=== PATIENT | female | born 1980 | race Caucasian/White ===

== ENCOUNTER → 2017-08-03 | Outpatient (CLI) | payer MEDICARE, OTHER ==
[~2017-08-03] MED LIST: ALBU8I INH; ALPR0.5T3 PO; CLOZ100T3 PO; PENI250T59 PO; RANI150T PO
== END ==
LOC: CDED 10:09
PROVIDERS: ATTEND Family Medicine
DX: O24.111 Pre-existing type 2 diabetes mellitus, in pregnancy, first trimester (principal)
CPT/HCPCS: 97802

== ENCOUNTER → 2017-10-17 | Outpatient (CLI) | payer MEDICARE, OTHER | LOC: HPND 09:45 | PROVIDERS: ATTEND Obstetrics & Gynecology | DX: O24.112 Pre-existing type 2 diabetes mellitus, in pregnancy, second trimester (principal); O99.342 Other mental disorders complicating pregnancy, second trimester; O09.512 Supervision of elderly primigravida, second trimester; O99.212 Obesity complicating pregnancy, second trimester; O44.42 Low lying placenta NOS or without hemorrhage, second trimester; E66.09 Other obesity due to excess calories; Z68.34 Body mass index [BMI] 34.0-34.9, adult; Z36.3 Encounter for antenatal screening for malformations | CPT/HCPCS: 76811 ==

== ENCOUNTER → 2017-11-14 | Outpatient (CLI) | payer MEDICARE, OTHER | LOC: HPND 10:13 | PROVIDERS: ATTEND Obstetrics & Gynecology | DX: O09.522 Supervision of elderly multigravida, second trimester (principal); O24.112 Pre-existing type 2 diabetes mellitus, in pregnancy, second trimester; O99.342 Other mental disorders complicating pregnancy, second trimester; O99.332 Smoking (tobacco) complicating pregnancy, second trimester | CPT/HCPCS: 76816; 76825; 76827; 93325 ==

== ENCOUNTER → 2017-12-18 | Outpatient (CLI) | payer MEDICARE, OTHER | LOC: HPND 10:03 | PROVIDERS: ATTEND Obstetrics & Gynecology | DX: O09.522 Supervision of elderly multigravida, second trimester (principal); O24.112 Pre-existing type 2 diabetes mellitus, in pregnancy, second trimester; O99.342 Other mental disorders complicating pregnancy, second trimester; O99.332 Smoking (tobacco) complicating pregnancy, second trimester | CPT/HCPCS: 76816 ==

== ENCOUNTER 2018-03-22 16:29 | Inpatient (IN) | payer MEDICARE, OTHER ==
[~2018-03-22] VITALS: Ht 154.9 cm; Wt 82.5 kg
[2018-03-22] MEDS ORDERED: CLOZ100T PO (16:39)
[2018-03-22] MEDS ORDERED: CEPHALEXIN MONOHYDRATE 500 MG CAP PO SCH (16:45)
--- NOTE | 2018-03-22 16:49 | PD ---
HPI Chief Complaint: Psychiatric Symptoms Time Seen by Provider: 16:33 Travel History International Travel<30 days: No Contact w/Intl Traveler<30days: No History of Present Illness HPI 37-year-old female with history of schizophrenia, is brought in under the [place] act after recent 10 days ago, and patient's unwillingness to shower or take care of herself, as well as her unwillingness to let anyone else take care of her baby. Patient states she is hearing voices. She denies suicidal or homicidal ideation. She denies any significant pain. Patient was on antibiotics for her incision. She cannot remember the name of them. She is allergic to haloperidol, and risperidone. PFSH Past Medical History Arthritis: Yes (spine) Asthma: Yes (per pt) Bipolar Disorder: Yes Anxiety: Yes Depression: Yes Cancer: No Cardiovascular Problems: Yes High Cholesterol: Yes Chest Pain: Yes Diabetes: Yes Diminished Hearing: No Endocrine: Yes Fibromyalgia: Yes Gastrointestinal Disorders: Yes (prone to constipation) GERD: Yes Headaches: No Hypertension: Yes (per pt) Immune Disorder: No Implanted Vascular Access Dvce: No Psychiatric: Yes (Prior hospitalization at [facility]) Respiratory: No Integumentary: Yes (HIDRADENITIS SUPPERATIVA SKIN DISEASE DIAGNOSED DRJESSIE) Immunizations Current: No Schizophrenia: Yes Seizures: No PNEUMOCCOCAL Vaccine (Year): 2 : 0 Past Surgical History Other Surgery: No Social History Alcohol Use: Yes (SOCIAL) Tobacco Use: Yes (2 PPD) Substance Use: No Allergies-Medications (Allergen,Severity, Reaction): Coded Allergies: haloperidol (Unverified Allergy, Severe, Itching, 03/22/18) PT STATES SHE IS NOT ALLERGIC risperidone (Unverified Allergy, Severe, Itching, 03/22/18) PT STATES SHE IS NOT ALLERGIC Reported Meds & Prescriptions Reported Meds & Active Scripts Active Reported Clozaril (Clozapine) 100 Mg Tab 100 Mg PO DAILY Physical Exam Narrative GENERAL: Patient appears unkempt and malodorous. SKIN: Warm and dry. Normal color. Normal turgor. No rash. Patient has a well -healing incision site without signs of dehiscence or cellulitis. HEAD: Atraumatic. Normocephalic. EYES: Pupils equal and round. No scleral icterus. No injection or drainage. ENT: No nasal bleeding or discharge. Mucous membranes pink and moist. Pharynx is clear. Airways patent NECK: Trachea midline. Supple and nontender per CARDIOVASCULAR: Regular rate and rhythm. RESPIRATORY: No accessory muscle use. Clear to auscultation. Breath sounds equal bilaterally. GASTROINTESTINAL: Abdomen soft, mild suprapubic tenderness., nondistended. Hepatic and splenic margins not palpable. MUSCULOSKELETAL: Extremities without clubbing, cyanosis, or edema. No obvious deformities. NEUROLOGICAL: Awake and alert. No obvious cranial nerve deficits. Motor grossly within normal limits. Five out of 5 muscle strength in the arms and legs. Normal speech. Data Data Last Documented VS Vital Signs Date Time Temp Pulse Resp B/P (MAP) Pulse Ox O2 Delivery O2 Flow Rate FiO2 03/22/18 19:13 98.8 105 20 150/89 (109) 98 Room Air Orders Orders Complete Blood Count With Diff (03/22/18 16:44) Comprehensive Metabolic Panel (03/22/18 16:44) Thyroid Stimulating Hormone (03/22/18 16:44) Urinalysis - C+S If Indicated (03/22/18 16:44) Psych Screen (03/22/18 16:44) Drug Screen, Random Urine (03/22/18 16:44) Alcohol (Ethanol) (03/22/18 16:44) Cephalexin (Keflex) (03/22/18 16:45) Urine Culture (03/22/18 19:20) Labs Laboratory Tests Test 03/22/18 16:49 03/22/18 19:20 White Blood Count 13.0 TH/MM3 Red Blood Count 4.40 MIL/MM3 Hemoglobin 14.2 GM/DL Hematocrit 41.0 % Mean Corpuscular Volume 93.2 FL Mean Corpuscular Hemoglobin 32.2 PG Mean Corpuscular Hemoglobin Concent 34.5 % Red Cell Distribution Width 13.7 % Platelet Count 459 TH/MM3 Mean Platelet Volume 6.7 FL Neutrophils (%) (Auto) 77.6 % Lymphocytes (%) (Auto) 15.8 % Monocytes (%) (Auto) 4.0 % Eosinophils (%) (Auto) 1.7 % Basophils (%) (Auto) 0.9 % Neutrophils # (Auto) 10.1 TH/MM3 Lymphocytes # (Auto) 2.1 TH/MM3 Monocytes # (Auto) 0.5 TH/MM3 Eosinophils # (Auto) 0.2 TH/MM3 Basophils # (Auto) 0.1 TH/MM3 CBC Comment DIFF FINAL Differential Comment Blood Urea Nitrogen 5 MG/DL Creatinine 0.71 MG/DL Random Glucose 162 MG/DL Total Protein 8.0 GM/DL Albumin 3.2 GM/DL Calcium Level 8.8 MG/DL Alkaline Phosphatase 128 U/L Aspartate Amino Transf (AST/SGOT) 27 U/L Alanine Aminotransferase (ALT/SGPT) 43 U/L Total Bilirubin 0.4 MG/DL Sodium Level 139 MEQ/L Potassium Level 3.8 MEQ/L Chloride Level 106 MEQ/L Carbon Dioxide Level 22.1 MEQ/L Anion Gap 11 MEQ/L Estimat Glomerular Filtration Rate 94 ML/MIN Thyroid Stimulating Hormone 3rd Gen 0.536 uIU/ML Ethyl Alcohol Level LESS THAN 3 MG/DL Urine Color LIGHT-RED Urine Turbidity CLEAR Urine pH 6.0 Urine Specific [place] 1.019 Urine Protein 100 mg/dL Urine Glucose (UA) NEG mg/dL Urine Ketones 150 mg/dL Urine Occult Blood LARGE Urine Nitrite NEG Urine Bilirubin NEG Urine Urobilinogen 2.0 MG/DL Urine Leukocyte Esterase SMALL Urine RBC /hpf Urine WBC 107 /hpf Urine Squamous Epithelial Cells 2 /hpf Microscopic Urinalysis Comment CULTURE INDICATED Urine Opiates Screen NEG Urine Barbiturates Screen NEG Urine Amphetamines Screen NEG Urine Benzodiazepines Screen NEG Urine Cocaine Screen NEG Urine Cannabinoids Screen NEG MDM Medical Decision Making Medical Screen Exam Complete: Yes Emergency Medical Condition: Yes Differential Diagnosis Bipolar disorder. Schizophrenia. . UTI. incision cellulitis. Narrative Course The patient appears medically stable at time of exam. Patient is showered and cleansed. Labs ordered including CBC, CMP, urinalysis as well as psychiatric labs. CBC is unremarkable. CMP is normal. Urinalysis is obvious for urinary tract infection. Patient started on Keflex 500 mg 3 times daily for 7 days. Patient is medically cleared for psychiatric evaluation. Diagnosis Primary Impression: Urinary tract infection Qualified Codes: N30.01 - Acute cystitis with hematuria Condition: Stable Wiliam Fairbanks March 22, 2018 16:49
[2018-03-22 16:58] LABS: AUTOMATED NEUTROPHIL # 10.1 TH/MM3 (1.8-7.7); BASOPHIL # 0.1 TH/MM3 (0-0.2); BASOPHIL % 0.9 % (0.0-2.0); EOSINOPHIL # 0.2 TH/MM3 (0-0.4); EOSINOPHIL % 1.7 % (0.0-4.0); HEMOGLOBIN 14.2 GM/DL (11.6-15.3); LYMPH % 15.8 % (9.0-44.0); LYMPHOCYTE # 2.1 TH/MM3 (1.0-4.8); MEAN CELL VOLUME 93.2 FL (80.0-100.0); MEAN CORPUSCULAR HEMOGLOBIN 32.2 PG (27.0-34.0); MEAN CORPUSCULAR HGB CONC 34.5 % (32.0-36.0); MEAN PLATELET VOLUME 6.7 FL (7.0-11.0); MONOCYTE # 0.5 TH/MM3 (0-0.9); NEUT % 77.6 % (16.0-70.0); PLATELET COUNT 459 TH/MM3 (150-450); RED CELL DISTRIBUTION WIDTH 13.7 % (11.6-17.2)
[2018-03-22 17:26] LABS: ALBUMIN 3.2 GM/DL (3.4-5.0); ALT (GPT) 43 U/L (10-53); AST (GOT) 27 U/L (15-37); BICARBONATE 22.1 MEQ/L (21.0-32.0); BLOOD UREA NITROGEN 5 MG/DL (7-18); CALCIUM 8.8 MG/DL (8.5-10.1); CHLORIDE 106 MEQ/L (98-107); CREATININE 0.71 MG/DL (0.50-1.00); GLOMERULAR FILTRATION RATE 94 ML/MIN (>89); GLUCOSE,RANDOM 162 MG/DL (74-106); SODIUM (NA) 139 MEQ/L (136-145)
[2018-03-22 17:36] LABS: ALKALINE PHOSPHATASE 128 U/L (45-117); TOTAL BILIRUBIN ADULT 0.4 MG/DL (0.2-1.0)
[2018-03-22 19:13] VITALS: BP 150/89; PULSE 105; RESP 20; TEMP 98.8; O2SAT 98
[2018-03-22 19:52] LABS: BILIRUBIN, URINE NEG (NEG); BLOOD, URINE LARGE (NEG); GLUCOSE,URINE NEG (NEG); KETONE, URINE 150 mg/dL (NEG); NITRITE,URINE NEG (NEG); SQUAMOUS EPITHELIAL CELL URINE 2 /hpf (0-5); URINE LEUKOCYTE ESTERASE SMALL (NEG)
[2018-03-22 20:02] LABS: URINE COLOR LIGHT-RED (YELLW/STRAW)
[2018-03-22] MEDS ORDERED: CEPH-460 PO (20:36)
[2018-03-22 21:50] VITALS: BP 124/69; PULSE 83; RESP 18; TEMP 98.7; O2SAT 96
[2018-03-22 22:00] VITALS: BP 120/76; PULSE 89; RESP 20; TEMP 98.4; O2SAT 98
[2018-03-22] MEDS ORDERED: MAGNESIUM HYDROXIDE SUSP 30 ML CUP PO PRN (22:00)
[2018-03-22] MEDS ORDERED: LORazepam 2 MG/ML VIAL IM PRN (22:00)
[2018-03-22] MEDS ORDERED: ALUMINUM/MAGNESIUM/SIMETH 30 ML CUP PO PRN (22:00)
[2018-03-22] MEDS ORDERED: diphenhydrAMINE HCL 50 MG/ML VIAL - HS PRN IM (22:00)
[2018-03-23] MEDS: LORazepam 1 MG TAB PO PRN (00:28)
[2018-03-23] MEDS: diphenhydrAMINE HCL 50 MG CAP - HS PRN PO ×2 (01:54→21:25)
[2018-03-23] MEDS ORDERED: CEPHALEXIN MONOHYDRATE 500 MG CAP PO SCH (06:00)
[2018-03-23] MEDS: CEPHALEXIN MONOHYDRATE 500 MG CAP PO SCH ×3 (06:16→21:26)
[2018-03-23 06:39] VITALS: BP 102/66; PULSE 80; RESP 16; TEMP 98.3; O2SAT 99
[2018-03-23] MEDS ORDERED: cloZAPine 100 MG TAB PO SCH ×2 (09:00→21:00)
[2018-03-23] MEDS: NICOTINE 21 MG/24 HR PATCH T-DERMAL SCH (09:00)
--- NOTE | 2018-03-23 15:20 | HHI.HP ---
Provisional Diagnosis Admission Date March 22, 2018 at 21:44 [place] I. Schizophrenia, PTSD [place] II. deferred [place] III. DM, post [place] IV. Patient developed psychosis [place] V. 37 Certification of Person's Competence To Provide Express and Informed Consent I have personally examined Jada Rae , a person being served at [facility] on, March 23, 2018 14:58. Express and informed consent means consent voluntarily given in writing, by a competent person, after sufficient explanation and disclosure of the subject matter involved to enable the person to make a knowing and willful decision without any element of force, fraud, deceit, duress, or other form of constraint or coercion. This person is 18 years of age or older, is not now known to be incompetent to consent to treatment with a guardian advocate, and does not have a health care surrogate or proxy currently making medical treatment decisions. I have found this person to be one of the following: [] Competent to provide express and informed consent, as defined above, for voluntary admission to this facility and is competent to provide express and informed consent for treatment. He/she has the consistent capacity to make well reasoned, willful, and knowing decisions concerning his or her medical or mental health treatment. The person fully and consistently understands the purpose of the admission for examination/placement and is fully capable of personally exercising all rights assured under [place] Incompetent to provide express and informed consent to voluntary admission, and this is incompetent to provide express and informed consent to treatment. The person must be transferred to involuntary status and a petition for a guardian advocate filed with the Circuit Court. [x] Refusing to provide express and informed consent to voluntary admission but is competent to provide express and informed consent for treatment. The person must be discharged or transferred to involuntary status. Form shall be completed within 24 hours of a person's arrival at the receiving facility and filed in the clinical record of each person: 1. Admitted on a voluntary basis 2. Permitted to provide express and informed consent to his/her own treatment 3. Allowed to transfer from involuntary to voluntary status 4. Prior to permitting a person to consent to his or her own treatment after having been previously found incompetent to consent to treatment. History of Present Illness Capacity: Has Capacity HPI The patient is a 37-year-old woman, domiciled with her parents in [place], single, unemployed, supported by [facility], with an extensive psychiatric history of schizophrenia, PTSD, about 7 psychiatric hospitalizations , last hospitalization was here in [place] in 2014, about 3 previous suicide attempts by overdosing, outpatient psychiatric care in [facility] [facility] [place], she is not clozapine 100 mg daily, she has medical history of diabetes, who was brought in under the [place] act after recent 12 days ago, and patient's unwillingness to shower or take care of herself, as well as her unwillingness to let anyone else take care of her baby. Patient states she is hearing voices. She denies suicidal or homicidal ideation. She denies any significant pain. Patient was on antibiotics for her incision. She cannot remember the name of them. She is allergic to haloperidol, and risperidone. The patient was found with a moderate UTI in the ER and was a started in Keflex 500 mg every 8 hours. EMR was reviewed. Collateral information from her mother Yolanda Rae, , was obtained. On psychiatric evaluation the patient is found in her bed, she is poorly cooperative, answer questions with redirection. Patient initially states that she does not remember the reason she is hospitalized. Patient reports feeling very tired and depressed. She says that she feels that she is . "I have been dying over and over". The patient has a very flat affect, blocking thought , respiratory speech. When I asked her directly about her baby, she says that her mother sent her here "because I was trying to defend my baby from Demons and evil spinitis". She states that she lost her bed "I was looking for the baby, but I could not find it, I know that the demons took him with them". At this moment the patient denies suicidal and homicidal ideation, she denies visual and auditory hallucinations. Which it seems to be internally preoccupied , suspicious, talking to herself. Mother contacted by phone, explains that the patient was at baseline during the whole , taking her medications, stable, but 2 or 3 days after delivery the patient started to become more seclusive, paranoid and talk nonsense. Her mother became very scared when the patient started to say that she could not see the baby and what she was seeing was a yusra with a plastic neck. He states that the patient has been compliant with her medication all the time, she denies that the patient could be using any drugs or alcohol. Review of Systems Constitutional: DENIES: Diaphoretic episodes, Fatigue, Fever, Weight gain, Weight loss, Chills, Dizziness, Change in appetite, Night Sweats Endocrine: DENIES: Abnorml menstrual pattern, Heat/cold intolerance, Polydipsia , Polyuria, Polyphagia Eyes: DENIES: Blurred vision, Diplopia, Eye inflammation, Eye pain, Vision loss , Photosensitivity, Double Vision Ears, nose, mouth, throat: DENIES: Tinnitus, Hearing loss, Vertigo, Nasal discharge, Oral lesions, Throat pain, Hoarseness, Ear Pain, Running Nose, Epistaxis, Sinus Pain, Toothache, Odynophagia Respiratory: DENIES: Apneas, Cough, Snoring, Wheezing, Hemoptysis, Sputum production, Shortness of breath Cardiovascular: DENIES: Chest pain, Palpitations, Syncope, Dyspnea on Exertion , PND, Lower Extremity Edema, Orthopnea, Claudication Gastrointestinal: DENIES: Abdominal pain, Black stools, Bloody stools, Constipation, Diarrhea, Nausea, Vomiting, Difficulty Swallowing, Anorexia Genitourinary: DENIES: Abnormal vaginal bleeding, Dysmenorrhea, Dyspareunia, Sexual dysfunction, Urinary frequency, Urinary incontinence, Urgency, Hematuria , Dysuria, Nocturia, Vaginal discharge Musculoskeletal: DENIES: Joint pain, Muscle aches, Stiffness, Joint Swelling, Back pain, Neck pain Integumentary: DENIES: Abnormal pigmentation, Pruritus, Rash, Nail changes, Breast masses, Breast skin changes, Nipple discharge Hematologic/lymphatic: DENIES: Bruising, Lymphadenopathy Immunologic/allergic: DENIES: Eczema, Urticaria Neurologic: DENIES: Abnormal gait, Headache, Localized weakness, Paresthesias, Seizures, Speech Problems, Tremor, Poor Balance Psychiatric: COMPLAINS OF: Hallucinations, Agitation, Delusions, DENIES: Anxiety, Confusion, Mood changes, Depression, Suicidal Ideation, Homicidal Ideation Substance Abuse History Drugs/Alcohol past 12 months Patient denies the use of illegal drugs and alcohol Past Family Social History Coded Allergies: haloperidol (Unverified Allergy, Severe, Itching, 03/22/18) PT STATES SHE IS NOT ALLERGIC risperidone (Unverified Allergy, Severe, Itching, 03/22/18) PT STATES SHE IS NOT ALLERGIC Active Scripts Cephalexin (Keflex) 500 Mg Cap, 500 MG PO Q8H for Infection, #21 CAP 0 Refills Prov:Gus Lawson MD 03/22/18 Reported Medications Clozapine (Clozaril) 100 Mg Tab, 100 MG PO DAILY for Schizophrenia, TAB 0 Refills 03/22/18 Current Medications Medications (Trade) Dose Ordered Sig/Myriam Route Start Time Stop Time Status Last Admin (Ativan) 1 mg Q6H PRN PO 03/22/18 22:00 03/23/18 00:28 (Ativan Inj) 1 mg Q6H PRN IM 03/22/18 22:00 (Benadryl) 50 mg HS PRN PO 03/22/18 22:00 03/23/18 01:54 (Benadryl Inj) 50 mg HS PRN IM 03/22/18 22:00 (Tylenol) 650 mg Q4H PRN PO 03/22/18 22:00 (Milk Of Magnesia Liq) 30 ml DAILY PRN PO 03/22/18 22:00 (Mag-Al Plus Susp Liq) 30 ml Q6H PRN PO 03/22/18 22:00 (Habitrol 21 Mg Patch.24 Hr) 1 patch DAILY T-DERMAL 03/23/18 09:00 Miscellaneous Information 1 HS T-DERMAL 03/23/18 21:00 (Clozaril) 100 mg DAILY PO 03/23/18 09:00 03/23/18 10:33 (Keflex) 500 mg Q8H PO 03/23/18 06:00 03/23/18 14:25 Family Psych History No family psychiatric history Social History Patient was born and raised in [place], she lives in [place] with her parents, she is single, unemployed, supported by [employer], her highest level of education is 11th grade Patient's Strengths (min. 2) Family support, outpatient psychiatric Physical Exam Psychomotor retardation noted, no EPS, no stiffness, no catatonic symptoms Vital Signs Vital Signs Date Time Temp Pulse Resp B/P (MAP) Pulse Ox O2 Delivery O2 Flow Rate FiO2 03/23/18 06:39 98.3 80 16 102/66 (78) 99 03/22/18 21:50 Room Air Lab Results Test 03/22/18 16:49 03/22/18 19:20 White Blood Count 13.0 TH/MM3 Red Blood Count 4.40 MIL/MM3 Hemoglobin 14.2 GM/DL Hematocrit 41.0 % Mean Corpuscular Volume 93.2 FL Mean Corpuscular Hemoglobin 32.2 PG Mean Corpuscular Hemoglobin Concent 34.5 % Red Cell Distribution Width 13.7 % Platelet Count 459 TH/MM3 Mean Platelet Volume 6.7 FL Neutrophils (%) (Auto) 77.6 % Lymphocytes (%) (Auto) 15.8 % Monocytes (%) (Auto) 4.0 % Eosinophils (%) (Auto) 1.7 % Basophils (%) (Auto) 0.9 % Neutrophils # (Auto) 10.1 TH/MM3 Lymphocytes # (Auto) 2.1 TH/MM3 Monocytes # (Auto) 0.5 TH/MM3 Eosinophils # (Auto) 0.2 TH/MM3 Basophils # (Auto) 0.1 TH/MM3 CBC Comment DIFF FINAL Differential Comment Blood Urea Nitrogen 5 MG/DL Creatinine 0.71 MG/DL Random Glucose 162 MG/DL Total Protein 8.0 GM/DL Albumin 3.2 GM/DL Calcium Level 8.8 MG/DL Alkaline Phosphatase 128 U/L Aspartate Amino Transf (AST/SGOT) 27 U/L Alanine Aminotransferase (ALT/SGPT) 43 U/L Total Bilirubin 0.4 MG/DL Sodium Level 139 MEQ/L Potassium Level 3.8 MEQ/L Chloride Level 106 MEQ/L Carbon Dioxide Level 22.1 MEQ/L Anion Gap 11 MEQ/L Estimat Glomerular Filtration Rate 94 ML/MIN Thyroid Stimulating Hormone 3rd Gen 0.536 uIU/ML Ethyl Alcohol Level LESS THAN 3 MG/DL Urine Color LIGHT-RED Urine Turbidity CLEAR Urine pH 6.0 Urine Specific [place] 1.019 Urine Protein 100 mg/dL Urine Glucose (UA) NEG mg/dL Urine Ketones 150 mg/dL Urine Occult Blood LARGE Urine Nitrite NEG Urine Bilirubin NEG Urine Urobilinogen 2.0 MG/DL Urine Leukocyte Esterase SMALL Urine RBC /hpf Urine WBC 107 /hpf Urine Squamous Epithelial Cells 2 /hpf Microscopic Urinalysis Comment CULTURE INDICATED Urine Opiates Screen NEG Urine Barbiturates Screen NEG Urine Amphetamines Screen NEG Urine Benzodiazepines Screen NEG Urine Cocaine Screen NEG Urine Cannabinoids Screen NEG Date/Time Source Procedure Growth Status 03/22/18 19:20 Urine Clean Catch Urine Culture - Preliminary NO GROWTH IN 24 HOURS. Resulted Mental Status Examination Appearance: Appropriate Consciousness: Alert Orientation: x4 Motor Activity: Normal gait Speech: Unremarkable Language: Adequate Fund of Knowledge: Adequate Attention and Concentration: Adequate Memory: Unremarkable Mood: Irritable Affect: Flat Thought Process & Associations: Loose associations, Disorganized Thought Content: Bizarre thinking, Thought blocking, Delusional Hallucination Type: Auditory Delusion Type: Bizarre, Paranoid Suicidal Ideation: No Suicidal Plan: No Suicidal Intention: No Homicidal Ideation: No Homicidal Plan: No Homicidal Intention: No Insight: Poor Judgment: Poor Assessment & Plan Problem List: (1) Schizophrenia ICD Codes: F20.9 - Schizophrenia, unspecified Assessment & Plan: On psychiatric evaluation the patient presents disorganized , internally stimulated, suspicious, reports hearing voices, seeing Demons around her baby. As per mother, the psychotic decompensation started around day 2 . This is a patient with an extensive psychiatric history of schizophrenia, multiple psychiatric hospitalizations, suicide attempts, she has been into clozapine 100 mg daily. Given the level of psychosis presented to my evaluation the patient meets criteria for involuntary psychiatric admission. I will increase Clozapine to 50 mg in the morning and 100 mg at bedtime. Will consult psychiatry for second opinion. Will consult medicine to give recommendation regarding untreated diabetes. general warehouse worker intervention for psychosocial assessment, individual and group therapies, to coordinate safe discharge. Brief supportive psychotherapy and psychoeducation provided to patient. Assessment & Plan Estimated LOS: Mat Ziegler MD March 23, 2018 15:20
[2018-03-23] MEDS: REMOVE OLD NICOTINE PATCH T-DERMAL SCH (21:00)
[2018-03-24 05:23] VITALS: BP 125/75; PULSE 92; RESP 16; TEMP 98.1; O2SAT 98
[2018-03-24] MEDS: CEPHALEXIN MONOHYDRATE 500 MG CAP PO SCH ×3 (05:31→21:21)
[2018-03-24] MEDS: NICOTINE 21 MG/24 HR PATCH T-DERMAL SCH (09:00)
[2018-03-24] MEDS: cloZAPine 25 MG TAB PO SCH (09:43)
[2018-03-24] MEDS ORDERED: GLUCAGON 1 MG/ML VIAL OTHER PRN (10:30)
[2018-03-24] MEDS ORDERED: DEXTROSE 50% IN WATER 50 ML VIAL(D50) IV PUSH PRN (10:30)
--- NOTE | 2018-03-24 10:34 | PD.CONS ---
HPI Service [facility] Hospitalists Consult Requested By Dr. Franco Reason for Consult Diabetes without treatment Primary Care Physician Terrell Black MD Diagnoses: History of Present Illness Patient is a 37-year-old female with past medical history of asthma, schizophrenia, PTSD is admitted under the [facility] psychiatric service. Apparently she was putting under [place] act after a about 11 days ago. It appears that patient was not taking care of herself and she would not let anyone take care of her baby. Apparently she was also hearing voices. Well brought to the emergency room she was found to have a urinary tract infection was started on Keflex 500 mg every 8 hours. Patient does look a little bit paranoid when I speak with her. She gets frustrated if I turned to the nurse in a ch[facility] question. She also stated that she does not like people standing over her and asking questions. She denies any pain, nausea or vomiting, she is okay with me examining her. The hospitalist team was consulted for "diabetes without treatment " When I asked if I could examine her incision, she asked me "did have a baby? ". Then she asked for a mirror so she could see her incision Review of Systems Except as stated in HPI: all other systems reviewed are Neg Past Family Social History Allergies: Coded Allergies: haloperidol (Unverified Allergy, Severe, Itching, 03/22/18) PT STATES SHE IS NOT ALLERGIC risperidone (Unverified Allergy, Severe, Itching, 03/22/18) PT STATES SHE IS NOT ALLERGIC Past Medical History Asthma, schizophrenia, PTSD, ? Diabetes although patient does not report this. Past Surgical History Reported Medications Reported Meds & Active Scripts Active Keflex (Cephalexin) 500 Mg Cap 500 Mg PO Q8H Reported Clozaril (Clozapine) 100 Mg Tab 100 Mg PO DAILY Family History When asked about her family history she says she does not know her mom and dad and that they "suck" Social History She admits to smoking 3 packs a day for a febrile illness. Denies any alcohol use or illegal drug use Physical Exam Vital Signs Vital Signs Date Time Temp Pulse Resp B/P (MAP) Pulse Ox O2 Delivery O2 Flow Rate FiO2 03/24/18 05:23 98.1 92 16 125/75 (92) 98 Physical Exam GENERAL: Laying in bed, appears somewhat paranoid however does answer questions. SKIN: incision healing well. There is a small area of dehiscence on the left however it is not deep. There is no drainage or any signs of infection HEAD: Atraumatic. Normocephalic. No temporal or scalp tenderness. EYES: Extraocular motions intact. No scleral icterus. No injection or drainage. ENT: Nose without drainage. Airway patent. NECK: Trachea midline. CARDIOVASCULAR: Regular rate and rhythm without murmurs. RESPIRATORY: Clear to auscultation. Breath sounds equal bilaterally. No wheezes GASTROINTESTINAL: Abdomen soft, non-tender, nondistended. No guarding. MUSCULOSKELETAL: Extremities without edema. NEUROLOGICAL/psych: Awake and alert. Normal speech. Moves all 4 extremities and able to sit up on her bed when asked. She does appear somewhat paranoid Laboratory Date/Time Source Procedure Growth Status 03/22/18 19:20 Urine Clean Catch Urine Culture - Preliminary NO GROWTH IN 24 HOURS. Resulted Result Diagram: 03/22/18 1649 03/22/18 1649 Imaging Assessment and Plan Assessment and Plan Schizophrenia: Management per psychiatry UTI: Currently being treated with keflex, thus far urine culture negative 24 hours. Follow-up cultures until final Questionable diabetes: Patient did not report a history of diabetes to me however she is not the best historian. Monitor blood sugars for now. Check a hemoglobin A1c. start a low-dose insulin sliding scale. on a diabetic diet. If HbA1C wnl, will d/c Low dose ISS. Asthma: stable. Incision healing well. very small area of dehiscence but appears to be healing and not infected. monitor. Antonina Boo MD March 24, 2018 10:34
[2018-03-24] MEDS: INSULIN ASPART SUPPLEMENTAL SCALE SQ SCH ×3 (12:00→21:00)
--- NOTE | 2018-03-24 14:54 | PD.PSY.CON ---
Provisional Diagnosis Admission Date March 22, 2018 at 21:[address] [place] [address] I. 1. Schizophrenia, undifferentiated type, acute exacerbation in state [place] II. Deferred History of Present Illness Service Psychiatry Consult Requested By Dr. Donahue Reason for Consult Second opinion for involuntary psychiatric hospitalization Primary Care Physician Terrell Black MD HPI From Dr. Donahue's H&P: The patient is a 37-year-old woman, domiciled with her parents in [place], single, unemployed, supported by [facility], with an extensive psychiatric history of schizophrenia, PTSD, about 7 psychiatric hospitalizations , last hospitalization was here in [place] in 2014, about 3 previous suicide attempts by overdosing, outpatient psychiatric care in [facility], she is not clozapine 100 mg daily, she has medical history of diabetes, who was brought in under the Russell act after recent 12 days ago, and patient's unwillingness to shower or take care of herself, as well as her unwillingness to let anyone else take care of her baby. Patient states she is hearing voices. She denies suicidal or homicidal ideation. She denies any significant pain. Patient was on antibiotics for her incision. She cannot remember the name of them. She is allergic to haloperidol, and risperidone. The patient was found with a moderate UTI in the ER and was a started in Keflex 500 mg every 8 hours. EMR was reviewed. Collateral information from her mother Yolanda Rae, , was obtained. On psychiatric evaluation the patient is found in her bed, she is poorly cooperative, answer questions with redirection. Patient initially states that she does not remember the reason she is hospitalized. Patient reports feeling very tired and depressed. She says that she feels that she is . "I have been dying over and over". The patient has a very flat affect, blocking thought , respiratory speech. When I asked her directly about her baby, she says that her mother sent her here "because I was trying to defend my baby from Demons and evil spinitis". She states that she lost her bed "I was looking for the baby, but I could not find it, I know that the demons took him with them". At this moment the patient denies suicidal and homicidal ideation, she denies visual and auditory hallucinations. Which it seems to be internally preoccupied , suspicious, talking to herself. Mother contacted by phone, explains that the patient was at baseline during the whole , taking her medications, stable, but 2 or 3 days after delivery the patient started to become more seclusive, paranoid and talk nonsense. Her mother became very scared when the patient started to say that she could not see the baby and what she was seeing was a yusra with a plastic neck. He states that the patient has been compliant with her medication all the time, she denies that the patient could be using any drugs or alcohol. On my examination today, 03/24: Patient seen and examined with nurse. Chart reviewed. Case discussed with nursing staff. On my examination today, the patient presents as irritable. She is responding to internal stimuli. She remains paranoid. She makes mention of the Devil and says that she is "hoping he would comer here; I've been waiting for him." Mood is "fine." She denies any suicidal ideation. Denies any homicidal ideation. Denies any urge to injure or kill . Patient seems decidedly unreliable to contract for safety in her present state however. Remainder of the psychiatric ROS is negative. No acute physical complaints. Past psychiatric history: Patient has a history of schizophrenia and PTSD. She follows at [facility] with Jacob Castañeda. She endorses previous suicide attempt by overdose and makes allusion to some sort of violent history. Family history: Significant for schizophrenia per patient. Chemical dependency history: Patient denies any abuse of drugs or alcohol. Social history: Patient is disabled. She has 11 grade education. She is single and has recently given to a son. Review of Systems ROS Limitations: Psychotic, Poor Historian Except as stated in HPI: all other systems reviewed are Neg Past Family Social History Coded Allergies: haloperidol (Unverified Allergy, Severe, Itching, 03/22/18) PT STATES SHE IS NOT ALLERGIC risperidone (Unverified Allergy, Severe, Itching, 03/22/18) PT STATES SHE IS NOT ALLERGIC Past Medical History See electronic medical record Active Scripts Cephalexin (Keflex) 500 Mg Cap, 500 MG PO Q8H for Infection, #21 CAP 0 Refills Prov:Gus Lawson MD 03/22/18 Reported Medications Clozapine (Clozaril) 100 Mg Tab, 100 MG PO DAILY for Schizophrenia, TAB 0 Refills 03/22/18 Current Medications Medications (Trade) Dose Ordered Sig/Myriam Route Start Time Stop Time Status Last Admin (Ativan) 1 mg Q6H PRN PO 03/22/18 22:00 03/23/18 00:28 (Ativan Inj) 1 mg Q6H PRN IM 03/22/18 22:00 (Benadryl) 50 mg HS PRN PO 03/22/18 22:00 03/23/18 21:25 (Benadryl Inj) 50 mg HS PRN IM 03/22/18 22:00 (Tylenol) 650 mg Q4H PRN PO 03/22/18 22:00 (Milk Of Magnesia Liq) 30 ml DAILY PRN PO 03/22/18 22:00 (Mag-Al Plus Susp Liq) 30 ml Q6H PRN PO 03/22/18 22:00 (Habitrol 21 Mg Patch.24 Hr) 1 patch DAILY T-DERMAL 03/23/18 09:00 Miscellaneous Information 1 HS T-DERMAL 03/23/18 21:00 (Keflex) 500 mg Q8H PO 03/23/18 06:00 03/24/18 05:31 (Clozaril) 100 mg HS PO 03/23/18 21:00 03/23/18 21:00 (Clozaril) 50 mg DAILY PO 03/24/18 09:00 03/24/18 09:43 (D50w (Vial) Inj) 50 ml UNSCH PRN IV PUSH 03/24/18 10:30 (Glucagon Inj) 1 mg UNSCH PRN OTHER 03/24/18 10:30 (NovoLOG SUPPLEMENTAL SCALE) 1 ACHS SLIDING SCALE SQ 03/24/18 12:00 Patient's Strengths (min. 2) In a monitored setting. Verbally fluent. Physical Exam Physical exam completed by ED provider. On my examination today, patient appears to be in no acute physical distress. No motor abnormalities noted. Labs and vitals reviewed: Vital Signs Vital Signs Date Time Temp Pulse Resp B/P (MAP) Pulse Ox O2 Delivery O2 Flow Rate FiO2 03/24/18 05:23 98.1 92 16 125/75 (92) 98 03/22/18 21:50 Room Air Lab Results Date/Time Source Procedure Growth Status 03/22/18 19:20 Urine Clean Catch Urine Culture - Final NO GROWTH IN 48 HOURS. Complete Laboratory Tests Test 03/22/18 16:49 03/22/18 19:20 White Blood Count 13.0 TH/MM3 Red Blood Count 4.40 MIL/MM3 Hemoglobin 14.2 GM/DL Hematocrit 41.0 % Mean Corpuscular Volume 93.2 FL Mean Corpuscular Hemoglobin 32.2 PG Mean Corpuscular Hemoglobin Concent 34.5 % Red Cell Distribution Width 13.7 % Platelet Count 459 TH/MM3 Mean Platelet Volume 6.7 FL Neutrophils (%) (Auto) 77.6 % Lymphocytes (%) (Auto) 15.8 % Monocytes (%) (Auto) 4.0 % Eosinophils (%) (Auto) 1.7 % Basophils (%) (Auto) 0.9 % Neutrophils # (Auto) 10.1 TH/MM3 Lymphocytes # (Auto) 2.1 TH/MM3 Monocytes # (Auto) 0.5 TH/MM3 Eosinophils # (Auto) 0.2 TH/MM3 Basophils # (Auto) 0.1 TH/MM3 CBC Comment DIFF FINAL Differential Comment Blood Urea Nitrogen 5 MG/DL Creatinine 0.71 MG/DL Random Glucose 162 MG/DL Total Protein 8.0 GM/DL Albumin 3.2 GM/DL Calcium Level 8.8 MG/DL Alkaline Phosphatase 128 U/L Aspartate Amino Transf (AST/SGOT) 27 U/L Alanine Aminotransferase (ALT/SGPT) 43 U/L Total Bilirubin 0.4 MG/DL Sodium Level 139 MEQ/L Potassium Level 3.8 MEQ/L Chloride Level 106 MEQ/L Carbon Dioxide Level 22.1 MEQ/L Anion Gap 11 MEQ/L Estimat Glomerular Filtration Rate 94 ML/MIN Thyroid Stimulating Hormone 3rd Gen 0.536 uIU/ML Ethyl Alcohol Level LESS THAN 3 MG/DL Urine Color LIGHT-RED Urine Turbidity CLEAR Urine pH 6.0 Urine Specific [place] 1.019 Urine Protein 100 mg/dL Urine Glucose (UA) NEG mg/dL Urine Ketones 150 mg/dL Urine Occult Blood LARGE Urine Nitrite NEG Urine Bilirubin NEG Urine Urobilinogen 2.0 MG/DL Urine Leukocyte Esterase SMALL Urine RBC /hpf Urine WBC 107 /hpf Urine Squamous Epithelial Cells 2 /hpf Microscopic Urinalysis Comment CULTURE INDICATED Urine Opiates Screen NEG Urine Barbiturates Screen NEG Urine Amphetamines Screen NEG Urine Benzodiazepines Screen NEG Urine Cocaine Screen NEG Urine Cannabinoids Screen NEG ANC adequate for clozapine therapy. Mental Status Examination Appearance: Appropriate Consciousness: Alert Orientation: x4 Motor Activity: Normal gait, Other (No motor abnormalities noted) Speech: Unremarkable Language: Adequate Fund of Knowledge: Adequate Attention and Concentration: Adequate Memory: Unremarkable Mood: Irritable Affect: Irritable Thought Process & Associations: Loose associations, Disorganized Thought Content: Bizarre thinking, Thought blocking, Delusional Hallucination Type: Other (Internally stimulated) Delusion Type: Bizarre, Paranoid Suicidal Ideation: No (Unreliable to contract for safety) Suicidal Plan: No Suicidal Intention: No Homicidal Ideation: No Homicidal Plan: No Homicidal Intention: No Insight: Poor Judgment: Poor Assessment & Plan Problem List: (1) Schizophrenia ICD Codes: F20.9 - Schizophrenia, unspecified Assessment & Plan Given the circumstances of the patient's presentation here and her presentation on my examination today, I concur that the patient meets criteria for involuntary psychiatric hospitalization under the Russell act. I have completed the second opinion paperwork. Main concern here is self-care deficit as well as concern for psychosis with possible attendant risks to her . Titrate nighttime dose of clozapine to target psychosis: 125 mg at bedtime. Continue to monitor on the inpatient unit. Continue other medications and care as ordered. Discharge Planning As ordered by primary psychiatrist. Patient requires ongoing psychiatric hospitalization for medication change, impairment in reality construction, risk for decompensation in less restrictive setting. Problem Qualifiers (1) Schizophrenia: Qualified Codes: F20.3 - Undifferentiated schizophrenia Bart Cardozo MD March 24, 2018 14:54
[2018-03-24] MEDS: REMOVE OLD NICOTINE PATCH T-DERMAL SCH (21:00)
[2018-03-24] MEDS ORDERED: cloZAPine 100 MG TAB PO SCH (21:00)
[2018-03-24] MEDS ORDERED: cloZAPine 25 MG TAB PO SCH (21:00)
[2018-03-25] MEDS: CEPHALEXIN MONOHYDRATE 500 MG CAP PO SCH ×2 (06:13→15:19)
[2018-03-25 07:10] VITALS: BP 123/70; PULSE 90; RESP 16; TEMP 98; O2SAT 98
[2018-03-25] MEDS: INSULIN ASPART SUPPLEMENTAL SCALE SQ SCH ×4 (08:00→20:22)
[2018-03-25] MEDS: cloZAPine 25 MG TAB PO SCH ×2 (09:00→09:08)
[2018-03-25] MEDS: NICOTINE 21 MG/24 HR PATCH T-DERMAL SCH (09:00)
--- NOTE | 2018-03-25 14:37 | HHI.PR ---
Subjective Remarks Follow-up visit for schizophrenia, UTI and questionable diabetes. Spoke with nurse reports patient continues to refuse psych. medications. Patient is seen and examined in her room with nurse at bedside, she denies any fevers, chills, vomiting, diarrhea, SOB, or cough. She does report nauseas but states this is because her diet is not correct. She is very chatty with scattered thought process. Is asking if she will still have a period after she has had a baby. She denies any abdominal pain or discomfort. States she will not take psych medications in the morning because these are tranquilizers. She voices no other acute concerns. States "are you done now, why are you still looking at me". Objective Vitals Vital Signs Date Time Temp Pulse Resp B/P (MAP) Pulse Ox O2 Delivery O2 Flow Rate FiO2 03/25/18 07:10 98.0 90 16 123/70 (87 98 Result Diagram: 03/22/18 1649 03/22/18 1649 Objective Remarks GENERAL: Well developed female in NAD, appears paranoid. SKIN: incision healing well. There is a small area of dehiscence on the left side however it is not deep, no visible drainage, erythema, or warmth noted. HEAD: Atraumatic. Normocephalic. EYES: Extraocular motions intact. No scleral icterus. No injection or drainage. ENT: Airway patent. NECK: Trachea midline. CARDIOVASCULAR: Regular rate and rhythm without murmurs. RESPIRATORY: Clear to auscultation. Breath sounds equal bilaterally. No wheezes GASTROINTESTINAL: Abdomen soft, non-tender, nondistended. No guarding. MUSCULOSKELETAL: Extremities without edema. NEUROLOGICAL/psych: Awake and alert. Normal speech. Moves all 4 extremities. She does appear somewhat paranoid and irritable. A/P Assessment and Plan Schizophrenia: Management per psychiatry UTI -UA was grossly positive on p.o. Keflex, urine culture negative after 48 hours. Patient has been asymptomatic with no fevers. -Discontinue p.o. Keflex, discussed with patient, continue monitoring for symptoms. Questionable diabetes: -Poor historian, hemoglobin A1c pending. If HbA1C wnl, will d/c Low dose ISS. Asthma: stable. Incision healing well. very small area of dehiscence but appears to be healing and not infected. monitor. DVT prophylaxis-ambulation Discussed with , patient and nurse Debbie Stephens March 25, 2018 14:37
--- NOTE | 2018-03-25 17:45 | HHI.PYPN ---
Subjective Remarks Patient seen for follow, chart reviewed. Discussion nursing staff reported the patient refused medications this morning. Patient was found sitting in hospital bed noted to be talking to herself prior to entering the room. Patient to be very disorganized, responding to internal stimuli. Patient states that she feels that she has been living here in the hospital reports having auditory hallucinations but was unable to elaborate what hallucinations content. Patient states that she follows up with Dwight Elderaleena but noted to be jumping from topic to topic. Patient reports that having been eating recently but agrees to eat fish veggies and fruits. Patient states that she her sleep has been disturbed and has been "half and half". Patient was encouraged to comply with treatment which she agreed. Patient noted to be grossly disorganized at this time. Review of Systems Except as stated in HPI: all other systems reviewed are Neg Mental Status Examination Appearance: Appropriate Consciousness: Alert Orientation: x4 Motor Activity: Normal gait, Other (No motor abnormalities noted) Speech: Unremarkable Language: Adequate Fund of Knowledge: Adequate Attention and Concentration: Adequate Memory: Unremarkable Mood: Irritable Affect: Irritable Thought Process & Associations: Loose associations, Disorganized Thought Content: Bizarre thinking, Thought blocking, Delusional Hallucination Type: Auditory, Other (Internally stimulated) Delusion Type: Bizarre, Paranoid Suicidal Ideation: No (Unreliable to contract for safety) Suicidal Plan: No Suicidal Intention: No Homicidal Ideation: No Homicidal Plan: No Homicidal Intention: No Insight: Poor Judgment: Poor Results Labs Labs reviewed Date/Time Source Procedure Growth Status 03/22/18 19:20 Urine Clean Catch Urine Culture - Final NO GROWTH IN 48 HOURS. Complete Vitals/IOs Vital Signs Date Time Temp Pulse Resp B/P (MAP) Pulse Ox O2 Delivery O2 Flow Rate FiO2 03/25/18 07:10 98.0 90 16 123/70 (87) 98 03/22/18 21:50 Room Air Assessment & Plan Problem List: (1) Schizophrenia ICD Codes: F20.9 - Schizophrenia, unspecified Assessment & Plan Patient at this time continues to be grossly disorganized, grossly psychotic, responding to stimuli and having conversation was self. Patient refused medications this morning but did take medications in the evening. We will continue patient on 50 mg a.m. and increase to 150 mg at bedtime. The patient continues to refuse morning meds will move medication dose to the evening. Continue to encourage patient to maintain adequate nutritional fluid intake. Continue monitor mood and behavior. Discharge planning in progress. Justification for Cont. Inpt. At risk of further decompensation a lower level care. Discharge Planning Patient return back to her residence was psychiatrically stable. Problem Qualifiers (1) Schizophrenia: Qualified Codes: F20.3 - Undifferentiated schizophrenia Clay Pelletier MD March 25, 2018 17:45
[2018-03-25] MEDS: cloZAPine 100 MG TAB PO SCH (20:25)
[2018-03-25] MEDS: REMOVE OLD NICOTINE PATCH T-DERMAL SCH (21:00)
[2018-03-26 06:47] VITALS: BP 130/83; PULSE 119; RESP 18; TEMP 98.2; O2SAT 97
[2018-03-26] MEDS: INSULIN ASPART SUPPLEMENTAL SCALE SQ SCH ×4 (07:46→21:00)
[2018-03-26] MEDS: cloZAPine 25 MG TAB PO SCH ×2 (08:39→11:05)
[2018-03-26] MEDS: NICOTINE 21 MG/24 HR PATCH T-DERMAL SCH ×2 (08:40→09:00)
--- NOTE | 2018-03-26 11:38 | HHI.PYPN ---
Subjective Remarks Patient seen for follow, chart reviewed. Discussion nursing staff reported the patient less evening I became agitated which was spitting and kicking at staff continue to talk to self and refused medications in the morning. Patient was found participating groups today noted B, cooperative. Patient was able to recall events less evening which he stated that God was telling her that it was good be the end of the world and she was making preparations in the dayroom for the same and recalled having fight with someone and transferred to a higher acuity unit. Patient states that her mood has been "happy but sorrowful and she states she is sad about her life that questions whether her mother had adopted her or whether she was a biological child of her mother She continues to endorse auditory hallucinations of voices talking to each other. Patient was encouraged to adhere to treatment and agreed to take morning dose. Review of Systems Except as stated in HPI: all other systems reviewed are Neg Mental Status Examination Appearance: Appropriate Consciousness: Alert Orientation: x4 Motor Activity: Normal gait, Other (No motor abnormalities noted) Speech: Unremarkable Language: Adequate Fund of Knowledge: Adequate Attention and Concentration: Adequate Memory: Unremarkable Mood: Appropriate Affect: Irritable Thought Process & Associations: Loose associations, Disorganized (Less so today ) Thought Content: Bizarre thinking, Hallucinations, Thought blocking (Less so today), Delusional Hallucination Type: Auditory, Other (Internally stimulated) Delusion Type: Bizarre, Paranoid Suicidal Ideation: No (Unreliable to contract for safety) Suicidal Plan: No Suicidal Intention: No Homicidal Ideation: No Homicidal Plan: No Homicidal Intention: No Insight: Poor Judgment: Poor Results Labs Labs reviewed Test 03/26/18 06:28 Date/Time Source Procedure Growth Status 03/22/18 19:20 Urine Clean Catch Urine Culture - Final NO GROWTH IN 48 HOURS. Complete Vitals/IOs Vital Signs Date Time Temp Pulse Resp B/P (MAP) Pulse Ox O2 Delivery O2 Flow Rate FiO2 03/26/18 06:47 98.2 119 18 130/83 (99) 97 03/22/18 21:50 Room Air Assessment & Plan Problem List: (1) Schizophrenia ICD Codes: F20.9 - Schizophrenia, unspecified Assessment & Plan Patient at this time continues to have disorganization, perceptional services of auditory hallucinations but noted to be less disorganized today, continues to make loosening associations during interview. Patient agreed to take morning dose of clozapine therefore we will continue current treatment dose with possible titration for psychosis as needed. We will request wound care nurse consult for recent section incision. Continue monitor mood and behavior. Discharge planning in progress. Justification for Cont. Inpt. At risk for decompensation at lower level care. Discharge Planning Return back to residence when psychiatrically stable. Problem Qualifiers (1) Schizophrenia: Qualified Codes: F20.3 - Undifferentiated schizophrenia Clay Pelletier MD March 26, 2018 11:38
--- NOTE | 2018-03-26 13:07 | HHI.PR ---
Subjective Remarks Follow up for schizophrenia, questionable diabetes. The patient is seen with VALET RUNNER in room. The patient reports pain at site with mild clear drainage at lateral aspects of surgical site. She denies fevers/chills. Discussed with RN, reports minimal clear serous drainage from surgical site with minimal surrounding erythema due to irritation. The patient reports the surgical site rubs on her pants causing pain. She otherwise denies any other medical complaints including no chest pain, shortness of breath, polyuria, polydipsia, abdominal pain, nausea/vomiting, diarrhea, or urinary complaints. Objective Vitals Vital Signs Date Time Temp Pulse Resp B/P (MAP) Pulse Ox O2 Delivery O2 Flow Rate FiO2 03/26/18 06:47 98.2 119 18 130/83 (99) 97 Result Diagram: 03/22/18 1649 03/22/18 164 Objective Remarks GENERAL: Well-nourished, well-developed middle aged female patient in [facility]. SKIN: Warm and dry. surgical site under abdominal fold, healing well, does have 2 small areas of superficial dehiscence at lateral aspects of incision with minimal clear serous fluid drainage noted. HEENT: Normocephalic. Atraumatic. Pupils equal and round. Mucous membranes pink and moist. CARDIOVASCULAR: Regular rate and rhythm. No murmur appreciated. RESPIRATORY: No accessory muscle use. Clear to auscultation. Breath sounds equal bilaterally. GASTROINTESTINAL: Abdomen soft, non-tender, nondistended. Normoactive bowel sounds x4. MUSCULOSKELETAL: No obvious deformities. Extremities without clubbing, cyanosis , or edema. NEUROLOGICAL: Awake and alert. No obvious cranial nerve deficits. Motor grossly within normal limits. Moving all extremities spontaneously. Normal speech. PSYCHIATRIC: Odd mood and affect. Medications and IVs Current Medications Medications (Trade) Dose Ordered Sig/Myriam Route Start Time Stop Time Status Last Admin (Ativan) 1 mg Q6H PRN PO 03/22/18 22:00 03/23/18 00:28 (Ativan Inj) 1 mg Q6H PRN IM 03/22/18 22:00 03/25/18 17:03 (Benadryl) 50 mg HS PRN PO 03/22/18 22:00 03/23/18 21:25 (Benadryl Inj) 50 mg HS PRN IM 03/22/18 22:00 (Tylenol) 650 mg Q4H PRN PO 03/22/18 22:00 (Milk Of Magnesia Liq) 30 ml DAILY PRN PO 03/22/18 22:00 (Mag-Al Plus Susp Liq) 30 ml Q6H PRN PO 03/22/18 22:00 (Habitrol 21 Mg Patch.24 Hr) 1 patch DAILY T-DERMAL 03/23/18 09:00 03/26/18 09:00 Miscellaneous Information 1 HS T-DERMAL 03/23/18 21:00 (Clozaril) 50 mg DAILY PO 03/24/18 09:00 03/26/18 11:05 (D50w (Vial) Inj) 50 ml UNSCH PRN IV PUSH 03/24/18 10:30 (Glucagon Inj) 1 mg UNSCH PRN OTHER 03/24/18 10:30 (NovoLOG SUPPLEMENTAL SCALE) 1 ACHS SLIDING SCALE SQ 03/24/18 12:00 03/26/18 11:54 (Clozaril) 150 mg HS PO 03/25/18 21:00 03/25/18 20:25 A/P Assessment and Plan 37-year-old female with PMH of asthma, schizophrenia, PTSD,admitted to inpatient psychiatry under Russell Act, s/p 11days ago, reportedly patient was not taking care of herself, auditory hallucinations, and she would not let anyone take care of her baby. Schizophrenia: acute on chronic -Continue management per psychiatry UTI -UA was grossly positive on p.o. Keflex, urine culture negative after 48 hours. -Patient has been asymptomatic with no fevers. -Discontinued p.o. Keflex -Symptoms currently resolved Questionable diabetes: extremely poor historian, EMR reviewed, has hx of HgbA1c 9.5 in 2010, however repeat HgbA1c 5.7 in 2015 -hemoglobin A1c pending. -If HbA1C wnl, will d/c Low dose ISS. Asthma: chronic, stable. -albuterol inhaler prn , S/p : 2 weeks ago -Incision healing well. very small area of dehiscence but appears to be healing and not infected -Consult wound care -Discussed with RN, can apply ABD pad for now to protect incision from pant line, until wound care recommendations given DVT prophylaxis-ambulation Discharge Planning Awaiting HgbA1c results and wound care evaluation. Jolynn Pal PA-C March 26, 2018 1:07 pm
[2018-03-26] MEDS ORDERED: ALBUTEROL SULFATE 90 MCG/ACT HFA 8 GM INHALER INH PRN (14:45)
[2018-03-26 16:30] LABS: HEMOGLOBIN A1C 5.9 % (4.3-6.0)
[2018-03-26] MEDS: REMOVE OLD NICOTINE PATCH T-DERMAL SCH (21:00)
[2018-03-26] MEDS: cloZAPine 100 MG TAB PO SCH (21:03)
[2018-03-27 05:53] VITALS: BP 119/74; PULSE 103; RESP 16; TEMP 97.9; O2SAT 97
[2018-03-27] MEDS: INSULIN ASPART SUPPLEMENTAL SCALE SQ SCH ×3 (07:26→16:26)
[2018-03-27] MEDS: NICOTINE 21 MG/24 HR PATCH T-DERMAL SCH (08:31)
[2018-03-27] MEDS: cloZAPine 25 MG TAB PO SCH (08:31)
--- NOTE | 2018-03-27 12:56 | HHI.PYPN ---
Subjective Remarks Patient seen for follow, chart reviewed. Discussion nursing staff reported patient compliant with medications, wound care nurse evaluation pending, noted to be disheveled, continues to be noted to be talking to self. Patient was found sitting hospital bed noted B, cooperative. Patient reports sleeping well , her mood has been "terrible" she referring to feeling that she does not know how to take care of her baby as well as "my whole life". Patient continues report having auditory hallucinations telling her "God will help and protect me ". Patient noted to be disheveled was encouraged to maintain personal hygiene where she agreed to. Patient states she has not reached out or contacted her mother to inquire how her baby is doing and states that she does not want to speak to her at this time. Review of Systems Except as stated in HPI: all other systems reviewed are Neg Mental Status Examination Appearance: Appropriate Consciousness: Alert Orientation: x4 Motor Activity: Normal gait, Other (No motor abnormalities noted) Speech: Unremarkable Language: Adequate Fund of Knowledge: Adequate Attention and Concentration: Adequate Memory: Unremarkable Mood: Appropriate Affect: Irritable Thought Process & Associations: Loose associations (Lessening), Disorganized ( Less so today) Thought Content: Bizarre thinking, Hallucinations, Thought blocking (Less so today), Delusional (Lessening) Hallucination Type: Auditory, Other (Internally stimulated) Delusion Type: Bizarre, Paranoid Suicidal Ideation: No (Unreliable to contract for safety) Suicidal Plan: No Suicidal Intention: No Homicidal Ideation: No Homicidal Plan: No Homicidal Intention: No Insight: Poor Judgment: Poor Results Labs Date/Time Source Procedure Growth Status 03/22/18 19:20 Urine Clean Catch Urine Culture - Final NO GROWTH IN 48 HOURS. Complete Vitals/IOs Vital Signs Date Time Temp Pulse Resp B/P (MAP) Pulse Ox O2 Delivery O2 Flow Rate FiO2 03/27/18 05:53 97.9 103 16 119/74 (71) 97 Assessment & Plan Problem List: (1) Schizophrenia ICD Codes: F20.9 - Schizophrenia, unspecified Assessment & Plan Patient this time continues with acute psychosis endorsing auditory hallucinations and disorganized but appears to be lessening with patient having more appropriate responses to questions. Patient continues to have poor self hygiene was encouraged to shower today. Patient noncompliant with morning dose of clozapine but we will continue to increase to 50 mg a.m./200 mg at bedtime for psychosis. Continue rest of medications. Continue monitor mood and behavior. Discharge planning in progress. Justification for Cont. Inpt. At risk of further composition at lower level of care. Discharge Planning To be determined. Problem Qualifiers (1) Schizophrenia: Qualified Codes: F20.3 - Undifferentiated schizophrenia Clay Pelletier MD March 27, 2018 12:56
[2018-03-27 15:37] VITALS: BP 134/83; PULSE 126; RESP 18; TEMP 97.5; O2SAT 97
[2018-03-27] MEDS: REMOVE OLD NICOTINE PATCH T-DERMAL SCH (20:22)
[2018-03-27] MEDS ORDERED: cloZAPine 100 MG TAB PO SCH (21:00)
[2018-03-28 06:13] VITALS: BP 118/72; PULSE 101; RESP 16; TEMP 97.6; O2SAT 98
[2018-03-28] MEDS: cloZAPine 25 MG TAB PO SCH (08:33)
[2018-03-28] MEDS: NICOTINE 21 MG/24 HR PATCH T-DERMAL SCH (08:35)
--- NOTE | 2018-03-28 10:19 | PD.WCN.NOT ---
Wound Consult Additional Information: Late entry from 03/27/2018 :Patient not seent, spoke with RN Kathrine Dixon 2700 unit regarding C section surgical incision. Per RN patient incision is well approximated with surgical glue.Scant sanguinous drainage without odor is noted on dry dressing.RN will continue to apply dry dressings daily or as needed if saturated or dislodged. Marley Talbot [facility] March 28, 2018 10:19
[2018-03-28] MEDS ORDERED: PILL SPLITTER OTHER PRN (14:30)
[2018-03-28 17:59] VITALS: BP 118/79; PULSE 99; RESP 18; TEMP 97.7; O2SAT 98
[2018-03-28] MEDS: REMOVE OLD NICOTINE PATCH T-DERMAL SCH (20:42)
[2018-03-28] MEDS ORDERED: cloZAPine 100 MG TAB PO SCH (21:00)
--- NOTE | 2018-03-28 22:02 | HHI.PYPN ---
Subjective Remarks Patient seen for follow up; chart reviewed. Discussion with nursing staff reported that patient compliant with treatment, has not showered today. Patient was found sitting in hospital bed noted B, cooperative. Patient states that she still feels confused about reality but states that she is feeling that she is clearing up. Patient states that she is "scared of reality" and states that today was the first day she felt "okay". Patient continues to endorse auditory hallucinations which did not elaborate on, as well as paranoid ideations. Patient denies any SI or HI at this time. Patient reports that she had increasing hospital in the past except at 600 mg in the past. Review of Systems Except as stated in HPI: all other systems reviewed are Neg Mental Status Examination Appearance: Appropriate Consciousness: Alert Orientation: x4 Motor Activity: Normal gait, Other (No motor abnormalities noted) Speech: Unremarkable Language: Adequate Fund of Knowledge: Adequate Attention and Concentration: Adequate Memory: Unremarkable Mood: Appropriate Affect: Blunt Thought Process & Associations: Loose associations (Lessening), Disorganized ( Lessening) Thought Content: Bizarre thinking, Hallucinations, Thought blocking (Less so today), Delusional (Lessening) Hallucination Type: Auditory, Other (Internally stimulated) Delusion Type: Bizarre, Paranoid Suicidal Ideation: No (Unreliable to contract for safety) Suicidal Plan: No Suicidal Intention: No Homicidal Ideation: No Homicidal Plan: No Homicidal Intention: No Insight: Poor Judgment: Poor Results Labs Date/Time Source Procedure Growth Status 03/22/18 19:20 Urine Clean Catch Urine Culture - Final NO GROWTH IN 48 HOURS. Complete Vitals/IOs Vital Signs Date Time Temp Pulse Resp B/P (MAP) Pulse Ox O2 Delivery O2 Flow Rate FiO2 03/28/18 17:59 97.7 99 18 118/79 (92) 98 Assessment & Plan Problem List: (1) Schizophrenia ICD Codes: F20.9 - Schizophrenia, unspecified Assessment & Plan Patient this time continues to have disorganization along auditory hallucinations or paranoid ideations but lessening now. Patient appears slightly more clear during interview today and noted to be responding to internal stimuli as much. We will continue to titrate clozapine to 50 mg a.m./ 250 mg at bedtime with upper titration as needed for psychosis. Continue monitor mood and behavior. Discharge planning in progress. Justification for Cont. Inpt. At risk for further decompensation if at lower level of care Discharge Planning To be determined. Problem Qualifiers (1) Schizophrenia: Qualified Codes: F20.3 - Undifferentiated schizophrenia Clay Pelletier MD March 28, 2018 22:02
[2018-03-29 06:13] VITALS: BP 125/57; PULSE 88; RESP 16; TEMP 97.5; O2SAT 99
[2018-03-29] MEDS: NICOTINE 21 MG/24 HR PATCH T-DERMAL SCH (09:00)
[2018-03-29] MEDS: cloZAPine 25 MG TAB PO SCH (09:34)
--- NOTE | 2018-03-29 18:23 | HHI.PYPN ---
Subjective Remarks Patient seen for follow-up, chart reviewed. Discussion with nursing staff reported the patient's shower today, noted to be talking to self less today, agreed to lab draw this morning. Patient was found sitting in hospital bed noted B, cooperative. Patient states that she has been feeling confused about the spiritual versus reality. She states that she believe it is the end of the world, "voices are too fast" but they are decreasing in intensity. She continues to endorse auditory hallucinations at this time is been feeling embarrassed about her past. Review of Systems Except as stated in HPI: all other systems reviewed are Neg Mental Status Examination Appearance: Appropriate Consciousness: Alert Orientation: x4 Motor Activity: Normal gait, Other (No motor abnormalities noted) Speech: Unremarkable Language: Adequate Fund of Knowledge: Adequate Attention and Concentration: Adequate Memory: Unremarkable Mood: Appropriate Affect: Blunt Thought Process & Associations: Loose associations (Lessening), Disorganized ( Lessening) Thought Content: Bizarre thinking, Hallucinations, Thought blocking (Less so today), Delusional (Lessening) Hallucination Type: Auditory, Other (Internally stimulated) Delusion Type: Bizarre, Paranoid Suicidal Ideation: No (Unreliable to contract for safety) Suicidal Plan: No Suicidal Intention: No Homicidal Ideation: No Homicidal Plan: No Homicidal Intention: No Insight: Poor Judgment: Poor Results Labs Date/Time Source Procedure Growth Status 03/22/18 19:20 Urine Clean Catch Urine Culture - Final NO GROWTH IN 48 HOURS. Complete Vitals/IOs Vital Signs Date Time Temp Pulse Resp B/P (MAP) Pulse Ox O2 Delivery O2 Flow Rate FiO2 03/29/18 06:13 97.5 88 16 125/57 (79) 99 Assessment & Plan Problem List: (1) Schizophrenia ICD Codes: F20.9 - Schizophrenia, unspecified Assessment & Plan Patient this time continues with active auditory hallucinations, disorganization and delusional. We will continue to titrate clozapine to 50 mg a.m./300 mg at bedtime for psychosis. Continue rest of medications. We will order EKG to monitor QTc interval. CBC showed neutrophil absolute count at 4.2. Continue to monitor mood and behavior. Discharge planning in progress. Justification for Cont. Inpt. At risk of further decompensation at lower level of care Discharge Planning To be determined. Problem Qualifiers (1) Schizophrenia: Qualified Codes: F20.3 - Undifferentiated schizophrenia Clay Pelletier MD Mar 29, 2018 18:23
[2018-03-29 18:58] VITALS: BP 127/82; PULSE 100; RESP 17; TEMP 98.4; O2SAT 98
[2018-03-29] MEDS: cloZAPine 100 MG TAB PO SCH (20:47)
[2018-03-29] MEDS: REMOVE OLD NICOTINE PATCH T-DERMAL SCH (20:57)
[2018-03-30 06:19] VITALS: BP 121/70; PULSE 87; RESP 16; TEMP 98; O2SAT 99
[2018-03-30] MEDS: NICOTINE 21 MG/24 HR PATCH T-DERMAL SCH (08:15)
[2018-03-30] MEDS: cloZAPine 25 MG TAB PO SCH (08:17)
[2018-03-30 08:19] LABS: AUTOMATED NEUTROPHIL # 4.2 TH/MM3 (1.8-7.7); BASOPHIL % 0.7 % (0.0-2.0); EOSINOPHIL # 0.3 TH/MM3 (0-0.4); HEMATOCRIT 40.2 % (35.0-46.0); HEMOGLOBIN 13.5 GM/DL (11.6-15.3); LYMPH % 30.7 % (9.0-44.0); LYMPHOCYTE # 2.2 TH/MM3 (1.0-4.8); MEAN CELL VOLUME 92.1 FL (80.0-100.0); MEAN CORPUSCULAR HGB CONC 33.6 % (32.0-36.0); MEAN PLATELET VOLUME 6.9 FL (7.0-11.0); MONO % 6.7 % (0.0-8.0); MONOCYTE # 0.5 TH/MM3 (0-0.9); NEUT % 57.9 % (16.0-70.0); PLATELET COUNT 396 TH/MM3 (150-450); RED BLOOD COUNT 4.36 MIL/MM3 (4.00-5.30); RED CELL DISTRIBUTION WIDTH 13.6 % (11.6-17.2); WHITE BLOOD COUNT 7.2 TH/MM3 (4.0-11.0)
[2018-03-30 08:41] LABS: ALBUMIN 3.1 GM/DL (3.4-5.0); ALT (GPT) 47 U/L (10-53); AST (GOT) 32 U/L (15-37); BLOOD UREA NITROGEN 9 MG/DL (7-18); CALCIUM 8.8 MG/DL (8.5-10.1); CHLORIDE 107 MEQ/L (98-107); CREATININE 0.71 MG/DL (0.50-1.00); GLOMERULAR FILTRATION RATE 94 ML/MIN (>89); GLUCOSE,RANDOM 150 MG/DL (74-106); SODIUM (NA) 143 MEQ/L (136-145)
[2018-03-30 08:43] LABS: ALKALINE PHOSPHATASE 97 U/L (45-117); TOTAL BILIRUBIN ADULT 0.3 MG/DL (0.2-1.0); TOTAL PROTEIN 6.9 GM/DL (6.4-8.2)
--- NOTE | 2018-03-30 15:11 | HHI.PYPN ---
Subjective Remarks She was seen and case discussed with nursing. Patient remains quite psychotic. She describes her mood today is "anxious, fearful." She talks about a delusion thinking that it is the end of the world. She is very religiously preoccupied and is concerned with Ignacio and the demons and God. She says she has had long-term auditory hallucinations that are of a positive nature. Compliant with medications and behaving well on the unit Mental Status Examination Appearance: Appropriate Consciousness: Alert Orientation: x4 Motor Activity: Normal gait, Other (No motor abnormalities noted) Speech: Unremarkable Language: Adequate Fund of Knowledge: Adequate Attention and Concentration: Adequate Memory: Unremarkable Mood: Appropriate Affect: Blunt Thought Process & Associations: Loose associations (Lessening), Disorganized ( Lessening) Thought Content: Bizarre thinking, Hallucinations, Thought blocking (Less so today), Delusional (Lessening) Hallucination Type: Auditory, Other (Internally stimulated) Delusion Type: Bizarre, Paranoid Suicidal Ideation: No (Unreliable to contract for safety) Suicidal Plan: No Suicidal Intention: No Homicidal Ideation: No Homicidal Plan: No Homicidal Intention: No Insight: Poor Judgment: Poor Results Labs Test 03/30/18 07:27 White Blood Count 7.2 TH/MM3 Red Blood Count 4.36 MIL/MM3 Hemoglobin 13.5 GM/DL Hematocrit 40.2 % Mean Corpuscular Volume 92.1 FL Mean Corpuscular Hemoglobin 31.0 PG Mean Corpuscular Hemoglobin Concent 33.6 % Red Cell Distribution Width 13.6 % Platelet Count 396 TH/MM3 Mean Platelet Volume 6.9 FL Neutrophils (%) (Auto) 57.9 % Lymphocytes (%) (Auto) 30.7 % Monocytes (%) (Auto) 6.7 % Eosinophils (%) (Auto) 4.0 % Basophils (%) (Auto) 0.7 % Neutrophils # (Auto) 4.2 TH/MM3 Lymphocytes # (Auto) 2.2 TH/MM3 Monocytes # (Auto) 0.5 TH/MM3 Eosinophils # (Auto) 0.3 TH/MM3 Basophils # (Auto) 0.0 TH/MM3 CBC Comment DIFF FINAL Differential Comment Blood Urea Nitrogen 9 MG/DL Creatinine 0.71 MG/DL Random Glucose 150 MG/DL Total Protein 6.9 GM/DL Albumin 3.1 GM/DL Calcium Level 8.8 MG/DL Alkaline Phosphatase 97 U/L Aspartate Amino Transf (AST/SGOT) 32 U/L Alanine Aminotransferase (ALT/SGPT) 47 U/L Total Bilirubin 0.3 MG/DL Sodium Level 143 MEQ/L Potassium Level 4.2 MEQ/L Chloride Level 107 MEQ/L Carbon Dioxide Level 26.0 MEQ/L Anion Gap 10 MEQ/L Estimat Glomerular Filtration Rate 94 ML/MIN Date/Time Source Procedure Growth Status 03/22/18 19:20 Urine Clean Catch Urine Culture - Final NO GROWTH IN 48 HOURS. Complete Vitals/IOs Vital Signs Date Time Temp Pulse Resp B/P (MAP) Pulse Ox O2 Delivery O2 Flow Rate FiO2 03/30/18 06:19 98.0 87 16 121/70 (87) 99 Assessment & Plan Problem List: (1) Schizophrenia ICD Codes: F20.9 - Schizophrenia, unspecified Assessment & Plan Continue current treatment plan Justification for Cont. Inpt. Patient would decompensate in a less restrictive setting Problem Qualifiers (1) Schizophrenia: Qualified Codes: F20.3 - Undifferentiated schizophrenia Jamie Polanco DO Mar 30, 2018 15:11
[2018-03-30 15:30] VITALS: BP 117/81; PULSE 104; RESP 17; TEMP 98.2; O2SAT 98
[2018-03-30] MEDS: LORazepam 1 MG TAB PO PRN (18:00)
[2018-03-30] MEDS: cloZAPine 100 MG TAB PO SCH (20:22)
[2018-03-30] MEDS: REMOVE OLD NICOTINE PATCH T-DERMAL SCH (21:00)
[2018-03-31 06:15] VITALS: BP 112/73; PULSE 100; RESP 18; TEMP 98.3; O2SAT 98
[2018-03-31] MEDS: NICOTINE 21 MG/24 HR PATCH T-DERMAL SCH (08:15)
[2018-03-31] MEDS: cloZAPine 25 MG TAB PO SCH (08:15)
--- NOTE | 2018-03-31 08:43 | EKG ---
Date Performed: 03/29/2018 Time Performed: 14:15:39 PTAGE: 37 years EKG: Sinus rhythm NORMAL ECG PREVIOUS TRACING : 08/31/2015 15.18 Since the previous tracing, no significant change noted DOCTOR: Dylan Hodge Interpretating Date/Time 03/31/2018 08:41:45
--- NOTE | 2018-03-31 10:18 | HHI.PYPN ---
Subjective Remarks Patient was seen and case discussed with nursing. Patient is markedly less psychotic today. He is no longer fixated on various presybeterian delusions. No longer thinks the world is going to end. However, she believes that she hears people speaking to her that are not there. Eating and sleeping well. Compliant with medications Mental Status Examination Appearance: Appropriate Consciousness: Alert Orientation: x4 Motor Activity: Normal gait, Other (No motor abnormalities noted) Speech: Unremarkable Language: Adequate Fund of Knowledge: Adequate Attention and Concentration: Adequate Memory: Unremarkable Mood: Appropriate Affect: Blunt Thought Process & Associations: Disorganized (Lessening) Thought Content: Bizarre thinking, Hallucinations, Delusional (Lessening) Hallucination Type: Auditory (Nonspecific), Other (Internally stimulated) Delusion Type: Bizarre, Paranoid Suicidal Ideation: No (Unreliable to contract for safety) Suicidal Plan: No Suicidal Intention: No Homicidal Ideation: No Homicidal Plan: No Homicidal Intention: No Insight: Poor Judgment: Poor Results Labs Date/Time Source Procedure Growth Status 03/22/18 19:20 Urine Clean Catch Urine Culture - Final NO GROWTH IN 48 HOURS. Complete Vitals/IOs Vital Signs Date Time Temp Pulse Resp B/P (MAP) Pulse Ox O2 Delivery O2 Flow Rate FiO2 03/31/18 06:15 98.3 100 18 112/73 (86) 98 Assessment & Plan Problem List: (1) Schizophrenia ICD Codes: F20.9 - Schizophrenia, unspecified Assessment & Plan Continue current treatment plan Justification for Cont. Inpt. Patient would decompensate in a less restrictive setting Problem Qualifiers (1) Schizophrenia: Qualified Codes: F20.3 - Undifferentiated schizophrenia Jamie Polanco DO Mar 31, 2018 10:18
[2018-03-31 16:00] VITALS: TEMP 98.3
[2018-03-31] MEDS: cloZAPine 100 MG TAB PO SCH (20:14)
[2018-03-31] MEDS: REMOVE OLD NICOTINE PATCH T-DERMAL SCH (20:14)
[2018-04-01 06:31] VITALS: BP 136/86; PULSE 100; RESP 17; TEMP 97.8
[2018-04-01] MEDS: NICOTINE 21 MG/24 HR PATCH T-DERMAL SCH (08:44)
[2018-04-01] MEDS: cloZAPine 25 MG TAB PO SCH (08:45)
--- NOTE | 2018-04-01 09:47 | PD.TTN ---
Patient Problems 1. Discharge planning 2. Medication compliance 3. Knowledge deficit 4. Lack of coping skills Progress Toward Goals Provider Present: Dr. Radha Pelletier Provider Input: Titrating meds, pt meets criteria and needs further stabilzation Psychiatric Counselors Present: Jn Barrera Jr., [facility] Psych Therapist Input: Pt still delusional, refusing [facility] placement due to "not wanting to be seperated" from her baby. Group Spec/RT/OT/STERN Present: VANESA Tiwari Group Spec/RT/OT/STERN Input: Attending some groups Documentation Teaching Recipient: Patient Jn Barrera Jr, [employer] Apr 01, 2018 09:47
[2018-04-01 16:55] VITALS: BP 140/76; PULSE 88; RESP 18; TEMP 98.7; O2SAT 100
[2018-04-01] MEDS: LORazepam 1 MG TAB PO PRN (17:48)
--- NOTE | 2018-04-01 18:39 | HHI.PYPN ---
Subjective Remarks Patient seen for follow, chart reviewed. Discussion nursing staff reported the patient compliant with medications no behavioral disturbances continues to have some internal preoccupation. Patient was found heavily on the unit noted B, cooperative. Patient continues with some disorganization, continues with some distortion of reality stating "I am wondering if I have twins and a from still and they had left the baby after my inside". Patient reports feeling "foggy, dark" but states that she is feeling that she is starting to clear up a bit. Patient reports having slept well, having visited by her father which went well but continues to not speak to her mother at this time stating that she does not feel ready to speak to her. Patient continues report of hallucinations which she had last night of "bad things" but states that now she has "breaks in between" of episodes about hallucinations. She continues to report that she feels is going to be the end of the world that she believes that she is still going to dilate Ignacio Rai. He denies any suicidal ideation nor any thoughts of harming her baby. Review of Systems Except as stated in HPI: all other systems reviewed are Neg Mental Status Examination Appearance: Appropriate Consciousness: Alert Orientation: x4 Motor Activity: Normal gait, Other (No motor abnormalities noted) Speech: Unremarkable Language: Adequate Fund of Knowledge: Adequate Attention and Concentration: Adequate Memory: Unremarkable Mood: Other (Okay) Affect: Blunt (More reactive now) Thought Process & Associations: Disorganized (Lessening) Thought Content: Bizarre thinking, Hallucinations, Delusional (Lessening) Hallucination Type: Auditory (Nonspecific), Other (Internally stimulated) Delusion Type: Bizarre, Paranoid Suicidal Ideation: No (Unreliable to contract for safety) Suicidal Plan: No Suicidal Intention: No Homicidal Ideation: No Homicidal Plan: No Homicidal Intention: No Insight: Poor Judgment: Poor Results Labs Date/Time Source Procedure Growth Status 03/22/18 19:20 Urine Clean Catch Urine Culture - Final NO GROWTH IN 48 HOURS. Complete Vitals/IOs Vital Signs Date Time Temp Pulse Resp B/P (MAP) Pulse Ox O2 Delivery O2 Flow Rate FiO2 04/01/18 16:55 98.7 88 18 140/76 (97) 100 Assessment & Plan Problem List: (1) Schizophrenia ICD Codes: F20.9 - Schizophrenia, unspecified Assessment & Plan Patient this time continues with bizarre delusions, continues with distortion of reality as well as auditory hallucinations. We will continue to titrate clozapine to 100 mg a.m./300 mg at bedtime with upper titration for psychosis. We will continue to monitor mood and behavior. Discharge planning in progress. Justification for Cont. Inpt. At risk for further decompensation if at lower level of care Discharge Planning Patient return back to her residence when psychiatrically stable. Problem Qualifiers (1) Schizophrenia: Qualified Codes: F20.3 - Undifferentiated schizophrenia Clay Pelletier MD Apr 01, 2018 18:39
[2018-04-01] MEDS: REMOVE OLD NICOTINE PATCH T-DERMAL SCH (21:00)
[2018-04-01] MEDS: cloZAPine 100 MG TAB PO SCH (21:08)
[2018-04-02 06:04] VITALS: BP 102/62; PULSE 102; RESP 17; TEMP 97.5; O2SAT 98
[2018-04-02] MEDS: NICOTINE 21 MG/24 HR PATCH T-DERMAL SCH (09:00)
[2018-04-02] MEDS: cloZAPine 25 MG TAB PO SCH (09:28)
--- NOTE | 2018-04-02 17:36 | HHI.PYPN ---
Subjective Remarks Patient seen for follow, chart reviewed. Discussion nursing staff reported the patient was noted to be somewhat anxious in the evening but continues to have Ativan as a as needed, no longer endorsing delusion of having had a second baby in her uterus, has been having improve hygiene and noted be more organized. Patient was found lying hospital bed noted B, cooperative. Patient states that she is feeling less confused, she is alert and oriented 3 today. Patient reports having slept well but continues to feel foggy and cloudy and states that her mood is "more positive". Patient states she has any speaking with her father who has been very supportive and had asked her father about how her baby is doing which she is happy about. Patient states that she is not rated speak to her mother yet due to some discord between them. Patient continues report auditory hallucinations stating that they are still there but they are less and that she sees clear now. Patient states that she is 50% better but does not feel she is 100% yet. Review of Systems Except as stated in HPI: all other systems reviewed are Neg Mental Status Examination Appearance: Appropriate Consciousness: Alert Orientation: x4 Motor Activity: Normal gait, Other (No motor abnormalities noted) Speech: Unremarkable Language: Adequate Fund of Knowledge: Adequate Attention and Concentration: Adequate Memory: Unremarkable Mood: Other (Okay) Affect: Blunt (More reactive now) Thought Process & Associations: Disorganized (Lessening and appears to be improving) Thought Content: Bizarre thinking, Hallucinations, Delusional (Lessening) Hallucination Type: Auditory (Nonspecific but lessening), Other (Internally stimulated) Delusion Type: Bizarre, Paranoid Suicidal Ideation: No (Unreliable to contract for safety) Suicidal Plan: No Suicidal Intention: No Homicidal Ideation: No Homicidal Plan: No Homicidal Intention: No Insight: Poor Judgment: Poor Results Labs Date/Time Source Procedure Growth Status 03/22/18 19:20 Urine Clean Catch Urine Culture - Final NO GROWTH IN 48 HOURS. Complete Vitals/IOs Vital Signs Date Time Temp Pulse Resp B/P (MAP) Pulse Ox O2 Delivery O2 Flow Rate FiO2 04/02/18 06:04 97.5 102 17 102/62 (75) 98 Assessment & Plan Problem List: (1) Schizophrenia ICD Codes: F20.9 - Schizophrenia, unspecified Assessment & Plan Patient this time continues to endorse auditory hallucinations, but noted to have decrease in internal preoccupation, delusions are lessening and patient appears more organized now. Patient now would be better behavioral control we will attempt to move patient to a lesser acute unit as she appears to be able to tolerate this environment now. We will continue to increase clozapine to 100 mg a.m./350 mg at bedtime with upper titration for psychosis. We will continue to monitor mood and behavior. Patient will continue to have weekly CBC lab draws to monitor for neutropenia. Patient denies any physical symptoms at this time. Discharge planning in progress. Justification for Cont. Inpt. At risk of further decompensation a lower level care. Discharge Planning To be determined. Problem Qualifiers (1) Schizophrenia: Qualified Codes: F20.3 - Undifferentiated schizophrenia Clay Pelletier MD Apr 02, 2018 17:36
[2018-04-02 17:54] VITALS: BP 112/71; PULSE 66; RESP 18; TEMP 98.5; O2SAT 99
[2018-04-02] MEDS: REMOVE OLD NICOTINE PATCH T-DERMAL SCH (21:00)
[2018-04-02] MEDS: cloZAPine 100 MG TAB PO SCH (21:07)
[2018-04-03 05:53] VITALS: BP 110/70; PULSE 93; RESP 18; TEMP 97.2; O2SAT 96
[2018-04-03] MEDS: NICOTINE 21 MG/24 HR PATCH T-DERMAL SCH (08:42)
[2018-04-03] MEDS: cloZAPine 25 MG TAB PO SCH (08:42)
[2018-04-03 12:56] VITALS: BP 124/79; PULSE 127; RESP 18
[2018-04-03 12:57] VITALS: BP 112/67; PULSE 130; RESP 18
[2018-04-03 12:59] VITALS: BP 106/66; RESP 18
--- NOTE | 2018-04-03 14:24 | RADRPT ---
EXAM DATE: 04/03/2018 1:46 PM EDT AGE/SEX: 37 years / Female INDICATIONS: Left side rib pain, short of breath. CLINICAL DATA: This is the patient's initial encounter. Patient reports that signs and symptoms have been present for 1 week and indicates a pain score of 4/10. MEDICAL/SURGICAL HISTORY: . smoker section. COMPARISON: [facility], CHEST PA & LAT, 08/31/2015. . FINDINGS: PA and lateral views of the chest demonstrate the lungs to be symmetrically aerated without evidence of mass, infiltrate or effusion. The cardiomediastinal contours are unremarkable. Osseous structures are intact. CONCLUSION: Negative examination. Electronically signed by: J Carlos Uribe MD 04/03/2018 2:22 PM EDT
[2018-04-03 14:39] LABS: AUTOMATED NEUTROPHIL # 6.6 TH/MM3 (1.8-7.7); BASOPHIL # 0.1 TH/MM3 (0-0.2); BASOPHIL % 0.6 % (0.0-2.0); EOSINOPHIL # 0.1 TH/MM3 (0-0.4); EOSINOPHIL % 1.6 % (0.0-4.0); HEMATOCRIT 42.9 % (35.0-46.0); HEMOGLOBIN 14.5 GM/DL (11.6-15.3); LYMPH % 22.1 % (9.0-44.0); LYMPHOCYTE # 2.1 TH/MM3 (1.0-4.8); MEAN CORPUSCULAR HEMOGLOBIN 31.1 PG (27.0-34.0); MEAN CORPUSCULAR HGB CONC 33.9 % (32.0-36.0); MEAN PLATELET VOLUME 7.3 FL (7.0-11.0); MONO % 4.9 % (0.0-8.0); MONOCYTE # 0.5 TH/MM3 (0-0.9); NEUT % 70.8 % (16.0-70.0); PLATELET COUNT 364 TH/MM3 (150-450); RED BLOOD COUNT 4.66 MIL/MM3 (4.00-5.30); RED CELL DISTRIBUTION WIDTH 13.7 % (11.6-17.2); WHITE BLOOD COUNT 9.3 TH/MM3 (4.0-11.0)
[2018-04-03 14:57] LABS: BICARBONATE 24.9 MEQ/L (21.0-32.0); CALCIUM 8.9 MG/DL (8.5-10.1); CREATININE 0.87 MG/DL (0.50-1.00)
--- NOTE | 2018-04-03 15:15 | HHI.PR ---
Subjective Remarks Reconsulted for generalized malaise, tachycardia, suspicion for clozapine- induced myocarditis Patient seen and examined today. Reports she has been feeling tired and weak, started when she got especially on the last trimester of . States that she has hip pain back pain that it continued today. Reports urinary burning sensation. States she has been feeling hot and cold but not really specific about it she also states that she is "fasting." She only drinks water and will be done today and that she is doing it for scientologist purposes so that God can protect all of her loved ones. States she stopped lactating, she has minimal vaginal discharge, uses only 2 pads per day. Reports chest pain on and off but not very specific and descriptive about it states she has had since she got and came on and off. She denies any palpitations or feeling of rapid heart rate. Denies SOB/ dyspnea. Reports occasional dizziness, associated with weakness when ambulating. Stating she has no energy. Denies n/v/d. Objective Vitals Vital Signs Date Time Temp Pulse Resp B/P (MAP) Pulse Ox O2 Delivery O2 Flow Rate FiO2 04/03/18 12:59 18 106/66 (79) 04/03/18 12:57 130 18 112/67 (82) 04/03/18 12:56 127 18 124/79 (94) 04/03/18 05:53 97.2 93 18 110/70 (83) 96 04/02/18 17:54 98.5 66 18 112/71 (85) 99 Result Diagram: 04/03/18 1417 04/03/18 1417 Imaging Last Impressions Chest X-Ray 04/03/18 0000 Signed Impressions: CONCLUSION: Negative examination. Objective Remarks GENERAL: This is a well-nourished, well-developed patient, in no apparent distress. SKIN: Warm and dry. HEENT: Normocephalic. Pupils equal round and reactive. Nose without bleeding. Airway patent. NECK: Trachea midline. No JVD. Supple. CARDIOVASCULAR: Tachycardic without murmurs, gallops, or rubs. RESPIRATORY: Clear to auscultation. Breath sounds equal bilaterally. No wheezes , rales, or rhonchi. GASTROINTESTINAL: Abdomen soft, non-tender, nondistended. Bowel Sounds normoactive x4. MUSCULOSKELETAL: Extremities without clubbing, cyanosis, or edema. NEUROLOGICAL: Awake and alert. Oriented to place, person. No focal neuro deficit. Moves all extremities. Normal speech. A/P Assessment and Plan 37-year-old female with PMH of asthma, schizophrenia, PTSD,admitted to inpatient psychiatry under [facility], s/p 11days ago, reportedly patient was not taking care of herself, auditory hallucinations, and she would not let anyone take care of her baby. Schizophrenia: acute on chronic -Continue management per psychiatry Malaise, gen fatigue ? Clozapine induced myocarditis -Chest x-ray negative -CBC with no eosinophil increase, check CRP, CK, BNP -EKG reviewed sinus tachycardia with no ST segment changes -Troponin negative -Patient reports that generalized muscle fatigue and malaise has been since and after giving . Patient is approximately 2-3 weeks. and may have contributed to increasing muscle weakness and fatigue. Patient is also fasting. Poor nutritional intake recently. Patient reports she is on clozapine during . -Echo ordered by primary team, will follow-up results Dysuria -Recheck UA -Previously with UTI treated with Keflex, cultures did not grow anything, ABX dcd Asthma, chronic, stable. -albuterol inhaler prn , S/p : 2 weeks ago -Incision healing well. -Continue wound care DVT prophylaxis-ambulation Cuauhtemoc Cook Apr 03, 2018 15:15
--- NOTE | 2018-04-03 15:17 | PD.TTN ---
Patient Problems 1. Discharge planning 2. Medication compliance 3. Knowledge deficit 4. Lack of coping skills Progress Toward Goals Provider Present: Dr. Radha Pelletier Provider Input: Titrating meds, pt meets criteria and needs further stabilzation 04/03/18 Patient is getting better, will continue with treatment. Nurse(s) Input: Patient's nurse's reports medication compliant, guarded, Psychiatric Counselors Present: Jn Barrera Jr., [facility] Psych Therapist Input: Pt still delusional, refusing DETENTION placement due to "not wanting to be seperated" from her baby. 04/03/18 Patient presented affect flat, withdrawn, depressed, tired, poor insight, speech halted, guarded, Group Spec/RT/OT/STERN Present: VANESA Tiwari, JARRED Santos Group Spec/RT/OT/STERN Input: Attending some groups Attends selective groups. Documentation Teaching Recipient: Patient Bridgett Bañuelos [facility] Apr 03, 2018 15:17
--- NOTE | 2018-04-03 15:55 | HHI.PYPN ---
Subjective Remarks Patient seen for follow, chart reviewed. Discussion nursing staff reported the patient has to transfer to a lower acuity unit has been mostly isolative in her room not eating did not eat breakfast or lunch today. Patient was found lying hospital bed noted to be, cooperative. Patient states that she is not feeling well stating that she is feeling "sad" and she is worried about her baby and her other kids referring to her niece and nephew. Patient states that she is feeling 65% better but continues to be worried about having a "table games manager on reality" . Patient reporting sialorrhea from clozapine which she states have experienced before when she was on higher doses. Patient continues report having a lot of hallucinations but they are decreasing stating now they are " not bad" and that now the talk to each other as opposed to voices being overwhelming talking to her. Patient states she is feeling somewhat tired and her bones are achy as well as having reported some left-sided chest discomfort and some shortness of breath. Patient also reports having some dizziness upon standing. Review of Systems Except as stated in HPI: all other systems reviewed are Neg Mental Status Examination Appearance: Appropriate Consciousness: Alert Orientation: x4 Motor Activity: Normal gait Speech: Unremarkable Language: Adequate Fund of Knowledge: Adequate Attention and Concentration: Adequate Memory: Unremarkable Mood: Other (Okay) Affect: Blunt (More reactive now) Thought Process & Associations: Disorganized (Lessening and appears to be improving) Thought Content: Bizarre thinking, Hallucinations, Delusional (Lessening) Hallucination Type: Auditory (lessening, no longer derogatory), Other ( Internally stimulated) Delusion Type: Bizarre, Paranoid Suicidal Ideation: No (Unreliable to contract for safety) Suicidal Plan: No Suicidal Intention: No Homicidal Ideation: No Homicidal Plan: No Homicidal Intention: No Insight: Fair Judgment: Impulsive Results Labs labs reviewed Test 04/03/18 14:17 White Blood Count 9.3 TH/MM3 Red Blood Count 4.66 MIL/MM3 Hemoglobin 14.5 GM/DL Hematocrit 42.9 % Mean Corpuscular Volume 92.0 FL Mean Corpuscular Hemoglobin 31.1 PG Mean Corpuscular Hemoglobin Concent 33.9 % Red Cell Distribution Width 13.7 % Platelet Count 364 TH/MM3 Mean Platelet Volume 7.3 FL Neutrophils (%) (Auto) 70.8 % Lymphocytes (%) (Auto) 22.1 % Monocytes (%) (Auto) 4.9 % Eosinophils (%) (Auto) 1.6 % Basophils (%) (Auto) 0.6 % Neutrophils # (Auto) 6.6 TH/MM3 Lymphocytes # (Auto) 2.1 TH/MM3 Monocytes # (Auto) 0.5 TH/MM3 Eosinophils # (Auto) 0.1 TH/MM3 Basophils # (Auto) 0.1 TH/MM3 CBC Comment DIFF FINAL Differential Comment Blood Urea Nitrogen 8 MG/DL Creatinine 0.87 MG/DL Random Glucose 256 MG/DL Calcium Level 8.9 MG/DL Sodium Level 138 MEQ/L Potassium Level 3.8 MEQ/L Chloride Level 101 MEQ/L Carbon Dioxide Level 24.9 MEQ/L Anion Gap 12 MEQ/L Estimat Glomerular Filtration Rate 74 ML/MIN Troponin I LESS THAN 0.02 NG/ML Date/Time Source Procedure Growth Status 03/22/18 19:20 Urine Clean Catch Urine Culture - Final NO GROWTH IN 48 HOURS. Complete Vitals/IOs Vital Signs Date Time Temp Pulse Resp B/P (MAP) Pulse Ox O2 Delivery O2 Flow Rate FiO2 04/03/18 12:59 18 106/66 (79) 04/03/18 12:57 130 04/03/18 05:53 97.2 96 Assessment & Plan Problem List: (1) Schizophrenia ICD Codes: F20.9 - Schizophrenia, unspecified Assessment & Plan Patient continues with bizarre delusions and AH but appears to be lessening. Patient noted to be more reactive, more organized but continues to believe that she is and that a second baby was left in her. To the current physical complaints and concern for possible complications from clozapine such as pulmonary embolism in the setting of as well as risk for myocarditis we will order chest x-ray, troponins, EKG, CBC, BMP, echocardiogram , we will order a hospitalist consult for evaluation. We will continue to monitor mood and behavior. Monitor for orthostatic hypotension, encourage patient maintain adequate p.o. fluid and nutritional intake. Continue to monitor mood and behavior. We will continue current treatment regimen. Discharge planning in progress. Justification for Cont. Inpt. At risk of further decompensation a lower level of care. Discharge Planning To be determined. Problem Qualifiers (1) Schizophrenia: Qualified Codes: F20.3 - Undifferentiated schizophrenia Clay Pelletier MD Apr 03, 2018 15:55
[2018-04-03] MEDS: LORazepam 1 MG TAB PO PRN (18:06)
[2018-04-03] MEDS: cloZAPine 100 MG TAB PO SCH (20:48)
[2018-04-03] MEDS: REMOVE OLD NICOTINE PATCH T-DERMAL SCH (20:48)
[2018-04-04 06:00] VITALS: BP 127/84; PULSE 88; RESP 16; TEMP 97.9; O2SAT 99
[2018-04-04 08:10] LABS: BACTERIA, URINE FEW /hpf; BILIRUBIN, URINE NEG (NEG); BLOOD, URINE LARGE (NEG); GLUCOSE,URINE NEG (NEG); KETONE, URINE NEG (NEG); MUCUS URINE FEW /lpf (OCC); NITRITE,URINE NEG (NEG); PH, URINE 5.5 (5.0-8.5); SQUAMOUS EPITHELIAL CELL URINE 5 /hpf (0-5); URINE COLOR YELLOW (YELLW/STRAW); URINE LEUKOCYTE ESTERASE LARGE (NEG)
[2018-04-04] MEDS: cloZAPine 25 MG TAB PO SCH (08:31)
[2018-04-04] MEDS: NICOTINE 21 MG/24 HR PATCH T-DERMAL SCH (08:31)
[2018-04-04] MEDS: LORazepam 1 MG TAB PO PRN (11:59)
--- NOTE | 2018-04-04 14:31 | HHI.PYPN ---
Subjective Remarks Patient seen for follow up; chart reviewed. Discussion with nursing staff reported that the patient reported some nausea, skipped lunch, slept well, currently with UTI. Patient was found sitting on chair, calm and cooperative. She states that she feels better than yesterday physically but continues to have occasional shortness of breath, slept well, continues with some sialorrhea. She states that her mood has been "my bipolar and depression is coming together" attempting to relate that she is getting better. She continues with AH be states that it is decreasing. she feels that she is 50% better today. Patient was updated on work up and reassured that she does not have another baby in her womb as she was asking if she was still . Review of Systems Except as stated in HPI: all other systems reviewed are Neg Mental Status Examination Appearance: Appropriate Consciousness: Alert Orientation: x4 Motor Activity: Normal gait Speech: Unremarkable Language: Adequate Fund of Knowledge: Adequate Attention and Concentration: Adequate Memory: Unremarkable Mood: Other (Okay) Affect: Blunt (More reactive now) Thought Process & Associations: Disorganized (Lessening and appears to be improving) Thought Content: Bizarre thinking, Hallucinations, Delusional (Lessening) Hallucination Type: Auditory (lessening, no longer derogatory), Other ( Internally stimulated) Delusion Type: Bizarre, Paranoid Suicidal Ideation: No Suicidal Plan: No Suicidal Intention: No Homicidal Ideation: No Homicidal Plan: No Homicidal Intention: No Insight: Fair Judgment: Impulsive Results Labs labs reviewed Test 04/04/18 06:46 04/04/18 07:30 D-Dimer Quantitative (PE/DVT) 0.81 MG/L FEU Urine Color YELLOW Urine Turbidity HAZY Urine pH 5.5 Urine Specific [place] 1.019 Urine Protein 30 mg/dL Urine Glucose (UA) NEG mg/dL Urine Ketones NEG mg/dL Urine Occult Blood LARGE Urine Nitrite NEG Urine Bilirubin NEG Urine Urobilinogen LESS THAN 2.0 MG/DL Urine Leukocyte Esterase LARGE Urine RBC 45 /hpf Urine WBC 171 /hpf Urine Squamous Epithelial Cells 5 /hpf Urine Bacteria FEW /hpf Urine Mucus FEW /lpf Microscopic Urinalysis Comment CULTURE INDICATED Date/Time Source Procedure Growth Status 04/04/18 07:30 Urine Clean Catch Urine Culture Pending Received Vitals/IOs Vital Signs Date Time Temp Pulse Resp B/P (MAP) Pulse Ox O2 Delivery O2 Flow Rate FiO2 04/04/18 06:00 97.9 88 16 127/84 (98) 99 Assessment & Plan Problem List: (1) Schizophrenia ICD Codes: F20.9 - Schizophrenia, unspecified Assessment & Plan Patient continues to have AH and disorganization with confusion but appears to be improving. Will defer increasing Clozapine for now until patient is improving physically and PE/myocarditis is ruled out. Hospitalist input appreciated. Continue current treatment, will continue to monitor mood and behavior. Discharge planning in progress. Justification for Cont. Inpt. At risk for further decompensation if at lower level of care. Discharge Planning To be determined Problem Qualifiers (1) Schizophrenia: Qualified Codes: F20.3 - Undifferentiated schizophrenia Clay Pelletier MD Apr 04, 2018 14:31
--- NOTE | 2018-04-04 16:31 | HHI.PR ---
Subjective Remarks Follow up visit generalized malaise, tachycardia, suspicion for clozapine- induced myocarditis, UTI. Patient seen and examined today. Reports continues to have burning sensation when she urinates. Otherwise continues to have generalized malaise, no appetite to eat. Denies pain and discomfort. Denies SOB/ dyspnea. Denies chest pain, palpitations, headaches, dizziness. Denies fevers, chills, n/v/d. Objective Vitals Vital Signs Date Time Temp Pulse Resp B/P (MAP) Pulse Ox O2 Delivery O2 Flow Rate FiO2 04/04/18 06:00 97.9 88 16 127/84 (98) 99 Result Diagram: 04/03/18 1417 04/03/18 1417 Imaging Last Impressions Chest X-Ray 04/03/18 0000 Signed Impressions: CONCLUSION: Negative examination. Objective Remarks GENERAL: This is a well-nourished, well-developed patient, in no apparent distress. SKIN: Warm and dry. HEENT: Normocephalic. Pupils equal round and reactive. Nose without bleeding. Airway patent. NECK: Trachea midline. No JVD. Supple. CARDIOVASCULAR: Tachycardic without murmurs, gallops, or rubs. RESPIRATORY: Clear to auscultation. Breath sounds equal bilaterally. No wheezes , rales, or rhonchi. GASTROINTESTINAL: Abdomen soft, non-tender, nondistended. Bowel Sounds normoactive x4. MUSCULOSKELETAL: Extremities without clubbing, cyanosis, or edema. NEUROLOGICAL: Awake and alert. Oriented to place, person. No focal neuro deficit. Moves all extremities. Normal speech. A/P Assessment and Plan 37-year-old female with PMH of asthma, schizophrenia, PTSD,admitted to inpatient psychiatry under [facility], s/p 11days ago, reportedly patient was not taking care of herself, auditory hallucinations, and she would not let anyone take care of her baby. Schizophrenia: acute on chronic -Continue management per psychiatry Malaise, gen fatigue ? Clozapine induced myocarditis -Chest x-ray negative -CBC with no eosinophil increase, CRP mildly elevated 0.70, CK within normal , BNP within normal -EKG reviewed sinus tachycardia with no ST segment changes -Troponin negative -Patient reports that generalized muscle fatigue and malaise has been since and after giving . Patient is approximately 2-3 weeks. and may have contributed to increasing muscle weakness and fatigue. Patient is also fasting. Poor nutritional intake recently. Patient reports she is on clozapine during . -Echo ordered by primary team, will follow-up results -Highly unlikely that patient's generalized malaise is from clozapine induced myocarditis but we will follow the echo. Patient continues to be anxious and depressed. Patient continues to be psychotic. UTI -UA positive -Follow up cultures. Start Augmentin BID. Adjust antibiotic as needed Asthma, chronic, stable. -albuterol inhaler prn , S/p : 2 weeks ago -Incision healing well. -Continue wound care DVT prophylaxis-ambulation Cuauhtemoc Cook Apr 04, 2018 16:31
--- NOTE | 2018-04-04 20:12 | EKG ---
Date Performed: 04/03/2018 Time Performed: 14:27:40 PTAGE: 37 years EKG: SINUS TACHYCARDIA NONSPECIFIC T-WAVE ABNORMALITY ABNORMAL ECG Possible left ventricular Hyp ertrophy Since PREVIOUS TRACING , the non-specific ST-T wave are new. Clinical correlation is recommende d PREVIOUS TRACIN03/29/2018 14.15 DOCTOR: Shelli Fontanez Interpretating Date/Time 04/04/2018 20:11:32
[2018-04-04] MEDS: REMOVE OLD NICOTINE PATCH T-DERMAL SCH (21:00)
[2018-04-04] MEDS: AMOXICILLIN/CLAVULANATE K 500 MG TAB PO SCH (21:10)
[2018-04-04] MEDS: cloZAPine 100 MG TAB PO SCH (21:12)
[2018-04-05 06:08] VITALS: BP 105/62; PULSE 96; RESP 16; TEMP 97.2; O2SAT 99
[2018-04-05] MEDS: cloZAPine 25 MG TAB PO SCH (08:33)
[2018-04-05] MEDS: NICOTINE 21 MG/24 HR PATCH T-DERMAL SCH (08:33)
[2018-04-05] MEDS: AMOXICILLIN/CLAVULANATE K 500 MG TAB PO SCH (08:33)
[2018-04-05] MEDS: LORazepam 1 MG TAB PO PRN (13:25)
--- NOTE | 2018-04-05 17:11 | HHI.PYPN ---
Subjective Remarks Patient seen for follow, chart reviewed. Discussion nursing staff reported the patient refusing echocardiogram today, continues to be somewhat disorganized and anxious. Patient was found sitting in hospital bed noted B, cooperative. Patient states that she did be feeling somewhat anxious in the morning and was concerned that she would be visiting visitation when getting the echocardiogram was assured the patient will have this done prior to visitation hours which she then agreed. Patient reports sleeping well, eating and drinking well, continues report auditory hallucinations "once in a while" continues to have some internal preoccupation. Patient states that she will be visiting with her parents today and feels that she will start getting along with her mother better. She agrees to return back to her parents now when psychiatrically stable on discharge. Review of Systems Except as stated in HPI: all other systems reviewed are Neg Mental Status Examination Appearance: Appropriate Consciousness: Alert Orientation: x4 Motor Activity: Normal gait Speech: Unremarkable Language: Adequate Fund of Knowledge: Adequate Attention and Concentration: Adequate Memory: Unremarkable Mood: Other (Okay) Affect: Blunt (More reactive now) Thought Process & Associations: Disorganized (Lessening and appears to be improving) Thought Content: Bizarre thinking, Hallucinations, Delusional (Lessening) Hallucination Type: Auditory (lessening, no longer derogatory), Other ( Internally stimulated) Delusion Type: Bizarre, Paranoid Suicidal Ideation: No Suicidal Plan: No Suicidal Intention: No Homicidal Ideation: No Homicidal Plan: No Homicidal Intention: No Insight: Fair Judgment: Impulsive Results Labs Date/Time Source Procedure Growth Status 04/04/18 07:30 Urine Clean Catch Urine Culture - Final 50-100,000 CFU/ML MIXED GRAM POSITIVE... Complete Vitals/IOs Vital Signs Date Time Temp Pulse Resp B/P (MAP) Pulse Ox O2 Delivery O2 Flow Rate FiO2 04/05/18 06:08 97.2 96 16 105/62 (38) 99 Assessment & Plan Problem List: (1) Schizophrenia ICD Codes: F20.9 - Schizophrenia, unspecified Assessment & Plan Patient continues to have auditory hallucinations, and internal preoccupation. Patient continues to be somewhat disorganized, but more reactive and with improved insight. We will continue to titrate clozapine to 100 mg a.m./400 mg at bedtime for psychosis. Patient to complete echocardiogram. Hospitalist input appreciated. Continue to monitor mood and behavior. Discharge planning in progress. Justification for Cont. Inpt. At risk for further decompensation if at lower level of care Problem Qualifiers (1) Schizophrenia: Qualified Codes: F20.3 - Undifferentiated schizophrenia Clay Pelletier MD Apr 05, 2018 17:11
--- NOTE | 2018-04-05 17:39 | ECHRPT ---
Indication: CHEST PAIN CONCLUSIONS Technically difficult study. In limited views, the left ventricular systolic function is low normal with an estimated ejection fr action in the range of 50-55%. There was limited left ventricular wall motion assessment due to poor endocardial visualization. Trace aortic valve regurgitation. There is trace tricuspid valve regurgitation. BP: / HR: Rhythm: Technical Quality:Technically difficult study FINDINGS LEFT VENTRICLE Normal left ventricular size. Wall thickness is normal. In limited views, the left ventricular systolic function is low normal with an estimated ejection fr action in the range of 50-55%. There was limited left ventricular wall motion assessment due to poor endocardial visualization. RIGHT VENTRICLE Grossly normal LEFT ATRIUM The left atrial size is normal. RIGHT ATRIUM The right atrium is not well visualized. ATRIAL SEPTUM The interatrial septum not well visualized. AORTA The aortic root and proximal ascending aorta are normal in size on limited imaging. MITRAL VALVE Grossly normal No mitral valve regurgitation. No mitral valve stenosis. AORTIC VALVE Grossly normal No aortic valve stenosis. Trace aortic valve regurgitation. TRICUSPID VALVE Grossly normal There is trace tricuspid valve regurgitation. No tricuspid valve stenosis. PULMONARY VALVE The pulmonary valve is not well visualized. VESSELS The inferior vena cava was not well visualized. Eric Zelaya DO (Electronically Signed) Final Date:05 April 2018 17:38
--- NOTE | 2018-04-05 17:45 | HHI.PR ---
Subjective Remarks Follow up visit generalized malaise, tachycardia, suspicion for clozapine- induced myocarditis. Patient seen and examined today. Reports she continues to have generalized weakness, tiredness. Discussed with patient results of microbiology. Stopping antibiotics. Patient states that all of this generalized weakness is because of her taking because of her taking clozapine. Discussed with her results of labs that we took regarding clozapine use which did not show any elevations on the labs for suspicion of clozapine induced myocarditis. States she went for echocardiogram. Patient states she has not been sleeping. Denies pain and discomfort. Denies SOB/ dyspnea. Denies chest pain, palpitations. Denies fevers, chills, n/v/d. Objective Vitals Vital Signs Date Time Temp Pulse Resp B/P (MAP) Pulse Ox O2 Delivery O2 Flow Rate FiO2 04/05/18 06:08 97.2 96 16 105/62 (76) 99 Result Diagram: 04/03/18 1417 04/03/18 1417 Imaging Last Impressions Chest X-Ray 04/03/18 0000 Signed Impressions: CONCLUSION: Negative examination. Objective Remarks GENERAL: This is a well-nourished, well-developed patient, in no apparent distress. SKIN: Warm and dry. HEENT: Normocephalic. Pupils equal round and reactive. Nose without bleeding. Airway patent. NECK: Trachea midline. No JVD. Supple. CARDIOVASCULAR: Tachycardic without murmurs, gallops, or rubs. RESPIRATORY: Clear to auscultation. Breath sounds equal bilaterally. No wheezes , rales, or rhonchi. GASTROINTESTINAL: Abdomen soft, non-tender, nondistended. Bowel Sounds normoactive x4. MUSCULOSKELETAL: Extremities without clubbing, cyanosis, or edema. NEUROLOGICAL: Awake and alert. Oriented to place, person. No focal neuro deficit. Moves all extremities. Normal speech. A/P Assessment and Plan 37-year-old female with PMH of asthma, schizophrenia, PTSD,admitted to inpatient psychiatry under [facility] Act, s/p 11days ago, reportedly patient was not taking care of herself, auditory hallucinations, and she would not let anyone take care of her baby. Schizophrenia: acute on chronic -Continue management per psychiatry Malaise, gen fatigue ? Clozapine induced myocarditis -Chest x-ray negative -CBC with no eosinophil increase, CRP mildly elevated 0.70, CK within normal , BNP within normal -EKG reviewed sinus tachycardia with no ST segment changes -Troponin negative -Patient reports that generalized muscle fatigue and malaise has been since and after giving . Patient is approximately 2-3 weeks. and may have contributed to increasing muscle weakness and fatigue. Patient is also fasting. Poor nutritional intake recently. Patient reports she is on clozapine during . -Echo ordered by primary team, will follow-up results -Highly unlikely that patient's generalized malaise is from clozapine induced myocarditis but we will follow the echo. Patient continues to be anxious and depressed. Patient continues to be psychotic. UTI -UA positive -Cultures showing 50,000-100,000 mixed gonzalez, probable contaminant -DC Augmentin for now. Encourage p.o. fluid intake Asthma, chronic, stable. -albuterol inhaler prn , S/p : 2 weeks ago -Incision healing well. -Continue wound care DVT prophylaxis-ambulation Cuauhtemoc Cook Apr 05, 2018 17:45
[2018-04-05 18:05] VITALS: BP 123/86; PULSE 120; RESP 16; TEMP 98.2; O2SAT 98
[2018-04-05] MEDS: cloZAPine 100 MG TAB PO SCH (20:57)
[2018-04-05] MEDS: DOCUSATE SODIUM 100 MG CAP PO SCH (21:00)
[2018-04-05] MEDS: REMOVE OLD NICOTINE PATCH T-DERMAL SCH (21:00)
[2018-04-06 07:14] VITALS: BP 113/62; PULSE 74; RESP 16; TEMP 97.8; O2SAT 96
[2018-04-06] MEDS: cloZAPine 25 MG TAB PO SCH (08:39)
[2018-04-06] MEDS: DOCUSATE SODIUM 100 MG CAP PO SCH ×2 (08:39→21:00)
[2018-04-06] MEDS: NICOTINE 21 MG/24 HR PATCH T-DERMAL SCH (08:39)
[2018-04-06] MEDS: LORazepam 1 MG TAB PO PRN ×2 (09:13→15:41)
[2018-04-06] MEDS: ACETAMINOPHEN 325 MG TAB PO PRN (11:54)
--- NOTE | 2018-04-06 15:49 | HHI.PR ---
Subjective Remarks Follow up visit generalized malaise, tachycardia, suspicion for clozapine- induced myocarditis. She was seen and examined today. Walking around in her room. Brisk movement noted, not without energy. States she doing okay, just had visitation. Discussed results of echocardiogram. Denies pain and discomfort. Denies SOB/ dyspnea. Denies chest pain, palpitations, headaches, dizziness. Denies fevers, chills, n/v/d. Denies dysuria. Objective Vitals Vital Signs Date Time Temp Pulse Resp B/P (MAP) Pulse Ox O2 Delivery O2 Flow Rate FiO2 04/06/18 07:14 97.8 74 16 113/62 (79) 96 04/05/18 18:05 98.2 120 16 123/86 (98) 98 I/O 04/05/18 04/05/18 04/05/18 04/06/18 04/06/18 04/06/18 06:59 14:59 22:59 06:59 14:59 22:59 Intake Total 240 ml Balance 240 ml Intake Oral 240 ml Result Diagram: 04/03/18 1417 04/03/18 1417 Imaging Last Impressions Chest X-Ray 04/03/18 0000 Signed Impressions: CONCLUSION: Negative examination. Objective Remarks GENERAL: This is a well-nourished, well-developed patient, in no apparent distress. SKIN: Warm and dry. HEENT: Normocephalic. Pupils equal round and reactive. Nose without bleeding. Airway patent. NECK: Trachea midline. No JVD. Supple. CARDIOVASCULAR: Tachycardic without murmurs, gallops, or rubs. RESPIRATORY: Clear to auscultation. Breath sounds equal bilaterally. No wheezes , rales, or rhonchi. GASTROINTESTINAL: Abdomen soft, non-tender, nondistended. Bowel Sounds normoactive x4. MUSCULOSKELETAL: Extremities without clubbing, cyanosis, or edema. NEUROLOGICAL: Awake and alert. Oriented to place, person. No focal neuro deficit. Moves all extremities. Normal speech. A/P Assessment and Plan 37-year-old female with PMH of asthma, schizophrenia, PTSD,admitted to inpatient psychiatry under [facility], s/p , reportedly patient was not taking care of herself, auditory hallucinations, and she would not let anyone take care of her baby. Schizophrenia: acute on chronic -Continue management per psychiatry Malaise, gen fatigue ? Clozapine induced myocarditis -Chest x-ray negative -CBC with no eosinophil increase, CRP mildly elevated 0.70, CK within normal , BNP within normal -EKG reviewed sinus tachycardia with no ST segment changes -Troponin negative -Patient reports that generalized muscle fatigue and malaise has been since and after giving . Patient is approximately 2-3 weeks. and may have contributed to increasing muscle weakness and fatigue. Patient is also fasting. Poor nutritional intake recently. Patient reports she is on clozapine during . -Echo showed limited views left ventricular systolic function is low normal estimated EF 50-55% -Highly unlikely that patient's generalized malaise is from clozapine induced myocarditis. Patient continues to be somatic. -Encouraged daily activities including exercises UTI -UA positive -Cultures showing 50,000-100,000 mixed gonzalez, probable contaminant -DC Augmentin for now. Encourage p.o. fluid intake Asthma, chronic, stable. -albuterol inhaler prn , S/p : 2 weeks ago -Incision healing well. DVT prophylaxis-ambulation Stable from Hospitalist standpoint. We will sign off. Reconsult as needed. Cuauhtemoc Cook Apr 06, 2018 15:49
[2018-04-06] MEDS ORDERED: BISACODYL EC 5 MG TABEC PO ONE (16:00)
[2018-04-06] MEDS: ONDANSETRON ODT 4 MG TAB PO PRN (16:06)
--- NOTE | 2018-04-06 16:25 | HHI.PYPN ---
Subjective Remarks Pt seen and discussed with staff. She refused clozaril morning dose today stating that it is causing her to have sexual feelings. She reports decreasing "messages" and AH. She visited with her children's father today without incident. No disruptive behaviors on unit. She denies SI/HI. Mental Status Examination Appearance: Appropriate Consciousness: Alert Orientation: x4 Motor Activity: Normal gait Speech: Unremarkable Language: Adequate Fund of Knowledge: Adequate Attention and Concentration: Adequate Memory: Unremarkable Mood: Other (Okay) Affect: Blunt (More reactive now) Thought Process & Associations: Tangential Thought Content: Bizarre thinking, Hallucinations, Delusional Hallucination Type: Auditory (intermittent), Other (Internally stimulated) Delusion Type: Bizarre, Paranoid Suicidal Ideation: No Suicidal Plan: No Suicidal Intention: No Homicidal Ideation: No Homicidal Plan: No Homicidal Intention: No Insight: Fair Judgment: Impulsive Results Labs Date/Time Source Procedure Growth Status 04/04/18 07:30 Urine Clean Catch Urine Culture - Final 50-100,000 CFU/ML MIXED GRAM POSITIVE... Complete Vitals/IOs Vital Signs Date Time Temp Pulse Resp B/P (MAP) Pulse Ox O2 Delivery O2 Flow Rate FiO2 04/06/18 07:14 97.8 74 16 113/62 (79 96 Assessment & Plan Problem List: (1) Schizophrenia ICD Codes: F20.9 - Schizophrenia, unspecified Assessment & Plan Continue current tx plan. Estimated LOS: days Justification for Cont. Inpt. impairments in reality testing Problem Qualifiers (1) Schizophrenia: Qualified Codes: F20.3 - Undifferentiated schizophrenia Jaye Loyola MD Apr 06, 2018 16:25
[2018-04-06 18:10] VITALS: BP 117/80; PULSE 125; RESP 18; TEMP 98.8; O2SAT 99
[2018-04-06] MEDS: REMOVE OLD NICOTINE PATCH T-DERMAL SCH (21:00)
[2018-04-06] MEDS: cloZAPine 100 MG TAB PO SCH (21:40)
[2018-04-07 06:00] VITALS: BP 129/90; PULSE 90; RESP 16; TEMP 98.3; O2SAT 99
[2018-04-07] MEDS: NICOTINE 21 MG/24 HR PATCH T-DERMAL SCH (08:45)
[2018-04-07] MEDS: DOCUSATE SODIUM 100 MG CAP PO SCH ×2 (08:45→21:00)
[2018-04-07] MEDS: cloZAPine 25 MG TAB PO SCH (08:47)
[2018-04-07] MEDS: LORazepam 1 MG TAB PO PRN ×2 (08:59→15:55)
[2018-04-07] MEDS: ACETAMINOPHEN 325 MG TAB PO PRN (09:00)
--- NOTE | 2018-04-07 13:44 | HHI.PYPN ---
Subjective Remarks Pt seen and discussed with staff. She refused morning clozaril again today but has been compliant with nighttime dose. She remains delusional and somewhat disorganized. She reports increased hallucinations today. She is adamant that she will not take clozaril in the morning because "its supposed to be at night". Mental Status Examination Appearance: Appropriate Consciousness: Alert Orientation: x4 Motor Activity: Normal gait Speech: Unremarkable Language: Adequate Fund of Knowledge: Adequate Attention and Concentration: Adequate Memory: Unremarkable Mood: Other (Okay) Affect: Blunt (More reactive now) Thought Process & Associations: Tangential Thought Content: Bizarre thinking, Hallucinations, Delusional Hallucination Type: Auditory (intermittent), Other (Internally stimulated) Delusion Type: Bizarre, Paranoid Suicidal Ideation: No Suicidal Plan: No Suicidal Intention: No Homicidal Ideation: No Homicidal Plan: No Homicidal Intention: No Insight: Fair Judgment: Impulsive Results Labs Date/Time Source Procedure Growth Status 04/04/18 07:30 Urine Clean Catch Urine Culture - Final 50-100,000 CFU/ML MIXED GRAM POSITIVE... Complete Vitals/IOs Vital Signs Date Time Temp Pulse Resp B/P (MAP) Pulse Ox O2 Delivery O2 Flow Rate FiO2 04/07/18 06:00 98.3 90 16 129/90 (103) 99 Assessment & Plan Problem List: (1) Schizophrenia ICD Codes: F20.9 - Schizophrenia, unspecified Assessment & Plan Continue current tx plan. Encourage complianceEstimated LOS: days Justification for Cont. Inpt. impairments in reality testing Problem Qualifiers (1) Schizophrenia: Qualified Codes: F20.3 - Undifferentiated schizophrenia Jaye Loyola MD Apr 07, 2018 13:44
[2018-04-07 19:41] VITALS: BP 111/80; PULSE 117; RESP 18; TEMP 98.2; O2SAT 98
[2018-04-07] MEDS: REMOVE OLD NICOTINE PATCH T-DERMAL SCH (21:00)
[2018-04-07] MEDS: cloZAPine 100 MG TAB PO SCH (21:07)
[2018-04-08 06:00] VITALS: BP 106/72; PULSE 104; RESP 16; TEMP 97.9; O2SAT 98
[2018-04-08] MEDS: DOCUSATE SODIUM 100 MG CAP PO SCH ×2 (08:48→21:15)
[2018-04-08] MEDS: NICOTINE 21 MG/24 HR PATCH T-DERMAL SCH (08:48)
[2018-04-08] MEDS: cloZAPine 25 MG TAB PO SCH (08:49)
--- NOTE | 2018-04-08 10:48 | PD.TTN ---
Patient Problems 1. Discharge planning 2. Medication compliance 3. Knowledge deficit 4. Lack of coping skills Progress Toward Goals Provider Present: Dr. Radha Pelletier Provider Input: Titrating meds, pt meets criteria and needs further stabilzation 04/03/18 Patient is getting better, will continue with treatment. 04/08/18 Patient is doing well. Patient is being discharged today Nurse(s) Input: Patient's nurse's reports medication compliant, guarded, 04/08/18 Patient's nurse reports doing well, cooperative, pleasant, medication compliant Psychiatric Counselors Present: Jn Barrera Jr., [facility] Psych Therapist Input: Pt still delusional, refusing [facility] placement due to "not wanting to be seperated" from her baby. 04/03/18 Patient presented affect flat, withdrawn, depressed, tired, poor insight, speech halted, guarded, 04/08/18 Patient is doing well. Patient denies suicidal and homicidal ideation. Patient presents cooperative, pleasant. Patient is being discharged home. Patient will follow up with [facility] Group Spec/RT/OT/STERN Present: Kathi Contreras, GPS, JARRED Santos, Kushal Pineda, JARRED Group Spec/RT/OT/STERN Input: Attending some groups Attends selective groups. 04/08/18 Attends selective groups Documentation Teaching Recipient: Cameron Lolis Bañuelosth [facility] [place] Apr 08, 2018 10:48
[2018-04-08] MEDS: LORazepam 1 MG TAB PO PRN ×2 (12:36→18:16)
--- NOTE | 2018-04-08 17:21 | HHI.PYPN ---
Subjective Remarks Patient seen for follow-up, chart reviewed. Discussion nursing staff reported the patient refusing clozapine in the morning continues to be isolative. Patient was found sitting in hospital bed noted become cooperative. Patient states that she would like to take most of her medications at night that she feels some nausea during the morning feeling "foggy/confused". Patient states that she is feeling 75% better as her auditory hallucinations have been decreasing that she had spoken to her parents and the plan is for her to live with her sister upon discharge. Patient continues to be perseverative on the delusion that she may have continued at this time and requesting test. Review of Systems Except as stated in HPI: all other systems reviewed are Neg Mental Status Examination Appearance: Appropriate Consciousness: Alert Orientation: x4 Motor Activity: Normal gait Speech: Unremarkable Language: Adequate Fund of Knowledge: Adequate Attention and Concentration: Adequate Memory: Unremarkable Mood: Other (Okay) Affect: Blunt (More reactive now) Thought Process & Associations: Intact, Logical, Tangential Thought Content: Bizarre thinking, Hallucinations (Decreasing), Delusional Hallucination Type: Auditory (intermittent), Other (Internally stimulated) Delusion Type: Bizarre, Paranoid Suicidal Ideation: No Suicidal Plan: No Suicidal Intention: No Homicidal Ideation: No Homicidal Plan: No Homicidal Intention: No Insight: Fair Judgment: Impulsive Results Labs Date/Time Source Procedure Growth Status 04/04/18 07:30 Urine Clean Catch Urine Culture - Final 50-100,000 CFU/ML MIXED GRAM POSITIVE... Complete Vitals/IOs Vital Signs Date Time Temp Pulse Resp B/P (MAP) Pulse Ox O2 Delivery O2 Flow Rate FiO2 04/08/18 06:00 97.9 104 16 106/72 (83) 98 Assessment & Plan Problem List: (1) Schizophrenia ICD Codes: F20.9 - Schizophrenia, unspecified Assessment & Plan Patient to continue current treatment regimen but will adjust medications to 50 mg a.m./450 mg at bedtime of clozapine to decrease sedation during the day. Patient to continue participation in groups and activities continue to encourage patient to participate in personal hygiene. Continue to monitor with behavior. Discharge planning in progress. Justification for Cont. Inpt. At risk of further decompensation a lower level of care. Discharge Planning Patient return to his sister's home when psychiatrically stable Problem Qualifiers (1) Schizophrenia: Qualified Codes: F20.3 - Undifferentiated schizophrenia Clay Pelletier MD Apr 08, 2018 17:21
[2018-04-08 18:22] VITALS: BP 117/72; PULSE 120; RESP 16; TEMP 98; O2SAT 99
[2018-04-08] MEDS ORDERED: cloZAPine 100 MG TAB PO SCH (21:00)
[2018-04-08] MEDS: REMOVE OLD NICOTINE PATCH T-DERMAL SCH (21:00)
[2018-04-09 06:23] VITALS: BP 124/81; PULSE 102; RESP 18; TEMP 97.6; O2SAT 99
[2018-04-09] MEDS: NICOTINE 21 MG/24 HR PATCH T-DERMAL SCH (09:00)
[2018-04-09] MEDS: REMOVE OLD NICODERM (NICOTINE) PATCH T-DERMAL SCH (09:00)
[2018-04-09] MEDS: DOCUSATE SODIUM 100 MG CAP PO SCH ×2 (09:21→21:02)
[2018-04-09] MEDS: cloZAPine 25 MG TAB PO SCH (09:21)
[2018-04-09] MEDS: LORazepam 1 MG TAB PO PRN (12:31)
--- NOTE | 2018-04-09 16:41 | HHI.PYPN ---
Subjective Remarks Patient seen for follow, chart reviewed. Discussion nursing staff reported the patient took medications this morning, continues to be isolative a compliant with medication. Patient was found sitting in hospital bed noted, cooperative. Patient states that she is feeling sad and depressed that she does not know what is going to happen after discharge or whether she will be able to care for her child. Patient states that her last visit with her parents went well and that she is having that her baby is doing well as well. She reports feeling better, more hopeful and plans to be discharged to her sister's home once she is more stable. Patient states that she is having minimal auditory hallucinations now and that she feels that she is improving about 85% better. Patient continues to not feel comfortable participating groups was encouraged for her to be less isolative. Review of Systems Except as stated in HPI: all other systems reviewed are Neg Mental Status Examination Appearance: Appropriate Consciousness: Alert Orientation: x4 Motor Activity: Normal gait Speech: Unremarkable Language: Adequate Fund of Knowledge: Adequate Attention and Concentration: Adequate Memory: Unremarkable Mood: Other (Okay) Affect: Blunt (More reactive now) Thought Process & Associations: Intact, Logical, Tangential Thought Content: Bizarre thinking, Hallucinations (Decreasing), Delusional Hallucination Type: Auditory, Other (Internally stimulated) Delusion Type: Bizarre, Paranoid Suicidal Ideation: No Suicidal Plan: No Suicidal Intention: No Homicidal Ideation: No Homicidal Plan: No Homicidal Intention: No Insight: Fair Judgment: Impulsive Results Labs Date/Time Source Procedure Growth Status 04/04/18 07:30 Urine Clean Catch Urine Culture - Final 50-100,000 CFU/ML MIXED GRAM POSITIVE... Complete Vitals/IOs Vital Signs Date Time Temp Pulse Resp B/P (MAP) Pulse Ox O2 Delivery O2 Flow Rate FiO2 04/09/18 06:23 97.6 102 18 124/81 (95) 99 Assessment & Plan Problem List: (1) Schizophrenia ICD Codes: F20.9 - Schizophrenia, unspecified Assessment & Plan Patient will continue improvement of psychotic symptoms, continues to have continued delusion that she is asking for test. Patient will appears to have more insight now and reports decrease in auditory hallucinations. We will continue to titrate clozapine to 50 mg a.m./500 mg at bedtime. We will continue monitor mood and behavior. Discharge planning in progress. Justification for Cont. Inpt. At risk of further decompensation a lower level of care. Discharge Planning Patient return to her sister's residence was psychiatrically stable. Problem Qualifiers (1) Schizophrenia: Qualified Codes: F20.3 - Undifferentiated schizophrenia Clay Pelletier MD Apr 09, 2018 16:41
[2018-04-09] MEDS: REMOVE OLD NICOTINE PATCH T-DERMAL SCH (21:00)
[2018-04-09] MEDS: cloZAPine 100 MG TAB PO SCH (21:02)
[2018-04-10 06:22] VITALS: BP 134/79; PULSE 123; RESP 20; TEMP 97.5; O2SAT 100
[2018-04-10 08:17] LABS: AUTOMATED NEUTROPHIL # 4.5 TH/MM3 (1.8-7.7); BASOPHIL % 0.7 % (0.0-2.0); EOSINOPHIL # 0.2 TH/MM3 (0-0.4); EOSINOPHIL % 3.4 % (0.0-4.0); HEMATOCRIT 43.4 % (35.0-46.0); HEMOGLOBIN 14.6 GM/DL (11.6-15.3); LYMPH % 25.1 % (9.0-44.0); LYMPHOCYTE # 1.7 TH/MM3 (1.0-4.8); MEAN CELL VOLUME 91.5 FL (80.0-100.0); MEAN CORPUSCULAR HEMOGLOBIN 30.8 PG (27.0-34.0); MEAN CORPUSCULAR HGB CONC 33.7 % (32.0-36.0); MEAN PLATELET VOLUME 7.5 FL (7.0-11.0); MONO % 5.3 % (0.0-8.0); MONOCYTE # 0.4 TH/MM3 (0-0.9); NEUT % 65.5 % (16.0-70.0); PLATELET COUNT 259 TH/MM3 (150-450); RED BLOOD COUNT 4.74 MIL/MM3 (4.00-5.30); RED CELL DISTRIBUTION WIDTH 14.4 % (11.6-17.2); WHITE BLOOD COUNT 6.9 TH/MM3 (4.0-11.0)
[2018-04-10] MEDS: REMOVE OLD NICODERM (NICOTINE) PATCH T-DERMAL SCH (08:27)
[2018-04-10] MEDS: cloZAPine 25 MG TAB PO SCH (08:27)
[2018-04-10] MEDS: DOCUSATE SODIUM 100 MG CAP PO SCH ×2 (08:27→21:00)
[2018-04-10] MEDS: LORazepam 1 MG TAB PO PRN ×2 (08:28→15:43)
[2018-04-10] MEDS: NICOTINE 21 MG/24 HR PATCH T-DERMAL SCH (08:28)
[2018-04-10 11:38] LABS: BILIRUBIN, URINE NEG (NEG); BLOOD, URINE MOD (NEG); GLUCOSE,URINE 150 mg/dL (NEG); KETONE, URINE NEG (NEG); MUCUS URINE FEW /lpf (OCC); NITRITE,URINE NEG (NEG); PH, URINE 5.5 (5.0-8.5); SQUAMOUS EPITHELIAL CELL URINE 6 /hpf (0-5); URINE COLOR LIGHT-YELLOW (YELLW/STRAW); URINE LEUKOCYTE ESTERASE MOD (NEG)
[2018-04-10 18:37] VITALS: BP 120/82; PULSE 125; RESP 20; TEMP 98.8; O2SAT 100
--- NOTE | 2018-04-10 20:29 | HHI.PYPN ---
Subjective Remarks Reviewed electronic medical record and discussed case with staff. Staff reports that patient was complaining about UTI symptoms, again. I ordered a urinalysis which came back with no culture indicated. Her nurse also reports that she continues to be delusional about being and reports that the "Zofran makes her nausea worse" although, she has been observed eating her dinner without difficulty. Follow-up was conducted in patient's room with her sitting in a chair. She is awake and alert. She reports that she "feels a little anxious but also victorious over my schizophrenia". She reports that she is sleeping well and states that she has a good appetite at the end of the day. She reports that she does feel tired and concedes this may be a result of the increase of her medications. She denies any side effects from the medications. Mental Status Examination Appearance: Appropriate Consciousness: Alert Orientation: x4 Motor Activity: Normal gait Speech: Unremarkable Language: Adequate Fund of Knowledge: Adequate Attention and Concentration: Adequate Memory: Unremarkable Mood: Other (Okay) Affect: Blunt (More reactive now) Thought Process & Associations: Intact, Logical, Tangential Thought Content: Bizarre thinking, Hallucinations (Decreasing), Delusional Hallucination Type: Auditory, Other (Internally stimulated) Delusion Type: Bizarre, Paranoid Suicidal Ideation: No Suicidal Plan: No Suicidal Intention: No Homicidal Ideation: No Homicidal Plan: No Homicidal Intention: No Insight: Fair Judgment: Impulsive Results Labs Test 04/10/18 07:37 04/10/18 11:10 White Blood Count 6.9 TH/MM3 Red Blood Count 4.74 MIL/MM3 Hemoglobin 14.6 GM/DL Hematocrit 43.4 % Mean Corpuscular Volume 91.5 FL Mean Corpuscular Hemoglobin 30.8 PG Mean Corpuscular Hemoglobin Concent 33.7 % Red Cell Distribution Width 14.4 % Platelet Count 259 TH/MM3 Mean Platelet Volume 7.5 FL Neutrophils (%) (Auto) 65.5 % Lymphocytes (%) (Auto) 25.1 % Monocytes (%) (Auto) 5.3 % Eosinophils (%) (Auto) 3.4 % Basophils (%) (Auto) 0.7 % Neutrophils # (Auto) 4.5 TH/MM3 Lymphocytes # (Auto) 1.7 TH/MM3 Monocytes # (Auto) 0.4 TH/MM3 Eosinophils # (Auto) 0.2 TH/MM3 Basophils # (Auto) 0.0 TH/MM3 CBC Comment DIFF FINAL Differential Comment Human Chorionic Gonadotropin, Quant LESS THAN 1 MIU/ML Urine Color LIGHT-YELLOW Urine Turbidity CLEAR Urine pH 5.5 Urine Specific [place] 1.009 Urine Protein NEG mg/dL Urine Glucose (UA) 150 mg/dL Urine Ketones NEG mg/dL Urine Occult Blood MOD Urine Nitrite NEG Urine Bilirubin NEG Urine Urobilinogen LESS THAN 2.0 MG/DL Urine Leukocyte Esterase MOD Urine RBC LESS THAN 1 /hpf Urine WBC 2 /hpf Urine Squamous Epithelial Cells 6 /hpf Urine Mucus FEW /lpf Microscopic Urinalysis Comment CULT NOT INDICATED Date/Time Source Procedure Growth Status 04/04/18 07:30 Urine Clean Catch Urine Culture - Final 50-100,000 CFU/ML MIXED GRAM POSITIVE... Complete Vitals/IOs Vital Signs Date Time Temp Pulse Resp B/P (MAP) Pulse Ox O2 Delivery O2 Flow Rate FiO2 04/10/18 18:37 98.8 125 20 120/82 (95) 100 Assessment & Plan Problem List: (1) Schizophrenia ICD Codes: F20.9 - Schizophrenia, unspecified Assessment & Plan Estimated LOS: Patient continues to have delusions that she is . She reports somatic symptoms of nausea. Continue with current treatment plan until psychiatrically stabilized. Days Justification for Cont. Inpt. Moving this patient to a lower level of care would result in decompensation. Problem Qualifiers (1) Schizophrenia: Qualified Codes: F20.3 - Undifferentiated schizophrenia Jayashree Barnett Apr 10, 2018 20:29
[2018-04-10] MEDS: REMOVE OLD NICOTINE PATCH T-DERMAL SCH (21:00)
[2018-04-10] MEDS: cloZAPine 100 MG TAB PO SCH (21:00)
[2018-04-11 06:23] VITALS: BP 114/72; PULSE 102; RESP 24; TEMP 97.5; O2SAT 99
[2018-04-11] MEDS: REMOVE OLD NICODERM (NICOTINE) PATCH T-DERMAL SCH (08:24)
[2018-04-11] MEDS: cloZAPine 25 MG TAB PO SCH (08:24)
[2018-04-11] MEDS: DOCUSATE SODIUM 100 MG CAP PO SCH ×2 (08:24→20:47)
[2018-04-11] MEDS: LORazepam 1 MG TAB PO PRN ×2 (08:24→14:31)
[2018-04-11] MEDS: NICOTINE 21 MG/24 HR PATCH T-DERMAL SCH (08:24)
[2018-04-11] MEDS: ACETAMINOPHEN 325 MG TAB PO PRN (08:32)
--- NOTE | 2018-04-11 12:13 | HHI.PYPN ---
Subjective Remarks Patient seen and examined with nurse in coverage for Dr. Pelletier. Chart reviewed. Case discussed with nursing staff. Per nursing, patient is quite somatic. On my examination today, the patient complains of constipation. She is having bowel movements but these are inadequate in her estimation. She is requesting Dulcolax 15 mg every 4 days. She denies any history of eating disorder or laxative abuse. She does not describe any delusions of today. She denies any suicidal or homicidal ideation. She does note that she fears for her son's safety and thinks that her baby is not being properly cared for. She also says at one point "I get so angry I could kill her" referring to her mother, but she quickly backtracks and says that this was only a metaphor. No side effects from medications. No other physical complaints. Review of Systems ROS Limitations: Psychotic, Poor Historian Except as stated in HPI: all other systems reviewed are Neg Mental Status Examination Appearance: Appropriate Consciousness: Alert Orientation: x4 Motor Activity: Normal gait, Other (No motor abnormalities noted) Speech: Unremarkable Language: Adequate Fund of Knowledge: Adequate Attention and Concentration: Adequate Memory: Unremarkable (Grossly intact on clinical exam) Mood: Other (Calm) Affect: Blunt Thought Process & Associations: Circumstantial Thought Content: Bizarre thinking Hallucination Type: None Delusion Type: None Suicidal Ideation: No Suicidal Plan: No Suicidal Intention: No Homicidal Ideation: No (Denies HI but see above) Homicidal Plan: No Homicidal Intention: No Insight: Fair Judgment: Impulsive Results Labs Date/Time Source Procedure Growth Status 04/04/18 07:30 Urine Clean Catch Urine Culture - Final 50-100,000 CFU/ML MIXED GRAM POSITIVE... Complete Labs reviewed. Most recent ANC adequate for clozapine therapy. Beta hCG from yesterday negative. Vitals/IOs Vital Signs Date Time Temp Pulse Resp B/P (MAP) Pulse Ox O2 Delivery O2 Flow Rate FiO2 04/11/18 06:23 97.5 102 24 114/72 (86) 99 Assessment & Plan Problem List: (1) Schizophrenia ICD Codes: F20.9 - Schizophrenia, unspecified Assessment & Plan Continue current psychotropics as ordered. I will add Dulcolax as needed per patient request. Continue to monitor on the inpatient unit. Continue other medications and care as ordered. Justification for Cont. Inpt. Risk for decompensation in less restrictive environment. Discharge Planning As per Dr. Pelletier Problem Qualifiers (1) Schizophrenia: Qualified Codes: F20.3 - Undifferentiated schizophrenia Bart Cardozo MD Apr 11, 2018 12:13
[2018-04-11] MEDS ORDERED: BISACODYL EC 5 MG TABEC PO PRN (13:30)
[2018-04-11 17:46] VITALS: BP 120/83; PULSE 102; RESP 16; TEMP 97.5; O2SAT 98
[2018-04-11] MEDS: REMOVE OLD NICOTINE PATCH T-DERMAL SCH (20:48)
[2018-04-11] MEDS: cloZAPine 100 MG TAB PO SCH (21:00)
[2018-04-12 05:50] VITALS: BP 122/64; PULSE 120; RESP 18; TEMP 97.5; O2SAT 100
[2018-04-12] MEDS: REMOVE OLD NICODERM (NICOTINE) PATCH T-DERMAL SCH (09:00)
[2018-04-12] MEDS: NICOTINE 21 MG/24 HR PATCH T-DERMAL SCH (09:00)
[2018-04-12] MEDS: cloZAPine 25 MG TAB PO SCH (09:40)
[2018-04-12] MEDS: DOCUSATE SODIUM 100 MG CAP PO SCH ×2 (09:40→20:20)
[2018-04-12] MEDS: ACETAMINOPHEN 325 MG TAB PO PRN (12:17)
[2018-04-12] MEDS: LORazepam 1 MG TAB PO PRN (12:17)
--- NOTE | 2018-04-12 16:37 | HHI.PYPN ---
Subjective Remarks Reviewed electronic medical record discuss case with staff. Patient was examined in the day room. She is found sitting in a chair tearful. She states that she is "sad but I have a baby on not with it". When asked if she was still experiencing thoughts of hurting her so she states "I just do not want to be alive". She denies visual or auditory hallucinations. She states that she has been sleeping okay however she is "a little scared when the lights go off". She reports that her appetite has been better but states that she feels tired and weak and has not been able to walk around much recently as a result of that. Mental Status Examination Appearance: Appropriate Consciousness: Alert Orientation: x4 Motor Activity: Normal gait, Other (No motor abnormalities noted) Speech: Unremarkable Language: Adequate Fund of Knowledge: Adequate Attention and Concentration: Adequate Memory: Unremarkable (Grossly intact on clinical exam) Mood: Other (Calm) Affect: Blunt Thought Process & Associations: Circumstantial Thought Content: Bizarre thinking Hallucination Type: None Delusion Type: None Suicidal Ideation: No Suicidal Plan: No Suicidal Intention: No Homicidal Ideation: No (Denies HI but see above) Homicidal Plan: No Homicidal Intention: No Insight: Fair Judgment: Impulsive Results Labs Date/Time Source Procedure Growth Status 04/04/18 07:30 Urine Clean Catch Urine Culture - Final 50-100,000 CFU/ML MIXED GRAM POSITIVE... Complete Vitals/IOs Vital Signs Date Time Temp Pulse Resp B/P (MAP) Pulse Ox O2 Delivery O2 Flow Rate FiO2 04/12/18 13:20 16 04/12/18 05:50 97.5 120 122/64 (83) 100 Assessment & Plan Problem List: (1) Schizophrenia ICD Codes: F20.9 - Schizophrenia, unspecified Assessment & Plan Estimated LOS: Patient's mood still unstable. Continue with current treatment plan. Days Justification for Cont. Inpt. Moving this patient to a lower level of care would likely result in decompensation. Problem Qualifiers (1) Schizophrenia: Qualified Codes: F20.3 - Undifferentiated schizophrenia AnibalCristihari GUILLEN Apr 12, 2018 16:37
[2018-04-12 17:25] VITALS: BP 134/91; PULSE 112; RESP 19; TEMP 98.6; O2SAT 100
[2018-04-12] MEDS: REMOVE OLD NICOTINE PATCH T-DERMAL SCH (20:21)
[2018-04-12] MEDS: cloZAPine 100 MG TAB PO SCH (20:21)
[2018-04-13 05:14] VITALS: BP 127/78; PULSE 110; RESP 18; TEMP 97.9; O2SAT 100
[2018-04-13] MEDS: cloZAPine 25 MG TAB PO SCH (08:23)
[2018-04-13] MEDS: DOCUSATE SODIUM 100 MG CAP PO SCH ×2 (08:23→20:19)
[2018-04-13] MEDS: NICOTINE 21 MG/24 HR PATCH T-DERMAL SCH (08:24)
[2018-04-13] MEDS: REMOVE OLD NICODERM (NICOTINE) PATCH T-DERMAL SCH (08:25)
--- NOTE | 2018-04-13 11:57 | HHI.PYPN ---
Subjective Remarks Patient was seen and case discussed with nursing. Patient denies any auditory or visual hallucinations. No delusions were elicited. Compliant with medications and behaving well on the unit. Insight is slowly improving Mental Status Examination Appearance: Appropriate Consciousness: Alert Orientation: x4 Motor Activity: Normal gait, Other (No motor abnormalities noted) Speech: Unremarkable Language: Adequate Fund of Knowledge: Adequate Attention and Concentration: Adequate Memory: Unremarkable (Grossly intact on clinical exam) Mood: Other (Calm) Affect: Blunt Thought Process & Associations: Circumstantial Thought Content: Bizarre thinking Hallucination Type: None Delusion Type: None Suicidal Ideation: No Suicidal Plan: No Suicidal Intention: No Homicidal Ideation: No (Denies HI but see above) Homicidal Plan: No Homicidal Intention: No Insight: Fair Judgment: Impulsive Results Labs Date/Time Source Procedure Growth Status 04/04/18 07:30 Urine Clean Catch Urine Culture - Final 50-100,000 CFU/ML MIXED GRAM POSITIVE... Complete Vitals/IOs Vital Signs Date Time Temp Pulse Resp B/P (MAP) Pulse Ox O2 Delivery O2 Flow Rate FiO2 04/13/18 05:14 97.9 110 18 127/78 (94) 100 Assessment & Plan Problem List: (1) Schizophrenia ICD Codes: F20.9 - Schizophrenia, unspecified Assessment & Plan Continue current treatment plan Justification for Cont. Inpt. Patient would decompensate in a less restrictive setting Problem Qualifiers (1) Schizophrenia: Qualified Codes: F20.3 - Undifferentiated schizophrenia Jamie Polanco DO Apr 13, 2018 11:57
[2018-04-13] MEDS: LORazepam 1 MG TAB PO PRN (15:33)
[2018-04-13] MEDS: ACETAMINOPHEN 325 MG TAB PO PRN (15:34)
[2018-04-13 17:11] VITALS: BP 130/67; PULSE 129; RESP 18; TEMP 97.9; O2SAT 99
[2018-04-13] MEDS: diphenhydrAMINE HCL 50 MG CAP - HS PRN PO (20:20)
[2018-04-13] MEDS: cloZAPine 100 MG TAB PO SCH (20:20)
[2018-04-13] MEDS: REMOVE OLD NICOTINE PATCH T-DERMAL SCH (21:00)
[2018-04-14 05:37] VITALS: BP 126/79; PULSE 122; RESP 17; TEMP 97.6; O2SAT 99
[2018-04-14 06:21] VITALS: BP 126/79; PULSE 122; RESP 17; TEMP 97.6; O2SAT 99
[2018-04-14] MEDS: DOCUSATE SODIUM 100 MG CAP PO SCH ×2 (08:45→21:15)
[2018-04-14] MEDS: cloZAPine 25 MG TAB PO SCH (08:46)
[2018-04-14] MEDS: NICOTINE 21 MG/24 HR PATCH T-DERMAL SCH (08:47)
[2018-04-14] MEDS: REMOVE OLD NICODERM (NICOTINE) PATCH T-DERMAL SCH (08:48)
[2018-04-14] MEDS: ONDANSETRON ODT 4 MG TAB PO PRN (08:56)
--- NOTE | 2018-04-14 10:18 | HHI.PYPN ---
Subjective Remarks Patient was seen and case discussed with nursing. Patient describes nausea that is not better with Zofran. Mild abdominal pain. She says she is concerned about her baby today given her baby has some kind of obstruction. His behaving well on the unit. Denies any auditory or visual hallucinations. Mental Status Examination Appearance: Appropriate Consciousness: Alert Orientation: x4 Motor Activity: Normal gait, Other (No motor abnormalities noted) Speech: Unremarkable Language: Adequate Fund of Knowledge: Adequate Attention and Concentration: Adequate Memory: Unremarkable (Grossly intact on clinical exam) Mood: Other (Calm) Affect: Blunt Thought Process & Associations: Circumstantial Thought Content: Bizarre thinking Hallucination Type: None Delusion Type: None Suicidal Ideation: No Suicidal Plan: No Suicidal Intention: No Homicidal Ideation: No (Denies HI but see above) Homicidal Plan: No Homicidal Intention: No Insight: Fair Judgment: Impulsive Results Labs Date/Time Source Procedure Growth Status 04/04/18 07:30 Urine Clean Catch Urine Culture - Final 50-100,000 CFU/ML MIXED GRAM POSITIVE... Complete Vitals/IOs Vital Signs Date Time Temp Pulse Resp B/P (MAP) Pulse Ox O2 Delivery O2 Flow Rate FiO2 04/14/18 06:21 97.6 122 17 126/79 (95) 99 Assessment & Plan Problem List: (1) Schizophrenia ICD Codes: F20.9 - Schizophrenia, unspecified Assessment & Plan Consult medicine Justification for Cont. Inpt. Patient would decompensate in a less restrictive setting Problem Qualifiers (1) Schizophrenia: Qualified Codes: F20.3 - Undifferentiated schizophrenia Jamie Polanco DO Apr 14, 2018 10:18
--- NOTE | 2018-04-14 12:52 | HHI.PR ---
Subjective Remarks Reconsult for nausea. Patient seen and examined. She is concerned that she still has a twin baby in her abdomen. She wants to make sure wound is healing. Patient is seen eating lunch without any problems. She states she had 4 episodes of nausea since admitted to the hospital. Objective Vitals Vital Signs Date Time Temp Pulse Resp B/P (MAP) Pulse Ox O2 Delivery O2 Flow Rate FiO2 04/14/18 06:21 97.6 122 17 126/79 (95) 99 04/14/18 05:37 97.6 122 17 126/79 (95) 99 04/13/18 17:11 97.9 129 18 130/67 (88) 99 Result Diagram: 04/10/18 0737 Objective Remarks GENERAL: Pressured speech, disorganized. CARDIOVASCULAR: Normal rate and regular rhythm without murmurs, gallops, or rubs. RESPIRATORY: Good respiratory efforts. Breath sounds equal and clear to auscultation bilaterally. GASTROINTESTINAL: Abdomen soft, non-tender, non-distended. wound looks clean and healing properly. MUSCULOSKELETAL: Extremities without cyanosis, or edema. PSYCH: Psychotic. A/P Assessment and Plan 37-year-old female with PMH of asthma, schizophrenia, PTSD,admitted to inpatient psychiatry under [facility], s/p , reportedly patient was not taking care of herself, auditory hallucinations, and she would not let anyone take care of her baby. Schizophrenia: acute on chronic -Continue management per psychiatry Reported nausea: Somatic complaints. - Patient is eating at the time of my visit. No documented vomiting. -Zofran as needed. Asthma, chronic, stable. -albuterol inhaler prn , S/p : 2 weeks ago -Incision healing well. DVT prophylaxis-ambulation Stable from Hospitalist standpoint. We will sign off. Reconsult as needed. Gill Cavanaugh MD Apr 14, 2018 12:52
[2018-04-14] MEDS: LORazepam 1 MG TAB PO PRN (16:11)
[2018-04-14 16:53] VITALS: BP 123/76; PULSE 132; RESP 18; TEMP 98.3; O2SAT 99
[2018-04-14] MEDS: REMOVE OLD NICOTINE PATCH T-DERMAL SCH (21:00)
[2018-04-14] MEDS: cloZAPine 100 MG TAB PO SCH (21:15)
[2018-04-14] MEDS: diphenhydrAMINE HCL 50 MG CAP - HS PRN PO (21:15)
[2018-04-15 05:54] VITALS: BP 102/64; PULSE 78; RESP 18; TEMP 97.3; O2SAT 97
[2018-04-15] MEDS: NICOTINE 21 MG/24 HR PATCH T-DERMAL SCH (07:58)
[2018-04-15] MEDS: REMOVE OLD NICODERM (NICOTINE) PATCH T-DERMAL SCH (07:58)
[2018-04-15] MEDS: cloZAPine 25 MG TAB PO SCH (09:00)
[2018-04-15] MEDS: DOCUSATE SODIUM 100 MG CAP PO SCH ×2 (09:26→20:31)
[2018-04-15] MEDS: ONDANSETRON ODT 4 MG TAB PO PRN (13:49)
[2018-04-15 18:21] VITALS: BP 122/79; PULSE 110; RESP 18; TEMP 98.6; O2SAT 99
--- NOTE | 2018-04-15 19:00 | HHI.PYPN ---
Subjective Remarks Reviewed electronic medical record, labs, discuss case with staff. Follow-up was conducted in patient's room with nurse present. Nurse reports patient has been noncompliant with her Clozaril. She states that it makes her sleepy and nauseous. When patient was asked she states that it makes her feel like a "zombie". Reports that she has previously done well with Paxil. She states that she has had a good appetite and has recently been sleeping well. Compromised I will decrease her Clazuril from 500 mg to 250 mg tonight she states she will take it. And I will just review and see about starting her on a new medication tomorrow. Mental Status Examination Appearance: Appropriate Consciousness: Alert Orientation: x4 Motor Activity: Normal gait, Other (No motor abnormalities noted) Speech: Unremarkable Language: Adequate Fund of Knowledge: Adequate Attention and Concentration: Adequate Memory: Unremarkable (Grossly intact on clinical exam) Mood: Other (Calm) Affect: Blunt Thought Process & Associations: Circumstantial Thought Content: Bizarre thinking Hallucination Type: None Delusion Type: None Suicidal Ideation: No Suicidal Plan: No Suicidal Intention: No Homicidal Ideation: No (Denies HI but see above) Homicidal Plan: No Homicidal Intention: No Insight: Fair Judgment: Impulsive Results Labs Date/Time Source Procedure Growth Status 04/04/18 07:30 Urine Clean Catch Urine Culture - Final 50-100,000 CFU/ML MIXED GRAM POSITIVE... Complete Vitals/IOs Vital Signs Date Time Temp Pulse Resp B/P (MAP) Pulse Ox O2 Delivery O2 Flow Rate FiO2 04/15/18 18:21 98.6 110 18 122/79 (93) 99 Assessment & Plan Problem List: (1) Schizophrenia ICD Codes: F20.9 - Schizophrenia, unspecified Assessment & Plan Estimated LOS: Patient still reports some undesirable side effects from her medication which may require a change in therapy. Days Justification for Cont. Inpt. This patient to a lower level of care would likely result in a decompensation. She is refusing to take the medication due to side effects which would then cause decompensation, tomorrow we will likely start her on a new therapy. Problem Qualifiers (1) Schizophrenia: Qualified Codes: F20.3 - Undifferentiated schizophrenia Jayashree Barnett Apr 15, 2018 19:00
[2018-04-15] MEDS: cloZAPine 100 MG TAB PO SCH (20:31)
[2018-04-15] MEDS: REMOVE OLD NICOTINE PATCH T-DERMAL SCH (20:32)
[2018-04-16 05:53] VITALS: BP 122/80; PULSE 106; RESP 16; TEMP 97.9; O2SAT 99
[2018-04-16] MEDS: LORazepam 1 MG TAB PO PRN ×2 (08:06→17:17)
[2018-04-16] MEDS: cloZAPine 25 MG TAB PO SCH (08:06)
[2018-04-16] MEDS: DOCUSATE SODIUM 100 MG CAP PO SCH ×2 (08:06→20:21)
[2018-04-16] MEDS: NICOTINE 21 MG/24 HR PATCH T-DERMAL SCH (08:06)
[2018-04-16] MEDS: REMOVE OLD NICODERM (NICOTINE) PATCH T-DERMAL SCH (08:07)
--- NOTE | 2018-04-16 10:13 | PD.TTN ---
Patient Problems 1. Discharge planning 2. Medication compliance 3. Knowledge deficit 4. Lack of coping skills Progress Toward Goals Provider Present: Dr. Radha Pelletier, Other Provider Input: Titrating meds, pt meets criteria and needs further stabilzation 04/03/18 Patient is getting better, will continue with treatment. 04/08/18 Patient is doing well. Patient is being discharged today 04/15/18 Patient medication is being changed. Continue with treatment Nurse(s) Input: Patient's nurse's reports medication compliant, guarded, 04/08/18 Patient's nurse reports doing well, cooperative, pleasant, medication compliant 04/15/18 Patient's nurse reorts patient denies suicidal and homicidal ideation. Patient continues to present preoccupied at times. Patient is select in taking her medication Psychiatric Counselors Present: Jn Barrera Jr., [facility] Psych Therapist Input: Pt still delusional, refusing INTERMEDIATE placement due to "not wanting to be seperated" from her baby. 04/03/18 Patient presented affect flat, withdrawn, depressed, tired, poor insight, speech halted, guarded, 04/08/18 Patient is doing well. Patient denies suicidal and homicidal ideation. Patient presents cooperative, pleasant. Patient is being discharged home. Patient will follow up with [facility] 04/15/18 Patient presents pleasant cooperative but constricted affect blunted. Patient is being selective on medication. Patient continues to present with delusional content of being . Patient reports eating and sleeping well. Group Spec/RT/OT/STERN Present: Kathi Contreras, VANESA, JARRED Santos, JARRED Green Group Spec/RT/OT/STERN Input: Attending some groups Attends selective groups. 04/08/18 Attends selective groups 04/15/18 Patient attends selective groups Documentation Teaching Recipient: Patient Bridgett Bañuelos [facility] Apr 16, 2018 10:13
[2018-04-16] MEDS: ONDANSETRON ODT 4 MG TAB PO PRN (11:08)
[2018-04-16 18:24] VITALS: BP 138/84; PULSE 118; RESP 17; TEMP 97.3; O2SAT 60
[2018-04-16] MEDS: PANTOPRAZOLE SOD 20 MG DELAYED RELEASE TAB PO SCH (19:07)
--- NOTE | 2018-04-16 19:37 | HHI.PYPN ---
Subjective Remarks Reviewed electronic medical record discussed case with staff. Follow-up was conducted in patient's room. She advises that she no longer believes herself to be . However she still does report some magical thinking stating that when she sits in the day room she believes that "other people can hear my thoughts and I can hear there is". She states that she slept okay and that she has had a good appetite. However she still endorses that she has been suffering from nausea and heartburn on and off throughout the day. We discussed in depth the importance of her remaining on the Clazuril. She has agreed to comply with the medication regimen. I returned her nighttime dose to her normal dose. Also have included a once daily dose of Protonix 20 mg for her GI discomfort. Mental Status Examination Appearance: Appropriate Consciousness: Alert Orientation: x4 Motor Activity: Normal gait, Other (No motor abnormalities noted) Speech: Unremarkable Language: Adequate Fund of Knowledge: Adequate Attention and Concentration: Adequate Memory: Unremarkable (Grossly intact on clinical exam) Mood: Other (Calm) Affect: Blunt Thought Process & Associations: Circumstantial Thought Content: Bizarre thinking Hallucination Type: None Delusion Type: None Suicidal Ideation: No Suicidal Plan: No Suicidal Intention: No Homicidal Ideation: No (Denies HI but see above) Homicidal Plan: No Homicidal Intention: No Insight: Fair Judgment: Impulsive Results Labs Date/Time Source Procedure Growth Status 04/04/18 07:30 Urine Clean Catch Urine Culture - Final 50-100,000 CFU/ML MIXED GRAM POSITIVE... Complete Vitals/IOs Vital Signs Date Time Temp Pulse Resp B/P (MAP) Pulse Ox O2 Delivery O2 Flow Rate FiO2 04/16/18 18:24 97.3 118 17 138/84 (102) 60 Intake and Output 04/16/18 04/16/18 04/17/18 08:00 16:00 00:00 Intake Total 360 ml 420 ml Balance 360 ml 420 ml Assessment & Plan Problem List: (1) Schizophrenia ICD Codes: F20.9 - Schizophrenia, unspecified Assessment & Plan Estimated LOS: Patient seems to be showing some signs of improvement with her symptoms. She is once again agreeing to comply with her medications after 2 days of missing her morning dose and one night of a half dose of Clozaril. We will continue with this current treatment plan and monitor for improvement in her symptoms days Justification for Cont. Inpt. Moving this patient to a lower level of care may result in a decompensation. Problem Qualifiers (1) Schizophrenia: Qualified Codes: F20.3 - Undifferentiated schizophrenia Jayashree Barnett Apr 16, 2018 19:37
[2018-04-16] MEDS: cloZAPine 100 MG TAB PO SCH (20:20)
[2018-04-16] MEDS: REMOVE OLD NICOTINE PATCH T-DERMAL SCH (20:24)
[2018-04-17 05:41] VITALS: BP 118/73; PULSE 114; RESP 16; TEMP 97.7; O2SAT 96
[2018-04-17] MEDS: DOCUSATE SODIUM 100 MG CAP PO SCH ×2 (08:13→21:10)
[2018-04-17] MEDS: PANTOPRAZOLE SOD 20 MG DELAYED RELEASE TAB PO SCH (08:13)
[2018-04-17] MEDS: cloZAPine 25 MG TAB PO SCH (08:13)
[2018-04-17] MEDS: REMOVE OLD NICODERM (NICOTINE) PATCH T-DERMAL SCH (08:14)
[2018-04-17] MEDS: NICOTINE 21 MG/24 HR PATCH T-DERMAL SCH (08:14)
[2018-04-17 15:28] VITALS: BP 133/85; PULSE 113; RESP 18; TEMP 97.9; O2SAT 98
[2018-04-17] MEDS: REMOVE OLD NICOTINE PATCH T-DERMAL SCH (21:00)
[2018-04-17] MEDS: cloZAPine 100 MG TAB PO SCH (21:10)
[2018-04-17] MEDS: FAMOTIDINE 20 MG TAB PO SCH (21:10)
[2018-04-18] MEDS: REMOVE OLD NICODERM (NICOTINE) PATCH T-DERMAL SCH (09:00)
[2018-04-18] MEDS: cloZAPine 25 MG TAB PO SCH (09:37)
[2018-04-18] MEDS: FAMOTIDINE 20 MG TAB PO SCH ×2 (09:37→21:18)
[2018-04-18] MEDS: DOCUSATE SODIUM 100 MG CAP PO SCH ×2 (09:38→21:18)
[2018-04-18] MEDS: NICOTINE 21 MG/24 HR PATCH T-DERMAL SCH (09:41)
--- NOTE | 2018-04-18 09:48 | HHI.PYPN ---
Subjective Remarks This note is for April 17, 2018. Reviewed electronic medical records and discuss case with staff. Patient was found in the day room and ambulated without effort to her room where follow-up was conducted. Patient reports that she has been compliant with her medications. She still endorses some magical thinking. She states that it bothers her that people can read her thoughts makes her feel like she is being "mind raped". She reports that she is slept better and her appetite has been fairly good. She stated that the Protonix caused her some dyspepsia and related that Zantac had previously worked well for her. I have counseled the Protonix and ordered ranitidine. Mental Status Examination Appearance: Appropriate Consciousness: Alert Orientation: x4 Motor Activity: Normal gait, Other (No motor abnormalities noted) Speech: Unremarkable Language: Adequate Fund of Knowledge: Adequate Attention and Concentration: Adequate Memory: Unremarkable (Grossly intact on clinical exam) Mood: Other (Calm) Affect: Blunt Thought Process & Associations: Circumstantial Thought Content: Bizarre thinking Hallucination Type: None Delusion Type: None Suicidal Ideation: No Suicidal Plan: No Suicidal Intention: No Homicidal Ideation: No (Denies HI but see above) Homicidal Plan: No Homicidal Intention: No Insight: Fair Judgment: Impulsive Results Labs Date/Time Source Procedure Growth Status 04/04/18 07:30 Urine Clean Catch Urine Culture - Final 50-100,000 CFU/ML MIXED GRAM POSITIVE... Complete Vitals/IOs Vital Signs Date Time Temp Pulse Resp B/P (MAP) Pulse Ox O2 Delivery O2 Flow Rate FiO2 04/17/18 15:28 97.9 113 18 133/85 (101) 98 Assessment & Plan Problem List: (1) Schizophrenia ICD Codes: F20.9 - Schizophrenia, unspecified Assessment & Plan Estimated LOS: Patient is showing some improvement. She still complains of magical thinking. Will continue with current treatment plan to allow her time to stabilize on the Clozaril. Days Justification for Cont. Inpt. Moving this patient to a less restrictive environment would likely result in decompensation at this time. She is just beginning to show improvement in her symptoms. Problem Qualifiers (1) Schizophrenia: Qualified Codes: F20.3 - Undifferentiated schizophrenia Jayashree Barnett Apr 18, 2018 09:48
[2018-04-18] MEDS: LORazepam 1 MG TAB PO PRN ×2 (10:16→19:13)
[2018-04-18] MEDS: ACETAMINOPHEN 325 MG TAB PO PRN (11:05)
[2018-04-18] MEDS: ONDANSETRON ODT 4 MG TAB PO PRN (11:06)
--- NOTE | 2018-04-18 17:03 | HHI.PYPN ---
Subjective Remarks Patient seen for follow, chart reviewed. Discussion nursing staff reported the patient denying any suicide ideations today, has been pleasant and cooperative with staff, reported feeling blessed about her son. Patient had been noted to be talking to self at times as well as had refused medications several days ago but has been compliant recently. Patient was found sitting in hospital bed noted B, cooperative. Patient states that she is feeling more calm, eating better, getting along with her family now and reports having been more active on the unit recently attending groups. Patient denies any auditory hallucinations stating last time was 1 week ago. Patient feels that she is 85% ready to get home, denies believing that she is and denies believing that the world was coming to an end. Review of Systems Except as stated in HPI: all other systems reviewed are Neg Mental Status Examination Appearance: Appropriate Consciousness: Alert Orientation: x4 Motor Activity: Normal gait, Other (No motor abnormalities noted) Speech: Unremarkable Language: Adequate Fund of Knowledge: Adequate Attention and Concentration: Adequate Memory: Unremarkable (Grossly intact on clinical exam) Mood: Other (Calm) Affect: Blunt (But more reactive) Thought Process & Associations: Circumstantial Thought Content: Bizarre thinking Hallucination Type: None Delusion Type: None Suicidal Ideation: No Suicidal Plan: No Suicidal Intention: No Homicidal Ideation: No Homicidal Plan: No Homicidal Intention: No Insight: Fair Judgment: Impulsive Results Labs Date/Time Source Procedure Growth Status 04/04/18 07:30 Urine Clean Catch Urine Culture - Final 50-100,000 CFU/ML MIXED GRAM POSITIVE... Complete Vitals/IOs Vital Signs Date Time Temp Pulse Resp B/P (MAP) Pulse Ox O2 Delivery O2 Flow Rate FiO2 04/17/18 15:28 97.9 113 18 133/85 (101) 98 Assessment & Plan Problem List: (1) Schizophrenia ICD Codes: F20.9 - Schizophrenia, unspecified Assessment & Plan Patient this time noted to have improvement, noted to be more organized, denying any perceptional services recently, reports having had good rapport with family. We will ask family to come visit patient to determine how close patient is to baseline. Patient's plan is to live with sister while parents to care and supervise well-being of her baby. We will continue current treatment. We will continue to monitor mood and behavior. Patient 2 days ago started refusing medications but has been resuming consistency. We will continue to monitor adherence to treatment. Discharge planning in progress. Justification for Cont. Inpt. At risk for further decompensation if at lower level of care Discharge Planning Patient to live with his sister when psychiatrically stable Problem Qualifiers (1) Schizophrenia: Qualified Codes: F20.3 - Undifferentiated schizophrenia Clay Pelletier MD Apr 18, 2018 17:03
[2018-04-18 17:51] VITALS: BP 118/84; PULSE 117; RESP 19; TEMP 98.4; O2SAT 100
[2018-04-18] MEDS: REMOVE OLD NICOTINE PATCH T-DERMAL SCH (21:00)
[2018-04-18] MEDS: cloZAPine 100 MG TAB PO SCH (21:18)
[2018-04-19 06:05] VITALS: BP 109/81; PULSE 89; RESP 16; TEMP 97.7; O2SAT 95
[2018-04-19] MEDS: FAMOTIDINE 20 MG TAB PO SCH ×2 (08:45→21:14)
[2018-04-19] MEDS: DOCUSATE SODIUM 100 MG CAP PO SCH ×2 (08:45→21:00)
[2018-04-19] MEDS: cloZAPine 25 MG TAB PO SCH (08:46)
[2018-04-19] MEDS: REMOVE OLD NICODERM (NICOTINE) PATCH T-DERMAL SCH (09:00)
[2018-04-19] MEDS: NICOTINE 21 MG/24 HR PATCH T-DERMAL SCH (09:00)
[2018-04-19] MEDS: ONDANSETRON ODT 4 MG TAB PO PRN (09:18)
[2018-04-19] MEDS: LORazepam 1 MG TAB PO PRN (12:28)
[2018-04-19 18:18] VITALS: BP 120/75; PULSE 119; RESP 16; TEMP 97.3; O2SAT 98
--- NOTE | 2018-04-19 18:46 | HHI.PYPN ---
Subjective Remarks Patient seen for follow-up, chart reviewed. Discussion nursing staff reported the patient doing better, polite less intrusive but was noted to be talking to self less evening. Patient was found heavily on unit noted B, cooperative. Patient noted be more reactive during interview with appropriate responses. Patient states that she looks forward to the going home on Sunday and she spoke with her family and they are currently arranging for patient to live with her sister. Patient reports having slept well, reports her mood as being "a little anxious" wanted to go home soon. Patient denies any auditory hallucinations at this time, denies any thoughts of was going to end up being . Patient denies any SI or HI. Review of Systems Except as stated in HPI: all other systems reviewed are Neg Mental Status Examination Appearance: Appropriate Consciousness: Alert Orientation: x4 Motor Activity: Normal gait, Other (No motor abnormalities noted) Speech: Unremarkable Language: Adequate Fund of Knowledge: Adequate Attention and Concentration: Adequate Memory: Unremarkable (Grossly intact on clinical exam) Mood: Anxious Affect: Appropriate Thought Process & Associations: Linear Thought Content: Appropriate Hallucination Type: None Delusion Type: None Suicidal Ideation: No Suicidal Plan: No Suicidal Intention: No Homicidal Ideation: No Homicidal Plan: No Homicidal Intention: No Insight: Fair Judgment: Impulsive Results Labs Date/Time Source Procedure Growth Status 04/04/18 07:30 Urine Clean Catch Urine Culture - Final 50-100,000 CFU/ML MIXED GRAM POSITIVE... Complete Vitals/IOs Vital Signs Date Time Temp Pulse Resp B/P (MAP) Pulse Ox O2 Delivery O2 Flow Rate FiO2 04/19/18 18:18 97.3 119 16 120/75 (90) 98 Intake and Output 04/19/18 04/19/18 04/20/18 08:00 16:00 00:00 Intake Total 360 ml 360 ml Balance 360 ml 360 ml Assessment & Plan Problem List: (1) Schizophrenia ICD Codes: F20.9 - Schizophrenia, unspecified Assessment & Plan Patient this time continues to improve, less psychotic behavior although nursing staff reported patient talking to self less evening but was not noted during interview today. Patient continues to deny any auditory hallucinations or delusions at this time. We will continue current treatment. We will continue to monitor mood and behavior. Patient like for discharge on Sunday back to family. Justification for Cont. Inpt. At risk of further decompensation a lower level of care. Discharge Planning Discharge to sisters residence when psychiatrically stable. Problem Qualifiers (1) Schizophrenia: Qualified Codes: F20.3 - Undifferentiated schizophrenia Clay Pelletier MD Apr 19, 2018 18:46
[2018-04-19] MEDS: REMOVE OLD NICOTINE PATCH T-DERMAL SCH (21:00)
[2018-04-19] MEDS: cloZAPine 100 MG TAB PO SCH (21:14)
[2018-04-20 06:20] VITALS: BP 121/75; PULSE 97; RESP 18; TEMP 97.6; O2SAT 98
[2018-04-20] MEDS: NICOTINE 21 MG/24 HR PATCH T-DERMAL SCH (08:29)
[2018-04-20] MEDS: cloZAPine 25 MG TAB PO SCH (08:29)
[2018-04-20] MEDS: FAMOTIDINE 20 MG TAB PO SCH ×2 (08:29→20:46)
[2018-04-20] MEDS: DOCUSATE SODIUM 100 MG CAP PO SCH ×2 (08:29→20:46)
[2018-04-20] MEDS: REMOVE OLD NICODERM (NICOTINE) PATCH T-DERMAL SCH (08:30)
[2018-04-20] MEDS: ONDANSETRON ODT 4 MG TAB PO PRN (09:37)
[2018-04-20] MEDS: LORazepam 1 MG TAB PO PRN (11:54)
--- NOTE | 2018-04-20 12:17 | HHI.PYPN ---
Subjective Remarks Reviewed electronic medical record discussed case with staff. Follow-up was conducted in patient's room with THEA Salinas present. Her nurse reports that she has been compliant with her medications. Patient's mood is good her affect is euthymic. She states that she has been sleeping and eating well. She denies any other side effects than drowsiness from the medications. She relates that a plan is in place for her to be discharged on Sunday and she is excited about this. Denies any other complaints at this time. Mental Status Examination Appearance: Appropriate Consciousness: Alert Orientation: x4 Motor Activity: Normal gait, Other (No motor abnormalities noted) Speech: Unremarkable Language: Adequate Fund of Knowledge: Adequate Attention and Concentration: Adequate Memory: Unremarkable (Grossly intact on clinical exam) Mood: Anxious Affect: Appropriate Thought Process & Associations: Linear Thought Content: Appropriate Hallucination Type: None Delusion Type: None Suicidal Ideation: No Suicidal Plan: No Suicidal Intention: No Homicidal Ideation: No Homicidal Plan: No Homicidal Intention: No Insight: Fair Judgment: Impulsive Results Labs Date/Time Source Procedure Growth Status 04/04/18 07:30 Urine Clean Catch Urine Culture - Final 50-100,000 CFU/ML MIXED GRAM POSITIVE... Complete Vitals/IOs Vital Signs Date Time Temp Pulse Resp B/P (MAP) Pulse Ox O2 Delivery O2 Flow Rate FiO2 04/20/18 06:20 97.6 97 18 121/75 (90) 98 Assessment & Plan Problem List: (1) Schizophrenia ICD Codes: F20.9 - Schizophrenia, unspecified Assessment & Plan Estimated LOS: Patient's condition seems much improved. She reports a plan is in the making for discharge on Sunday. days Justification for Cont. Inpt. Admitting this patient to a less restrictive environment could result in decompensation. Discharge planning set in motion for Sunday. Problem Qualifiers (1) Schizophrenia: Qualified Codes: F20.3 - Undifferentiated schizophrenia Jayashree Barnett Apr 20, 2018 12:17
[2018-04-20 18:28] VITALS: BP 115/74; PULSE 121; RESP 17; TEMP 97.8; O2SAT 99
[2018-04-20] MEDS: cloZAPine 100 MG TAB PO SCH (20:46)
[2018-04-20] MEDS: REMOVE OLD NICOTINE PATCH T-DERMAL SCH (20:48)
[2018-04-21 05:37] VITALS: BP 94/54; PULSE 95; RESP 16; TEMP 98; O2SAT 100
[2018-04-21] MEDS: NICOTINE 21 MG/24 HR PATCH T-DERMAL SCH (08:20)
[2018-04-21] MEDS: FAMOTIDINE 20 MG TAB PO SCH ×2 (08:20→20:18)
[2018-04-21] MEDS: REMOVE OLD NICODERM (NICOTINE) PATCH T-DERMAL SCH (08:20)
[2018-04-21] MEDS: DOCUSATE SODIUM 100 MG CAP PO SCH ×2 (08:20→20:18)
[2018-04-21] MEDS: cloZAPine 25 MG TAB PO SCH (08:20)
[2018-04-21] MEDS: LORazepam 1 MG TAB PO PRN ×2 (08:20→14:40)
--- NOTE | 2018-04-21 11:46 | HHI.PYPN ---
Subjective Remarks Reviewed electronic medical record and discussed case with staff. Follow-up was conducted in patient's room. Patient reports that she is "feeling calmer". She states she slept well and her appetite was good. She does relate having some tiredness and dizziness which she feels is a side effect from the medication but advises that she was made aware of this. When asked if she had any visitors she reported her mother had come yesterday. She began talking about the relationship she became a little more anxious throughout the conversation. She does exhibit some anxiety in the context of returning to her daily life and interacting with her family. Mental Status Examination Appearance: Appropriate Consciousness: Alert Orientation: x4 Motor Activity: Normal gait, Other (No motor abnormalities noted) Speech: Unremarkable Language: Adequate Fund of Knowledge: Adequate Attention and Concentration: Adequate Memory: Unremarkable (Grossly intact on clinical exam) Mood: Anxious Affect: Appropriate Thought Process & Associations: Linear Thought Content: Appropriate Hallucination Type: None Delusion Type: None Suicidal Ideation: No Suicidal Plan: No Suicidal Intention: No Homicidal Ideation: No Homicidal Plan: No Homicidal Intention: No Insight: Fair Judgment: Impulsive Results Labs Date/Time Source Procedure Growth Status 04/04/18 07:30 Urine Clean Catch Urine Culture - Final 50-100,000 CFU/ML MIXED GRAM POSITIVE... Complete Vitals/IOs Vital Signs Date Time Temp Pulse Resp B/P (MAP) Pulse Ox O2 Delivery O2 Flow Rate FiO2 04/21/18 05:37 98.0 95 16 94/54 (67) 100 Intake and Output 04/21/18 04/21/18 04/22/18 08:00 16:00 00:00 Intake Total 240 ml Balance 240 ml Assessment & Plan Problem List: (1) Schizophrenia ICD Codes: F20.9 - Schizophrenia, unspecified Assessment & Plan Estimated LOS: Patient is hopeful for discharge tomorrow. Overall she seems to be doing much better although she does exhibit some anxiety when discussing her discharge plan. Days Justification for Cont. Inpt. Moving this patient to a less restrictive environment could result in a decompensation. Problem Qualifiers (1) Schizophrenia: Qualified Codes: F20.3 - Undifferentiated schizophrenia AnibalCristi barahonahari GUILLEN Apr 21, 2018 11:46
[2018-04-21] MEDS: ONDANSETRON ODT 4 MG TAB PO PRN (14:40)
[2018-04-21 18:20] VITALS: BP 103/65; PULSE 108; RESP 16; TEMP 98.1; O2SAT 97
[2018-04-21] MEDS: cloZAPine 100 MG TAB PO SCH (20:18)
[2018-04-21] MEDS: REMOVE OLD NICOTINE PATCH T-DERMAL SCH (20:18)
[2018-04-22 05:13] VITALS: BP 124/88; PULSE 99; RESP 16; TEMP 98; O2SAT 98
[2018-04-22] MEDS ORDERED: CLOZ25TA PO (07:50)
[2018-04-22] MEDS ORDERED: DOCU1CAP39 PO (07:50)
[2018-04-22] MEDS ORDERED: CLOZ100T PO (07:50)
[2018-04-22] MEDS ORDERED: FAMO20TA2 PO (07:50)
[2018-04-22] MEDS: REMOVE OLD NICODERM (NICOTINE) PATCH T-DERMAL SCH (09:00)
[2018-04-22] MEDS: DOCUSATE SODIUM 100 MG CAP PO SCH (09:05)
[2018-04-22] MEDS: cloZAPine 25 MG TAB PO SCH (09:06)
[2018-04-22] MEDS: FAMOTIDINE 20 MG TAB PO SCH (09:06)
[2018-04-22] MEDS: NICOTINE 21 MG/24 HR PATCH T-DERMAL SCH (09:07)
[2018-04-22] MEDS: LORazepam 1 MG TAB PO PRN (09:52)
[2018-04-22] MEDS: ONDANSETRON ODT 4 MG TAB PO PRN (09:52)
[2018-04-22 12:08] LABS: AUTOMATED NEUTROPHIL # 8.1 TH/MM3 (1.8-7.7); BASOPHIL % 0.4 % (0.0-2.0); EOSINOPHIL # 0.1 TH/MM3 (0-0.4); EOSINOPHIL % 1.4 % (0.0-4.0); HEMOGLOBIN 14.4 GM/DL (11.6-15.3); LYMPH % 17.3 % (9.0-44.0); LYMPHOCYTE # 1.8 TH/MM3 (1.0-4.8); MEAN CELL VOLUME 90.9 FL (80.0-100.0); MEAN CORPUSCULAR HGB CONC 35.2 % (32.0-36.0); MEAN PLATELET VOLUME 7.2 FL (7.0-11.0); MONO % 3.4 % (0.0-8.0); MONOCYTE # 0.4 TH/MM3 (0-0.9); NEUT % 77.5 % (16.0-70.0); PLATELET COUNT 262 TH/MM3 (150-450); RED BLOOD COUNT 4.51 MIL/MM3 (4.00-5.30); RED CELL DISTRIBUTION WIDTH 14.1 % (11.6-17.2); WHITE BLOOD COUNT 10.5 TH/MM3 (4.0-11.0)
--- NOTE | 2018-04-22 17:44 | HHI.DS ---
Psychiatry Discharge Summary Inpatient Psychiatric care?: Yes Advance Directive: No Reason Not Provided: refused Mental Health AdvanceDirective: No Health Care Proxy: No Admission Admission Date March 22, 2018 at 21:44 Admission Diagnosis: (1) Schizophrenia ICD Code: F20.9 - Schizophrenia, unspecified Brief History From Dr. Donahue's H&P: The patient is a 37-year-old woman, domiciled with her parents in [place], single, unemployed, supported by [facility], with an extensive psychiatric history of schizophrenia, PTSD, about 7 psychiatric hospitalizations , last hospitalization was here in [place] in 2014, about 3 previous suicide attempts by overdosing, outpatient psychiatric care in [facility], she is not clozapine 100 mg daily, she has medical history of diabetes, who was brought in under the [place] act after recent 12 days ago, and patient's unwillingness to shower or take care of herself, as well as her unwillingness to let anyone else take care of her baby. Patient states she is hearing voices. She denies suicidal or homicidal ideation. She denies any significant pain. Patient was on antibiotics for her incision. She cannot remember the name of them. She is allergic to haloperidol, and risperidone. The patient was found with a moderate UTI in the ER and was a started in Keflex 500 mg every 8 hours. EMR was reviewed. Collateral information from her mother Yolanda Rae, , was obtained. On psychiatric evaluation the patient is found in her bed, she is poorly cooperative, answer questions with redirection. Patient initially states that she does not remember the reason she is hospitalized. Patient reports feeling very tired and depressed. She says that she feels that she is . "I have been dying over and over". The patient has a very flat affect, blocking thought , respiratory speech. When I asked her directly about her baby, she says that her mother sent her here "because I was trying to defend my baby from Demons and evil spinitis". She states that she lost her bed "I was looking for the baby, but I could not find it, I know that the demons took him with them". At this moment the patient denies suicidal and homicidal ideation, she denies visual and auditory hallucinations. Which it seems to be internally preoccupied , suspicious, talking to herself. Mother contacted by phone, explains that the patient was at baseline during the whole , taking her medications, stable, but 2 or 3 days after delivery the patient started to become more seclusive, paranoid and talk nonsense. Her mother became very scared when the patient started to say that she could not see the baby and what she was seeing was a yusra with a plastic neck. He states that the patient has been compliant with her medication all the time, she denies that the patient could be using any drugs or alcohol. On my examination today, 03/24: Patient seen and examined with nurse. Chart reviewed. Case discussed with nursing staff. On my examination today, the patient presents as irritable. She is responding to internal stimuli. She remains paranoid. She makes mention of the Devil and says that she is "hoping he would comer here; I've been waiting for him." Mood is "fine." She denies any suicidal ideation. Denies any homicidal ideation. Denies any urge to injure or kill infant. Patient seems decidedly unreliable to contract for safety in her present state however. Remainder of the psychiatric ROS is negative. No acute physical complaints. Past psychiatric history: Patient has a history of schizophrenia and PTSD. She follows at [facility] with Jacob Castañeda. She endorses previous suicide attempt by overdose and makes allusion to some sort of violent history. Family history: Significant for schizophrenia per patient. Chemical dependency history: Patient denies any abuse of drugs or alcohol. Social history: Patient is disabled. She has 11 grade education. She is single and has recently given to a son. Tobacco Use In Past 30 Days: 5 or More Cigarettes/Day Alcohol Use: Never Hospital Course The patient is a 37-year-old woman, domiciled with her parents in [place], single, unemployed, supported by [facility], with an extensive psychiatric history of schizophrenia, PTSD, about 7 psychiatric hospitalizations , last hospitalization was here in [place] in 2014, about 3 previous suicide attempts by overdosing, outpatient psychiatric care in [facility], she is not clozapine 100 mg daily, she has medical history of diabetes, who was brought in under the [place] act after recent 12 days ago, and patient's unwillingness to shower or take care of herself, as well as her unwillingness to let anyone else take care of her baby which patient was admitted for further psychiatric stabilization. Patient was continued on clozapine and titrated to 50mg PO a.m./550mg HS which patient was adherent to medication regimen and noted with improved mood, cessation of perceptual disturbances and denying any further auditory hallucinations and significant improvement in organized thought process. Patient was noted to care for self with adequate self hygiene and noted to have appropriate interactions and responses with staff and was future oriented to remain stable to participate in care of her baby with the supervision of her parents. Upon discharge patient stated feeling good, noted to be calm and cooperative with staff, denied any perceptual disturbances, denied any delusions; SI or HI. Patient was counseled importance of engaging in continued adherence with treatment which patient would benefit from and agreed to be connected to through outpatient clinic. She agreed to continuing medical recommendations, treatment and cooperate for continuity of care. Patient; denies SI, HI, AVH or delusions. Supportive psychotherapy provided. Suicide and violence risk assessment on day of discharge both suggest lower imminent risk, and the patient's level of function is adequate for planned level of outpatient care. Patient has maximized benefit from this inpatient psychiatric hospital stay and to return to psychiatric emergency room for any concerning psychiatric symptoms. Patient agrees with plan. Results Blood Pressure 124 / 88 Vital Signs Date Time Temp Pulse Resp B/P (MAP) Pulse Ox O2 Delivery O2 Flow Rate FiO2 04/22/18 05:13 98.0 99 16 124/88 (100) 98 Laboratory Tests Test 04/22/18 10:19 Neutrophils (%) (Auto) 77.5 % (16.0-70.0) Neutrophils # (Auto) 8.1 TH/MM3 (1.8-7.7) Laboratory Results Test 03/26/18 06:28 Hemoglobin A1c 5.9 % (4.3-6.0) Summary of Procedures none Imaging Last Impressions Chest X-Ray 04/03/18 0000 Signed Impressions: CONCLUSION: Negative examination. Pending results at discharge: No Medications # of Antipsychotic meds at D/C: 1 Approp Antipsych med options 1 - Minimum of three failed multiple trials of monotherapy. 2 - Documented plan to taper to monotherapy due to previous use of multiple meds OR cross-taper in progress at D/C. 3 - Documentation of augmentation of Clozapine. 4 - Justification other than those listed in allowable values 1-3, document here : Discharge Discharge Date: Apr 22, 2018 Discharge Diagnosis: (1) Schizophrenia ICD Code: F20.9 - Schizophrenia, unspecified Pt Condition on Discharge: Stable Discharge Disposition: Discharge Home Discharge Instructions Diet Instructions: As Tolerated, No Restrictions Activities you can perform: Regular-No Restrictions Scheduled Appointment: Dwight Cabrera Discharge Time > 30 minutes Mental Status Examination Appearance: Appropriate Consciousness: Alert Orientation: x4 Motor Activity: Normal gait, Other (No motor abnormalities noted) Speech: Unremarkable Language: Adequate Fund of Knowledge: Adequate Attention and Concentration: Adequate Memory: Unremarkable (Grossly intact on clinical exam) Mood: Appropriate Affect: Appropriate Thought Process & Associations: Intact, Goal directed, Linear Thought Content: Appropriate Hallucination Type: None Delusion Type: None Suicidal Ideation: No Suicidal Plan: No Suicidal Intention: No Homicidal Ideation: No Homicidal Plan: No Homicidal Intention: No Insight: Fair Judgment: Impulsive Discharge/Advance Care Plan Health Problems: (1) Schizophrenia Goals to promote your health * To prevent worsening of your condition and complications * To maintain your health at the optimal level Directions to meet your goals Take your medications as prescribed Follow your dietary instruction Follow activity as directed Keep your appointments as scheduled Take your immunizations and boosters as scheduled If your symptoms worsen call your PCP, if no PCP go to Urgent Care Center or Emergency Room For 21/05 questions related to your inpatient stay or results of tests pending at discharge, please contact Dr. Clay Pelletier at Smoking is Dangerous to Your Health. Avoid second hand smoking Problem Qualifiers (1) Schizophrenia: Qualified Codes: F20.3 - Undifferentiated schizophrenia Clay Pelletier MD Apr 22, 2018 17:44
== END 2018-04-22 14:20 | disposition home or self-care (01) | DRG 776 ==
LOC: NEDAMB 16:29 → NEDA 21:44 → H260 22:42 → H270 03-25 17:22 → H260 04-02 14:48
PROVIDERS: ADMIT Student in an Organized Health Care Education/Training Program; ATTEND Student in an Organized Health Care Education/Training Program
DX: O99.345 Other mental disorders complicating the puerperium (principal); O86.20 Urinary tract infection following delivery, unspecified; F20.9 Schizophrenia, unspecified; O90.89 Other complications of the puerperium, not elsewhere classified; F43.10 Post-traumatic stress disorder, unspecified; F17.200 Nicotine dependence, unspecified, uncomplicated; J45.909 Unspecified asthma, uncomplicated
CPT/HCPCS: 71046; 80048; 80053; 80307; 81001; 82550; 82948; 83036; 83880; 84443; 84484; 84702; 85025; 85379; 86140; 87086; 93005; 93306; 99285; J1815; J2060; Q0163

== ENCOUNTER 2018-06-23 15:33 | Observation (INO) ==
--- NOTE | 2018-06-23 17:17 | ED ---
HPI General Chief Complaint: Abdominal Pain Stated Complaint: abd cramping /since lastnight Time Seen by Provider: 06/23/18 19:02 History of Present Illness HPI narrative: The patient was seen and examined in the presence of the nurse. This patient complains of abdominal pain. She has constipation issues chronically. She was nauseous but no vomiting. Denies fever. She had a C- section 3 months ago. She does not think she is but is not sure. No vaginal discharge or bleeding. No alleviating factors. No exacerbating factors. The abdominal pain is diffuse in all 4 quadrants Related Data Home Medications Medication Instructions Recorded Confirmed alprazolam [Xanax] 0.25 mg PO DAILY 06/23/18 06/23/18 clozapine [Clozaril] 100 mg PO HS 06/23/18 06/23/18 ranitidine HCl 75 mg PO BID 06/23/18 06/23/18 Allergies Allergy/AdvReac Type Severity Reaction Status Date / Time haloperidol Allergy Severe Itching Verified 06/23/18 17:03 risperidone Allergy Severe Itching Verified 06/23/18 17:03 Review of Systems ROS: all other systems reviewed are negative PMFSH Medical History Medical History Acid reflux (Acute) Constipation (Acute) Schizophrenia (Acute) Surgical History Surgical History Previous section (Acute) Social History Social History Substance History: No History of Abuse Smoking Status: Heavy tobacco smoker Tobacco Type: Cigarettes How Often Do You Have a Drink Containing Alcohol: Never Recent Travel in [facility] within the Last 8 Weeks: No Recent Out of Country Travel within the Last 8 Weeks: No Immunization History Tetanus Immunization: Unsure Hx Influenza Vaccine This Season: No Exam Narrative Exam Narrative: GENERAL: Well-nourished, well-developed patient in no apparent distress. SKIN: Focused skin assessment reveals no rash and nodules. Skin is Warm and dry. HEAD: Atraumatic. Normocephalic. EYES: Pupils equal and round. No scleral icterus. No injection or drainage. ENT: No nasal bleeding or discharge. Mucous membranes pink and moist. NECK: Trachea midline. No JVD. CARDIOVASCULAR: Regular rate and rhythm. No murmur appreciated. RESPIRATORY: No accessory muscle use. Clear to auscultation. Breath sounds equal bilaterally. GASTROINTESTINAL: Abdomen soft, mild diffuse tenderness without rebound or guarding , nondistended. Hepatic and splenic margins not palpable. MUSCULOSKELETAL: No obvious deformities. No clubbing. No cyanosis. No edema. NEUROLOGICAL: Awake and alert. No obvious cranial nerve deficits. Motor grossly within normal limits. Normal speech. PSYCHIATRIC: Appropriate mood and affect; insight and judgment normal. Course Reevaluation(s) Reevaluation #1: Called patient's bedside because she is complaining of continued pain. She indicates to me that her pain is present throughout her entire abdomen. She is well-appearing and does not appear to be in much distress. Will order Bentyl IM and Toradol IV at this time. She states that her nausea is under control. Time: 19:47 Reevaluation #2: I discussed the patient's case with Dr Duke who agrees to admit the patient for treatment of acute appendicitis. Time: 20:57 Consultations Consultation #1: Spoke with Dr Gomez regarding the patient's diagnosis of acute appendicitis. He will call the OR in order to schedule a room. He requests that I call the hospitalist for admission. Time: 20:38 Initial Documented Vital Signs Temperature 98.7 F 06/23/18 15:47 Pulse Rate 96 H 06/23/18 15:47 Respiratory Rate 18 06/23/18 15:47 Blood Pressure 124/82 06/23/18 15:47 Pulse Oximetry 99 06/23/18 15:47 Last Documented Vital Signs Temperature 98.3 F 06/23/18 20:01 Pulse Rate 78 06/23/18 20:01 Respiratory Rate 20 06/23/18 20:01 Blood Pressure 109/83 06/23/18 20:01 Pulse Oximetry 100 06/23/18 20:01 Sign Out Sign Out Data: Patient Sign Out occurred on 06/23/18 at 19:02. Patient's care was discussed, and care was transferred from Yosvany Champagne MD to Butch Vincent MD. Sign Out Comment: Labs are pretty normal. Patient had a CT but I am waiting on results. I called radiology but they said there is a back log and they are working through that. shift foreman physician will check the results and assist with disposition. Last updated by Yosvany Champagne MD at 06/23/18 18:58 Medical Decision Making MDM Narrative Medical decision making narrative: IV placed and labs sent. I have ordered CT imaging. Addendum by Butch Vincent MD: CT diagnosis of acute appendicitis with appendicolith. Case was discussed with general surgery and hospital medicine. She was admitted for surgical management. I administered Zosyn 4.5 g. Patient' s pain is well controlled and she is hemodynamically stable. Medical Screen Exam Complete: Yes Emergency Medical Condition: Yes Medical Records Medical records reviewed: Yes I reviewed the patient's medical records. Lab Data Lab results reviewed: Yes I reviewed the patient's lab results. Result diagrams: 06/23/18 17:40 06/23/18 17:40 POC Results POC Urine Results Negative Lab Results 06/23/18 06/23/18 06/23/18 Range/Units 17:39 17:40 17:40 CBC w Diff Auto diff final WBC 14.9 H (4.0-11.0) th/mm3 RBC 4.94 (4.00-5.30) mil/mm3 Hgb 14.8 (11.6-15.3) gm/dL Hct 44.2 (35.0-46.0) % MCV 89.5 (80.0-100.0) fL MCH 30.0 (27.0-34.0) pg MCHC 33.5 (32.0-36.0) % RDW 14.7 (11.6-17.2) % Plt Count 245 (150-450) th/mm3 MPV 8.1 (7.0-11.0) fL Neut % (Auto) 84.9 H (16.0-70.0) % Lymph % (Auto) 11.2 (9.0-44.0) % [place] % (Auto) 3.6 (0.0-8.0) % Eos % (Auto) 0.1 (0.0-4.0) % Baso % (Auto) 0.2 (0.0-2.0) % Neut # (Auto) 12.7 H (1.8-7.7) th/mm3 Lymph # (Auto) 1.7 (1.0-4.8) th/mm3 [place] # (Auto) 0.5 (0.0-0.9) th/mm3 Eos # (Auto) 0.0 (0.0-0.4) th/mm3 Baso # (Auto) 0.0 (0.0-0.2) th/mm3 WBC Differential . Differential Comment . Sodium 138 (136-145) meq/L Potassium 3.4 L (3.5-5.1) meq/L Chloride 104 (98-107) meq/L Carbon Dioxide 27.1 (21.0-32.0) meq/L Anion Gap 7 (5-15) meq/L BUN 7 (7-18) mg/dL Creatinine 0.66 (0.50-1.00) mg/dL Estimated GFR Greater than 89 (>89) mL/min Random Glucose 188 H (74-106) mg/dL Calcium 9.0 (8.5-10.1) mg/dL Total Bilirubin 0.5 (0.2-1.0) mg/dL AST 18 (15-37) U/L ALT 40 (10-53) U/L Alkaline Phosphatase 112 (45-117) U/L Total Protein 8.1 (6.4-8.2) g/dL Albumin 4.0 (3.4-5.0) g/dL Lipase 96 (73-393) U/L Urine Color Yellow (Yellw/Straw) Urine Clarity Clear (Clear) Urine pH 6.0 (5.0-8.5) Ur Specific [place] 1.010 (1.002-1.035) Urine Protein Negative (Neg-Trace) mg/dL Urine Glucose (UA) 1000 or greater H (Negative) mg/dL Urine Ketones Negative (Negative) mg/dL Urine Occult Blood Negative (Negative) Urine Nitrate Negative (Negative) Urine Bilirubin Negative (Negative) Urine Urobilinogen 0.2 (Less than 2) mg/dL Ur Leukocyte Esterase Negative (Negative) Urine RBC 0-3 (0-3) /hpf Urine WBC 0-5 (0-5) /hpf Ur Squamous Epith Cells Greater than 10 H (0-5) /hpf Urine Bacteria Occasional H (None) /hpf Micro UA Comment Culture not ind Ur Microscopic Review Microscopic reviewed Urine Culture Comments Culture not ind Imaging Data Radiologist's impression: Abdomen/Pelvis CT 06/23/18 17:11 CONCLUSION: 1. Dilated inflamed appendix with large appendicolith characteristic of acute appendicitis. 2. No evidence of free air or abscess. 3. Otherwise unremarkable exam. Discharge Plan Discharge Disposition Patient Disposition: 30 Still Patient Discharge Condition Condition: Fair Discharge Details Diagnosis: Acute appendicitis Physicians Team ED Provider: Butch Vincent Primary Care Provider: Terrell Black Rxs /Orders / Referrals /Forms Prescriptions: No Action clozapine [Clozaril] 100 mg Tablet 100 mg PO HS RF: 0 alprazolam [Xanax] 0.25 mg Tablet 0.25 mg PO DAILY RF: 0 ranitidine HCl 75 mg Tablet 75 mg PO BID RF: 0 Discharge Instructions Patient Printed Instructions: Laparoscopic Appendectomy (DC) Status ED Status: With Doctor
[2018-06-23 18:02] LABS: Bilirubin,Urine Negative (Negative); Clarity,Urine Clear (Clear); Color,Urine Yellow (Yellw/Straw); Leukocyte Esterase,Urine Negative (Negative); Nitrite,Urine Negative (Negative); Urobilinogen,Urine 0.2 mg/dL (Less than 2)
[2018-06-23 18:11] LABS: Baso % (Auto) 0.2 % (0.0-2.0); Chloride 104 meq/L (98-107); Eos % (Auto) 0.1 % (0.0-4.0); Hematocrit 44.2 % (35.0-46.0); Hemoglobin 14.8 gm/dL (11.6-15.3); Lymph # (Auto) 1.7 th/mm3 (1.0-4.8); Lymph % (Auto) 11.2 % (9.0-44.0); Mean Corpuscular HGB Conc 33.5 % (32.0-36.0); Mean Corpuscular Volume 89.5 fL (80.0-100.0); Mean Platelet Volume 8.1 fL (7.0-11.0); Mono # (Auto) 0.5 th/mm3 (0.0-0.9); Mono % (Auto) 3.6 % (0.0-8.0); Neut # (Auto) 12.7 th/mm3 (1.8-7.7); Neut % (Auto) 84.9 % (16.0-70.0); Platelet Count 245 th/mm3 (150-450); Potassium 3.4 meq/L (3.5-5.1); Red Blood Count 4.94 mil/mm3 (4.00-5.30); Red Cell Distribution Width 14.7 % (11.6-17.2); Sodium 138 meq/L (136-145); White Blood Count 14.9 th/mm3 (4.0-11.0)
[2018-06-23 18:15] LABS: Anion Gap 7 meq/L (5-15); Blood Urea Nitrogen 7 mg/dL (7-18); Carbon Dioxide 27.1 meq/L (21.0-32.0); Glucose,Random 188 mg/dL (74-106); Lipase 96 U/L (73-393)
[2018-06-23 18:17] LABS: Bacteria,Urine Occasional /hpf; RBC,Urine 0-3 /hpf (0-3); Squamous Epithelial Cell,Urine Greater than 10 /hpf (0-5); WBC,Urine 0-5 /hpf (0-5)
[2018-06-23 18:18] LABS: Alanine Aminotransferase 40 U/L (10-53); Aspartate Aminotransferase 18 U/L (15-37); Glomerular Filtration Rate Greater Than 89 mL/min (>89)
[2018-06-23 18:19] LABS: Total Protein 8.1 g/dL (6.4-8.2)
[2018-06-23 18:20] LABS: Alkaline Phosphatase 112 U/L (45-117)
[2018-06-23] MEDS ORDERED: Dicyclomine Inj 20 MG/2 ML Ampul IM ONE (19:45)
[2018-06-23] MEDS ORDERED: Ketorolac Inj 30 MG/ML (IVP) Vial IV.PUSH ONE (19:46)
--- NOTE | 2018-06-23 20:04 | CT ---
EXAM DATE: 06/23/2018 6:05 PM EDT AGE/SEX: 37 years / Female INDICATIONS: Abdominal pain and bloating since last night. CLINICAL DATA: This is the patient's initial encounter. Patient reports that signs and symptoms have been present for 2 days and indicates a pain score of 5/10. MEDICAL/SURGICAL HISTORY: None. section. ORAL CONTRAST: No oral contrast ingested. RADIATION DOSE: 16.77 CTDI (mGy) COMPARISON: No prior exams available for comparison. TECHNIQUE: Multiple contiguous axial images were obtained through the abdomen and pelvis following b olus infusion of 90 ml Omnipaque 350 (iohexol) nonionic water-soluble contrast as a single exam dos e. No oral contrast ingested. Using automated exposure control and adjustment of the mA and/or kV ac cording to patient size, radiation dose was kept as low as reasonably achievable to obtain optimal di agnostic quality images. DICOM format image data is available electronically for review and comparis on. FINDINGS: Lower Lungs: The visualized lower lungs are clear. Liver: The liver has a homogeneous density without space-occupying lesion. There is no dilation of th e biliary tree. Spleen: Homogeneous density without enlargement. Pancreas: Unremarkable without mass or calcification. Kidneys: Normal in size and shape. No evidence of mass or hydronephrosis. Adrenal Glands: Unremarkable. Aorta: The aorta and proximal iliac vessels are grossly unremarkable without aneurysmal dilation. Bowel/Mesentery: There is marked dilatation of the appendix measuring 1.9 cm in diameter. Large appe ndicolith is identified. Periappendiceal stranding and inflammation are noted. There is no evidence o f free air or adjacent abscess. Intestinal tract is otherwise unremarkable. Abdominal Wall: Intact. Retroperitoneum: No evidence of adenopathy in the retrocrural, para-aortic, or deep pelvic regions. Bladder: Contours are smooth. Reproductive Organs: No abnormal masses or calcifications seen. Inguinal: The inguinal region is unremarkable without evidence of adenopathy. Bony Structures: Unremarkable. CONCLUSION: 1. Dilated inflamed appendix with large appendicolith characteristic of acute appendicitis. 2. No evidence of free air or abscess. 3. Otherwise unremarkable exam. Electronically signed by: Javier Shields MD 06/23/2018 8:03 PM EDT
[2018-06-23] MEDS ORDERED: Piperacil/Tazo 4.5 GM Premix 4.5 GM/100 ML BAG IV.SIG ONE (20:23)
[2018-06-23] MEDS ORDERED: Bisacodyl 10 MG Supp RECTAL PRN (20:58)
[2018-06-23] MEDS ORDERED: Acetaminophen 325 MG Tablet PO PRN (20:58)
[2018-06-23] MEDS ORDERED: Morphine Inj 4 MG/ML Vial IV.PUSH PRN (20:59)
[2018-06-23] MEDS: Senna/Docusate Sodium 8.6/50 MG Tablet PO SCH (21:56)
[2018-06-23] MEDS: Famotidine 20 MG Tablet PO SCH (21:56)
[2018-06-23] MEDS: Sod Chloride 0.9% Inj 1,000 ML IV.CONT SCH (21:57)
[2018-06-24 06:25] LABS: Baso % (Auto) 0.4 % (0.0-2.0); Hematocrit 39.3 % (35.0-46.0); Hemoglobin 13.5 gm/dL (11.6-15.3); Lymph # (Auto) 1.2 th/mm3 (1.0-4.8); Lymph % (Auto) 10.5 % (9.0-44.0); Mean Corpuscular HGB Conc 34.3 % (32.0-36.0); Mean Corpuscular Hemoglobin 31.1 pg (27.0-34.0); Mean Corpuscular Volume 90.6 fL (80.0-100.0); Mean Platelet Volume 7.7 fL (7.0-11.0); Mono # (Auto) 0.4 th/mm3 (0.0-0.9); Mono % (Auto) 3.5 % (0.0-8.0); Neut # (Auto) 9.5 th/mm3 (1.8-7.7); Neut % (Auto) 85.6 % (16.0-70.0); Platelet Count 193 th/mm3 (150-450); Red Blood Count 4.34 mil/mm3 (4.00-5.30); Red Cell Distribution Width 14.3 % (11.6-17.2); White Blood Count 11.1 th/mm3 (4.0-11.0)
[2018-06-24 06:34] LABS: Chloride 108 meq/L (98-107); Potassium 3.8 meq/L (3.5-5.1); Sodium 140 meq/L (136-145)
[2018-06-24 07:07] LABS: Alanine Aminotransferase 29 U/L (10-53); Albumin 3.2 g/dL (3.4-5.0); Alkaline Phosphatase 93 U/L (45-117); Anion Gap 7 meq/L (5-15); Aspartate Aminotransferase 17 U/L (15-37); Blood Urea Nitrogen 6 mg/dL (7-18); Calcium 8.2 mg/dL (8.5-10.1); Carbon Dioxide 24.7 meq/L (21.0-32.0); Glomerular Filtration Rate Greater Than 89 mL/min (>89); Glucose,Random 194 mg/dL (74-106); Total Protein 6.8 g/dL (6.4-8.2)
[2018-06-24] MEDS: Sod Chloride 0.9% Inj 1,000 ML IV.CONT SCH ×2 (08:10→18:51)
[2018-06-24] MEDS: Famotidine 20 MG Tablet PO SCH ×2 (08:11→20:24)
[2018-06-24] MEDS: ALPRAZolam 0.25 MG Tablet PO SCH (08:11)
[2018-06-24] MEDS: Senna/Docusate Sodium 8.6/50 MG Tablet PO SCH ×2 (08:11→20:23)
--- NOTE | 2018-06-24 08:51 | P.HP ---
History of Present Illness Service: Hospitalist Primary Care Physician: Terrell Black MD Chief Complaint: Abdominal pain, N/V History of Present Illness: Ms. Rae 37-year-old female with a history of diabetes mellitus type 2 who presents to the emergency department on 06/23/2018 due to abdominal pain. On 06/22/2019 she started having diffuse abdominal pain which got progressively worse through Sunday. She also had nausea and vomiting. No fever or chills. She denies any chest pain, cough, shortness of breath. She denies any changes in bowel or bladder habits. CT abdomen pelvis indicated acute appendicitis. General surgery was consulted. Past medical history: Diabetes mellitus Surgical history: Social history: Patient smokes about 1.5 packs of cigarettes a day. She only drinks. Denies using any illicit drugs. Family history: Father has hypertension. - Diagnosis (1) Acute appendicitis (2) Diabetes mellitus [facility] - History History Provided By: Patient - Medical History Medical History: Medical History (Last Updated 06/24/18 @ 10:00 by MINDY June) Acid reflux Constipation Diabetes type 2, controlled Schizophrenia - Surgical History Surgical History: Surgical History (Last Reviewed 06/24/18 @ 10:00 by MINDY June) Previous section - Tobacco History Second Hand Smoke Exposure: Yes Tobacco Use In Past 30 Days: Yes Smoking Status: Heavy tobacco smoker Tobacco Type: Cigarettes - Alcohol History How Often Do You Have a Drink Containing Alcohol: Never - Substance Use History Substance History: No History of Abuse - Travel History Recent Travel in the [place] Within the Last 8 Weeks: No Recent Travel Out of the Country Within the Last 8 Weeks: No - Immunization History Tetanus Immunization: Unsure Hx Influenza Vaccine This Season: No Medications and Allergies Active Medications: Active Medications Acetaminophen (Tylenol) 650 mg PO Q4H PRN PRN Reason: Temp > 100.4 Al Hydroxide/Mg Hydroxide (Milk Of Magnesia Liq) 30 ml PO Q12H PRN PRN Reason: Mild Constipation Alprazolam (Xanax) 0.25 mg PO DAILY [facility] Last Admin: 06/24/18 08:11 Dose: 0.25 mg Bisacodyl (Dulcolax Supp) 10 mg RECTAL DAILY PRN PRN Reason: SEVERE CONSITIPATION Clozapine (Clozaril) 100 mg PO HS [facility] Last Admin: 06/23/18 22:02 Dose: Not Given Famotidine (Pepcid) 10 mg PO BID [facility] Last Admin: 06/24/18 08:11 Dose: 10 mg Sodium Chloride (Ns Inj) 1,000 mls @ 100 mls/hr IV.CONT .Q10H [facility] Last Admin: 06/24/18 08:10 Dose: 100 mls/hr Lactulose (Lactulose Liq) 30 ml PO DAILY PRN PRN Reason: SEVERE CONSITIPATION Morphine Sulfate (Morphine Inj) 2 mg IV.PUSH Q4H PRN PRN Reason: PAIN 6-10 Ondansetron HCl (Zofran Inj) 4 mg IV.PUSH Q6H PRN PRN Reason: NAUSEA OR VOMITING Senna/Docusate Sodium (Geraldine-Colace) 1 tab PO BID [facility] Last Admin: 06/24/18 08:11 Dose: Not Given Sennosides (Senokot) 17.2 mg PO Q12H PRN PRN Reason: Moderate Constipation Sodium Chloride (Ns Flush) 2 ml IV.FLUSH PRN PRN PRN Reason: FLUSH AFTER USING IV ACCESS Last Admin: 06/23/18 19:57 Dose: 2 ml Allergies Allergy/AdvReac Type Severity Reaction Status Date / Time haloperidol Allergy Severe Itching Verified 06/23/18 17:03 risperidone Allergy Severe Itching Verified 06/23/18 17:03 Home Medications Medication Instructions Recorded Confirmed Type alprazolam [Xanax] 0.25 mg PO DAILY 06/23/18 06/23/18 History clozapine [Clozaril] 100 mg PO 06/23/18 06/23/18 History ranitidine HCl 75 mg PO BID 06/23/18 06/23/18 History Exam Vital signs: Vital Signs 06/23/18 15:47 06/23/18 17:52 06/23/18 19:06 Temperature 98.7 F Pulse Rate 96 H 80 74 Respiratory Rate 18 18 20 Blood Pressure 124/82 121/79 113/86 Pulse Oximetry 99 99 98 06/23/18 20:01 06/23/18 21:55 06/24/18 00:00 Temperature 98.3 F 98.7 F Pulse Rate 78 75 Respiratory Rate 20 5 L 20 Blood Pressure 109/83 107/78 Pulse Oximetry 100 99 06/24/18 03:48 06/24/18 04:00 Temperature 98.8 F Pulse Rate 79 82 Respiratory Rate 20 20 Blood Pressure 118/74 119/89 Pulse Oximetry 97 Intake & Output 06/23/18 06/24/18 06/24/18 18:59 06:59 18:59 Intake Total 100 / 100 1010 / 1010 Balance 100 / 100 1010 / 1010 Weight 80 kg 79.5 kg Intake: IV 100 / 100 1000 / 1000 NS Inj 1,000 ML @ 100 mls/hr IV 1000 / 1000 .CONT .Q10H [facility] Rx#:[id number] Zosyn 4.5 GM Premix 4.5 gm In 100 / 100 100 ml @ 200 mls/hr IV.SIG ONCE ONE Rx#:[id number] Oral 0 / 0 Other: # Voids 3 2 # Bowel Movements 0 Weight On Admission 79.1 kg Narrative: GENERAL: This is a well-nourished, well-developed patient, in no apparent distress. SKIN: No rashes, ecchymoses or lesions. Warm and dry. HEAD: Atraumatic. Normocephalic. No temporal or scalp tenderness. EYES: Pupils equal round and reactive. No injection or drainage. ENT: Nose without bleeding, purulent drainage or septal hematoma. Airway patent. NECK: Trachea midline. No lymphadenopathy. Supple, nontender, no meningeal signs. CARDIOVASCULAR: Regular rate and rhythm without murmurs, gallops, or rubs. No JVD. RESPIRATORY: Clear to auscultation. Breath sounds equal bilaterally. No wheezes , rales, or rhonchi. GASTROINTESTINAL: Abdomen soft, diffusely mild tenderness on palpation especially lower abdomen, nondistended. No guarding. MUSCULOSKELETAL: Extremities without clubbing, cyanosis, or edema. NEUROLOGICAL: Awake and alert. Cranial nerves II through XII intact. No focal neurological deficits. Normal speech. Results - Labs CBC & Chem 7: 06/24/18 06:05 06/24/18 06:05 Labs: Laboratory Results - last 24 hr 06/23/18 06/23/18 06/23/18 17:39 17:40 17:40 CBC w Diff Auto diff final WBC 14.9 H RBC 4.94 Hgb 14.8 Hct 44.2 MCV 89.5 MCH 30.0 MCHC 33.5 RDW 14.7 Plt Count 245 MPV 8.1 Neut % (Auto) 84.9 H Lymph % (Auto) 11.2 [place] % (Auto) 3.6 Eos % (Auto) 0.1 Baso % (Auto) 0.2 Neut # (Auto) 12.7 H Lymph # (Auto) 1.7 [place] # (Auto) 0.5 Eos # (Auto) 0.0 Baso # (Auto) 0.0 WBC Differential . Differential Comment . Sodium 138 Potassium 3.4 L Chloride 104 Carbon Dioxide 27.1 Anion Gap 7 BUN 7 Creatinine 0.66 Estimated GFR Greater than 89 Random Glucose 188 H Calcium 9.0 Total Bilirubin 0.5 AST 18 ALT 40 Alkaline Phosphatase 112 Total Protein 8.1 Albumin 4.0 Lipase 96 Urine Color Yellow Urine Clarity Clear Urine pH 6.0 Ur Specific [place] 1.010 Urine Protein Negative Urine Glucose (UA) 1000 or greater H Urine Ketones Negative Urine Occult Blood Negative Urine Nitrate Negative Urine Bilirubin Negative Urine Urobilinogen 0.2 Ur Leukocyte Esterase Negative Urine RBC 0-3 Urine WBC 0-5 Ur Squamous Epith Cells Greater than 10 H Urine Bacteria Occasional H Micro UA Comment Culture not ind Ur Microscopic Review Microscopic reviewed Urine Culture Comments Culture not ind 06/24/18 06/24/18 06:05 06:05 CBC w Diff Auto diff final WBC 11.1 H RBC 4.34 Hgb 13.5 Hct 39.3 MCV 90.6 MCH 31.1 MCHC 34.3 RDW 14.3 Plt Count 193 MPV 7.7 Neut % (Auto) 85.6 H Lymph % (Auto) 10.5 [place] % (Auto) 3.5 Eos % (Auto) 0.0 Baso % (Auto) 0.4 Neut # (Auto) 9.5 H Lymph # (Auto) 1.2 [place] # (Auto) 0.4 Eos # (Auto) 0.0 Baso # (Auto) 0.0 WBC Differential . Differential Comment . Sodium 140 Potassium 3.8 Chloride 108 H Carbon Dioxide 24.7 Anion Gap 7 BUN 6 L Creatinine 0.55 Estimated GFR Greater than 89 Random Glucose 194 H Calcium 8.2 L D Total Bilirubin 0.6 AST 17 ALT 29 Alkaline Phosphatase 93 Total Protein 6.8 D Albumin 3.2 L D Lipase Urine Color Urine Clarity Urine pH Ur Specific [place] Urine Protein Urine Glucose (UA) Urine Ketones Urine Occult Blood Urine Nitrate Urine Bilirubin Urine Urobilinogen Ur Leukocyte Esterase Urine RBC Urine WBC Ur Squamous Epith Cells Urine Bacteria Micro UA Comment Ur Microscopic Review Urine Culture Comments - Imaging Impressions Abdomen/Pelvis CT 06/23/18 17:11 CONCLUSION: 1. Dilated inflamed appendix with large appendicolith characteristic of acute appendicitis. 2. No evidence of free air or abscess. 3. Otherwise unremarkable exam. Caprini VTE Risk Assessment Caprini VTE Risk Assessment: No/Low Risk (score <= 1) Caprini Risk Assessment Model: Point Value = 1 Point Value = 2 Point Value = 3 Point Value = 5 Age 41-60 Minor surgery BMI > 25 kg/m2 Swollen legs Varicose veins or History of unexplained or recurrent spontaneous Oral contraceptives or hormone replacement Sepsis (< 1 month) Serious lung disease, including pneumonia (< 1 month) Abnormal pulmonary function Acute myocardial infarction Congestive heart failure (< 1 month) History of inflammatory bowel disease Medical patient at bed rest Age 61-74 Arthroscopic surgery Major open surgery (> 45 min) Laparoscopic surgery (> 45 min) Malignancy Confined to bed (> 72 hours) Immobilizing plaster cast Central venous access Age >= 75 History of VTE Family history of VTE Factor V Leiden Prothrombin [id number] Lupus anticoagulant Anticardiolipin antibodies Elevated serum homocysteine Heparin-induced thrombocytopenia Other congenital or acquired thrombophilia Stroke (< 1 month) Elective arthroplasty Hip, pelvis, or leg fracture Acute spinal cord injury (< 1 month) Prophylaxis Regimen: Total Risk Factor Score Risk Level Prophylaxis Regimen 0-1 Low Early ambulation 2 Moderate Order ONE of the following: *Sequential Compression Device (SCD) *Heparin 5000 units SQ BID 3-4 Higher Order ONE of the following medications: *Heparin 5000 units SQ TID *Enoxaparin/Lovenox 40 mg SQ daily (WT < 150 kg, CrCl > 30 mL/min) *Enoxaparin/Lovenox 30 mg SQ daily (WT < 150 kg, CrCl > 10-29 mL/min) *Enoxaparin/Lovenox 30 mg SQ BID (WT < 150 kg, CrCl > 30 mL/min) AND/OR *Sequential Compression Device (SCD) 5 or more Highest Order ONE of the following medications: *Heparin 5000 units SQ TID (Preferred with Epidurals) *Enoxaparin/Lovenox 40 mg SQ daily (WT < 150 kg, CrCl > 30 mL/min) *Enoxaparin/Lovenox 30 mg SQ daily (WT < 150 kg, CrCl > 10-29 mL/min) *Enoxaparin/Lovenox 30 mg SQ BID (WT < 150 kg, CrCl > 30 mL/min) AND *Sequential Compression Device (SCD) Assessment and Plan - Assessment (1) Acute appendicitis Code(s): K35.80 - Unspecified acute appendicitis Status: Acute (2) Diabetes mellitus Code(s): E11.9 - Type 2 diabetes mellitus without complications Status: Acute - Plan Ms. Rae is a pleasant 37-year-old female with a history of diabetes mellitus who presented to the emergency department on 06/23/2018 due to diffuse abdominal pain, nausea and vomiting. CT abdomen pelvis indicated acute appendicitis. General surgery was consulted. Acute appendicitis -Appreciate general surgery input. Patient is scheduled for appendectomy this afternoon. -Continue morphine for pain management. Diabetes mellitus type 2 -Patient's blood glucose has been around 180-190. Patient wants to do hemoglobin A1c lab in the outpatient setting. -Discussed about metformin or sulfonylureas for type 2 diabetes. -Patient wants to discuss with her primary care physician regarding diabetic medications. Tobacco abuse -patient counseled regarding her tobacco abuse. Full code. Ambulation. (1) Acute appendicitis Qualifiers: Acute appendicitis type: unspecified acute appendicitis type Qualified Code(s ): K35.80 - Unspecified acute appendicitis
--- NOTE | 2018-06-24 09:16 | P.CONGS ---
HPI Gen Surgery Consult Note Consult date: 06/24/18 Reason for consult: other (acute appendicitis) Requesting physician: Butch Vincent Narrative: This is a 37 year old female with a past medical history of schizophrenia and type 2 diabetes mellitus who presented to the ED with complaints of abdominal pain with associated nausea without vomiting. She reports that the pain began Sunday night at 2100. It is aggravated by movement. A CT abdomen/pelvis was obtained which shows a dilated, inflamed appendix with a large appendicolith. She does have a mildly elevated WBC. A General Surgery consultation has been requested. Review of Systems Constitutional: Denies chills, Denies fever(s) Eyes: Denies blurry vision Ears, Nose, Mouth, and Throat: Denies headache(s) Cardiovascular: Denies chest pain, Denies chest pain at rest, Denies chest pain with activity Respiratory: Denies chest congestion, Denies cough Gastrointestinal: Reports abdominal pain, Reports nausea, Denies bloating, Denies vomiting Genitourinary: Denies pelvic pain Musculoskeletal: Denies back pain, Denies body aches Skin/Breast: Denies lesions, Denies rash Neurologic: Denies headache(s), Denies localized weakness Psychiatric: Denies anxiety, Denies depression Endocrine: Denies cold intolerance, Denies heat intolerance Hematologic/Lymphatic: Denies easy bleeding Allergic/Immunologic: Denies GI upset with certain foods PMFSH - History History Provided By: Patient - Medical History Medical History: Medical History (Last Updated 06/24/18 @ 10:00 by MINDY June) Acid reflux Constipation Diabetes type 2, controlled Schizophrenia - Surgical History Surgical History: Surgical History (Last Reviewed 06/24/18 @ 10:00 by MINDY June) Previous section - Tobacco History Second Hand Smoke Exposure: Yes Tobacco Use In Past 30 Days: Yes Smoking Status: Heavy tobacco smoker Tobacco Type: Cigarettes - Alcohol History How Often Do You Have a Drink Containing Alcohol: Never - Substance Use History Substance History: No History of Abuse - Travel History Recent Travel in the [place] Within the Last 8 Weeks: No Recent Travel Out of the Country Within the Last 8 Weeks: No - Immunization History Tetanus Immunization: Unsure Hx Influenza Vaccine This Season: No Medications and Allergies Allergies Allergy/AdvReac Type Severity Reaction Status Date / Time haloperidol Allergy Severe Itching Verified 06/23/18 17:03 risperidone Allergy Severe Itching Verified 06/23/18 17:03 Home Medications Medication Instructions Recorded Confirmed Type alprazolam [Xanax] 0.25 mg PO DAILY 06/23/18 06/23/18 History clozapine [Clozaril] 100 mg PO HS 06/23/18 06/23/18 History ranitidine HCl 75 mg PO BID 06/23/18 06/23/18 History Active Medications: Active Medications Acetaminophen (Tylenol) 650 mg PO Q4H PRN PRN Reason: Temp > 100.4 Al Hydroxide/Mg Hydroxide (Milk Of Magnesia Liq) 30 ml PO Q12H PRN PRN Reason: Mild Constipation Alprazolam (Xanax) 0.25 mg PO DAILY [facility] Last Admin: 06/24/18 08:11 Dose: 0.25 mg Bisacodyl (Dulcolax Supp) 10 mg RECTAL DAILY PRN PRN Reason: SEVERE CONSITIPATION Clozapine (Clozaril) 100 mg PO [facility] Last Admin: 06/23/18 22:02 Dose: Not Given Famotidine (Pepcid) 10 mg PO BID [facility] Last Admin: 06/24/18 08:11 Dose: 10 mg Sodium Chloride (Ns Inj) 1,000 mls @ 100 mls/hr IV.CONT .Q10H [facility] Last Admin: 06/24/18 08:10 Dose: 100 mls/hr Lactulose (Lactulose Liq) 30 ml PO DAILY PRN PRN Reason: SEVERE CONSITIPATION Morphine Sulfate (Morphine Inj) 2 mg IV.PUSH Q4H PRN PRN Reason: PAIN 6-10 Ondansetron HCl (Zofran Inj) 4 mg IV.PUSH Q6H PRN PRN Reason: NAUSEA OR VOMITING Senna/Docusate Sodium (Geraldine-Colace) 1 tab PO BID [facility] Last Admin: 06/24/18 08:11 Dose: Not Given Sennosides (Senokot) 17.2 mg PO Q12H PRN PRN Reason: Moderate Constipation Sodium Chloride (Ns Flush) 2 ml IV.FLUSH PRN PRN PRN Reason: FLUSH AFTER USING IV ACCESS Last Admin: 06/23/18 19:57 Dose: 2 ml Exam Vital signs: Vital Signs 06/23/18 15:47 06/23/18 17:52 06/23/18 19:06 Temperature 98.7 F Pulse Rate 96 H 80 74 Respiratory Rate 18 18 20 Blood Pressure 124/82 121/79 113/86 Pulse Oximetry 99 99 98 06/23/18 20:01 06/23/18 21:55 06/24/18 00:00 Temperature 98.3 F 98.7 F Pulse Rate 78 75 Respiratory Rate 20 5 L 20 Blood Pressure 109/83 107/78 Pulse Oximetry 100 99 06/24/18 03:48 06/24/18 04:00 Temperature 98.8 F Pulse Rate 79 82 Respiratory Rate 20 20 Blood Pressure 118/74 119/89 Pulse Oximetry 97 Intake & Output 06/23/18 06/24/18 06/24/18 18:59 06:59 18:59 Intake Total 100 / 100 1010 / 1010 Balance 100 / 100 1010 / 1010 Weight 80 kg 79.5 kg Intake: IV 100 / 100 1000 / 1000 NS Inj 1,000 ML @ 100 mls/hr IV 1000 / 1000 .CONT .Q10H [facility] Rx#:[id number] Zosyn 4.5 GM Premix 4.5 gm In 100 / 100 100 ml @ 200 mls/hr IV.SIG ONCE ONE Rx#:[id number] Oral 0 / 0 10 / 10 Other: # Voids 3 2 # Bowel Movements 0 Weight On Admission 79.1 kg Narrative: GENERAL: Very pleasant 37 year old female resting in bed in mild acute distress when moving. SKIN: Warm and dry. HEAD: Atraumatic. Normocephalic. EYES: Pupils equal and round. No scleral icterus. No injection or drainage. ENT: No nasal bleeding or discharge. Mucous membranes pink and moist. NECK: Trachea midline. CARDIOVASCULAR: Regular rate and rhythm. RESPIRATORY: No accessory muscle use. Clear to auscultation. Breath sounds equal bilaterally. GASTROINTESTINAL: Abdomen soft, nondistended. Obese abdomen. Geraldine-umbilical tenderness and RLQ tenderness with palpation. Well healed low transverse scar. No visible hernias. MUSCULOSKELETAL: Extremities without clubbing, cyanosis, or edema. No obvious deformities. NEUROLOGICAL: Awake and alert. No obvious cranial nerve deficits. Motor grossly within normal limits. Five out of 5 muscle strength in the arms and legs. Normal speech. PSYCHIATRIC: Appropriate mood and affect; insight and judgment normal. Results - Labs 06/24/18 06:05 06/24/18 06:05 Laboratory Results CBC w Diff Auto diff final 06/24/18 06:05 WBC 11.1 th/mm3 (4.0-11.0) H 06/24/18 06:05 RBC 4.34 mil/mm3 (4.00-5.30) 06/24/18 06:05 Hgb 13.5 gm/dL (11.6-15.3) 06/24/18 06:05 Hct 39.3 % (35.0-46.0) 06/24/18 06:05 MCV 90.6 fL (80.0-100.0) 06/24/18 06:05 MCH 31.1 pg (27.0-34.0) 06/24/18 06:05 MCHC 34.3 % (32.0-36.0) 06/24/18 06:05 RDW 14.3 % (11.6-17.2) 06/24/18 06:05 Plt Count 193 th/mm3 (150-450) 06/24/18 06:05 MPV 7.7 fL (7.0-11.0) 06/24/18 06:05 Neut % (Auto) 85.6 % (16.0-70.0) H 06/24/18 06:05 Lymph % (Auto) 10.5 % (9.0-44.0) 06/24/18 06:05 [place] % (Auto) 3.5 % (0.0-8.0) 06/24/18 06:05 Eos % (Auto) 0.0 % (0.0-4.0) 06/24/18 06:05 Baso % (Auto) 0.4 % (0.0-2.0) 06/24/18 06:05 Neut # (Auto) 9.5 th/mm3 (1.8-7.7) H 06/24/18 06:05 Lymph # (Auto) 1.2 th/mm3 (1.0-4.8) 06/24/18 06:05 Bent # (Auto) 0.4 th/mm3 (0.0-0.9) 06/24/18 06:05 Eos # (Auto) 0.0 th/mm3 (0.0-0.4) 06/24/18 06:05 Baso # (Auto) 0.0 th/mm3 (0.0-0.2) 06/24/18 06:05 WBC Differential . 06/24/18 06:05 Differential Comment . 06/24/18 06:05 Sodium 140 meq/L (136-145) 06/24/18 06:05 Potassium 3.8 meq/L (3.5-5.1) 06/24/18 06:05 Chloride 108 meq/L (98-107) H 06/24/18 06:05 Carbon Dioxide 24.7 meq/L (21.0-32.0) 06/24/18 06:05 Anion Gap 7 meq/L (5-15) 06/24/18 06:05 BUN 6 mg/dL (7-18) L 06/24/18 06:05 Creatinine 0.55 mg/dL (0.50-1.00) 06/24/18 06:05 Estimated GFR Greater than 89 mL/min (>89) 06/24/18 06:05 Random Glucose 194 mg/dL (74-106) H 06/24/18 06:05 Calcium 8.2 mg/dL (8.5-10.1) L D 06/24/18 06:05 Total Bilirubin 0.6 mg/dL (0.2-1.0) 06/24/18 06:05 AST 17 U/L (15-37) 06/24/18 06:05 ALT 29 U/L (10-53) 06/24/18 06:05 Alkaline Phosphatase 93 U/L (45-117) 06/24/18 06:05 Total Protein 6.8 g/dL (6.4-8.2) D 06/24/18 06:05 Albumin 3.2 g/dL (3.4-5.0) L D 06/24/18 06:05 Lipase 96 U/L (73-393) 06/23/18 17:40 Urine Color Yellow (Yellw/Straw) 06/23/18 17:39 Urine Clarity Clear (Clear) 06/23/18 17:39 Urine pH 6.0 (5.0-8.5) 06/23/18 17:39 Ur Specific [place] 1.010 (1.002-1.035) 06/23/18 17:39 Urine Protein Negative mg/dL (Neg-Trace) 06/23/18 17:39 Urine Glucose (UA) 1000 or greater mg/dL (Negative) H 06/23/18 17:39 Urine Ketones Negative mg/dL (Negative) 06/23/18 17:39 Urine Occult Blood Negative (Negative) 06/23/18 17:39 Urine Nitrate Negative (Negative) 06/23/18 17:39 Urine Bilirubin Negative (Negative) 06/23/18 17:39 Urine Urobilinogen 0.2 mg/dL (Less than 2) 06/23/18 17:39 Ur Leukocyte Esterase Negative (Negative) 06/23/18 17:39 Urine RBC 0-3 /hpf (0-3) 06/23/18 17:39 Urine WBC 0-5 /hpf (0-5) 06/23/18 17:39 Ur Squamous Epith Cells Greater than 10 /hpf (0-5) H 06/23/18 17:39 Urine Bacteria Occasional /hpf (None) H 06/23/18 17:39 Micro UA Comment Culture not ind 06/23/18 17:39 Ur Microscopic Review Microscopic reviewed 06/23/18 17:39 Urine Culture Comments Culture not ind 06/23/18 17:39 Impressions Abdomen/Pelvis CT 06/23/18 17:11 CONCLUSION: 1. Dilated inflamed appendix with large appendicolith characteristic of acute appendicitis. 2. No evidence of free air or abscess. 3. Otherwise unremarkable exam. - Imaging CT scan - abdomen: image reviewed Assessment and Plan - Assessment (1) Acute appendicitis Code(s): K35.80 - Unspecified acute appendicitis Status: Acute Qualifiers: Acute appendicitis type: unspecified acute appendicitis type Qualified Code (s): K35.80 - Unspecified acute appendicitis Plan: 37 year old female with abdominal pain; exam and imaging c/w acute appendicitis -Plan for OR intervention this afternoon -Explained procedure including risks and benefits -Obtain consents for laparoscopic appendectomy possible open procedure with Dr. Gomez -NPO -Continue Zosyn -All questions answered -Thank you for this consult; We will continue to follow - Plan Discussed Condition With: Dr. Jason Rae - Attending Attestation The exam, history, and the medical decision-making described in the above note were completed with the assistance of the mid-level provider. I reviewed and agree with the findings presented. I attest that I had a [id number] encounter with the patient on the same day, and personally performed and documented my assessment and findings in the medical record. 37yo female with early acute appendicitis, stable admit, IV ABX, NPO, plan for Lap Appy next available OR time d/w patient, r/b/a, pt wants to proceed with surgery
[2018-06-24] MEDS ORDERED: Famotidine PF Inj 20 MG/2 ML Vial ONE (13:00)
[2018-06-24] MEDS ORDERED: Metoprolol Tartrate 25 MG Tablet PO SCH (13:30)
[2018-06-24] MEDS ORDERED: Chlorhexidine Gluconate 2% 1 Pack (2 Cloths) TOPICAL SCH (13:30)
[2018-06-24] MEDS ORDERED: Sodium Chlor 0.9% Inj 500 ML IV.SIG SCH (14:00)
[2018-06-24] MEDS ORDERED: Bupivacaine/Epinephrine Inj 0.25% 50 ML Vial ONE (16:10)
[2018-06-24] MEDS ORDERED: fentaNYL Citrate Inj 100 MCG/2 ML Ampul ONE (16:16)
[2018-06-24] MEDS ORDERED: Ketorolac Inj 30 MG/ML (IVP) Vial IV.PUSH ONE (16:41)
[2018-06-24] MEDS ORDERED: Succinylcholine Inj 100 MG/5 ML Syringe IV.PUSH ONE (16:41)
[2018-06-24] MEDS ORDERED: Neostigmine Inj 5 MG/5 ML Syringe IV.PUSH ONE (16:41)
[2018-06-24] MEDS ORDERED: Lidocaine PF 1% Inj 5 ML Syringe INFILTRATN ONE (16:41)
[2018-06-24] MEDS: Piperacil/Tazo 3.375 GM Premix 50 ML IV.SIG SCH (20:23)
--- NOTE | 2018-06-24 21:03 | MP ---
cc: Wiliam Gomez MD DATE OF OPERATION: 06/24/2018 PREOPERATIVE DIAGNOSIS: Acute appendicitis. POSTOPERATIVE DIAGNOSIS: Acute suppurative uncomplicated appendicitis. ATTENDING SURGEON: Maico Gomez MD HEAD OF SCIENCE: Becka Duron, medical student. ANESTHESIA: General and local anesthetic. COMPLICATIONS: None. ESTIMATED BLOOD LOSS: 10 mL FINDINGS: Acute minimally suppurative appendix is retrocecal. No other intraabdominal pathology on diagnostic laparoscopy. INDICATIONS: The patient is a 37-year-old female who was diagnosed with acute appendicitis at [facility] after presenting with a new onset right lower quadrant pain. The patient was found to be stable with normal white blood cell count, but not concerning for appendicitis based on imaging and clinical exam. I have discussed with the patient about the risks, benefits and alternatives to surgery, she agreed to undergo the procedure for appendectomy for treatment of her acute appendicitis. PROCEDURE: The patient was taken to the operating room and placed in the supine position and placed under general endotracheal anesthesia. The patient's abdomen was prepped and draped in sterile fashion. Timeout was performed. The abdomen was entered through the Mary technique with a curvilinear incision below the umbilicus. A 10 mm balloon trocar was placed into the abdomen under direct visualization. We were then able to insufflate the abdomen. We placed the patient in Trendelenburg and place two 5 mm ports in the left lower quadrant and the visualization of the laparoscope. Local anesthetic was used at all port sites. The colon was followed until the tinea where this entered a rather wide appendix that was mildly suppurative and injected, but really with no signs of gangrene and certainly no perforation. We were able to take down some basically white line of Toldt were a few centimeters around the cecum and rolled the cecal medially and exposed the appendix were grasped with a [place] retractor and retracted upward. We then placed an [place] [facility] vascular white load across the base of the appendix and appendiceal mesentery as it splayed into the cecum. We fired the stapler without difficulty and a second load was also used to continue the staple line at the antimesenteric portion of the appendix. We then removed the appendix with the abdomen with EndoCatch bag. We did suction out a small amount of blood clots from right lower quadrant. There is no evidence of staple line leak or bleeding or complication. We placed omentum back in the right lower quadrant in normal anatomic position and took the patient out of Trendelenburg position. We removed the ports under visualization of the laparoscope and expressed pneumoperitoneum. We closed the 10 mm Mary site with a [id number] 0 Vicryl suture. Closed the skin with 4-0 Monocryl and Dermabond. The patient was discontinued from anesthesia and taken to the PACU in stable condition. The patient tolerated the procedure well. No apparent complications. All counts were correct and I was present and scrubbed for the entire procedure. MD JOY Fajardo/nitish , 06:01 PM , 06:09 PM
[2018-06-24 22:01] VITALS: RESP 16
[2018-06-25] MEDS: Piperacil/Tazo 3.375 GM Premix 50 ML IV.SIG SCH (02:09)
[2018-06-25 04:10] VITALS: BP 116/81; PULSE 79; TEMP 98.4; O2SAT 97
[2018-06-25] MEDS: Sod Chloride 0.9% Inj 1,000 ML IV.CONT SCH (06:55)
--- NOTE | 2018-06-25 08:03 | P.PNGS ---
Subjective Interval history: Ambulating in the bed No issues Physical Exam Vital signs: Vital Signs 06/24/18 12:00 06/24/18 12:50 06/24/18 17:47 Temperature 98.8 F 98.3 F 99.4 F Pulse Rate 78 72 78 Respiratory Rate 18 20 16 Blood Pressure 123/75 134/87 95/58 L Pulse Oximetry 98 99 96 06/24/18 18:05 06/24/18 18:20 06/24/18 20:00 Temperature 99.2 F 98.8 F Pulse Rate 78 76 71 Respiratory Rate 20 20 16 Blood Pressure 92/60 L 96/58 L 103/64 Pulse Oximetry 97 96 95 06/25/18 00:00 Temperature 98.4 F Pulse Rate 79 Respiratory Rate 16 Blood Pressure 116/81 Pulse Oximetry 97 Intake & Output 06/24/18 06/25/18 06/25/18 18:59 06:59 18:59 Intake Total 2009 Balance 2009 Weight 79.5 kg Intake: IV 1999 1100 / 1100 NS Inj 1,000 ML @ 100 mls/hr IV 1999 1000 / 1000 .CONT .Q10H JETT Rx#:[id number] Zosyn 3.375 GM Premix 50 ML @ 100 / 100 100 mls/hr IV.SIG Q6H JETT Rx#: [id number] Oral 1000 / 1000 Other: # Voids 3 3 # Bowel Movements 0 Narrative: Alert and awake Cardio: RRR Resp: CTAB Abd: soft minimally tender; incision c/d/i with skin glue in place Assessment and Plan - Assessment (1) Acute appendicitis Code(s): K35.80 - Unspecified acute appendicitis Status: Acute Plan: 37 year old female with abdominal pain; exam and imaging c/w acute appendicitis -POD1 lap appy -Regular diet -Pain controlled -DC IVF -GS clear for DC -Follow up Jul 08 at 11:10AM (1) Acute appendicitis Qualifiers: Acute appendicitis type: unspecified acute appendicitis type Qualified Code(s ): K35.80 - Unspecified acute appendicitis
--- NOTE | 2018-06-25 08:45 | P.PN ---
Subjective Interval history: Follow-up for acute appendicitis. Patient is currently doing well post surgery. She underwent appendectomy surgery yesterday 06/24/2018. Currently no acute concerns. No fever or chills. General surgery cleared for discharge. Physical Exam Vital signs: Vital Signs 06/24/18 12:00 06/24/18 12:50 06/24/18 17:47 Temperature 98.8 F 98.3 F 99.4 F Pulse Rate 78 72 78 Respiratory Rate 18 20 16 Blood Pressure 123/75 134/87 95/58 L Pulse Oximetry 98 99 96 06/24/18 18:05 06/24/18 18:20 06/24/18 20:00 Temperature 99.2 F 98.8 F Pulse Rate 78 76 71 Respiratory Rate 20 20 16 Blood Pressure 92/60 L 96/58 L 103/64 Pulse Oximetry 97 96 95 06/25/18 00:00 Temperature 98.4 F Pulse Rate 79 Respiratory Rate 16 Blood Pressure 116/81 Pulse Oximetry 97 Intake & Output 06/24/18 06/25/18 06/25/18 18:59 06:59 18:59 Intake Total 2009 Balance 2009 Weight 79.5 kg Intake: IV 1999 / 1999 1100 / 1100 NS Inj 1,000 ML @ 100 mls/hr IV 2000 / 2000 1000 / 1000 .CONT .Q10H JETT Rx#:[id number] Zosyn 3.375 GM Premix 50 ML @ 100 / 100 100 mls/hr IV.SIG Q6H JETT Rx#: [id number] Oral 10 / 10 1000 / 1000 Other: # Voids 3 3 # Bowel Movements 0 Narrative: GENERAL: Alert, oriented 3, NAD. SKIN: Warm and dry. HEAD: Normocephalic. EYES: No scleral icterus. No injection or drainage. NECK: Supple, trachea midline. No JVD or lymphadenopathy. CARDIOVASCULAR: Regular rate and rhythm without murmurs, gallops, or rubs. RESPIRATORY: Breath sounds equal bilaterally. No accessory muscle use. GASTROINTESTINAL: Abdomen soft, mild tenderness to palpation, nondistended. MUSCULOSKELETAL: No cyanosis, or edema. BACK: Nontender without obvious deformity. No CVA tenderness. Results - Labs CBC & Chem 7: 06/24/18 06:05 06/24/18 06:05 Laboratory Results - last 24 hr 06/24/18 06/24/18 06:05 10:56 POC Glucose 157 H Beta HCG, Quant Less than 1 - Imaging Abdomen/Pelvis CT 06/23/18 17:11 CONCLUSION: 1. Dilated inflamed appendix with large appendicolith characteristic of acute appendicitis. 2. No evidence of free air or abscess. 3. Otherwise unremarkable exam. Assessment and Plan - Assessment (1) Acute appendicitis Code(s): K35.80 - Unspecified acute appendicitis Status: Acute (2) Diabetes mellitus Code(s): E11.9 - Type 2 diabetes mellitus without complications Status: Acute - Plan Ms. Rae is a pleasant 37-year-old female with a history of diabetes mellitus who presented to the emergency department on 06/23/2018 due to diffuse abdominal pain, nausea and vomiting. CT abdomen pelvis indicated acute appendicitis. General surgery was consulted. Acute appendicitis -Status post appendectomy. General surgery cleared for discharge. Diabetes mellitus type 2 -Patient's blood glucose has been around 180-190. Patient wants to do hemoglobin A1c lab in the outpatient setting. -Discussed about metformin or sulfonylureas for type 2 diabetes. -Patient wants to discuss with her primary care physician regarding diabetic medications. Tobacco abuse -patient counseled regarding her tobacco abuse. Full code. Ambulation. Discharge patient to home Condition on discharge: Improved Diabetic diet as tolerated Ad Zina activity Rx written: [place] prescription given by general surgery. Follow-up with primary care physician within 1-2 weeks as needed, general surgery as scheduled. (1) Acute appendicitis Qualifiers: Acute appendicitis type: unspecified acute appendicitis type Qualified Code(s ): K35.80 - Unspecified acute appendicitis
[2018-06-25] MEDS: ALPRAZolam 0.25 MG Tablet PO SCH (09:15)
[2018-06-25] MEDS: Famotidine 20 MG Tablet PO SCH (09:15)
[2018-06-25] MEDS: Senna/Docusate Sodium 8.6/50 MG Tablet PO SCH (09:15)
== END 2018-06-25 09:28 | disposition home or self-care (01) ==
LOC: PHEDA 15:33 → PHED 15:33 → PH3 23:00
PROVIDERS: ADMIT Hospitalist; ATTEND Hospitalist
PROC: LAPAPPY (ICD-10-PCS; 2018-06-24 16:13)

== ENCOUNTER 2018-09-11 16:28 | Inpatient (IN) ==
--- NOTE | 2018-09-11 22:59 | ED ---
HPI General Chief Complaint: Psychiatric Symptoms Stated Complaint: psych eval/voluntary Time Seen by Provider: 09/11/18 22:43 Source: patient Mode of arrival: ambulatory Limitations: other (Acute psychosis) History of Present Illness MD complaint: Reports other (Hearing voices) Onset (ago): unknown Duration: constant History of same: Yes Relieving factors: none Exacerbating factors: none Context: Denies not taking psychiatric medications Associated psychiatric symptoms: Reports auditory hallucinations Associated symptoms: Reports denies other symptoms Treatments prior to arrival: Reports other (She reports that she is compliant with her psychiatric medication) Related Data Home Medications Medication Instructions Recorded Confirmed clozapine [Clozaril] 100 mg PO HS 06/23/18 09/11/18 alprazolam 0.5 mg PO DAILY PRN 07/27/18 09/11/18 ranitidine HCl 150 mg PO BID PRN 07/27/18 09/11/18 Previous Rx's Medication Instructions Recorded ondansetron [Zofran ODT] 4 mg PO Q6H PRN #10 tab 07/27/18 Allergies Allergy/AdvReac Type Severity Reaction Status Date / Time haloperidol Allergy Severe Itching Verified 07/27/18 13:57 risperidone Allergy Severe Itching Verified 07/27/18 13:57 Review of Systems ROS Unobtainable ROS Unobtainable: unobtainable due to mental condition PMFSH Medical History Medical History Acid reflux (Acute) Anxiety (Acute) Constipation (Acute) Diabetes type 2, controlled (Acute) Schizophrenia (Acute) Social History Social History Substance History: No History of Abuse Second Hand Smoke Exposure: Yes Smoking Status: Current every day smoker Tobacco Type: Cigarettes How Often Do You Have a Drink Containing Alcohol: Never Recent Travel in [place] within the Last 8 Weeks: No Recent Out of Country Travel within the Last 8 Weeks: No Immunization History Tetanus Immunization: Unsure Tetanus Immunization Year if Known: 2018 Exam Const General: healthy appearing, comfortable, no acute distress and well developed Orientation: alert, awake and oriented x3 HENMT Head: normal to inspection, normocephalic and atraumatic Eyes Alignment and Position: alignment normal and position abnormal Conjunctivae: conjunctivae normal Sclera: sclerae normal EOM: EOM intact bilaterally Neck Neck: normal visual inspection and full ROM Chest Chest: normal inspection of the chest Resp Effort & Inspection: normal respiratory effort and able to speak in complete sentences Auscultation: clear to auscultation bilaterally Cardio Rate: regular rate Rhythm: regular rhythm GI Inspection: normal to inspection Palpation: soft Back/Spine/Pelvis Cervical Spine: cervical ROM normal Thoracic/Lumbar Spine: thoraco-lumbar ROM normal Skin General: no rashes or lesions noted, turgor normal and dry skin Neuro General: alert, awake, oriented x3, moves all extremities and CN's II-XI intact bilaterally Extrem General: normal to inspection and full ROM Psych Appearance: grossly normal Mental Status: mental status grossly normal Speech and Movement: agitated Mood: irritable mood Affect: animated and irritable affect Attitude: refuses to answer Thought Content: hallucinations Judgment: limited Course Initial Documented Vital Signs Temperature 99.3 F 09/11/18 16:34 Pulse Rate 115 H 09/11/18 16:34 Respiratory Rate 17 09/11/18 16:34 Blood Pressure 148/85 H 09/11/18 16:34 Pulse Oximetry 97 09/11/18 16:34 Last Documented Vital Signs Temperature 98 F 09/14/18 05:53 Pulse Rate 100 H 09/14/18 05:53 Respiratory Rate 18 09/14/18 05:53 Blood Pressure 131/90 09/14/18 05:53 Pulse Oximetry 98 09/14/18 05:53 Medical Decision Making MDM Narrative Medical decision making narrative: This patient presents voluntarily for evaluation and treatment of schizophrenia. She declines to answer further questions. Her triage states that she is having hallucinations and is not caring for her young child. A medical screening exam has been ordered. This will be followed by a psychiatric screening exam. She is medically clear for psychiatric evaluation Medical Screen Exam Complete: Yes Emergency Medical Condition: Yes Differential Diagnosis Differential Diagnosis: Differential diagnosis of psychosis includes but is not limited to schizophrenia, schizoaffective disorder, bipolar disorder, intoxication, substance abuse, dementia Lab Data Lab results reviewed: Yes I reviewed the patient's lab results. Result diagrams: 09/11/18 23:06 09/11/18 23:06 POC Results POC Urine Results Negative Lab Results 09/11/18 09/11/18 09/11/18 Range/Units 23:06 23:06 23:21 WBC 9.8 (4.0-11.0) th/mm3 RBC 4.75 (4.00-5.30) mil/mm3 Hgb 15.0 (11.6-15.3) gm/dL Hct 42.7 (35.0-46.0) % MCV 89.9 (80.0-100.0) fL MCH 31.5 (27.0-34.0) pg MCHC 35.1 (32.0-36.0) % RDW 13.2 (11.6-17.2) % Plt Count 268 (150-450) th/mm3 MPV 7.2 (7.0-11.0) fL Neut % (Auto) 65.2 (16.0-70.0) % Lymph % (Auto) 29.3 (9.0-44.0) % [place] % (Auto) 4.6 (0.0-8.0) % Eos % (Auto) 0.2 (0.0-4.0) % Baso % (Auto) 0.7 (0.0-2.0) % Neut # (Auto) 6.4 (1.8-7.7) th/mm3 Lymph # (Auto) 2.9 (1.0-4.8) th/mm3 [place] # (Auto) 0.4 (0.0-0.9) th/mm3 Eos # (Auto) 0.0 (0.0-0.4) th/mm3 Baso # (Auto) 0.1 (0.0-0.2) th/mm3 WBC Differential . Differential Comment Auto diff final Sodium 137 (136-145) meq/L Potassium 3.9 (3.5-5.1) meq/L Chloride 104 (98-107) meq/L Carbon Dioxide 24.6 (21.0-32.0) meq/L Anion Gap 8 (5-15) meq/L BUN 8 (7-18) mg/dL Creatinine 0.64 (0.50-1.00) mg/dL Estimated GFR Greater than 89 (>89) mL/min Random Glucose 174 H (74-106) mg/dL Calcium 9.0 (8.5-10.1) mg/dL Magnesium 2.2 (1.5-2.5) mg/dL Total Bilirubin 0.3 (0.2-1.0) mg/dL AST 15 (15-37) U/L ALT 23 (10-53) U/L Alkaline Phosphatase 110 (45-117) U/L Total Protein 7.5 (6.4-8.2) g/dL Albumin 3.7 (3.4-5.0) g/dL TSH 2.310 (0.358-3.740) uIU/mL Urine Opiates Screen Neg (Neg) Ur Barbiturates Screen Neg (Neg) Ur Amphetamines Screen Neg (Neg) U Benzodiazepines Scrn Pos H (Neg) Urine Cocaine Screen Neg (Neg) U Cannabinoids Screen Neg (Neg) Serum Alcohol Less than 3 (0-5) mg/dL Discharge Plan Discharge Disposition Patient Disposition: 30 Still Patient Discharge Details Diagnosis: Psychosis Physicians Team ED Provider: Lnaa Stapleton Primary Care Provider: Terrell Black Attending Provider: Bart Cardozo Other Providers: Mat Donahue Status ED Status: Left Department Discharge Information Discharge Date/Time: 09/12/18 18:39
[2018-09-11 23:24] LABS: Baso # (Auto) 0.1 th/mm3 (0.0-0.2); Baso % (Auto) 0.7 % (0.0-2.0); Eos % (Auto) 0.2 % (0.0-4.0); Hematocrit 42.7 % (35.0-46.0); Lymph # (Auto) 2.9 th/mm3 (1.0-4.8); Lymph % (Auto) 29.3 % (9.0-44.0); Mean Corpuscular HGB Conc 35.1 % (32.0-36.0); Mean Corpuscular Hemoglobin 31.5 pg (27.0-34.0); Mean Corpuscular Volume 89.9 fL (80.0-100.0); Mean Platelet Volume 7.2 fL (7.0-11.0); Mono # (Auto) 0.4 th/mm3 (0.0-0.9); Mono % (Auto) 4.6 % (0.0-8.0); Neut # (Auto) 6.4 th/mm3 (1.8-7.7); Neut % (Auto) 65.2 % (16.0-70.0); Platelet Count 268 th/mm3 (150-450); Red Blood Count 4.75 mil/mm3 (4.00-5.30); Red Cell Distribution Width 13.2 % (11.6-17.2); White Blood Count 9.8 th/mm3 (4.0-11.0)
[2018-09-11 23:36] LABS: Amphetamine Screen,Urine Neg (Neg); Barbiturate Screen,Urine Neg (Neg); Cannabinoid Screen,Urine Neg (Neg); Cocaine Screen,Urine Neg (Neg)
[2018-09-11 23:51] LABS: Alanine Aminotransferase 23 U/L (10-53); Albumin 3.7 g/dL (3.4-5.0); Anion Gap 8 meq/L (5-15); Aspartate Aminotransferase 15 U/L (15-37); Blood Urea Nitrogen 8 mg/dL (7-18); Carbon Dioxide 24.6 meq/L (21.0-32.0); Chloride 104 meq/L (98-107); Glomerular Filtration Rate Greater Than 89 mL/min (>89); Glucose,Random 174 mg/dL (74-106); Magnesium 2.2 mg/dL (1.5-2.5); Potassium 3.9 meq/L (3.5-5.1); Sodium 137 meq/L (136-145)
[2018-09-12 00:01] LABS: Alkaline Phosphatase 110 U/L (45-117); Total Protein 7.5 g/dL (6.4-8.2)
[2018-09-12 00:16] LABS: Opiate Screen,Urine Neg (Neg)
[2018-09-12] MEDS ORDERED: Aluminum/Magnesium/Simethacone Susp 30 ML UDC PO PRN (16:29)
--- NOTE | 2018-09-12 19:03 | P.CONPSY ---
Provisional Diagnosis Admission Date: September 12, 2018 16:28 Driscoll I.: Schizophrenia History of Present Illness Primary Care Provider: Terrell Black MD History of Present Illness: This is a 37-year old single, female who presents to this facility voluntarily for erratic behavior. She is well-known to this facility and the psychiatric department. She was placed under [place] act by the ED provider due to her labile and aggressive behavior and her refusal for admission. Reviewed electronic medical record, labs, and discussed case with staff. Patient was evaluated in D 40. She is awake, alert and oriented to place and self at least. Her mood is very irritable as is her affect. She becomes extremely agitated with this provider stating that she has not slept in 3 days and has not eaten in 3 days. She reports that she drinks coffee and smokes cigarettes. She is upset with her mother who has "not need to come to the hospital". Patient does have a 6-month-old baby at home and mother reported that she is unable to care for the baby due to her rapidly destabilizing condition. The mother fears for the child safety as well as the patient's. Her speech is rapid and pressured. The interview was brief due to to her irritable state. I did speak with her mother over the phone who corroborates patient statement that she has remained on her Clozaril and been compliant with it. The patient advised that she has missed last night's dose but as she still in the 2-day window I have continued her medication. She has a capacity and has signed a consent to continue her medication. After he left the room, patient was heard talking loudly to herself and at times screaming and yelling. Later, there was a bit of a standoff with the staff when she refused to remove her clothing. However, a compromise was reached and she removed the laces from her shoes and the strings from her pants. Review of Systems All other systems reviewed negative except as stated in HPI PMFSH - History History Provided By: Patient - Medical History Medical History: Medical History (Last Reviewed 09/12/18 @ 18:59 by MINDY Cortes) Acid reflux Anxiety Constipation Diabetes type 2, controlled Schizophrenia - Surgical History Surgical History: Surgical History (Last Reviewed 09/12/18 @ 18:59 by MINDY Cortes) Previous section - Tobacco History Second Hand Smoke Exposure: Yes Tobacco Use In Past 30 Days: Yes Smoking Status: Current every day smoker Tobacco Type: Cigarettes - Alcohol History How Often Do You Have a Drink Containing Alcohol: Never - Substance Use History Substance History: No History of Abuse - Travel History Recent Travel in the [place] Within the Last 8 Weeks: No Recent Travel Out of the Country Within the Last 8 Weeks: No - Immunization History Tetanus Immunization: Unsure Tetanus Immunization Year if Known: 2017 Medications and Allergies Active Medications: Active Medications Al Hydrox/Mg Hydrox/Simethicone (Mag-Al Plus Susp Liq) 30 ml PO Q6H PRN PRN Reason: DYSPEPSIA Al Hydroxide/Mg Hydroxide (Milk Of Magnesia Liq) 30 ml PO Q12H PRN PRN Reason: Mild Constipation Clozapine (Clozaril) 100 mg PO HS JETT Diphenhydramine HCl (Benadryl) 50 mg PO HS PRN PRN Reason: INSOMNIA Hydroxyzine HCl (Atarax) 50 mg PO Q6H PRN PRN Reason: ANXIETY Nicotine (Habitrol 21 Mg Patch.24 Hr) 1 patch T-DERMAL DAILY [facility] Patch Removal (Remove Old Patch) 1 each T-DERMAL HS [facility] Allergies Allergy/AdvReac Type Severity Reaction Status Date / Time haloperidol Allergy Severe Itching Verified 07/27/18 13:57 risperidone Allergy Severe Itching Verified 07/27/18 13:57 Home Medications Medication Instructions Recorded Confirmed Type clozapine [Clozaril] 100 mg PO HS 06/23/18 09/11/18 History alprazolam 0.5 mg PO DAILY PRN 07/27/18 09/11/18 History ranitidine HCl 150 mg PO BID PRN 07/27/18 09/11/18 History Exam Vital signs: Vital Signs 09/11/18 22:46 09/12/18 04:18 09/12/18 08:00 Temperature 98.0 F Pulse Rate 80 89 74 Respiratory Rate 18 18 16 Blood Pressure 115/73 123/80 124/78 Pulse Oximetry 98 99 99 09/12/18 18:02 Temperature Pulse Rate 78 Respiratory Rate 16 Blood Pressure 128/74 Pulse Oximetry Intake & Output 09/11/18 09/12/18 09/12/18 18:59 06:59 18:59 Weight 157 lb - Constitutional moderate distress, average body habitus, disheveled, agitated - Routine HEENT Exam Head: Present: normocephalic, atraumatic - Routine Neurological Exam Present: alert - Routine Psychiatric Exam Present: agitated, paranoid - Detailed Psychiatric Exam Mood and affect: Present: labile Thought process: Present: tangential Speech and movement: Present: pressured speech Mental Status Examination Appearance: Disheveled Consciousness: Alert Orientation: Person, Place Motor Activity: Normal gait Speech: Pressured, Rapid Language: Adequate Fund of Knowledge: Poor Attention and Concentration: Easily distracted Memory: Unremarkable Mood: Angry, Irritable Affect: Irritable Thought Process & Associations: Tangential (In relation to her mother asking her to come in and be evaluated) Thought Content: Preoccupations (With her mother) Hallucination Type: Other (Unable to assess) Delusion Type: None Suicidal Ideation: No Suicidal Plan: No Suicidal Intention: No Homicidal Ideation: No Homicidal Plan: No Homicidal Intention: No Insight: Poor Judgment: Impulsive Assessment and Plan - Assessment (1) Schizophrenia Code(s): F20.9 - Schizophrenia, unspecified Status: Acute - Plan Plan: Estimated LOS: [7] days patient was admitted to a locked psychiatric unit for further evaluation and treatment as deemed necessary. Justification for Continued Inpatient Stay: Moving this patient to a less restrictive environment would likely result in decompensation.
--- NOTE | 2018-09-13 10:43 | P.HPPSY ---
Provisional Diagnosis Admission Date: September 12, 2018 16:28 [place] I.: 1. Schizophrenia, undifferentiated type, acute exacerbation [place] II.: Deferred Competence Certification of Person's Competence To Provide Express and Informed Consent I have personally examined Jada Rae, a person being served at [facility] on, September 13, 2018 1043. Express and informed consent means consent voluntarily given in writing, by a competent person, after sufficient explanation and disclosure of the subject matter involved to enable the person to make a knowing and willful decision without any element of force, fraud, deceit, duress, or other form of constraint or coercion. This person is 18 years of age or older, is not now known to be incompetent to consent to treatment with a guardian advocate, and does not have a health care surrogate or proxy currently making medical treatment decisions. I have found this person to be one of the following: [] Competent to provide express and informed consent, as defined above, for voluntary admission to this facility and is competent to provide express and informed consent for treatment. He/she has the consistent capacity to make well reasoned, willful, and knowing decisions concerning his or her medical or mental health treatment. The person fully and consistently understands the purpose of the admission for examination/placement and is fully capable of personally exercising all rights assured under [place] Incompetent to provide express and informed consent to voluntary admission, and this is incompetent to provide express and informed consent to treatment. The person must be transferred to involuntary status and a petition for a guardian advocate filed with the Circuit Court. [X] Refusing to provide express and informed consent to voluntary admission but is competent to provide express and informed consent for treatment. The person must be discharged or transferred to involuntary status. Form shall be completed within 24 hours of a person's arrival at the receiving facility and filed in the clinical record of each person: 1. Admitted on a voluntary basis 2. Permitted to provide express and informed consent to his/her own treatment 3. Allowed to transfer from involuntary to voluntary status 4. Prior to permitting a person to consent to his or her own treatment after having been previously found incompetent to consent to treatment. History of Present Illness Capacity: Has capacity (to consent for meds) Chief Complaint: Psychosis History of Present Illness: Ms. Rae is a 37-year-old female with a history of schizophrenia who presented voluntarily for psychiatric evaluation. She was placed under the Russell act by the ED provider and seen in consultation by the psychiatric nurse practitioner in the ED. According to the psychiatric screener note "Patient reports decreased sleep. She reports, "My mom told me to come in. I am stressed at home. All I do is sit on the porch and drink coffee or milk. I have a 6 month old son. I don't want to touch him. I think that I'm evil. I love him, but I can 't take care of him anymore. I don't want my mother to take care of him either. She took care of him the first 2 months. We both have been taking care of him now. I like being around him, but Satan is always all over me." Reviewing the electronic medical record, I note that the patient was psychiatrically admitted here under Dr. Pelletier in February/March of this year. Patient seen and examined with counselor and nurse. Chart reviewed. Case discussed with nursing staff. On my examination today, patient presents as irritable and somewhat oppositional. She tells us that she is tired and does not want an extended interview. She endorses AH of "everything I want" but denies any CAH to hurt self/others. No other hallucinatory material reported. She is paranoid. Affect is restricted and dysphoric. No hypomanic or manic symptoms. Psychiatric interview is limited because of patient's current psychiatric symptomatology. No acute physical complaints. Past psychiatric history: The patient reports a history of schizophrenia. She follows with Jacob Castañeda at [facility]. Patient has reportedly been adherent with her prescribed clozapine. Most recent psychiatric admission was here at [facility]. She reports 1 previous suicide attempt by overdose on clozapine 6 years ago. Family history: The patient denies any family history of mental illness or suicide. Chemical dependency history: The patient denies any abuse of drugs or alcohol. No explanation provided for benzodiazepines found on urine toxicology. Social history: Patient apparently lives with her mother. She has a son. Social history is limited as the patient is somewhat uncooperative. I called over to [facility] to get patient's med list. She takes clozapine 100mg BID, last filled on 09/11. - Inpatient Certification I certify that the inpatient services were ordered in accordance with Medicare regulations governing the order. This includes certification that hospital inpatient services are reasonable and necessary and in the case of services not specified as inpatient-only under 42 CFR 419.22(n), that they are appropriately provided as inpatient services in accordance to with the 2-midnight benchmark under 43 CFR 412.3(e) I certify that inpatient psychiatric hospital services are medically necessary. Evaluation and treatment and/or diagnostic testing are expected to improve the patient's condition. The patient needs on a daily basis, active treatment furnished directly by or requiring the supervision of inpatient psychiatric facility personnel. Estimated Total Length of Stay (Days): 9 (7-9) Plans for Post Hospital Care: Not yet determined Review of Systems All other systems reviewed negative except as stated in HPI (Limitation: Psychosis) PMFSH - History History Provided By: Patient - Medical History Medical History: Medical History (Last Reviewed 09/12/18 @ 18:59 by MINDY Cortes) Acid reflux Anxiety Constipation Diabetes type 2, controlled Schizophrenia - Surgical History Surgical History: Surgical History (Last Reviewed 09/12/18 @ 18:59 by MINDY Cortes) Previous section - Tobacco History Second Hand Smoke Exposure: Yes Tobacco Use In Past 30 Days: Yes Smoking Status: Current every day smoker Tobacco Type: Cigarettes - Alcohol History How Often Do You Have a Drink Containing Alcohol: Never - Substance Use History Substance History: No History of Abuse - Travel History Recent Travel in the [place] Within the Last 8 Weeks: No Recent Travel Out of the Country Within the Last 8 Weeks: No - Immunization History Tetanus Immunization: Unsure Tetanus Immunization Year if Known: 2018 Quality Measures - Psychiatric History Psychological trauma history: No reported trauma history to me - Patient Strengths Patient's strengths (minimum of 2): In a monitored setting. Verbally fluent. Medications and Allergies Active Medications: Active Medications Al Hydrox/Mg Hydrox/Simethicone (Mag-Al Plus Susp Liq) 30 ml PO Q6H PRN PRN Reason: DYSPEPSIA Al Hydroxide/Mg Hydroxide (Milk Of Magnesia Liq) 30 ml PO Q12H PRN PRN Reason: Mild Constipation Clozapine (Clozaril) 100 mg PO HS [facility] Last Admin: 09/12/18 21:05 Dose: 100 mg Diphenhydramine HCl (Benadryl) 50 mg PO HS PRN PRN Reason: INSOMNIA Hydroxyzine HCl (Atarax) 50 mg PO Q6H PRN PRN Reason: ANXIETY Nicotine (Habitrol 21 Mg Patch.24 Hr) 1 patch T-DERMAL DAILY [facility] Last Admin: 09/13/18 08:12 Dose: 1 patch Patch Removal (Remove Old Patch) 1 each T-DERMAL HS [facility] Last Admin: 09/12/18 21:08 Dose: Not Given Allergies Allergy/AdvReac Type Severity Reaction Status Date / Time haloperidol Allergy Severe Itching Verified 07/27/18 13:57 risperidone Allergy Severe Itching Verified 07/27/18 13:57 Home Medications Medication Instructions Recorded Confirmed Type clozapine [Clozaril] 100 mg PO HS 06/23/18 09/11/18 History alprazolam 0.5 mg PO DAILY PRN 07/27/18 09/11/18 History ranitidine HCl 150 mg PO BID PRN 07/27/18 09/11/18 History Results - Labs CBC & Chem 7: 09/11/18 23:06 09/11/18 23:06 Labs: Laboratory Tests 09/11/18 09/11/18 09/11/18 23:06 23:06 23:21 WBC 9.8 Hgb 15.0 Plt Count 268 Neut # (Auto) 6.4 Sodium 137 Potassium 3.9 Chloride 104 Carbon Dioxide 24.6 Anion Gap 8 BUN 8 Creatinine 0.64 Estimated GFR Greater than 89 Random Glucose 174 H AST 15 ALT 23 Alkaline Phosphatase 110 TSH 2.310 U Benzodiazepines Scrn Pos H Serum Alcohol Less than 3 Labs reviewed. ANC adequate for clozapine therapy. ED POC test negative. Exam Vital signs: Vital Signs 09/12/18 18:02 Pulse Rate 78 Respiratory Rate 16 Blood Pressure 128/74 Narrative: Physical examination was completed by ED provider. On my examination today, the patient appears to be in no acute physical distress. No motor abnormalities noted. No signs of intoxication or withdrawal noted. Labs and vital signs reviewed. Mental Status Examination Appearance: Disheveled Consciousness: Alert Orientation: Person, Place (at least) Motor Activity: Normal gait Speech: Hesitant Language: Adequate Fund of Knowledge: Poor Attention and Concentration: Inadequate Memory: Unremarkable Mood: Oppositional, Irritable Affect: Irritable Thought Process & Associations: Intact Thought Content: Hallucinations, Delusional Hallucination Type: Auditory Delusion Type: Paranoid Suicidal Ideation: No Suicidal Plan: No Suicidal Intention: No Homicidal Ideation: No Homicidal Plan: No Homicidal Intention: No Insight: Poor Judgment: Poor Assessment and Plan - Assessment (1) Schizophrenia Code(s): F20.9 - Schizophrenia, unspecified Status: Acute - Plan Plan: 37-year-old female with psychiatric history as detailed above who is presently admitted to the inpatient psychiatric unit under a Russell act. Patient presents as paranoid and irritable and decompensated psychotic illness is suspected. Patient requires psychiatric hospitalization for safety, observation and stabilization. Admit inpatient. Patient is declining to consent for voluntary admission. Involuntary status. I have completed first opinion. Consult for second opinion. Patient retains capacity to consent for medications. Patient has reportedly been adherent with her prescribed clozapine 100 mg twice a day. Therefore, given her psychotic symptomatology, I will titrate her clozapine to 100 mg in the morning and 150 mg at bedtime with plans for further titration to effect and as tolerated. Weekly CBCs for clozapine therapy. Follow-up EKG ordered by the nurse practitioner. Monitor for any signs or symptoms of benzodiazepine withdrawal. Patient does have hyperglycemia, and I do note a previous diagnosis of DM on her problem list, although it does not appear that she is on antihyperglycemic. I will initiate diabetic diet along with Accu- Cheks and sliding scale insulin. Patient's son would be restricted from visiting on account of unit protocol given his young age, and I feel patient's unpredictability in her current psychotic state makes making an exception to this rule imprudent for the time being. Vitals every shift. Counselor to see and obtain collateral information. Disposition planning. Estimated length of stay: 7-9 days. Justification for Continued Inpatient Stay: See above Discharge Planning: Pending psychiatric stabilization Request Healthcare Surrogate/Guardian Advocate?: No (1) Schizophrenia Qualifiers: Schizophrenia type: undifferentiated schizophrenia Qualified Code(s): F20.3 - Undifferentiated schizophrenia
[2018-09-13] MEDS ORDERED: Dextrose 50% in Water 50 ML Vial IV.PUSH PRN (12:12)
[2018-09-13] MEDS: Insulin NovoLOG Aspart Correctional Sugar Inj SQ SCH ×2 (16:46→20:53)
[2018-09-14] MEDS: Insulin NovoLOG Aspart Correctional Sugar Inj SQ SCH ×3 (09:40→20:01)
--- NOTE | 2018-09-14 13:14 | P.CONPSY ---
Provisional Diagnosis Admission Date: September 12, 2018 16:28 [place] I.: 1. Schizophrenia, undifferentiated type, acute exacerbation [place] II.: Deferred History of Present Illness Service: Psychiatry Consult date: 09/14/18 Reason for Consult: 2nd opinion Primary Care Provider: Terrell Black MD Chief Complaint: psychosis History of Present Illness: Pt is a 37YOWF with a hx of schizophrenia who was admitted to [facility] under a BA alleging psychosis. Upon arrival to unit to evaluate pt, pt was receiving ETO due to extreme aggression towards staff and psychosis. staffing rn report that pt initially consented for clozapine but refused to take it or any other psychiatric medications today. Staff report that pt became increasingly agitated and threatening over the course of the morning and then became aggressive towards staff. Pt is agitated but in room and in no acute distress. Review of Systems unobtainable due to mental status PMFSH - History History Provided By: Patient - Medical History Medical History: Medical History (Last Reviewed 09/14/18 @ 13:12 by Jaye Loyola MD) Acid reflux Anxiety Constipation Diabetes type 2, controlled Schizophrenia - Surgical History Surgical History: Surgical History (Last Reviewed 09/14/18 @ 13:12 by Jaye Loyola MD) Previous section - Social History I have reviewed the patient's Social History: Yes - Tobacco History Second Hand Smoke Exposure: Yes Tobacco Use In Past 30 Days: Yes Smoking Status: Current every day smoker Tobacco Type: Cigarettes - Alcohol History How Often Do You Have a Drink Containing Alcohol: Never - Substance Use History Substance History: No History of Abuse - Travel History Recent Travel in the [place] Within the Last 8 Weeks: No Recent Travel Out of the Country Within the Last 8 Weeks: No - Immunization History Tetanus Immunization: Unsure Tetanus Immunization Year if Known: 2017 Hx Influenza Vaccine This Season: No Medications and Allergies Active Medications: Active Medications Al Hydrox/Mg Hydrox/Simethicone (Mag-Al Plus Susp Liq) 30 ml PO Q6H PRN PRN Reason: DYSPEPSIA Al Hydroxide/Mg Hydroxide (Milk Of Magnesia Liq) 30 ml PO Q12H PRN PRN Reason: Mild Constipation Clozapine (Clozaril) 100 mg PO DAILY [facility] Last Admin: 09/14/18 09:35 Dose: Not Given Clozapine (Clozaril) 150 mg PO HS [facility] Last Admin: 09/13/18 20:58 Dose: Not Given Dextrose (D50w Vial) 50 ml IV.PUSH UNSCH PRN PRN Reason: PER HYPOGLYCEMIA PROTOCOL Famotidine (Pepcid) 20 mg PO BID PRN PRN Reason: Gastric Reflux Glucagon (Glucagon Inj) 1 mg OTHER PRN PRN PRN Reason: for Hypoglycemia Protocol Insulin Aspart (Novolog Insulin Correctional Sugar Inj) 0 unit SQ ACHS [facility]; Protocol Last Admin: 09/14/18 12:10 Dose: Not Given Nicotine (Habitrol 21 Mg Patch.24 Hr) 1 patch T-DERMAL DAILY [facility] Last Admin: 09/14/18 09:40 Dose: Not Given Patch Removal (Remove Old Patch) 1 each T-DERMAL HS [facility] Last Admin: 09/13/18 20:54 Dose: Not Given Allergies Allergy/AdvReac Type Severity Reaction Status Date / Time haloperidol Allergy Severe Itching Verified 07/27/18 13:57 risperidone Allergy Severe Itching Verified 07/27/18 13:57 Home Medications Medication Instructions Recorded Confirmed Type clozapine [Clozaril] 100 mg PO HS 06/23/18 09/11/18 History alprazolam 0.5 mg PO DAILY PRN 07/27/18 09/11/18 History ranitidine HCl 150 mg PO BID PRN 07/27/18 09/11/18 History Exam Vital signs: Vital Signs 09/14/18 05:53 Temperature 98 F Pulse Rate 100 H Respiratory Rate 18 Blood Pressure 131/90 Pulse Oximetry 98 - Constitutional no acute distress, disheveled, agitated Mental Status Examination Appearance: Disheveled Consciousness: Alert Orientation: Person, Place (at least) Motor Activity: Normal gait Speech: Hesitant Language: Adequate Fund of Knowledge: Poor Attention and Concentration: Inadequate Memory: Unremarkable Mood: Oppositional, Irritable Affect: Irritable Thought Process & Associations: Intact Thought Content: Hallucinations, Delusional Hallucination Type: Auditory Delusion Type: Paranoid Suicidal Ideation: No Suicidal Plan: No Suicidal Intention: No Homicidal Ideation: No Homicidal Plan: No Homicidal Intention: No Insight: Poor Judgment: Poor Assessment and Plan - Assessment (1) Schizophrenia Code(s): F20.9 - Schizophrenia, unspecified Status: Acute - Plan Plan: I agree that pt meets criteria for involuntary hospitalization due to psychosis , aggression and non compliance with treatment. 2nd opinion paperwork completed. Justification for Continued Inpatient Stay: impairments in safety Request Healthcare Surrogate/Guardian Advocate?: No (1) Schizophrenia Qualifiers: Schizophrenia type: undifferentiated schizophrenia Qualified Code(s): F20.3 - Undifferentiated schizophrenia
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
[2018-09-15] MEDS: Insulin NovoLOG Aspart Correctional Sugar Inj SQ SCH ×4 (08:10→20:48)
--- NOTE | 2018-09-15 13:39 | P.PNPSY ---
Subjective Chief Complaint: Psychosis Remarks: Reviewed electronic record and discussed with nursing staff. Rounded with THEA Kenyon. Nursing staff reports that patient has been cooperative today with no behavioral concerns. She endorses " some voices" but they are not bothering her. Denies any visual hallucinations. Medication compliant. Denies SI/HI. Review of Systems All other systems reviewed negative except as stated in HPI Mental Status Examination Appearance: Disheveled Consciousness: Alert Orientation: Person, Place (at least) Motor Activity: Normal gait Speech: Hesitant Language: Adequate Fund of Knowledge: Poor Attention and Concentration: Inadequate Memory: Unremarkable Mood: Oppositional, Irritable Affect: Irritable Thought Process & Associations: Intact Thought Content: Hallucinations, Delusional Hallucination Type: Auditory Delusion Type: Paranoid Suicidal Ideation: No Suicidal Plan: No Suicidal Intention: No Homicidal Ideation: No Homicidal Plan: No Homicidal Intention: No Insight: Poor Judgment: Poor Assessment and Plan - Assessment (1) Schizophrenia Code(s): F20.9 - Schizophrenia, unspecified Status: Acute - Plan Plan: Patient will be reevaluated by the attending psychiatrist. Continue with current treatment plan. Justification for Continued Inpatient Stay: Moving patient to a less restrictive environment may result in her decompensation. 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
[2018-09-16] MEDS: Insulin NovoLOG Aspart Correctional Sugar Inj SQ SCH ×4 (07:48→20:24)
--- NOTE | 2018-09-16 09:54 | P.PNPSY ---
Subjective Chief Complaint: Psychosis Remarks: Patient seen and examined with nurse. Chart reviewed. Case discussed with nursing staff reports patient refused her lab work this morning. On my examination today, the patient complains that the morning dose of clozapine is too sedating. She would like to take this medication exclusively at night. We have discussed that this may lead to some wearing off effect prior to dose administration. She complains of feeling somewhat anxious and requests to be placed back on her Xanax, which she would like to take twice a day. Controlled substances database report reviewed. She endorses "dreamy thoughts" when asked about audiovisual hallucinations. She denies SI or HI. Besides the complaints of sedation, no medication side effects. No physical complaints. Vital Signs Pulse Resp BP Pulse Ox 09/15/18 18:05 125 H 18 114/74 98 Intake and Output 09/16/18 09/16/18 09/16/18 06:59 14:59 22:59 Other: Weight 68.3 kg Labs reviewed. Refusing laboratories per nursing. Review of Systems All other systems reviewed negative except as stated in HPI Mental Status Examination Appearance: Appropriate Consciousness: Alert Orientation: Person, Place (at least) Motor Activity: Other (No motor abnormalities noted) Speech: Unremarkable Language: Adequate Fund of Knowledge: Adequate Attention and Concentration: Adequate (Fair) Memory: Unremarkable Mood: Other (Calm) Affect: Irritable, Blunt Thought Process & Associations: Intact Thought Content: Hallucinations, Delusional Hallucination Type: Other ("Dreamy thoughts") Delusion Type: Paranoid (Decreasing) Suicidal Ideation: No Suicidal Plan: No Suicidal Intention: No Homicidal Ideation: No Homicidal Plan: No Homicidal Intention: No Insight: Poor Judgment: Poor Assessment and Plan - Assessment (1) Schizophrenia Code(s): F20.9 - Schizophrenia, unspecified Status: Acute - Plan Plan: Consolidate clozapine dosing to HS. Since patient has already received morning dose of clozapine, will order 250mg dose to start Sunday evening. Weekly CBCs for clozapine therapy, with which we will encourage patient to comply. E- FORCSE report supports Xanax 0.5mg #30 for 30-day supply. Since patient wishes to use this BID, will order Xanax 0.25mg BID p.r.n. anxiety. Continue to monitor on the inpatient unit. Continue other medications and care as ordered. Justification for Continued Inpatient Stay: Medication changes. Risk for decompensation and less restrictive environment. Impairment in reality construction. Discharge Planning: Pending psychiatric stabilization. 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
[2018-09-16] MEDS: ALPRAZolam 0.25 MG Tablet PO PRN (15:35)
[2018-09-17] MEDS: Insulin NovoLOG Aspart Correctional Sugar Inj SQ SCH ×4 (08:38→21:29)
[2018-09-17] MEDS: ALPRAZolam 0.25 MG Tablet PO PRN ×2 (09:44→21:00)
--- NOTE | 2018-09-17 11:38 | P.PNPSY ---
Subjective Chief Complaint: Psychosis Remarks: Patient seen and examined with nurse. Chart reviewed. Case discussed with nursing staff who reports patient remains somewhat guarded at times. Case discussed in treatment team. Counselor will obtain collateral information from patient's mother. On my examination today, patient is calm and cooperative. She reports that the Xanax has helped quite a bit with her anxiety. She denies SI or HI. She endorses some visual hallucinations of spiders end of her pet dog. She also endorses auditory hallucinations of "silent thoughts" namely "that people need help." Denies side effects from medications. No physical complaints. Patient is agreeable to remaining voluntarily on the inpatient psychiatric unit for further treatment. Refused vital signs today. Refused laboratories. I have encouraged patient to comply with laboratories and stressed the importance of CBC monitoring for clozapine therapy. Review of Systems All other systems reviewed negative except as stated in HPI Mental Status Examination Appearance: Appropriate Consciousness: Alert Orientation: Person, Place (at least) Motor Activity: Other (No abnormal motor movements noted) Speech: Unremarkable Language: Adequate Fund of Knowledge: Adequate Attention and Concentration: Adequate (Fair) Memory: Unremarkable Mood: Appropriate Affect: Blunt Thought Process & Associations: Intact Thought Content: Hallucinations Hallucination Type: Auditory, Visual Delusion Type: None Suicidal Ideation: No Suicidal Plan: No Suicidal Intention: No Homicidal Ideation: No Homicidal Plan: No Homicidal Intention: No Insight: Poor (Perhaps improving somewhat) Judgment: Poor (Perhaps improving somewhat) Assessment and Plan - Assessment (1) Schizophrenia Code(s): F20.9 - Schizophrenia, unspecified Status: Acute - Plan Plan: Patient received first consolidated dose of clozapine this evening. To consider further adjustment of this medication, but it is important for us to first assess tolerability of the consolidated dose. Continue Xanax as ordered. Continue to monitor on the inpatient unit. Continue other medications and care as ordered. Patient is now capacitated to consent for voluntary admission. Voluntary status. Justification for Continued Inpatient Stay: Impairment in reality construction. Risk for decompensation and less restrictive environment. Discharge Planning: Pending psychiatric stabilization. 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
--- NOTE | 2018-09-17 12:47 | P.TTN ---
- Patient Problems Problems: 1. Discharge planning 2. Medication compliance 3. Knowledge deficit 4. Lack of coping skills - Progress Toward Goals Provider Present: Dr. Kayli Cardozo (Patient needs to remain for further stabilization. Dr. Cardozo will asked the patient if she wants to sign involuntarily.) Psychiatric Counselors Present: Jn Barrera Jr., [facility] (Patient reports she would like to return home upon discharge. Counselor spoke with the patient's mother. Discharge plan is for have the patient discharged to her sister's home to ensure the safety of the patient's child.) - Documentation Teaching Recipient: Patient
--- NOTE | 2018-09-18 09:12 | P.PNPSY ---
Subjective Chief Complaint: Psychosis Remarks: Patient seen and examined with nurse. Chart reviewed. Case discussed with nursing staff. Patient reportedly somewhat irritable today. She refused Accu- Cheks as she has been doing. Case discussed with counselor. On my examination today, the patient complains of some mild sedation from consolidated dose of clozapine. She complains of feeling somewhat depressed. No SI or HI. No side effects from medications. Complains of constipation, cannot recall last bowel movement. She is passing flatus. Complains of some mild R foot pain; no reported history of trauma. No other physical complaints. Vital Signs Temp Resp Pulse Ox 09/17/18 18:21 98.3 F 18 99 09/17/18 17:51 98.3 F 18 98 Labs reviewed. I have encouraged adherence with Accu-Cheks and insulin coverage and have discussed with patient the potential complications of untreated hyperglycemia. I have once again encouraged the patient to comply with CBC for clozapine therapy presently ordered for tomorrow morning. Review of Systems All other systems reviewed negative except as stated in HPI Mental Status Examination Appearance: Appropriate Consciousness: Alert Orientation: Person, Place (at least) Motor Activity: Other (No motoric abnormalities noted) Speech: Unremarkable Language: Adequate Fund of Knowledge: Adequate Attention and Concentration: Adequate (Fair) Memory: Unremarkable Mood: Other (Somewhat dysphoric) Affect: Irritable, Other (Dysphoric) Thought Process & Associations: Intact Thought Content: Appropriate Hallucination Type: None Delusion Type: None Suicidal Ideation: No Homicidal Ideation: No Insight: Poor (Perhaps improving somewhat) Judgment: Poor (Perhaps improving somewhat) Assessment and Plan - Assessment (1) Schizophrenia Code(s): F20.9 - Schizophrenia, unspecified Status: Acute - Plan Plan: Continue clozapine at bedtime. To consider further titration of this agent. Bowel regimen. Transfer to lower acuity unit as patient's behavior is presently more appropriate for that unit. I have encouraged participation in groups and unit activities on that unit as patient complains of feeling somewhat bored today. Check right foot x-ray. Continue to monitor on the inpatient unit. Continue other care as ordered. Justification for Continued Inpatient Stay: Risk for decompensation and less restrictive environment. Discharge Planning: Pending psychiatric stabilization Request Healthcare Surrogate/Guardian Advocate?: No (1) Schizophrenia Qualifiers: Schizophrenia type: undifferentiated schizophrenia Qualified Code(s): F20.3 - Undifferentiated schizophrenia
[2018-09-18] MEDS: Insulin NovoLOG Aspart Correctional Sugar Inj SQ SCH ×4 (09:15→21:13)
[2018-09-18] MEDS: ALPRAZolam 0.25 MG Tablet PO PRN ×2 (09:15→13:23)
--- NOTE | 2018-09-18 16:24 | XR ---
EXAM DATE: 09/18/2018 4:17 PM EST AGE/SEX: 37 years / Female INDICATIONS: Right great toe pain for 2 days CLINICAL DATA: This is the patient's initial encounter. Patient reports that signs and symptoms have been present for 2 days and indicates a pain score of 5/10. MEDICAL/SURGICAL HISTORY: None. None. COMPARISON: No prior exams available for comparison. FINDINGS: Bony structures are intact and in normal alignment. Osseous density is normal. Soft tissues are unre markable. No radiopaque foreign bodies seen. CONCLUSION: Negative examination No evidence of acute bony abnormality or significant soft tissue swelling. Electronically signed by: Javier Shields MD 09/18/2018 4:23 PM EST
[2018-09-19 08:23] LABS: Baso % (Auto) 0.4 % (0.0-2.0); Eos % (Auto) 0.1 % (0.0-4.0); Hemoglobin 16.2 gm/dL (11.6-15.3); Lymph # (Auto) 1.9 th/mm3 (1.0-4.8); Lymph % (Auto) 26.5 % (9.0-44.0); Mean Corpuscular HGB Conc 34.5 % (32.0-36.0); Mean Corpuscular Volume 92.5 fL (80.0-100.0); Mean Platelet Volume 7.1 fL (7.0-11.0); Mono # (Auto) 0.4 th/mm3 (0.0-0.9); Mono % (Auto) 5.1 % (0.0-8.0); Neut # (Auto) 4.9 th/mm3 (1.8-7.7); Neut % (Auto) 67.9 % (16.0-70.0); Platelet Count 259 th/mm3 (150-450); Red Blood Count 5.08 mil/mm3 (4.00-5.30); Red Cell Distribution Width 13.2 % (11.6-17.2); White Blood Count 7.2 th/mm3 (4.0-11.0)
--- NOTE | 2018-09-19 10:25 | P.PNPSY ---
Subjective Chief Complaint: Psychosis Remarks: Patient seen and examined. Chart reviewed. Case discussed with staff. On my examination today, the patient continues to complain of excessive sedation from consolidated nighttime dose of clozapine. She reports deprecatory auditory hallucinations but denies any command auditory hallucinations to hurt self/ others. She denies any suicidal or homicidal ideation. Besides sedation, denies any side effects from medications. No physical complaints today, and patient reports that foot pain is improved. We discussed strategies to ameliorate complaints of excessive sedation and agree on the strategy detailed below. Vital Signs Temp Pulse Resp BP Pulse Ox 09/19/18 06:36 97.5 F L 120 H 19 115/84 98 09/18/18 15:38 98.3 F 104 H 18 133/88 98 Intake and Output 09/18/18 09/19/18 09/19/18 22:59 06:59 14:59 Intake Total 240 / 240 360 / 360 Balance 240 / 240 360 / 360 Intake: Oral 240 / 240 360 / 360 Laboratory Results - last 24 hr 09/19/18 07:55 WBC 7.2 RBC 5.08 Hgb 16.2 H Hct 47.0 H MCV 92.5 MCH 32.0 MCHC 34.5 RDW 13.2 Plt Count 259 MPV 7.1 Neut % (Auto) 67.9 Lymph % (Auto) 26.5 Owen % (Auto) 5.1 Eos % (Auto) 0.1 Baso % (Auto) 0.4 Neut # (Auto) 4.9 Lymph # (Auto) 1.9 Owen # (Auto) 0.4 Eos # (Auto) 0.0 Baso # (Auto) 0.0 WBC Differential . Differential Comment Auto diff final Labs reviewed. ANC remains adequate for clozapine therapy. Impressions Foot X-Ray 09/18/18 00:00 CONCLUSION: Negative examination No evidence of acute bony abnormality or significant soft tissue swelling. Review of Systems All other systems reviewed negative except as stated in HPI Mental Status Examination Appearance: Appropriate Consciousness: Alert Orientation: Person, Place (at least) Motor Activity: Other (No abnormal motor movements noted) Speech: Unremarkable Language: Adequate Fund of Knowledge: Adequate Attention and Concentration: Adequate (Fair) Memory: Unremarkable Mood: Appropriate Affect: Appropriate Thought Process & Associations: Intact Thought Content: Appropriate Hallucination Type: Auditory (Deprecatory, noncommand) Delusion Type: None Suicidal Ideation: No Suicidal Plan: No Suicidal Intention: No Homicidal Ideation: No Homicidal Plan: No Homicidal Intention: No Insight: Poor (Perhaps improving somewhat) Judgment: Poor (Perhaps improving somewhat) Assessment and Plan - Assessment (1) Schizophrenia Code(s): F20.9 - Schizophrenia, unspecified Status: Acute - Plan Plan: Divide clozapine dose 50 mg in the morning and 200 mg at bedtime. Continue weekly CBCs. It is hoped that dividing the dose and giving patient more time to acclimate to current dose will eventually allow for dose titration to target residual psychotic symptoms. If not, we may need to consider alternative antipsychotic therapy or augmentation with a less sedating antipsychotic agent. Continue to monitor on the inpatient unit. Continue other medications and care as ordered. Justification for Continued Inpatient Stay: Medication changes. Impairment in reality construction. Risk for decompensation and less restrictive environment. Discharge Planning: Pending psychiatric stabilization. 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
[2018-09-19] MEDS: ALPRAZolam 0.25 MG Tablet PO PRN ×2 (10:27→17:52)
[2018-09-19] MEDS: Insulin NovoLOG Aspart Correctional Sugar Inj SQ SCH ×4 (11:19→21:02)
[2018-09-19 12:26] LABS: Hemoglobin A1c 7.9 % (4.3-6.0)
[2018-09-19] MEDS: Famotidine 20 MG Tablet PO PRN (12:26)
--- NOTE | 2018-09-20 10:14 | P.TTN ---
- Patient Problems Problems: 1. Discharge planning 2. Medication compliance 3. Knowledge deficit 4. Lack of coping skills - Progress Toward Goals Provider Present: Dr. Kayli Cardozo (Patient needs to remain for further stabilization. Dr. Cardozo will asked the patient if she wants to sign involuntarily.) Provider Input: 09/20/2018 Psychiatrist has not seen the patient this morning. Previously feeling over sedated on her medications. Nurse Input: 09/20/2018 Nurse unavailable to give information. Psychiatric Counselors Present: Jn Barrera Jr., [facility] (Patient reports she would like to return home upon discharge. Counselor spoke with the patient's mother. Discharge plan is for have the patient discharged to her sister's home to ensure the safety of the patient's child.) Psychiatric Therapist Input: 09/20/2018 Patient laying in her bed. When approached she stated to talk quietly. Patient lives at home with mother and her 6 month old baby. Group Spec/RT/OT/STERN Present: VANESA Tiwari (Patient has not participated in any activities) - Documentation Teaching Recipient: Patient
--- NOTE | 2018-09-20 11:41 | P.PNPSY ---
Subjective Chief Complaint: Psychosis Remarks: Patient seen and examined with nurse. Chart reviewed. Case discussed with nursing staff who reports patient continues to refuse Accu-Cheks for the most part and insulin coverage. She also refused lactulose. Case discussed in treatment team. Counselor working with mother on discharge planning. On my examination today, the patient remains somewhat paranoid. For example, she brings her lunch tray with her to the interview because she is worried someone is going to spit in her food. No hallucinations. Denies SI or HI. She denies side effects from medications and says that current dosing regimen of the Clozaril is resulting in less sedation. She is resistant to increasing the dose of this medication however. Continues to complain of some constipation but is still passing flatus. Says that the lactulose makes her sick to her stomach. She says that Dulcolax works better and is better tolerated. Vital Signs Temp Pulse Resp BP Pulse Ox 09/20/18 06:28 97.6 F 100 H 16 117/80 98 09/19/18 17:50 98.4 F 110 H 18 132/80 99 Intake and Output 09/19/18 09/20/18 09/20/18 22:59 06:59 14:59 Intake Total 360 / 360 720 / 720 Balance 360 / 360 720 / 720 Intake: Oral 360 / 360 720 / 720 Laboratory Results - last 24 hr 09/19/18 20:12 POC Glucose 170 H Labs reviewed. Review of Systems All other systems reviewed negative except as stated in HPI Mental Status Examination Appearance: Appropriate Consciousness: Alert Orientation: Person, Place (at least) Motor Activity: Other (No motoric abnormalities noted) Speech: Unremarkable Language: Adequate Fund of Knowledge: Adequate Attention and Concentration: Adequate (Fair) Memory: Unremarkable Mood: Appropriate Affect: Appropriate Thought Process & Associations: Intact Thought Content: Delusional Hallucination Type: None Delusion Type: Paranoid Suicidal Ideation: No Suicidal Plan: No Suicidal Intention: No Homicidal Ideation: No Homicidal Plan: No Homicidal Intention: No Insight: Poor (Perhaps improving somewhat) Judgment: Poor (Perhaps improving somewhat) Assessment and Plan - Assessment (1) Schizophrenia Code(s): F20.9 - Schizophrenia, unspecified Status: Acute - Plan Plan: Continue clozapine as ordered. Patient might benefit from a larger dose but is declining dose change at this time. Continue weekly CBCs for clozapine. Replace lactulose with Dulcolax. Continue to monitor on the inpatient unit. Continue other medications and care as ordered. Justification for Continued Inpatient Stay: Impairment in reality construction. Risk for decompensation in less restrictive environment. Discharge Planning: Pending psychiatric stabilization. 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
[2018-09-20] MEDS: ALPRAZolam 0.25 MG Tablet PO PRN ×2 (13:22→21:00)
[2018-09-20] MEDS: Insulin NovoLOG Aspart Correctional Sugar Inj SQ SCH ×4 (13:26→21:03)
[2018-09-20] MEDS: Famotidine 20 MG Tablet PO PRN (21:00)
[2018-09-21] MEDS: Insulin NovoLOG Aspart Correctional Sugar Inj SQ SCH ×4 (07:20→20:13)
[2018-09-21] MEDS: Famotidine 20 MG Tablet PO PRN (08:41)
[2018-09-21] MEDS: ALPRAZolam 0.25 MG Tablet PO PRN ×2 (13:14→20:12)
--- NOTE | 2018-09-21 18:47 | P.PNPSY ---
Subjective Chief Complaint: Psychosis Remarks: Reviewed electronic medical records and discussed case with staff. Follow-up was conducted in the patient's room with THEA Lobo present. Her nurse reports that she has been compliant with her medications and had no behavioral disturbances. Patient states that she has been experiencing auditory hallucinations on a daily basis. But she denies that they command her to harm herself or anyone else. She does appear to be doing somewhat better today and has a brighter affect. Mental Status Examination Appearance: Appropriate Consciousness: Alert Orientation: Person, Place (at least) Motor Activity: Other (No motoric abnormalities noted) Speech: Unremarkable Language: Adequate Fund of Knowledge: Adequate Attention and Concentration: Adequate (Fair) Memory: Unremarkable Mood: Appropriate Affect: Appropriate Thought Process & Associations: Intact Thought Content: Delusional Hallucination Type: None Delusion Type: Paranoid Suicidal Ideation: No Suicidal Plan: No Suicidal Intention: No Homicidal Ideation: No Homicidal Plan: No Homicidal Intention: No Insight: Poor (Perhaps improving somewhat) Judgment: Poor (Perhaps improving somewhat) Assessment and Plan - Assessment (1) Schizophrenia Code(s): F20.9 - Schizophrenia, unspecified Status: Acute - Plan Plan: Patient will be reevaluated by the attending psychiatrist. Continue with current treatment plan. Justification for Continued Inpatient Stay: Moving this patient to a less restrictive environment would likely result in decompensation. 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
[2018-09-22] MEDS: Insulin NovoLOG Aspart Correctional Sugar Inj SQ SCH ×3 (07:07→16:25)
[2018-09-22] MEDS: Famotidine 20 MG Tablet PO PRN (08:22)
[2018-09-22] MEDS: ALPRAZolam 0.25 MG Tablet PO PRN ×2 (11:05→17:11)
--- NOTE | 2018-09-22 13:09 | P.PNPSY ---
Subjective Chief Complaint: Psychosis Remarks: Reviewed electronic medical record and discussed with nursing staff. Patient in her room napping. Rounded with THEA Salinas. Patient endorses auditory hallucinations. She states that the voices say, " be quiet." She is sleeping more during the day. She feels like she needs the rest , but wants to be out of bed more often. Denies SI/HI. Review of Systems All other systems reviewed negative except as stated in HPI Mental Status Examination Appearance: Appropriate Consciousness: Alert Orientation: Person, Place (at least) Motor Activity: Other (No motoric abnormalities noted) Speech: Unremarkable Language: Adequate Fund of Knowledge: Adequate Attention and Concentration: Adequate (Fair) Memory: Unremarkable Mood: Appropriate Affect: Appropriate Thought Process & Associations: Intact Thought Content: Delusional Hallucination Type: None Delusion Type: Paranoid Suicidal Ideation: No Suicidal Plan: No Suicidal Intention: No Homicidal Ideation: No Homicidal Plan: No Homicidal Intention: No Insight: Poor (Perhaps improving somewhat) Judgment: Poor (Perhaps improving somewhat) Assessment and Plan - Assessment (1) Schizophrenia Code(s): F20.9 - Schizophrenia, unspecified Status: Acute - Plan Plan: Patient will be reevaluated by the attending psychiatrist. Continue with current treatment plan. Justification for Continued Inpatient Stay: Moving patient to a less restrictive environment may result in her decompensation. 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
[2018-09-23] MEDS: Insulin NovoLOG Aspart Correctional Sugar Inj SQ SCH ×5 (00:40→21:05)
[2018-09-23] MEDS: ALPRAZolam 0.25 MG Tablet PO PRN (09:09)
--- NOTE | 2018-09-23 12:24 | P.PNPSY ---
Subjective Chief Complaint: Psychosis Remarks: Patient seen and examined with nurse. Chart reviewed. Case discussed with nurse. No behavioral issues noted overnight. On my exam, patient says she is a little sad this morning because she gave custody of her son to her mother this morning. She reports that this was necessary because the stress of raising a child exacerbates her psychiatric condition. No AVH. Admits to some thoughts of "to take the emotional pain away" but no active SI. No reported urge to hurt self on unit. We discuss options for medication changes to manage dysphoria, but patient prefers to hold off for now and think about it. Denies side effects from medications. No physical complaints. Vital Signs Temp Pulse Resp BP Pulse Ox 09/23/18 06:31 97.4 F L 111 H 20 108/79 98 Intake and Output 09/22/18 09/23/18 09/23/18 22:59 06:59 14:59 Other: Weight 68.7 kg Labs reviewed. No new labs. Review of Systems All other systems reviewed negative except as stated in HPI Mental Status Examination Appearance: Appropriate Consciousness: Alert Orientation: Person, Place, Date/Time (Approximate) Motor Activity: Other (No abnormal motor movements noted) Speech: Unremarkable Language: Adequate Fund of Knowledge: Adequate Attention and Concentration: Adequate (Fair) Memory: Unremarkable Mood: Other (Somewhat dysphoric today) Affect: Other (Consistent with mood) Thought Process & Associations: Intact Thought Content: Appropriate Hallucination Type: None Delusion Type: None Suicidal Ideation: Yes Suicidal Plan: No Suicidal Intention: No (No reported urge to hurt self on an inpatient unit) Homicidal Ideation: No Homicidal Plan: No Homicidal Intention: No Insight: Poor (Perhaps improving somewhat) Judgment: Poor (Perhaps improving somewhat) Assessment and Plan - Assessment (1) Schizophrenia Code(s): F20.9 - Schizophrenia, unspecified Status: Acute - Plan Plan: Continue clozapine as ordered. Continue weekly CBCs. Continue to monitor on the inpatient unit. Continue other medications and care as ordered. Justification for Continued Inpatient Stay: Risk for decompensation and less restrictive environment. Discharge Planning: To be determined. Patient now reports to me today that she cannot stay with any of her family members and is requesting placement. I will discuss with the counselor. 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
[2018-09-23] MEDS: Famotidine 20 MG Tablet PO PRN (18:02)
[2018-09-24] MEDS: Insulin NovoLOG Aspart Correctional Sugar Inj SQ SCH ×4 (07:20→21:00)
--- NOTE | 2018-09-24 09:49 | P.PNPSY ---
Subjective Chief Complaint: Psychosis Remarks: Patient seen and examined with nurse and counselor. Chart reviewed. Case discussed with nursing staff. No behavioral issues noted. Case discussed in treatment team. On my examination today, the patient continues to complain of some low mood. She denies any hallucinations. No reported SI. She notes that Paxil has helped in the past to lift her mood, and we discussed the R/B/A of this medication. Patient is agreeable to resuming Paxil now for her dysphoria. No side effects from medications. No physical complaints. Vital Signs Temp Pulse Resp BP Pulse Ox 09/24/18 05:38 97.9 F 103 H 17 111/68 98 09/23/18 17:34 98.5 F 118 H 18 122/85 98 Intake and Output 09/23/18 09/24/18 09/24/18 22:59 06:59 14:59 Intake Total 360 / 360 Balance 360 / 360 Intake: Oral 360 / 360 Labs reviewed. Review of Systems All other systems reviewed negative except as stated in HPI Mental Status Examination Appearance: Appropriate Consciousness: Alert Orientation: Person, Place, Date/Time (Approximate) Motor Activity: Other (No motoric abnormalities noted) Speech: Unremarkable Language: Adequate Fund of Knowledge: Adequate Attention and Concentration: Adequate (Fair) Memory: Unremarkable Mood: Other (Dysphoric) Affect: Other (Restricted) Thought Process & Associations: Intact Thought Content: Appropriate Hallucination Type: None Delusion Type: None Suicidal Ideation: No Homicidal Ideation: No Mental Status Exam Remarks: Insight and judgment are fair to poor Assessment and Plan - Assessment (1) Schizophrenia Code(s): F20.9 - Schizophrenia, unspecified Status: Acute - Plan Plan: Add Paxil 20 mg daily for patient's dysphoria. Continue clozapine as ordered. Continue weekly CBCs. Continue to monitor on the inpatient unit. Continue other medications and care as ordered. Justification for Continued Inpatient Stay: Medication changes. Risk for decompensation and less restrictive environment. Discharge Planning: Pending psychiatric stabilization. Possible placement. Case discussed with counselor. 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
[2018-09-24] MEDS: Famotidine 20 MG Tablet PO PRN (10:21)
[2018-09-24] MEDS: ALPRAZolam 0.25 MG Tablet PO PRN (14:46)
[2018-09-25] MEDS: Insulin NovoLOG Aspart Correctional Sugar Inj SQ SCH ×4 (09:18→20:35)
--- NOTE | 2018-09-25 10:23 | P.PNPSY ---
Subjective Chief Complaint: Psychosis Remarks: Patient seen and examined with nurse. Chart reviewed. Case discussed with nursing staff. No reported behavioral issues. I was contacted by the nurse yesterday afternoon who indicated that the patient was complaining of racing heart and some mild shortness of breath. I ordered EKG (read as sinus tachycardia with QTc wnl) and hospitalist consultation, presently pending. No further cardiac complaints per nurse today. On my exam, patient reports that she had previously consulted with manager performance, Dr. Flynn, for some sort of cardiac issue for which she was supposed to wear a Holter monitor, although it does not appear that patient followed up. Presently, patient complains only of feeling somewhat dizzy, especially upon arising. No complaint of palpitations, shortness of breath, chest discomfort, etc. Mood is "extremely happy." Denies SI. Denies AVH. No medication side effects. No physical complaints otherwise. Vital Signs Temp Pulse Resp BP Pulse Ox 09/25/18 05:51 98.1 F 114 H 16 116/73 96 09/24/18 18:07 142 H 110/75 09/24/18 18:05 129 H 18 121/77 95 Labs reviewed. Review of Systems All other systems reviewed negative except as stated in HPI Mental Status Examination Appearance: Appropriate Consciousness: Alert Orientation: Person, Place, Date/Time (Approximate) Motor Activity: Other (No abnormal motor movements noted.) Speech: Unremarkable Language: Adequate Fund of Knowledge: Adequate Attention and Concentration: Adequate (Fair) Memory: Unremarkable Mood: Appropriate, Good Affect: Appropriate, Euthymic Thought Process & Associations: Intact Thought Content: Appropriate Hallucination Type: None Delusion Type: None Suicidal Ideation: No Suicidal Plan: No Suicidal Intention: No Homicidal Ideation: No Mental Status Exam Remarks: Insight and judgement [id number]. Assessment and Plan - Assessment (1) Schizophrenia Code(s): F20.9 - Schizophrenia, unspecified Status: Acute - Plan Plan: Continue Paxil and clozapine as ordered. Check orthostatic vital signs [update : negative for orthostasis], and I have counseled patient on safe standing. Await hospitalist consultation. Obtain outpatient cardiology records from Dr. Flynn's office. Continue to monitor on inpatient unit. Continue other medications and care as ordered. Justification for Continued Inpatient Stay: Possible complicating condition. High risk for decompensation in less restrictive environment. Discharge Planning: Pending stabilization. 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
--- NOTE | 2018-09-25 10:24 | ECG ---
Date Performed: 09/24/2018 Time Performed: 18:25:11 PTAGE: 37 years EKG: SINUS TACHYCARDIA NONSPECIFIC T-WAVE ABNORMALITY ABNORMAL RHYTHM ECG PREVIOUS TRACING : 04/03/2018 14.27 DOCTOR: Edward Zafar Interpretating Date/Time 09/25/2018 10:23:38
[2018-09-25] MEDS: ALPRAZolam 0.25 MG Tablet PO PRN ×2 (14:33→20:35)
--- NOTE | 2018-09-25 17:57 | P.CONIM ---
History of Present Illness Service: [facility] Consult date: 09/25/18 Requesting Physician: Bart Cardozo Reason for Consult: Tachycardia Primary Care Provider: Terrell Black MD Chief Complaint: psychosis History of Present Illness: Patient is a 37-year-old female with past medical history of diabetes, tachycardia who came into the hospital voluntarily for erratic behavior. She is now admitted to inpatient psychiatry unit for further evaluation. Consulted for assistance with tachycardia, dizziness. Patient seen and examined today. Reports she is doing okay. Patient also states that she has diabetes and agreeable to take p.o. medication. Patient states that she does not use any insulin at home and if ever she is going to use insulin at home she will not do it. Patient states that her heart rate has been high ever since because she is severely anxious even with antianxiety medication. Denies any dizziness otherwise, denies pain and discomfort. Denies SOB/ dyspnea. Denies chest pain, palpitations, headaches. Denies fevers , chills, n/v/d. Denies dysuria. Review of Systems All other systems reviewed negative except as stated in HPI PMFSH - History History Provided By: Patient - Medical History Medical History: Medical History (Last Reviewed 09/25/18 @ 17:51 by MINDY Vance) Acid reflux Anxiety Constipation Diabetes type 2, controlled Schizophrenia - Surgical History Surgical History: Surgical History (Last Reviewed 09/25/18 @ 17:52 by MINDY Vance) Previous section - Family History Family History: Family History (Last Updated 09/25/18 @ 17:52 by MINDY Vance) Father HTN (hypertension) Grandparent Diabetes - Social History I have reviewed the patient's Social History: Yes - Tobacco History Second Hand Smoke Exposure: Yes Tobacco Use In Past 30 Days: Yes Smoking Status: Current every day smoker Tobacco Type: Cigarettes Packs Per Day: 1.5 - Alcohol History How Often Do You Have a Drink Containing Alcohol: Never - Substance Use History Substance History: No History of Abuse - Travel History Recent Travel in the [place] Within the Last 8 Weeks: No Recent Travel Out of the Country Within the Last 8 Weeks: No - Immunization History Tetanus Immunization: Unsure Tetanus Immunization Year if Known: 2017 Hx Influenza Vaccine This Season: No Medications and Allergies Active Medications: Active Medications Al Hydrox/Mg Hydrox/Simethicone (Mag-Al Plus Susp Liq) 30 ml PO Q6H PRN PRN Reason: DYSPEPSIA Al Hydroxide/Mg Hydroxide (Milk Of Magnesia Liq) 30 ml PO Q12H PRN PRN Reason: Mild Constipation Alprazolam (Xanax) 0.25 mg PO BID PRN PRN Reason: ANXIETY Last Admin: 09/25/18 14:33 Dose: 0.25 mg Bisacodyl (Dulcolax Ec) 10 mg PO DAILY PRN PRN Reason: CONSTIPATION Last Admin: 09/23/18 18:02 Dose: 10 mg Clozapine (Clozaril) 50 mg PO DAILY [facility] Last Admin: 09/25/18 09:19 Dose: 50 mg Clozapine (Clozaril) 200 mg PO [facility] Last Admin: 09/24/18 20:49 Dose: 200 mg Dextrose (D50w Vial) 50 ml IV.PUSH UNSCH PRN PRN Reason: PER HYPOGLYCEMIA PROTOCOL Famotidine (Pepcid) 20 mg PO BID PRN PRN Reason: Gastric Reflux Last Admin: 09/24/18 10:21 Dose: 20 mg Glucagon (Glucagon Inj) 1 mg OTHER PRN PRN PRN Reason: for Hypoglycemia Protocol Insulin Aspart (Novolog Insulin Correctional Sugar Inj) 0 unit SQ [facility]; Protocol Last Admin: 09/25/18 12:36 Dose: Not Given Metformin [facility] (Glucophage) [facility] Nicotine (Habitrol 21 Mg Patch.24 Hr) 1 patch T-DERMAL DAILY [facility] Last Admin: 09/25/18 09:17 Dose: 1 patch Paroxetine HCl (Paxil) 20 mg PO DAILY [facility] Last Admin: 09/25/18 09:19 Dose: 20 mg Patch Removal (Remove Old Patch) 1 each T-DERMAL HS [facility] Last Admin: 09/24/18 21:00 Dose: 1 each Allergies Allergy/AdvReac Type Severity Reaction Status Date / Time haloperidol Allergy Severe Itching Verified 07/27/18 13:57 risperidone Allergy Severe Itching Verified 07/27/18 13:57 Home Medications Medication Instructions Recorded Confirmed Type clozapine [Clozaril] 100 mg PO HS 06/23/18 09/11/18 History alprazolam 0.5 mg PO DAILY PRN 07/27/18 09/11/18 History ranitidine HCl 150 mg PO BID PRN 07/27/18 09/11/18 History Exam Vital signs: Vital Signs 09/24/18 18:05 09/24/18 18:07 09/25/18 05:51 Temperature 98.1 F Pulse Rate 129 H 142 H 114 H Respiratory Rate 18 16 Blood Pressure 121/77 110/75 116/73 Pulse Oximetry 95 96 09/25/18 17:25 Temperature 98.3 F Pulse Rate 115 H Respiratory Rate 17 Blood Pressure 121/82 Pulse Oximetry 99 Intake & Output 09/24/18 09/25/18 09/25/18 18:59 06:59 18:59 Intake Total 720 / 720 Balance 720 / 720 Intake: Oral 720 / 720 Narrative: GENERAL: This is a well-nourished, well-developed patient, in no apparent distress. SKIN: Warm and dry. HEENT: Normocephalic. Pupils equal round and reactive. Nose without bleeding. Airway patent. NECK: Trachea midline. CARDIOVASCULAR: Tachycardia without murmurs, gallops, or rubs. RESPIRATORY: Clear to auscultation. Breath sounds equal bilaterally. No wheezes , rales, or rhonchi. GASTROINTESTINAL: Abdomen soft, non-tender, nondistended. Bowel Sounds normoactive x4. MUSCULOSKELETAL: Extremities without clubbing, cyanosis, or edema. NEUROLOGICAL: Awake and alert. No focal neuro deficit. Moves all extremities. Normal speech. Results - Labs CBC & Chem 7: 09/19/18 07:55 09/11/18 23:06 Assessment and Plan - Plan Patient is a 37-year-old female with past medical history of diabetes, tachycardia who came into the hospital voluntarily for erratic behavior. She is now admitted to inpatient psychiatry unit for further evaluation. Consulted for assistance with tachycardia, dizziness. Anxiety, schizophrenia -Managed by psychiatry team Tachycardia -EKG reviewed sinus tachycardia, with nonspecific T wave abnormality, heart rate 113 -Denies any chest pain, reports has been having rapid heart rate for a long time attributing it to anxiety -Start propranolol 10 mg twice daily -Discussed medication with patient including side effects and risks. Verbalized understanding Dizziness -Denies on exam. Possibly secondary to high blood sugars. DM 2 -Hemoglobin A1c 7.9 -Start metformin 500 mg twice daily -Continue insulin sliding scale for now. Diabetic diet -Monitor Accu-Cheks DVT prop ambulatory Code Status: Full code Discussed Condition With: Patient, nursing Discharge Planning: DC disposition by primary team
[2018-09-25] MEDS: Propranolol 10 MG Tablet PO SCH (21:27)
[2018-09-26] MEDS: Insulin NovoLOG Aspart Correctional Sugar Inj SQ SCH ×4 (08:05→20:58)
[2018-09-26 08:06] LABS: Baso % (Auto) 0.4 % (0.0-2.0); Eos % (Auto) 0.1 % (0.0-4.0); Hematocrit 43.3 % (35.0-46.0); Lymph # (Auto) 1.8 th/mm3 (1.0-4.8); Lymph % (Auto) 24.1 % (9.0-44.0); Mean Corpuscular HGB Conc 34.7 % (32.0-36.0); Mean Corpuscular Hemoglobin 31.9 pg (27.0-34.0); Mean Corpuscular Volume 92.1 fL (80.0-100.0); Mean Platelet Volume 7.3 fL (7.0-11.0); Mono # (Auto) 0.5 th/mm3 (0.0-0.9); Neut % (Auto) 68.4 % (16.0-70.0); Platelet Count 245 th/mm3 (150-450); Red Blood Count 4.71 mil/mm3 (4.00-5.30); White Blood Count 7.3 th/mm3 (4.0-11.0)
[2018-09-26] MEDS: Propranolol 10 MG Tablet PO SCH ×2 (10:41→20:57)
--- NOTE | 2018-09-26 11:03 | P.PNPSY ---
Subjective Chief Complaint: Psychosis Remarks: Patient seen and examined with nurse. Chart reviewed. Case discussed with nursing staff. On my exam, patient continues to complain of occasional AVH and paranoia. She denies SI/HI. Affect seems fairly bright. Patient continues to complain of some fatigue from medications but otherwise no medication side effects. Complains of some mild ongoing dizziness; hospitalist following. Vital Signs Temp Pulse Resp BP Pulse Ox 09/26/18 06:00 97.9 F 89 18 114/80 99 09/25/18 17:25 98.3 F 115 H 17 121/82 99 Laboratory Results - last 24 hr 09/25/18 09/26/18 09/26/18 21:14 07:43 11:21 WBC 7.3 RBC 4.71 Hgb 15.0 Hct 43.3 MCV 92.1 MCH 31.9 MCHC 34.7 RDW 13.0 Plt Count 245 MPV 7.3 Neut % (Auto) 68.4 Lymph % (Auto) 24.1 [place] % (Auto) 7.0 Eos % (Auto) 0.1 Baso % (Auto) 0.4 Neut # (Auto) 5.0 Lymph # (Auto) 1.8 [place] # (Auto) 0.5 Eos # (Auto) 0.0 Baso # (Auto) 0.0 WBC Differential . Differential Comment Auto diff final POC Glucose 167 H 154 H Labs reviewed. ANC remains adequate for clozapine therapy. Review of Systems All other systems reviewed negative except as stated in HPI Mental Status Examination Appearance: Appropriate Consciousness: Alert Orientation: Person, Place, Date/Time Motor Activity: Other (No motor abnormalities noted) Speech: Unremarkable Language: Adequate Fund of Knowledge: Adequate Attention and Concentration: Adequate (Fair) Memory: Unremarkable Mood: Appropriate Affect: Appropriate, Euthymic Thought Process & Associations: Intact Thought Content: Appropriate Hallucination Type: Auditory Delusion Type: Paranoid Suicidal Ideation: No Homicidal Ideation: No Mental Status Exam Remarks: Insight and judgment are fair to poor. Assessment and Plan - Assessment (1) Schizophrenia Code(s): F20.9 - Schizophrenia, unspecified Status: Acute - Plan Plan: We discussed pharmacotherapeutic options for management of patient's reported hallucinations and paranoia including no change, titration of clozapine, addition of a second less sedating antipsychotic. Patient reports a good response to Geodon in the past. Add Geodon 20mg BIDPC to existing clozapine and Paxil regimen. Continue to monitor on inpatient unit. Hospitalist input noted and appreciated. Continue other care as ordered. Justification for Continued Inpatient Stay: Medication changes. Impairment in reality construction. High risk for decompensation in less restrictive environment. Discharge Planning: Possible placement. Case discussed with counselor who reports a labor service representative from a [place] facility will be around to visit with the patient tomorrow, Sunday. 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
[2018-09-26] MEDS: ALPRAZolam 0.25 MG Tablet PO PRN ×2 (13:35→20:57)
--- NOTE | 2018-09-26 16:23 | P.PNIM ---
Subjective Interval history: Follow-up visit tachycardia, diabetes. Patient seen and examined today. Reports she has an abscess on her right groin area. Patient states she forgot all about it but it has been bothering her this morning. States it started about 3-4 days ago. States that she did not shave the area but thinks it is plugged hair follicles. Denies fevers, chills, nausea, vomiting, diarrhea. Denies SOB/ dyspnea. Denies chest pain, palpitations, headaches, dizziness. Denies dysuria. Physical Exam Vital signs: Vital Signs 09/25/18 17:25 09/26/18 06:00 Temperature 98.3 F 97.9 F Pulse Rate 115 H 89 Respiratory Rate 17 18 Blood Pressure 121/82 114/80 Pulse Oximetry 99 99 Narrative: GENERAL: This is a well-nourished, well-developed patient, in no apparent distress. SKIN: Warm and dry. HEENT: Normocephalic. Pupils equal round and reactive. Nose without bleeding. Airway patent. NECK: Trachea midline. CARDIOVASCULAR: Regular heart rate without murmurs, gallops, or rubs. RESPIRATORY: Clear to auscultation. Breath sounds equal bilaterally. No wheezes , rales, or rhonchi. GASTROINTESTINAL: Abdomen soft, non-tender, nondistended. Bowel Sounds normoactive x4. MUSCULOSKELETAL: Extremities without clubbing, cyanosis, or edema. NEUROLOGICAL: Awake and alert. No focal neuro deficit. Moves all extremities. Normal speech. Results - Labs CBC & Chem 7: 09/26/18 07:43 09/11/18 23:06 Laboratory Results - last 24 hr 09/25/18 09/26/18 09/26/18 21:14 07:43 11:21 WBC 7.3 RBC 4.71 Hgb 15.0 Hct 43.3 MCV 92.1 MCH 31.9 MCHC 34.7 RDW 13.0 Plt Count 245 MPV 7.3 Neut % (Auto) 68.4 Lymph % (Auto) 24.1 [place] % (Auto) 7.0 Eos % (Auto) 0.1 Baso % (Auto) 0.4 Neut # (Auto) 5.0 Lymph # (Auto) 1.8 [place] # (Auto) 0.5 Eos # (Auto) 0.0 Baso # (Auto) 0.0 WBC Differential . Differential Comment Auto diff final POC Glucose 167 H 154 H Assessment and Plan - Plan Patient is a 37-year-old female with past medical history of diabetes, tachycardia who came into the hospital voluntarily for erratic behavior. She is now admitted to inpatient psychiatry unit for further evaluation. Consulted for assistance with tachycardia, dizziness. Folliculitis, cellulitis right groin -Tender to palpate, erythema, edema right groin area, no drainage noted, no fluctuance -Doxycycline twice daily times 7 days -Avoid sun exposure this has been discussed with patient. Anxiety, schizophrenia -Managed by psychiatry team Tachycardia -EKG reviewed sinus tachycardia, with nonspecific T wave abnormality, heart rate 113 -Denies any chest pain, reports has been having rapid heart rate for a long time attributing it to anxiety -Start propranolol 10 mg twice daily -Discussed medication with patient including side effects and risks. Verbalized understanding -Improved Dizziness -Denies on exam. Possibly secondary to high blood sugars. DM 2 -Hemoglobin A1c 7.9 -Start metformin 500 mg twice daily -Continue insulin sliding scale for now. Diabetic diet -Monitor Accu-Cheks DVT prop ambulatory CODE STATUS: Full code Discussed with patient, nursing Discharge Planning: DC disposition by primary team
[2018-09-26] MEDS: Famotidine 20 MG Tablet PO PRN (20:57)
[2018-09-27] MEDS: Insulin NovoLOG Aspart Correctional Sugar Inj SQ SCH ×4 (08:23→20:11)
[2018-09-27] MEDS: Propranolol 10 MG Tablet PO SCH ×2 (09:05→20:09)
--- NOTE | 2018-09-27 11:16 | P.PNPSY ---
Subjective Chief Complaint: Psychosis Remarks: Patient seen and examined with nurse. Chart reviewed. Records from Dr. Flynn 's office received and reviewed. Case discussed with nursing staff. No behavioral issues noted overnight. Patient's reportedly feeling much improved with addition of propranolol. Case discussed in treatment team. Therapists note that patient is doing as well as she has ever done on the inpatient unit. On my exam today patient reports that she is having a good day today. She attended a group today and says that she is hoping to attend groups more often. She has just finished meeting with a apprenticeship representative from [facility] but is fearful that her income will not be sufficient for this facility. She does remain on board with placement if this can be arranged. She denies AVH. She reports that her paranoia is considerably decreased with addition of Geodon. She requests that a dose of her Xanax be scheduled in the mid-afternoon as she frequently has anxiety at this time. I have explained that this will leave patient with a single p.r.n. dose of Xanax to use per day, and she is agreeable to this. Denies side effects from medications. No physical complaints. Vital Signs Temp Pulse Resp BP Pulse Ox 09/27/18 05:22 98.1 F 76 16 111/80 97 09/26/18 17:29 98.2 F 104 H 16 114/77 100 Intake and Output 09/26/18 09/27/18 09/27/18 22:59 06:59 14:59 Intake Total 240 / 240 Balance 240 / 240 Intake: Oral 240 / 240 Laboratory Results - last 24 hr 09/26/18 20:04 POC Glucose 132 H Labs reviewed. Review of Systems All other systems reviewed negative except as stated in HPI Mental Status Examination Appearance: Appropriate Consciousness: Alert Orientation: Person, Place, Date/Time Motor Activity: Other (No abnormal motor movements noted) Speech: Unremarkable Language: Adequate Fund of Knowledge: Adequate Attention and Concentration: Adequate (Fair) Memory: Unremarkable Mood: Appropriate Affect: Appropriate, Euthymic Thought Process & Associations: Intact Thought Content: Appropriate Hallucination Type: None Delusion Type: Paranoid (Decreasing) Suicidal Ideation: No Homicidal Ideation: No Mental Status Exam Remarks: Insight and judgment fair to poor Assessment and Plan - Assessment (1) Schizophrenia Code(s): F20.9 - Schizophrenia, unspecified Status: Acute - Plan Plan: Schedule dose of Xanax at midday per patient request. Continue Geodon, clozapine and Paxil as ordered. Continue to monitor on the inpatient unit. Continue other medications and care as ordered. Justification for Continued Inpatient Stay: Risk for decompensation in less restrictive environment. Discharge Planning: Placement. Case discussed with counselor. 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
[2018-09-27] MEDS: ALPRAZolam 0.25 MG Tablet PO SCH (14:26)
--- NOTE | 2018-09-27 14:35 | P.PNIM ---
Subjective Interval history: Follow-up visit tachycardia, diabetes T2, folliculitis/abscess/cellulitis. Patient seen and examined today. Reports abscess on her right groin area, cont to be the same. Denies fevers, chills, nausea, vomiting, diarrhea. Denies SOB/ dyspnea. Denies chest pain, palpitations, headaches, dizziness. Denies dysuria. Physical Exam Vital signs: Vital Signs 09/26/18 17:29 09/27/18 05:22 Temperature 98.2 F 98.1 F Pulse Rate 104 H 76 Respiratory Rate 16 16 Blood Pressure 114/77 111/80 Pulse Oximetry 100 97 Intake & Output 09/26/18 09/27/18 09/27/18 18:59 06:59 18:59 Intake Total 240 / 240 Balance 240 / 240 Intake: Oral 240 / 240 Narrative: GENERAL: This is a well-nourished, well-developed patient, in no apparent distress. SKIN: Warm and dry. Right groin lesion, with edema, erythema, positive fluctuance now. HEENT: Normocephalic. Pupils equal round and reactive. Nose without bleeding. Airway patent. NECK: Trachea midline. CARDIOVASCULAR: Regular heart rate without murmurs, gallops, or rubs. RESPIRATORY: Clear to auscultation. Breath sounds equal bilaterally. No wheezes , rales, or rhonchi. GASTROINTESTINAL: Abdomen soft, non-tender, nondistended. Bowel Sounds normoactive x4. MUSCULOSKELETAL: Extremities without clubbing, cyanosis, or edema. NEUROLOGICAL: Awake and alert. No focal neuro deficit. Moves all extremities. Normal speech. Results - Labs CBC & Chem 7: 09/26/18 07:43 09/11/18 23:06 Laboratory Results - last 24 hr 09/26/18 20:04 POC Glucose 132 H Assessment and Plan - Plan Patient is a 37-year-old female with past medical history of diabetes, tachycardia who came into the hospital voluntarily for erratic behavior. She is now admitted to inpatient psychiatry unit for further evaluation. Consulted for assistance with tachycardia, dizziness. Folliculitis, cellulitis right groin Hx suppurative hydradenitis -bilateral axilla, buttocks, breast folds, groin -Tender to palpate, erythema, edema right groin area, no drainage noted, + fluctuance -Doxycycline twice daily times 7 days -Avoid sun exposure with this medication has been discussed with patient. -Fluctuance is now present on the right groin, if continues to be tender with edema consider surgical consult for I&D. Anxiety, schizophrenia -Managed by psychiatry team Tachycardia -EKG reviewed sinus tachycardia, with nonspecific T wave abnormality, heart rate 113 -Denies any chest pain, reports has been having rapid heart rate for a long time attributing it to anxiety -Start propranolol 10 mg twice daily -Discussed medication with patient including side effects and risks. Verbalized understanding -Improved Dizziness -Denies on exam. Possibly secondary to high blood sugars. DM 2 -Hemoglobin A1c 7.9 -metformin 500 mg twice daily -Continue insulin sliding scale for now. Diabetic diet -Monitor Accu-Cheks DVT prop ambulatory CODE STATUS: Full code Discussed with patient, nursing Discharge Planning: DC disposition by primary team
[2018-09-27] MEDS: Famotidine 20 MG Tablet PO PRN (20:09)
[2018-09-27] MEDS: ALPRAZolam 0.25 MG Tablet PO PRN (20:10)
[2018-09-28] MEDS: Insulin NovoLOG Aspart Correctional Sugar Inj SQ SCH ×4 (09:03→20:44)
[2018-09-28] MEDS: Propranolol 10 MG Tablet PO SCH ×2 (09:07→20:43)
[2018-09-28] MEDS: ALPRAZolam 0.25 MG Tablet PO PRN (10:34)
[2018-09-28] MEDS: ALPRAZolam 0.25 MG Tablet PO SCH (16:10)
--- NOTE | 2018-09-28 16:54 | P.PN ---
Subjective Interval history: Follow-up visit tachycardia, diabetes T2, folliculitis/abscess/cellulitis. Patient seen and examined, ambulatory, cooperative. RN present during visit. States right groin abscess has been draining pus. Slightly smaller in size. No fever. No CP, no SOB. Refused insulin today, BGM 234 at noon, drank juanjose stevie this morning as she was nauseous. No nausea at this time. Physical Exam Vital signs: Vital Signs 09/27/18 18:12 Temperature 98.6 F Pulse Rate 106 H Respiratory Rate 18 Blood Pressure 121/74 Pulse Oximetry 99 Intake & Output 09/27/18 09/28/18 09/28/18 18:59 06:59 18:59 Intake Total 360 / 360 Balance 360 / 360 Intake: Oral 360 / 360 Narrative: GENERAL: This is a well-nourished, well-developed patient, in no apparent distress. SKIN: Warm and dry. Right groin with indurated abscess, small area of fluctuance noted, erythematous. Scan serous drainage noted. HEENT: Normocephalic. Pupils equal round and reactive. Nose without bleeding. Airway patent. NECK: Trachea midline. CARDIOVASCULAR: Regular heart rate without murmurs, gallops, or rubs. RESPIRATORY: Clear to auscultation. Breath sounds equal bilaterally. No wheezes , rales, or rhonchi. GASTROINTESTINAL: Abdomen soft, non-tender, nondistended. Bowel Sounds normoactive x4. MUSCULOSKELETAL: Extremities without clubbing, cyanosis, or edema. NEUROLOGICAL: Awake and alert. No focal neuro deficit. Moves all extremities. Normal speech. Results - Labs CBC & Chem 7: 09/26/18 07:43 09/11/18 23:06 Laboratory Results - last 24 hr 09/27/18 09/28/18 09/28/18 19:49 11:10 16:25 POC Glucose 114 H 234 H 146 H Assessment and Plan - Plan Patient is a 37-year-old female with past medical history of diabetes, tachycardia who came into the hospital voluntarily for erratic behavior. She is now admitted to inpatient psychiatry unit for further evaluation. Consulted for assistance with tachycardia, dizziness. Folliculitis, cellulitis right groin Hx suppurative hydradenitis -bilateral axilla, buttocks, breast folds, groin -Tender to palpate, erythema, edema right groin area, no drainage noted, + fluctuance -Doxycycline twice daily times 7 days -Avoid sun exposure with this medication has been discussed with patient. -Right groin area draining some, indurated, small area of fluctuance. If no improvement, may need surgical evaluation. Anxiety, schizophrenia -Managed by psychiatry team Tachycardia -EKG reviewed sinus tachycardia, with nonspecific T wave abnormality, heart rate 113 -Denies any chest pain, reports has been having rapid heart rate for a long time attributing it to anxiety -Start propranolol 10 mg twice daily -Discussed medication with patient including side effects and risks. Verbalized understanding -Improved Dizziness -Denies on exam. Possibly secondary to high blood sugars. DM 2 -Hemoglobin A1c 7.9 -metformin 500 mg twice daily -Continue insulin sliding scale for now. Diabetic diet -Monitor Awpc-[id number]-[id number] insulin today. Re-educated. DVT prop ambulatory Code Status: Full code Discussed Condition With: RN and pt. Discharge Planning: Per psych team
--- NOTE | 2018-09-28 18:12 | P.PNPSY ---
Subjective Chief Complaint: Psychosis Remarks: Reviewed electronic medical records and discussed case with staff. Follow-up was conducted in the patient's room with THEA Sullivan present. Patient states that she is "doing really good". She reports she feels 85% improved. She states that she still gets a little anxious and tired and attributes that side effects from the medication. Ports that she is sleeping good and that her appetite is started getting better. Although she states she skipped dinner yesterday and today due to just not being hungry. She does believe that her mood has improved over the stay at this visit. She appears more euthymic and no irritability is noted during this follow-up. Mental Status Examination Appearance: Appropriate Consciousness: Alert Orientation: Person, Place, Date/Time Motor Activity: Other (No abnormal motor movements noted) Speech: Unremarkable Language: Adequate Fund of Knowledge: Adequate Attention and Concentration: Adequate (Fair) Memory: Unremarkable Mood: Appropriate Affect: Appropriate, Euthymic Thought Process & Associations: Intact Thought Content: Appropriate Hallucination Type: None Delusion Type: Paranoid (Decreasing) Suicidal Ideation: No Suicidal Plan: No Suicidal Intention: No Homicidal Ideation: No Homicidal Plan: No Homicidal Intention: No Insight: Poor (Perhaps improving somewhat) Judgment: Poor (Perhaps improving somewhat) Assessment and Plan - Assessment (1) Schizophrenia Code(s): F20.9 - Schizophrenia, unspecified Status: Acute - Plan Plan: Patient will be reevaluated by the attending psychiatrist. Continue with current treatment plan. Justification for Continued Inpatient Stay: Moving this patient to a less restrictive environment would likely result in decompensation. 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
[2018-09-29] MEDS: Insulin NovoLOG Aspart Correctional Sugar Inj SQ SCH ×4 (08:55→20:21)
[2018-09-29] MEDS: Propranolol 10 MG Tablet PO SCH ×2 (08:58→20:21)
[2018-09-29] MEDS: ALPRAZolam 0.25 MG Tablet PO PRN (11:43)
--- NOTE | 2018-09-29 14:34 | P.PNPSY ---
Subjective Chief Complaint: Psychosis Remarks: Reviewed electronic record and discussed with nursing staff. Rounded with THEA Roldan. Patient is in her room. She is concern about chronic constipation. She has been on Linezz 145 mcg daily and feel the current bowel regimen is not supporting her . Hospitalist consultation placed. She denies AVH. Denies SI/HI. States that the wound she has in her lower abd is healing well. Endorses that she sleeps intermittently throughout the night, but take several naps during the day. Review of Systems All other systems reviewed negative except as stated in HPI Gastrointestinal: Reports constipation Mental Status Examination Appearance: Appropriate Consciousness: Alert Orientation: Person, Place, Date/Time Motor Activity: Other (No abnormal motor movements noted) Speech: Unremarkable Language: Adequate Fund of Knowledge: Adequate Attention and Concentration: Adequate (Fair) Memory: Unremarkable Mood: Appropriate Affect: Appropriate, Euthymic Thought Process & Associations: Intact Thought Content: Appropriate Hallucination Type: None Delusion Type: Paranoid (Decreasing) Suicidal Ideation: No Suicidal Plan: No Suicidal Intention: No Homicidal Ideation: No Homicidal Plan: No Homicidal Intention: No Insight: Poor (Perhaps improving somewhat) Judgment: Poor (Perhaps improving somewhat) Assessment and Plan - Assessment (1) Schizophrenia Code(s): F20.9 - Schizophrenia, unspecified Status: Acute - Plan Plan: Patient will be reevaluated by the attending psychiatrist. Continue with current treatment plan. Justification for Continued Inpatient Stay: Moving patient to a less restrictive environment may result in her decompensation. 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
[2018-09-29] MEDS: ALPRAZolam 0.25 MG Tablet PO SCH (15:23)
--- NOTE | 2018-09-29 15:44 | P.PN ---
Subjective Interval history: Patient not seen. Patient in visitation with family. Discussed with nursing staff. Patient complaining of constipation previously on Linzess. Per nursing staff, left groin abscess is improving. Patient is afebrile. Vital signs stable. Physical Exam Vital signs: Vital Signs 09/29/18 00:02 09/29/18 05:44 09/29/18 06:02 Temperature 97.8 F 97.8 F 97.8 F Pulse Rate 95 H 97 H 97 H Respiratory Rate 18 Blood Pressure 115/80 125/77 125/77 Pulse Oximetry 99 99 99 Results - Labs CBC & Chem 7: 09/26/18 07:43 09/11/18 23:06 Laboratory Results - last 24 hr 09/28/18 09/28/18 09/29/18 16:25 19:53 06:28 POC Glucose 146 H 107 157 H Assessment and Plan - Plan Patient not seen. Patient in family visitation. Will attempt to see patient tomorrow. 37-year-old female with past medical history of diabetes, tachycardia who came into the hospital voluntarily for erratic behavior. She is now admitted to inpatient psychiatry unit for further evaluation. Consulted for assistance with tachycardia, dizziness. Folliculitis, cellulitis right groin Hx suppurative hydradenitis -bilateral axilla, buttocks, breast folds, groin -Doxycycline twice daily times 7 days -Avoid sun exposure with this medication has been discussed with patient. -Right groin area draining some, indurated, small area of fluctuance per previous exam. If no improvement, may need surgical evaluation. Anxiety, schizophrenia -Managed by psychiatry team Tachycardia -EKG reviewed sinus tachycardia, with nonspecific T wave abnormality, heart rate 113 -Denies any chest pain, reports has been having rapid heart rate for a long time attributing it to anxiety -Started propranolol 10 mg twice daily -Improved DM 2 Hemoglobin A1c 7.9 Blood sugars acceptable -Continue on metformin 500 mg twice daily -Continue insulin sliding scale. Diabetic diet -Monitor Accu-Cheks. Constipation New consult for constipation, patient on Linzess at home -Bowel regimen ordered -Monitor for BM DVT prop ambulatory Discussed Condition With: nursing staff
[2018-09-29] MEDS ORDERED: Senna/Docusate Sodium 8.6/50 MG Tablet PO ONE (16:00)
[2018-09-29] MEDS ORDERED: Polyethylene Glycol 3350 17 GM Packet PO ONE (16:00)
[2018-09-29] MEDS: Senna/Docusate Sodium 8.6/50 MG Tablet PO SCH ×2 (20:21→20:24)
[2018-09-30] MEDS: Insulin NovoLOG Aspart Correctional Sugar Inj SQ SCH ×4 (07:12→21:05)
[2018-09-30] MEDS: Propranolol 10 MG Tablet PO SCH ×2 (08:51→21:01)
[2018-09-30] MEDS: Senna/Docusate Sodium 8.6/50 MG Tablet PO SCH ×2 (08:51→21:06)
[2018-09-30] MEDS: ALPRAZolam 0.25 MG Tablet PO PRN (10:52)
[2018-09-30] MEDS: Famotidine 20 MG Tablet PO PRN (10:52)
--- NOTE | 2018-09-30 13:27 | P.PNPSY ---
Subjective Chief Complaint: Psychosis Remarks: Patient seen and examined with nurse. Chart reviewed. Case discussed with nursing staff. No behavioral issues noted overnight. Patient did report some ongoing auditory hallucinations to nursing staff. On my examination today, the patient says that she would like to get off of her clozapine. She complains of some excessive drooling associated with this medication, but her distaste for continuing this medication seems more general and is not focused on this side effect in particular. She does admit to some ongoing auditory hallucinations, more like background noise than any specific voice she can pick out. She also endorses some ongoing paranoia. She denies any suicidal ideation. Denies any side effects from medications other than the drooling. No physical complaints. Vital Signs Temp Pulse Resp BP Pulse Ox 09/30/18 05:50 97.6 F 97 H 18 129/85 100 09/29/18 17:35 98.7 F 107 H 18 110/74 98 Laboratory Results - last 24 hr 09/29/18 09/30/18 09/30/18 19:47 06:23 10:58 POC Glucose 189 H 160 H 172 H Labs reviewed. Review of Systems All other systems reviewed negative except as stated in HPI Mental Status Examination Appearance: Appropriate Consciousness: Alert Orientation: x4 Motor Activity: Other (No motor abnormalities noted) Speech: Unremarkable Language: Adequate Fund of Knowledge: Adequate Attention and Concentration: Adequate (Fair) Memory: Unremarkable Mood: Appropriate Affect: Appropriate Thought Process & Associations: Intact Thought Content: Appropriate Hallucination Type: Auditory (Indistinct) Delusion Type: Paranoid (Mild) Suicidal Ideation: No Suicidal Plan: No Suicidal Intention: No Homicidal Ideation: No Homicidal Plan: No Homicidal Intention: No Mental Status Exam Remarks: Insight and judgment are perhaps fair to poor. Assessment and Plan - Assessment (1) Schizophrenia Code(s): F20.9 - Schizophrenia, unspecified Status: Acute - Plan Plan: I have strongly recommended to patient that she take some time to consider her request to taper off of the clozapine. I have explained to the patient that clozapine is usually reserved for resistant cases of psychosis, and so one ought be circumspect in discontinuing this agent. I have cautioned her that other antipsychotic agents may prove insufficient to manage her symptoms, and she may have worsening of her psychotic symptoms. Patient remains insistent on ultimately discontinuing the clozapine, but presently she is agreeable to executing a very slow taper off of this medication with corresponding titration of her other antipsychotic, Geodon. Taper clozapine to 25 mg in the morning and 200 mg at bedtime and titrate Geodon to 40 mg twice daily with meals. Continue weekly CBCs. Hospitalist input noted and appreciated. Continue to monitor on the inpatient unit. Continue other medications and care as ordered. Justification for Continued Inpatient Stay: Medication changes. High risk for decompensation in less restrictive environment. Discharge Planning: Possible placement. Patient now says that family is considering cosigning for an apartment for the patient after discharged. I have asked the counselor to look into this. I do feel that placement in a structured living environment like and [facility] would probably be in the patient's best interest and have recommended this to her, but the patient would like to try independent living if possible. 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
[2018-09-30] MEDS: ALPRAZolam 0.25 MG Tablet PO SCH (15:10)
[2018-10-01] MEDS: Insulin NovoLOG Aspart Correctional Sugar Inj SQ SCH ×4 (07:36→21:20)
[2018-10-01] MEDS: Famotidine 20 MG Tablet PO PRN ×2 (08:58→15:25)
[2018-10-01] MEDS: Propranolol 10 MG Tablet PO SCH ×2 (08:58→21:03)
[2018-10-01] MEDS: Senna/Docusate Sodium 8.6/50 MG Tablet PO SCH ×2 (09:00→21:02)
--- NOTE | 2018-10-01 11:22 | P.PNPSY ---
Subjective Chief Complaint: Psychosis Remarks: Patient seen and examined. Chart reviewed. Case discussed with nursing staff. No behavioral issues noted. Case discussed in treatment team. Counselor notes that she has made repeated attempts to reach patient's mother without success but will continue trying. On my examination today, patient is tolerating titration of Geodon and taper of clozapine well without significant side effects. Her psychotic symptoms are reportedly stable and "better than not good." No SI/HI. Affect remains bright and euthymic. No medication side effects or physical complaints. Vital Signs Temp Pulse Resp BP Pulse Ox 10/01/18 05:56 97.5 F L 97 H 16 123/82 100 09/30/18 18:21 98.5 F 107 H 17 118/83 99 Intake and Output 09/30/18 10/01/18 10/01/18 22:59 06:59 14:59 Other: Date of Last Bowel Movement 10/01/18 Labs reviewed. Review of Systems All other systems reviewed negative except as stated in HPI Mental Status Examination Appearance: Appropriate Consciousness: Alert Orientation: x4 Motor Activity: Other (No abnormalities noted) Speech: Unremarkable Language: Adequate Fund of Knowledge: Adequate Attention and Concentration: Adequate (Fair) Memory: Unremarkable Mood: Appropriate Affect: Appropriate, Euthymic Thought Process & Associations: Intact Thought Content: Appropriate Hallucination Type: Auditory (mild) Delusion Type: Paranoid (mild) Suicidal Ideation: No Homicidal Ideation: No Mental Status Exam Remarks: Insight and judgment are perhaps fair to poor. Assessment and Plan - Assessment (1) Schizophrenia Code(s): F20.9 - Schizophrenia, unspecified Status: Acute - Plan Plan: Continue clozapine and Geodon as ordered for now. To consider further cross taper from clozapine to Geodon per patient preference, although I have suggested and patient agrees that taper of clozapine proceed at a slow pace to allow for detection of any worsening of psychotic symptoms as this medication is tapered. Hospitalist input noted and appreciated. Continue to monitor on the inpatient unit. Continue other medications and care as ordered. Justification for Continued Inpatient Stay: Risk for decompensation and less restrictive environment. Discharge Planning: Possible placement. Case discussed with counselor. 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
--- NOTE | 2018-10-01 12:10 | P.PN ---
Subjective Interval history: Follow-up on patient with diabetes, folliculitis. Patient seen and examined. Patient states lesion on her right groin is improving. She denies any drainage. She denies any fever or chills. She complains of chronic constipation and takes Linzess at home. Attempted to start patient on bowel regimen with MiraLAX and Geraldine-Colace but patient has been refusing. Patient states that she has been using Dulcolax suppositories with success. Advised patient that if she has a family member or friend that can bring her Linzess in from home we can have our pharmacy distribute to her. Patient stated understanding. Patient does not voice any other acute complaints or concerns. Physical Exam Vital signs: Vital Signs 09/30/18 18:21 10/01/18 05:56 Temperature 98.5 F 97.5 F L Pulse Rate 107 H 97 H Respiratory Rate 17 16 Blood Pressure 118/83 123/82 Pulse Oximetry 99 100 Narrative: GENERAL: This is a well-nourished, well-developed patient, in no apparent distress. Awake and alert. Witnessed emanating around the unit without any difficulties per SKIN: Warm and dry. Right groin with area of tender induration approximately 3x2cm, no fluctuance noted, no erythema, no drainage. HEENT: Normocephalic. EOMI. Nose without bleeding. MMM. Airway patent. NECK: Trachea midline. CARDIOVASCULAR: Regular heart rate without murmurs, gallops, or rubs. RESPIRATORY: Clear to auscultation. Breath sounds equal bilaterally. No wheezes , rales, or rhonchi. GASTROINTESTINAL: Abdomen soft, non-tender, nondistended. Bowel Sounds normoactive x4. MUSCULOSKELETAL: Extremities without clubbing, cyanosis, or edema. NEUROLOGICAL: Awake and alert. No focal neuro deficit. Moves all extremities spontaneously. Normal speech. PSYCHIATRIC: Calm and cooperative. Results - Labs CBC & Chem 7: 09/26/18 07:43 09/11/18 23:06 Assessment and Plan - Plan 37-year-old female with past medical history of diabetes, tachycardia who came into the hospital voluntarily for erratic behavior. She is now admitted to inpatient psychiatry unit for further evaluation. Consulted for assistance with tachycardia, dizziness. Folliculitis, cellulitis right groin Hx suppurative hydradenitis -bilateral axilla, buttocks, breast folds, groin -Doxycycline twice daily times 7 days. Patient reports area is improving. Patient still has induration on exam, will extend course of antibiotics. -Avoid sun exposure with this medication has been discussed with patient. -Right groin area draining some, indurated, small area of fluctuance per previous exam. If no improvement, may need surgical evaluation. Anxiety, schizophrenia -Managed by psychiatry team Tachycardia -EKG reviewed sinus tachycardia, with nonspecific T wave abnormality, heart rate 113 -Denies any chest pain, reports has been having rapid heart rate for a long time attributing it to anxiety -Started propranolol 10 mg twice daily, continue -Improved DM 2 Hemoglobin A1c 7.9 Blood sugars acceptable -Continue on metformin 500 mg twice daily -Continue insulin sliding scale. Diabetic diet -Monitor Accu-Cheks. Constipation, chronic Patient reports using Linzess at home with success -Patient using Dulcolax suppositories as needed. +BM yesterday. -Continue on stool softener -Monitor bowel pattern DVT prop ambulatory Patient appears stable from hospitalist standpoint. [facility] will sign off. Please reconsult if needed. Code Status: Full Discussed Condition With: patient, nursing staff
--- NOTE | 2018-10-01 14:53 | P.TTN ---
- Patient Problems Problems: 1. Discharge planning 2. Medication compliance 3. Knowledge deficit 4. Lack of coping skills - Progress Toward Goals Provider Present: Dr. Kayli Cardozo (Patient needs to remain for further stabilization. Dr. Cardozo will asked the patient if she wants to sign involuntarily.) Provider Input: 10/01/18: Per MD Shaffer and Tracy have been adjsuted, pt getting ready for dc. 09/24/2018 Will make a possible med change as patient has shown minimal improvement. 09/20/2018 Psychiatrist has not seen the patient this morning. Previously feeling over sedated on her medications. Nurse Input: 10/01/18: Per THEA Vanessa pt is compliant with meds, no beh issues. 09/20/2018 Nurse unavailable to give information. Psychiatric Counselors Present: Jn Barrera Jr., [facility] (Patient reports she would like to return home upon discharge. Counselor spoke with the patient's mother. Discharge plan is for have the patient discharged to her sister's home to ensure the safety of the patient's infant child.), Other Psychiatric Therapist Input: 10/01/18 Pt is willing to go to [facility] but demands many wants vs needs. Counselor will look into placement. 09/24/2018 Patient still meets criteria to remain on the unit. Minimal improvement. Patient wants to file for temporary custody of her baby and go live in an [facility] which is not an option. 09/20/2018 Patient laying in her bed. When approached she stated to talk quietly. Patient lives at home with mother and her 6 month old baby. Group Spec/RT/OT/STERN Present: VANESA Tiwari (Patient has not participated in any activities), JARRED Green Group Spec/RT/OT/STERN Input: 10/01/18 Pt participating in selective groups. Patient unable to participate in an activities - Documentation Teaching Recipient: Patient
[2018-10-01] MEDS: ALPRAZolam 0.25 MG Tablet PO SCH (15:25)
[2018-10-02] MEDS: Insulin NovoLOG Aspart Correctional Sugar Inj SQ SCH ×4 (07:21→20:38)
[2018-10-02] MEDS: Senna/Docusate Sodium 8.6/50 MG Tablet PO SCH ×2 (08:17→20:41)
[2018-10-02] MEDS: Propranolol 10 MG Tablet PO SCH ×2 (08:21→20:41)
--- NOTE | 2018-10-02 10:31 | P.PNPSY ---
Subjective Chief Complaint: Psychosis Remarks: Patient seen and examined with nurse. Chart reviewed. Case discussed with nursing staff. No behavioral issues noted. Case discussed with counselor who is working on placement for patient. On my examination today, the patient complains of feeling slow and tired. She describes a "heavy feeling." She would like to further taper her clozapine. At the same time, the patient describes some feelings of thought diffusion. We discuss that tapering clozapine without corresponding titration of Geodon may result in exacerbation of these symptoms. No SI/HI. No side effects from medications. No physical complaints. Vital Signs Temp Pulse Resp BP Pulse Ox 10/02/18 05:31 97.7 F 97 H 17 118/70 97 10/01/18 17:21 100.2 F H 105 H 18 106/76 100 Intake and Output 10/01/18 10/02/18 10/02/18 22:59 06:59 14:59 Other: Date of Last Bowel Movement 10/01/18 Laboratory Results - last 24 hr 10/02/18 07:18 POC Glucose 173 H Labs reviewed. Review of Systems All other systems reviewed negative except as stated in HPI Mental Status Examination Appearance: Appropriate Consciousness: Alert Orientation: x4 Motor Activity: Other (No motor abnormalities noted.) Speech: Unremarkable Language: Adequate Fund of Knowledge: Adequate Attention and Concentration: Adequate (Fair) Memory: Unremarkable Mood: Appropriate Affect: Appropriate Thought Process & Associations: Intact Thought Content: Appropriate Hallucination Type: None Delusion Type: Other (Thought diffusion) Suicidal Ideation: No Homicidal Ideation: No Mental Status Exam Remarks: Insight and judgment are perhaps fair to poor. Assessment and Plan - Assessment (1) Schizophrenia Code(s): F20.9 - Schizophrenia, unspecified Status: Acute - Plan Plan: Discontinue morning dose of clozapine and continue clozapine at HS as ordered. Continue Geodon as ordered for now, per patient preference, but to consider further titration of this agent. Continue other psychotropic medications as ordered. Continue other care as ordered. Justification for Continued Inpatient Stay: Risk for decompensation in less restrictive environment. Discharge Planning: Counselor is working on [facility] placement for patient. 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
[2018-10-02] MEDS: ALPRAZolam 0.25 MG Tablet PO SCH (15:12)
[2018-10-03] MEDS: Propranolol 10 MG Tablet PO SCH ×2 (08:01→21:25)
[2018-10-03] MEDS: Insulin NovoLOG Aspart Correctional Sugar Inj SQ SCH ×4 (08:02→20:02)
[2018-10-03] MEDS: Senna/Docusate Sodium 8.6/50 MG Tablet PO SCH ×2 (08:12→20:27)
--- NOTE | 2018-10-03 11:47 | P.PNPSY ---
Subjective Chief Complaint: Psychosis Remarks: Patient seen and examined with counselor. Chart reviewed. Case discussed with staff. On my examination today, patient is in good spirits. She says that her auditory hallucinations are "surprisingly well" and are indistinct. She reports that her feeling of tiredness and heaviness is decreasing. Affect seems quite euthymic. No paranoia or other delusional material present. Denies side effects from medications. No physical complaints. Counselor presents patient with possible placement option at [facility], and the patient seems excited at the prospect. Trade Manager from this facility will be around to evaluate the patient tomorrow, Sunday. Vital Signs Temp Pulse Resp BP Pulse Ox 10/03/18 05:43 97.6 F 82 16 116/64 99 10/02/18 17:48 98.4 F 106 H 18 113/70 99 Intake and Output 10/02/18 10/03/18 10/03/18 22:59 06:59 14:59 Other: Date of Last Bowel Movement 10/03/18 Weight 68.7 kg Laboratory Results - last 24 hr 10/02/18 20:07 POC Glucose 116 H Labs reviewed. Review of Systems All other systems reviewed negative except as stated in HPI Mental Status Examination Appearance: Appropriate Consciousness: Alert Orientation: x4 Motor Activity: Other (No abnormal motor movements noted) Speech: Unremarkable Language: Adequate Fund of Knowledge: Adequate Attention and Concentration: Adequate Memory: Unremarkable (Grossly intact on clinical exam) Mood: Appropriate Affect: Appropriate, Euthymic Thought Process & Associations: Intact Thought Content: Appropriate Hallucination Type: Auditory (Minimal) Delusion Type: None Suicidal Ideation: No Homicidal Ideation: No Mental Status Exam Remarks: Insight and judgment are fair Assessment and Plan - Assessment (1) Schizophrenia Code(s): F20.9 - Schizophrenia, unspecified Status: Acute - Plan Plan: Continue current psychotropic medication regimen as ordered. Continue to monitor on the inpatient unit. Continue other care as ordered. Justification for Continued Inpatient Stay: High risk for decompensation in less restrictive environment. Discharge Planning: Counselor working on placement options for patient. 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
[2018-10-03] MEDS: ALPRAZolam 0.25 MG Tablet PO SCH (14:22)
[2018-10-03 14:36] LABS: Baso % (Auto) 0.3 % (0.0-2.0); Eos % (Auto) 0.2 % (0.0-4.0); Hematocrit 41.5 % (35.0-46.0); Hemoglobin 14.7 gm/dL (11.6-15.3); Lymph # (Auto) 2.7 th/mm3 (1.0-4.8); Lymph % (Auto) 32.7 % (9.0-44.0); Mean Corpuscular HGB Conc 35.5 % (32.0-36.0); Mean Corpuscular Hemoglobin 31.9 pg (27.0-34.0); Mono # (Auto) 0.4 th/mm3 (0.0-0.9); Mono % (Auto) 5.3 % (0.0-8.0); Neut % (Auto) 61.5 % (16.0-70.0); Platelet Count 261 th/mm3 (150-450); Red Blood Count 4.61 mil/mm3 (4.00-5.30); Red Cell Distribution Width 13.2 % (11.6-17.2); White Blood Count 8.2 th/mm3 (4.0-11.0)
[2018-10-03] MEDS: ALPRAZolam 0.25 MG Tablet PO PRN (20:26)
[2018-10-03] MEDS: Famotidine 20 MG Tablet PO PRN (20:27)
[2018-10-04] MEDS: Senna/Docusate Sodium 8.6/50 MG Tablet PO SCH ×2 (08:37→21:00)
[2018-10-04] MEDS: Propranolol 10 MG Tablet PO SCH ×2 (09:22→21:00)
[2018-10-04] MEDS: Insulin NovoLOG Aspart Correctional Sugar Inj SQ SCH ×4 (09:22→21:20)
--- NOTE | 2018-10-04 09:47 | P.TTN ---
- Patient Problems Problems: 1. Discharge planning 2. Medication compliance 3. Knowledge deficit 4. Lack of coping skills - Progress Toward Goals Provider Present: Dr. Kayli Cardozo (No medication changes at this time, patient is in the process of stabilizing, patient will hopefully go to [facility] for placement as soon as possible.) Provider Input: 10/01/18: Per MD Shaffer and Tracy have been adjsuted, pt getting ready for dc. 09/24/2018 Will make a possible med change as patient has shown minimal improvement. 09/20/2018 Psychiatrist has not seen the patient this morning. Previously feeling over sedated on her medications. Nurse Input: 10/01/18: Per RN Rasheeda pt is compliant with meds, no beh issues. 09/20/2018 Nurse unavailable to give information. Psychiatric Counselors Present: Jn Barrera Jr., [facility] ([facility] is coming to assess the patient today for potential placement early next week.), Other Psychiatric Therapist Input: 10/01/18 Pt is willing to go to [facility] but demands many wants vs needs. Counselor will look into placement. 09/24/2018 Patient still meets criteria to remain on the unit. Minimal improvement. Patient wants to file for temporary custody of her baby and go live in an [place] which is not an option. 09/20/2018 Patient laying in her bed. When approached she stated to talk quietly. Patient lives at home with mother and her 6 month old baby. Group Spec/RT/OT/STERN Present: VANESA Tiwari (Patient has not participated in any activities), JARRED Santos (Patient attends select groups and is redirectable.), JARRED Green Group Spec/RT/OT/STERN Input: 10/01/18 Pt participating in selective groups. Patient unable to participate in an activities - Documentation Teaching Recipient: Patient
--- NOTE | 2018-10-04 11:48 | P.PNPSY ---
Subjective Chief Complaint: Psychosis Remarks: Patient seen and examined with nurse. Chart reviewed. Case discussed with nursing staff. Case discussed in treatment team. Patient noted to be attending most groups. Her behavior in group activities is noted to be appropriate and social. On my examination today, the patient appears to be in good spirits but requests that we titrate her Paxil to deal with residual low mood symptoms. She describes a feeling of heaviness and occasional feelings of hopelessness. She does not describe any suicidal ideation. We have previously discussed how the Paxil will likely take several weeks to exert full effect, and so giving current dose more time to work might be more appropriate. However , patient feels strongly that dose increase would be helpful, and she would like to take this med morning and afternoon, although I have explained to her that it is often dosed once daily. Denies side effects from medications. Complains of some urinary frequency and dysuria. No other physical complaints. Vital Signs Temp Pulse Resp BP Pulse Ox 10/04/18 05:25 97.9 F 105 H 18 122/77 99 Intake and Output 10/03/18 10/04/18 10/04/18 22:59 06:59 14:59 Intake Total 360 / 360 240 / 240 Balance 360 / 360 240 / 240 Intake: Oral 360 / 360 240 / 240 Laboratory Results - last 24 hr 10/03/18 10/04/18 13:58 10:08 WBC 8.2 RBC 4.61 Hgb 14.7 Hct 41.5 MCV 90.0 MCH 31.9 MCHC 35.5 RDW 13.2 Plt Count 261 MPV 7.0 Neut % (Auto) 61.5 Lymph % (Auto) 32.7 [place] % (Auto) 5.3 Eos % (Auto) 0.2 Baso % (Auto) 0.3 Neut # (Auto) 5.0 Lymph # (Auto) 2.7 [place] # (Auto) 0.4 Eos # (Auto) 0.0 Baso # (Auto) 0.0 WBC Differential . Differential Comment Auto diff final Urine Color Yellow Urine Clarity Clear Urine pH 5.0 Ur Specific [place] 1.020 Urine Protein Negative Urine Glucose (UA) 500 or greater Urine Ketones Negative Urine Occult Blood Moderate H Urine Nitrate Negative Urine Bilirubin Negative Urine Urobilinogen Less than 2 Ur Leukocyte Esterase Negative Urine RBC 1 Urine WBC Less than 1 Ur Squamous Epith Cells <1 Urine Mucus Few H Micro UA Comment Culture not ind Ur Microscopic Review Not Reportable Urine Culture Comments Culture not ind Labs reviewed. Urinalysis reveals glucosuria and moderate occult blood. ANC remains adequate for clozapine therapy. Review of Systems All other systems reviewed negative except as stated in HPI Mental Status Examination Appearance: Appropriate Consciousness: Alert Orientation: x4 Motor Activity: Other (No motor abnormalities noted) Speech: Unremarkable Language: Adequate Fund of Knowledge: Adequate Attention and Concentration: Adequate Memory: Unremarkable (Grossly intact on clinical exam) Mood: Other (Reports some ongoing depression) Affect: Euthymic Thought Process & Associations: Intact Thought Content: Appropriate Hallucination Type: None Delusion Type: None Suicidal Ideation: No Suicidal Plan: No Suicidal Intention: No Homicidal Ideation: No Mental Status Exam Remarks: Insight and judgment are fair. Assessment and Plan - Assessment (1) Schizophrenia Code(s): F20.9 - Schizophrenia, unspecified Status: Acute - Plan Plan: Titrate Paxil to 20 mg in the morning and 10 mg in the afternoon per patient preference. Continue other psychotropics as ordered. Continue to monitor on the inpatient unit. Continue other medications and care as ordered. Justification for Continued Inpatient Stay: Risk for decompensation in less restrictive environment. Discharge Planning: Placement. Patient to be seen by senior customer service representative from facility today. 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
[2018-10-04 11:49] LABS: Bilirubin,Urine Negative (Negative); Clarity,Urine Clear (Clear); Color,Urine Yellow (Yellw/Straw); Glucose,Urine (UA) 500 or Greater mg/dL (Negative); Leukocyte Esterase,Urine Negative (Negative); Mucus,Urine Few /lpf (Occasional); Nitrite,Urine Negative (Negative); Squamous Epithelial Cell,Urine <1 /hpf (0-5)
[2018-10-04] MEDS: ALPRAZolam 0.25 MG Tablet PO SCH (14:26)
[2018-10-05] MEDS: Insulin NovoLOG Aspart Correctional Sugar Inj SQ SCH ×4 (07:55→20:39)
[2018-10-05] MEDS: Propranolol 10 MG Tablet PO SCH ×2 (08:22→20:39)
[2018-10-05] MEDS: Famotidine 20 MG Tablet PO PRN (08:23)
[2018-10-05] MEDS: Senna/Docusate Sodium 8.6/50 MG Tablet PO SCH ×2 (08:23→20:39)
--- NOTE | 2018-10-05 13:45 | P.PNPSY ---
Subjective Chief Complaint: Psychosis Remarks: Pt seen and discussed with staff. She has been compliant with medications and care. No aggression or agitation on unit today. She has been seclusive and withdrawn but did go out for fresh air today. AH are decreasing and less impairing. No SI/HI Mental Status Examination Appearance: Appropriate Consciousness: Alert Orientation: x4 Motor Activity: Other (No motor abnormalities noted) Speech: Unremarkable Language: Adequate Fund of Knowledge: Adequate Attention and Concentration: Adequate Memory: Unremarkable (Grossly intact on clinical exam) Mood: Other (Reports some ongoing depression) Affect: Euthymic Thought Process & Associations: Intact Thought Content: Appropriate Hallucination Type: None Delusion Type: None Suicidal Ideation: No Suicidal Plan: No Suicidal Intention: No Homicidal Ideation: No Homicidal Plan: No Homicidal Intention: No Insight: Poor (Perhaps improving somewhat) Judgment: Poor (Perhaps improving somewhat) Assessment and Plan - Assessment (1) Schizophrenia Code(s): F20.9 - Schizophrenia, unspecified Status: Acute - Plan Plan: Pt improving. Continue current tx plan Justification for Continued Inpatient Stay: risk of decompensation. 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
[2018-10-05] MEDS: ALPRAZolam 0.25 MG Tablet PO SCH (15:14)
[2018-10-05] MEDS: Ibuprofen 600 MG Tablet PO PRN (17:16)
[2018-10-05] MEDS: ALPRAZolam 0.25 MG Tablet PO PRN (18:29)
[2018-10-06] MEDS: Insulin NovoLOG Aspart Correctional Sugar Inj SQ SCH ×4 (07:02→20:42)
[2018-10-06] MEDS: Senna/Docusate Sodium 8.6/50 MG Tablet PO SCH ×2 (08:24→20:41)
[2018-10-06] MEDS: Famotidine 20 MG Tablet PO PRN (08:24)
[2018-10-06] MEDS: Propranolol 10 MG Tablet PO SCH ×2 (08:24→20:40)
[2018-10-06] MEDS: Ibuprofen 600 MG Tablet PO PRN ×2 (08:25→20:39)
[2018-10-06] MEDS: ALPRAZolam 0.25 MG Tablet PO PRN (10:03)
--- NOTE | 2018-10-06 12:26 | P.PNPSY ---
Subjective Chief Complaint: Psychosis Remarks: Reviewed electronic medical record and discussed with nursing staff. Rounded with THEA Salinas. Patient in her room. States that she is stressed about her bowel and bladder. She has chronic constipation and yesterday felt that she could not void for 4 hours. Encouraged patient to ask for prune juice and she has medications as needed. Patient is nauseated from the Geodon. She is not taking the Geodon with food. Will encourage staff to ensure she has something to eat with the medication. Denies AVH. Review of Systems All other systems reviewed negative except as stated in HPI Mental Status Examination Appearance: Appropriate Consciousness: Alert Orientation: x4 Motor Activity: Other (No motor abnormalities noted) Speech: Unremarkable Language: Adequate Fund of Knowledge: Adequate Attention and Concentration: Adequate Memory: Unremarkable (Grossly intact on clinical exam) Mood: Other (Reports some ongoing depression) Affect: Euthymic Thought Process & Associations: Intact Thought Content: Appropriate Hallucination Type: None Delusion Type: None Suicidal Ideation: No Suicidal Plan: No Suicidal Intention: No Homicidal Ideation: No Homicidal Plan: No Homicidal Intention: No Insight: Poor (Perhaps improving somewhat) Judgment: Poor (Perhaps improving somewhat) Assessment and Plan - Assessment (1) Schizophrenia Code(s): F20.9 - Schizophrenia, unspecified Status: Acute - Plan Plan: Pt improving. Continue current tx plan Justification for Continued Inpatient Stay: Moving patient to a less restrictive environment may result in her decompensation. 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
[2018-10-06] MEDS: ALPRAZolam 0.25 MG Tablet PO SCH (15:08)
[2018-10-06] MEDS ORDERED: Sod Phosphate/Sod Biphosphate (Adult) Enema 133 ML Bottle RECTAL ONE (17:42)
--- NOTE | 2018-10-06 17:50 | P.PNIM ---
Subjective Interval history: Reconsult for urinary retention and UTI. Patient seen and examined. Patient reports chronic constipation. She had been using Dulcolax suppositories with good results however yesterday she says she was having difficulty defecating and during that time she was unable to urinate. She denies any dysuria or hematuria. She did have a good bowel movement yesterday but states that it is not as much as she thinks that it should have been. She says she was given a Xanax and was able to relax enough that she could urinate. She reports small hard bowel movement today. She would like to try an enema. She is urinating today without any difficulties. Physical Exam Vital signs: Last Vital Signs Temp 97.5 F L 10/06/18 05:16 Pulse 70 10/06/18 05:16 Resp 16 10/06/18 05:16 BP 124/82 10/06/18 05:16 Pulse Ox 98 10/06/18 05:16 Intake & Output 10/04/18 10/05/18 10/06/18 10/07/18 06:59 06:59 06:59 06:59 Intake Total 360 / 360 480 / 480 720 / 720 Balance 360 / 360 480 / 480 720 / 720 Narrative: GENERAL: This is a well-nourished, well-developed patient, in no apparent distress. Awake and alert. Appears comfortable sitting style on her bed. SKIN: Warm and dry. HEENT: Normocephalic. EOMI. Nose without bleeding. MMM. Airway patent. NECK: Trachea midline. CARDIOVASCULAR: Regular heart rate without murmurs, gallops, or rubs. RESPIRATORY: Clear to auscultation. Breath sounds equal bilaterally. No wheezes , rales, or rhonchi. GASTROINTESTINAL: Abdomen soft, non-tender, nondistended. Bowel Sounds normoactive x4. MUSCULOSKELETAL: Extremities without clubbing, cyanosis, or edema. NEUROLOGICAL: Awake and alert. No focal neuro deficit. Moves all extremities spontaneously. Motor function appears to be grossly intact. Normal speech. PSYCHIATRIC: Calm and cooperative. Results Labs CBC & Chem 7: 10/03/18 13:58 09/11/18 23:06 Assessment and Plan (1) Schizophrenia: Code(s): F20.9 - Schizophrenia, unspecified Status: Acute Plan 37-year-old female with past medical history of diabetes, tachycardia who came into the hospital voluntarily for erratic behavior. She is now admitted to inpatient psychiatry unit for further evaluation. Consulted for assistance with tachycardia, dizziness. Anxiety, schizophrenia -Managed by psychiatry team Tachycardia, improved -EKG reviewed sinus tachycardia, with nonspecific T wave abnormality, heart rate 113 -Denies any chest pain, reports has been having rapid heart rate for a long time attributing it to anxiety -Started propranolol 10 mg twice daily, continue -Improved DM 2 Hemoglobin A1c 7.9 Blood sugars acceptable -Continue on metformin 500 mg twice daily -Continue insulin sliding scale. Diabetic diet -Monitor Accu-Cheks. Constipation, chronic Patient reports using Linzess at home with success -Patient using Dulcolax suppositories as needed. +BM yesterday but patient still feels constipated. Started on Miralax. Give enema x 1. -Continue on stool softener -Monitor bowel pattern Difficulty with urination, suspect secondary to constipation able to void after BM and being given Xanax -patient denies any urinary complaints at present -check UA Folliculitis, cellulitis right groin Hx suppurative hydradenitis -bilateral axilla, buttocks, breast folds, groin -Doxycycline twice daily times 7 days. Patient reports area is improving. -Avoid sun exposure with this medication has been discussed with patient. DVT prop ambulatory Progress Note: Quality VTE Deep Vein Thrombosis/Pulmonary Embolism Present on Admission: No _ (1) Schizophrenia Qualifiers: Schizophrenia type: undifferentiated schizophrenia Qualified Code(s): F20.3 - Undifferentiated schizophrenia
[2018-10-07] MEDS: Senna/Docusate Sodium 8.6/50 MG Tablet PO SCH ×2 (08:54→20:32)
[2018-10-07] MEDS: Propranolol 10 MG Tablet PO SCH ×2 (08:54→20:32)
[2018-10-07] MEDS: Insulin NovoLOG Aspart Correctional Sugar Inj SQ SCH ×4 (08:58→21:10)
[2018-10-07] MEDS: Polyethylene Glycol 3350 17 GM Packet PO SCH (09:36)
[2018-10-07] MEDS: ALPRAZolam 0.25 MG Tablet PO PRN (10:16)
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
[2018-10-07] MEDS ORDERED: Sod Phosphate/Sod Biphosphate (Adult) Enema 133 ML Bottle RECTAL PRN (13:14)
--- NOTE | 2018-10-07 13:16 | P.PNIM ---
Subjective Interval history: Follow up on reconsult for constipation, urinary retention. Patient seen and examined. Patient had successful BM yesterday after enema. She says she is urinating ok today. She denies any dysuria. She denies any fever or chills. She denies any N/V or abdominal pain. Physical Exam Vital signs: Last Vital Signs Temp 98 F 10/07/18 05:08 Pulse 100 H 10/07/18 05:08 Resp 16 10/07/18 05:08 BP 105/78 10/07/18 05:08 Pulse Ox 99 10/07/18 05:08 Intake & Output 10/05/18 10/06/18 10/07/18 10/08/18 06:59 06:59 06:59 06:59 Intake Total 480 / 480 1080 / 1080 Balance 480 / 480 1080 / 1080 Weight 67.7 kg Narrative: GENERAL: This is a well-nourished, well-developed patient, in no apparent distress. Awake and alert. Ambulating around the unit. Appears comfortable. SKIN: Warm and dry. HEENT: Normocephalic. EOMI. Nose without bleeding. MMM. Airway patent. NECK: Trachea midline. CARDIOVASCULAR: Regular heart rate without murmurs, gallops, or rubs. RESPIRATORY: Clear to auscultation. Breath sounds equal bilaterally. No wheezes , rales, or rhonchi. GASTROINTESTINAL: Abdomen soft, non-tender, nondistended. Bowel Sounds normoactive x4. MUSCULOSKELETAL: Extremities without clubbing, cyanosis, or edema. NEUROLOGICAL: Awake and alert. No focal neuro deficit. Moves all extremities spontaneously. Motor function appears to be grossly intact. Normal speech. PSYCHIATRIC: Calm and cooperative. Results Labs CBC & Chem 7: 10/03/18 13:58 09/11/18 23:06 Assessment and Plan (1) Schizophrenia: Code(s): F20.9 - Schizophrenia, unspecified Status: Acute Plan 37-year-old female with past medical history of diabetes, tachycardia who came into the hospital voluntarily for erratic behavior. She is now admitted to inpatient psychiatry unit for further evaluation. Consulted for assistance with tachycardia, dizziness. Anxiety, schizophrenia -Managed by psychiatry team Tachycardia, improved -EKG reviewed sinus tachycardia, with nonspecific T wave abnormality, heart rate 113 -Denies any chest pain, reports has been having rapid heart rate for a long time attributing it to anxiety -Started propranolol 10 mg twice daily, continue -Improved DM 2 Hemoglobin A1c 7.9 Blood sugars acceptable -Continue on metformin 500 mg twice daily -Continue insulin sliding scale. Diabetic diet -Monitor Accu-Cheks. Constipation, chronic Patient reports using Linzess at home with success -Patient using Dulcolax suppositories as needed. +BM after enema yesterday. -Continue on Geraldine Colace and Miralax. Enema or dulcolax supp prn. -Monitor bowel pattern Difficulty with urination, suspect secondary to constipation, resolved. Also ma be somatic. able to void after BM and being given Xanax -patient denies any urinary complaints at present -UA unremarkable Folliculitis, cellulitis right groin Hx suppurative hydradenitis -bilateral axilla, buttocks, breast folds, groin -Doxycycline twice daily times 7 days. Patient reports area is improving. -Avoid sun exposure with this medication has been discussed with patient. DVT prop ambulatory Patient appears stable from hospitalist standpoint. [facility] will sign off. Please reconsult if needed. Progress Note: Quality VTE Deep Vein Thrombosis/Pulmonary Embolism Present on Admission: No _ (1) Schizophrenia Qualifiers: Schizophrenia type: undifferentiated schizophrenia Qualified Code(s): F20.3 - Undifferentiated schizophrenia
[2018-10-07 13:21] LABS: Bilirubin,Urine Negative (Negative); Clarity,Urine Clear (Clear); Color,Urine Yellow (Yellw/Straw); Glucose,Urine (UA) 50 mg/dL (Negative); Hyaline Casts,Urine 1 /lpf (0-3); Leukocyte Esterase,Urine Negative (Negative); Mucus,Urine Few /lpf (Occasional); Nitrite,Urine Negative (Negative); Specific Gravity,Urine 1.013 (1.002-1.035); Squamous Epithelial Cell,Urine 3 /hpf (0-5)
[2018-10-08] MEDS: Polyethylene Glycol 3350 17 GM Packet PO SCH (08:43)
[2018-10-08] MEDS: Famotidine 20 MG Tablet PO PRN (08:43)
[2018-10-08] MEDS: Senna/Docusate Sodium 8.6/50 MG Tablet PO SCH ×2 (08:44→21:04)
[2018-10-08] MEDS: ALPRAZolam 0.25 MG Tablet PO PRN (08:45)
[2018-10-08] MEDS: Propranolol 10 MG Tablet PO SCH ×2 (08:45→21:04)
[2018-10-08] MEDS: Insulin NovoLOG Aspart Correctional Sugar Inj SQ SCH ×4 (08:49→21:04)
--- NOTE | 2018-10-08 11:13 | P.PNPSY ---
Subjective Chief Complaint: Psychosis Remarks: Patient seen and examined with nurse. Chart reviewed. Case discussed with nursing staff who reports that other than refusing sliding scale insulin coverage, patient is presenting no behavioral problem. Case discussed in treatment team. Counselor relates that customer counter representative from [facility] will be coming to evaluate the patient today. Therapists note that the patient is "doing great" and participating well in groups and unit activities. Therapists note that patient is expressing more care and concern for peers. On my examination today, the patient is in good spirits. She has met with customer counter representative from [facility] and is quite enthusiastic about the prospect of going there. Mood is good. No SI or HI. No psychotic material. No side effects from medications. No physical complaints. Vital Signs Temp Pulse Resp BP Pulse Ox 10/08/18 05:57 98.3 F 97 H 17 116/66 100 10/07/18 17:24 97.6 F 101 H 18 109/74 99 Intake and Output 10/07/18 10/08/18 10/08/18 22:59 06:59 14:59 Intake Total 720 / 720 Balance 720 / 720 Intake: Oral 720 / 720 Labs reviewed. No new labs. Review of Systems All other systems reviewed negative except as stated in HPI Mental Status Examination Appearance: Appropriate Consciousness: Alert Orientation: x4 Motor Activity: Other (No motor abnormalities noted) Speech: Unremarkable Language: Adequate Fund of Knowledge: Adequate Attention and Concentration: Adequate Memory: Unremarkable (Grossly intact on clinical exam) Mood: Appropriate Affect: Appropriate, Euthymic (Remains euthymic) Thought Process & Associations: Intact Thought Content: Appropriate Hallucination Type: None Delusion Type: None Suicidal Ideation: No Homicidal Ideation: No Insight: Poor (Perhaps improving somewhat) Judgment: Poor (Perhaps improving somewhat) Assessment and Plan - Assessment (1) Schizophrenia Code(s): F20.9 - Schizophrenia, unspecified Status: Acute - Plan Plan: Continue Geodon and clozapine along with Paxil as ordered. Continue to monitor on the inpatient unit. Continue other care as ordered. Justification for Continued Inpatient Stay: Final discharge planning. Discharge Planning: Anticipate discharge to [facility] on . 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
[2018-10-09] MEDS: Propranolol 10 MG Tablet PO SCH ×2 (08:37→20:50)
[2018-10-09] MEDS: Insulin NovoLOG Aspart Correctional Sugar Inj SQ SCH ×4 (08:38→20:32)
[2018-10-09] MEDS: Polyethylene Glycol 3350 17 GM Packet PO SCH (08:38)
[2018-10-09] MEDS: Senna/Docusate Sodium 8.6/50 MG Tablet PO SCH ×2 (08:38→20:50)
[2018-10-09] MEDS: ALPRAZolam 0.25 MG Tablet PO PRN ×2 (08:45→13:09)
--- NOTE | 2018-10-09 10:32 | P.PNPSY ---
Subjective Chief Complaint: Psychosis Remarks: Patient seen and examined with nurse. Chart reviewed. Case discussed with nursing staff. Case discussed with counselor. On my exam, patient is in good spirits. She remains excited to go to [facility], although she does admit to some anticipatory anxiety. Support provided. She does complain of some mild nausea, which she attributes to this anxiety. No emesis. Mood and psychotic symptoms are reportedly well controlled. No side effects from medications. No physical complaints. Vital Signs Temp Pulse Resp BP Pulse Ox 10/09/18 07:37 97 H 124/64 10/09/18 05:53 97.7 F 98 H 16 106/68 100 10/08/18 17:55 98.2 F 105 H 18 110/65 98 Intake and Output 10/08/18 10/09/18 10/09/18 22:59 06:59 14:59 Intake Total 360 / 360 Balance 360 / 360 Intake: Oral 360 / 360 Labs reviewed. Review of Systems All other systems reviewed negative except as stated in HPI Mental Status Examination Appearance: Appropriate Consciousness: Alert Orientation: x4 Motor Activity: Other (No abnormal motor movements noted.) Speech: Unremarkable Language: Adequate Fund of Knowledge: Adequate Attention and Concentration: Adequate Memory: Unremarkable (Grossly intact on clinical exam) Mood: Appropriate Affect: Appropriate, Euthymic Thought Process & Associations: Intact Thought Content: Appropriate Hallucination Type: None Delusion Type: None Suicidal Ideation: No Homicidal Ideation: No Mental Status Exam Remarks: Insight and judgment are fair. Assessment and Plan - Assessment (1) Schizophrenia Code(s): F20.9 - Schizophrenia, unspecified Status: Acute - Plan Plan: Continue current psychotropic medications as ordered. Continue to monitor on inpatient unit. Continue other care as ordered. Justification for Continued Inpatient Stay: Final discharge planning. Discharge Planning: Anticipate discharge to [facility] tomorrow. 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
[2018-10-10 05:23] VITALS: BP 113/84; PULSE 97; RESP 16; TEMP 97.5; O2SAT 98
[2018-10-10] MEDS: Insulin NovoLOG Aspart Correctional Sugar Inj SQ SCH (07:34)
[2018-10-10 07:35] LABS: Baso % (Auto) 0.4 % (0.0-2.0); Eos % (Auto) 0.1 % (0.0-4.0); Hematocrit 39.6 % (35.0-46.0); Hemoglobin 14.1 gm/dL (11.6-15.3); Lymph # (Auto) 1.9 th/mm3 (1.0-4.8); Lymph % (Auto) 30.6 % (9.0-44.0); Mean Corpuscular HGB Conc 35.7 % (32.0-36.0); Mean Corpuscular Volume 89.5 fL (80.0-100.0); Mono # (Auto) 0.4 th/mm3 (0.0-0.9); Mono % (Auto) 5.8 % (0.0-8.0); Neut # (Auto) 3.9 th/mm3 (1.8-7.7); Neut % (Auto) 63.1 % (16.0-70.0); Platelet Count 243 th/mm3 (150-450); Red Blood Count 4.42 mil/mm3 (4.00-5.30); Red Cell Distribution Width 13.3 % (11.6-17.2); White Blood Count 6.2 th/mm3 (4.0-11.0)
[2018-10-10] MEDS: Senna/Docusate Sodium 8.6/50 MG Tablet PO SCH (08:34)
[2018-10-10] MEDS: Famotidine 20 MG Tablet PO PRN (08:34)
[2018-10-10] MEDS: Propranolol 10 MG Tablet PO SCH (08:35)
[2018-10-10] MEDS: Polyethylene Glycol 3350 17 GM Packet PO SCH (08:41)
--- NOTE | 2018-10-10 09:18 | P.DSPSY ---
Psychiatry Discharge Summary Inpatient Psychiatric care?: Yes Advance Directives: No Mental Health Advance Directive: No Health Care Proxy: No - Admission Admission Date: September 12, 2018 16:28 - Admission Diagnosis (1) Schizophrenia Code(s): F20.9 - Schizophrenia, unspecified Brief History: Ms. Rae is a 37-year-old female with a history of schizophrenia who presented voluntarily for psychiatric evaluation. She was placed under the Russell act by the ED provider and seen in consultation by the psychiatric nurse practitioner in the ED. According to the psychiatric screener note "Patient reports decreased sleep. She reports, "My mom told me to come in. I am stressed at home. All I do is sit on the porch and drink coffee or milk. I have a 6 month old son. I don't want to touch him. I think that I'm evil. I love him, but I can 't take care of him anymore. I don't want my mother to take care of him either. She took care of him the first 2 months. We both have been taking care of him now. I like being around him, but Satan is always all over me." Reviewing the electronic medical record, I note that the patient was psychiatrically admitted here under Dr. Pelletier in February/March of this year. Patient seen and examined with counselor and nurse. Chart reviewed. Case discussed with nursing staff. On my examination today, patient presents as irritable and somewhat oppositional. She tells us that she is tired and does not want an extended interview. She endorses AH of "everything I want" but denies any CAH to hurt self/others. No other hallucinatory material reported. She is paranoid. Affect is restricted and dysphoric. No hypomanic or manic symptoms. Psychiatric interview is limited because of patient's current psychiatric symptomatology. No acute physical complaints. Tobacco Use In Past 30 Days: Yes How Often Do You Have a Drink Containing Alcohol: Never Hospital Course: The patient was admitted to a locked, inpatient psychiatric unit. A general medical consultation was obtained. Appropriate precautions were in place throughout patient's hospital stay. The patient was seen and examined on the unit by psychiatry and also visited by the counselor. Psychotropic medications were adjusted. Clozapine was titrated and subsequently tapered to manage excessive sedation and per patient preference. Geodon was added to augment the clozapine. Paxil was added and adjusted to target depressive symptoms. Patient tolerated medication changes well. Patient had significant improvement in presenting psychiatric symptomatology during the course of her hospital stay. Patient's behavior improved with the benefit of psychopharmacologic treatment. There was no evidence of any suicidality or homicidality on the inpatient unit. Collateral information was obtained from the patient's family. Counselor, working with the patient, has made arrangements for the patient to reside at [facility] after discharge. Patient seen and examined with nurse. Chart reviewed. Case discussed with nursing staff. No behavioral issues noted overnight. Case discussed with counselor. On my examination today, the patient verbalizes readiness to leave the hospital today. She denies any suicidal or homicidal ideation, intent or plan. Her affect is bright and euthymic, and I can elicit no depressive or hypomanic/manic symptoms. She denies any audiovisual hallucinations. I can elicit no delusional beliefs. The patient feels very much improved overall and says of her psychiatric illness "every day it gets easier." She denies any side effects from medications. It remains her stated goal to taper her clozapine still further. I have again recommended that she taper this medication very judiciously and only in consultation with her outpatient mental health provider since it seems to be providing significant therapeutic effect. She has no physical complaints. Suicide and violence risk assessment on day of discharge both suggest lower imminent risk from mental illness, and the patient's level of function is adequate for planned level of outpatient care. The patient has maximized benefit from this inpatient psychiatric hospital stay. She will be discharged today with psychiatric follow-up as arranged by counselor. Patient is also to follow-up with primary care. I have counseled the patient regarding need to follow a diabetic diet, and we have discussed examples of appropriate food choices on this diet. She does say that she plans to resume tobacco use after discharge, but I have encouraged her to consider tobacco cessation. I have counseled the patient to abstain from this and other substances of abuse, including alcohol. I have counseled the patient to return to the psychiatric emergency room for any concerning symptoms (especially any suicidal or violent ideation) as part of a general safety plan. - Discharge Discharge Date: 10/10/18 - Discharge Diagnosis (1) Schizophrenia Diagnosis: Principal (Stabilized) Code(s): F20.9 - Schizophrenia, unspecified Status: Acute Discharge Disposition: [facility] - Discharge Instructions Discharge Diet: Diabetic Diet Activities You Can Perform: Weight Bearing As Tolerat - Discharge Time <= 30 minutes Mental Status Examination Appearance: Appropriate Consciousness: Alert Orientation: x4 Motor Activity: Normal gait, Other (No hand tremor, no dystonias, no dyskinesias , no other motoric abnormalities noted.) Speech: Unremarkable Language: Adequate Fund of Knowledge: Adequate Attention and Concentration: Adequate Memory: Unremarkable (Remains grossly intact on clinical exam) Mood: Appropriate Affect: Appropriate, Euthymic Thought Process & Associations: Intact, Logical, Goal directed, Linear Thought Content: Appropriate Hallucination Type: None Delusion Type: None Suicidal Ideation: No Suicidal Plan: No Suicidal Intention: No Homicidal Ideation: No Homicidal Plan: No Homicidal Intention: No Mental Status Exam Remarks: Insight and judgment are fair. Discharge/Advance Care Plan - Results Vital Signs: Last Vital Signs Temp 97.5 F L 10/10/18 05:22 Pulse 97 H 10/10/18 05:22 Resp 16 10/10/18 05:22 BP 113/84 10/10/18 05:22 Pulse Ox 98 10/10/18 05:22 Lab Results: Abnormal Lab Results 10/10/18 07:08 WBC 6.2 RBC 4.42 Hgb 14.1 Hct 39.6 MCV 89.5 MCH 32.0 MCHC 35.7 RDW 13.3 Plt Count 243 MPV 7.0 Neut % (Auto) 63.1 Lymph % (Auto) 30.6 [place] % (Auto) 5.8 Eos % (Auto) 0.1 Baso % (Auto) 0.4 Neut # (Auto) 3.9 Lymph # (Auto) 1.9 [place] # (Auto) 0.4 Eos # (Auto) 0.0 Baso # (Auto) 0.0 WBC Differential . Differential Comment Auto diff final Laboratory Results Hemoglobin A1c 7.9 % (4.3-6.0) H 09/19/18 07:55 TSH 2.310 uIU/mL (0.358-3.740) 09/11/18 23:06 Urine Culture Comments Culture not ind 10/07/18 10:30 Summary of Procedures: None done. Imaging: ITS Impressions Foot X-Ray 09/18/18 00:00 CONCLUSION: Negative examination No evidence of acute bony abnormality or significant soft tissue swelling. Pending Results: None - Medications Number of antipsychotic medications at discharge: 2 Appropriate use of more than 1 antipsychotic med: Documentation of augmentation of Clozapine - Discharge Care Plan Goals to Promote Your Health: * To prevent worsening of your condition and complications * To maintain your health at the optimal level Directions to Meet Your Goals: Take your medications as prescribed Follow your dietary instruction Follow activity as directed Keep your appointments as scheduled Take your immunizations and boosters as scheduled If your symptoms worsen call your PCP, if no PCP go to Urgent Care Center or Emergency Room For 21/05 questions related to your inpatient stay or results of tests pending at discharge, please contact Dr. Bart Cardozo MD at [phone] Smoking is Dangerous to Your Health. Avoid second hand smoking (1) Schizophrenia Qualifiers: Schizophrenia type: undifferentiated schizophrenia Qualified Code(s): F20.3 - Undifferentiated schizophrenia (1) Schizophrenia Qualifiers: Schizophrenia type: undifferentiated schizophrenia Qualified Code(s): F20.3 - Undifferentiated schizophrenia
== END 2018-10-10 10:50 ==
LOC: NEPD 16:28 → NEDA 09-12 16:28 → H270 09-12 18:41 → H260 09-18 15:59
PROVIDERS: ADMIT Psychiatry & Neurology Psychiatry; ATTEND Psychiatry & Neurology Psychiatry

== ENCOUNTER 2018-12-20 09:06 | Inpatient (IN) ==
--- NOTE | 2018-12-20 11:19 | ED ---
HPI General Chief Complaint: Overdose Stated Complaint: Psych Eval/DBPD Time Seen by Provider: 12/20/18 15:40 Source: patient, family and EMS Mode of arrival: EMS Limitations: no limitations History of Present Illness HPI Narrative: 38 years old female was brought in by EMS after overdose on medication at home. Patient has history of diabetes, anxiety, GERD, schizophrenia. Patient took 56 tablets of clozapine 200 mg and unknown tomorrow paroxetine between 7 and 8:00 this morning. Patient's mother called EMS. EMS brought patient in for evaluation. Patient voiding suicidal threat this morning to the criminal defense lawyer. Patient denies any headache. Patient denies any chest pain or shortness of breath. Patient denies abdominal pain. Patient denies any focal weakness or numbness extremity. Patient denies any alcohol abuse. Patient denies any other substance abuse. complaint: Reports intentional overdose Onset (ago): hour(s) Timing confirmed by: family member Intent: suicide attempt Treatments Prior to Arrival: none Related Data Home Medications Medication Instructions Recorded Confirmed alprazolam [Xanax] 0.5 mg PO DAILY 12/20/18 12/20/18 clozapine 200 mg PO DAILY 12/20/18 12/20/18 paroxetine HCl 10 mg PO DAILY 12/20/18 12/20/18 Allergies Allergy/AdvReac Type Severity Reaction Status Date / Time haloperidol Allergy Severe Itching Verified 12/20/18 19:04 risperidone Allergy Severe Itching Verified 12/20/18 19:04 Review of Systems ROS: all other systems reviewed are negative PMFSH Medical History Medical History Acid reflux (Acute) Anxiety (Acute) Constipation (Acute) DM type 2 (diabetes mellitus, type 2) (Acute) Schizophrenia (Acute) Surgical History Surgical History Previous section (Acute) Family History Family History Father HTN (hypertension) Grandparent Diabetes Social History Social History Substance History: Unable to Obtain Second Hand Smoke Exposure: Yes Smoking Status: Unknown if ever smoked Tobacco Type: Cigarettes Packs Per Day: 1.5 Cigarettes Per Day: 30.0 How Often Do You Have a Drink Containing Alcohol: Unable to Obtain Recent Travel in [place] within the Last 8 Weeks: No Recent Out of Country Travel within the Last 8 Weeks: No Immunization History Tetanus Immunization: Unable to Assess Tetanus Immunization Year if Known: 2018 Exam Narrative Exam Narrative: GENERAL: Well-nourished, well-developed patient. SKIN: Focused skin assessment warm/dry. HEAD: Normocephalic. EYES: No scleral icterus. No injection or drainage. NECK: Supple, trachea midline. No JVD or lymphadenopathy. CARDIOVASCULAR: Regular rate and rhythm without murmurs, gallops, or rubs. RESPIRATORY: Breath sounds equal bilaterally. No accessory muscle use. GASTROINTESTINAL: Abdomen soft, non-tender, nondistended. MUSCULOSKELETAL: No cyanosis, or edema. BACK: Nontender without obvious deformity. No CVA tenderness. Neurologic exam normal. Course Initial Documented Vital Signs Temperature 97.8 F 12/20/18 09:22 Pulse Rate 123 H 12/20/18 09:22 Respiratory Rate 18 12/20/18 09:22 Blood Pressure 130/82 12/20/18 09:22 Pulse Oximetry 96 12/20/18 09:22 Last Documented Vital Signs Temperature 96.8 F L 12/21/18 17:13 Pulse Rate 117 H 12/21/18 17:13 Respiratory Rate 17 12/21/18 17:13 Blood Pressure 138/88 12/21/18 17:13 Pulse Oximetry 96 12/21/18 17:13 Sign Out Sign Out Data: Patient Sign Out occurred on 12/20/18 at 15:40. Patient's care was discussed, and care was transferred from Shane Root to Lana Stapleton. Sign Out Comment: Medication overdose. Suicidal. Awaiting medical clearance when heart rate under control. Last updated by Shane Root MD at 12/20/18 15:25 Post-Handoff Eval: This patient was signed out to me pending normalization of her heart rate for medical clearance. The patient presented to us this morning for an overdose. On my initial evaluation of her, she was able to converse normally. She was sleepy but otherwise acting normally. At about 5 PM, she started behaving very bizarrely. She is now being treated with IM Ativan, IM Benadryl and IM Haldol She was later tremulous and was given a 2nd dose of IV Benadryl. She has also had a 2nd liter of IVF. Her HR is trending down. She is medically clear for psychiatric evaluation. Medical Decision Making MDM Narrative Medical decision making narrative: 38 years old female intentional overdose with suicidal threat. History of schizophrenia. Poison control contacted. Medical Screen Exam Complete: Yes Emergency Medical Condition: Yes Lab Data Lab results reviewed: Yes I reviewed the patient's lab results. Result diagrams: 12/21/18 13:15 12/21/18 13:15 POC Results POC Urine Results Negative Lab Results 12/20/18 12/20/18 12/20/18 Range/Units 11:10 11:15 11:15 WBC 15.7 H (4.0-11.0) th/mm3 RBC 4.84 (4.00-5.30) mil/mm3 Hgb 15.2 (11.6-15.3) gm/dL Hct 45.7 (35.0-46.0) % MCV 94.5 (80.0-100.0) fL MCH 31.3 (27.0-34.0) pg MCHC 33.2 (32.0-36.0) % RDW 13.9 (11.6-17.2) % Plt Count 281 (150-450) th/mm3 MPV 7.5 (7.0-11.0) fL Neut % (Auto) 88.0 H (16.0-70.0) % Lymph % (Auto) 7.6 L (9.0-44.0) % Kimble % (Auto) 4.3 (0.0-8.0) % Eos % (Auto) 0.0 (0.0-4.0) % Baso % (Auto) 0.1 (0.0-2.0) % Neut # (Auto) 13.8 H (1.8-7.7) th/mm3 Lymph # (Auto) 1.2 (1.0-4.8) th/mm3 [place] # (Auto) 0.7 (0.0-0.9) th/mm3 Eos # (Auto) 0.0 (0.0-0.4) th/mm3 Baso # (Auto) 0.0 (0.0-0.2) th/mm3 WBC Differential . Differential Comment Auto diff final Sodium 139 (136-145) meq/L Potassium 4.0 (3.5-5.1) meq/L Chloride 105 (98-107) meq/L Carbon Dioxide 16.4 L (21.0-32.0) meq/L Anion Gap 18 H (5-15) meq/L BUN 13 (7-18) mg/dL Creatinine 0.96 (0.50-1.00) mg/dL Estimated GFR 66 L (>89) mL/min POC Glucose (68-110) mg/dl Random Glucose 313 H (74-106) mg/dL Calcium 8.8 (8.5-10.1) mg/dL Magnesium (1.5-2.5) mg/dL Total Bilirubin 0.6 (0.2-1.0) mg/dL AST 81 H (15-37) U/L ALT 25 (10-53) U/L Alkaline Phosphatase 125 H (45-117) U/L Total Creatine Kinase (26-192) U/L CK-MB (CK-2) (0.5-3.6) ng/mL CK-MB (CK-2) % (0.0-4.0) % Total Protein 7.9 (6.4-8.2) g/dL Albumin 4.0 (3.4-5.0) g/dL TSH 1.770 (0.358-3.740) uIU/mL Salicylates (2.8-20.0) mg/dL Urine Opiates Screen Neg (Neg) Acetaminophen Less than 2.0 L (10.0-30.0) mcg/mL Ur Barbiturates Screen Neg (Neg) Ur Amphetamines Screen Neg (Neg) U Benzodiazepines Scrn Neg (Neg) Urine Cocaine Screen Neg (Neg) U Cannabinoids Screen Neg (Neg) Serum Alcohol Less than 3 (0-5) mg/dL 12/20/18 12/21/18 12/21/18 Range/Units 11:15 06:46 12:18 WBC (4.0-11.0) th/mm3 RBC (4.00-5.30) mil/mm3 Hgb (11.6-15.3) gm/dL Hct (35.0-46.0) % MCV (80.0-100.0) fL MCH (27.0-34.0) pg MCHC (32.0-36.0) % RDW (11.6-17.2) % Plt Count (150-450) th/mm3 MPV (7.0-11.0) fL Neut % (Auto) (16.0-70.0) % Lymph % (Auto) (9.0-44.0) % Kimble % (Auto) (0.0-8.0) % Eos % (Auto) (0.0-4.0) % Baso % (Auto) (0.0-2.0) % Neut # (Auto) (1.8-7.7) th/mm3 Lymph # (Auto) (1.0-4.8) th/mm3 [place] # (Auto) (0.0-0.9) th/mm3 Eos # (Auto) (0.0-0.4) th/mm3 Baso # (Auto) (0.0-0.2) th/mm3 WBC Differential Differential Comment Sodium (136-145) meq/L Potassium (3.5-5.1) meq/L Chloride (98-107) meq/L Carbon Dioxide (21.0-32.0) meq/L Anion Gap (5-15) meq/L BUN (7-18) mg/dL Creatinine (0.50-1.00) mg/dL Estimated GFR (>89) mL/min POC Glucose 191 H 184 H (68-110) mg/dl Random Glucose (74-106) mg/dL Calcium (8.5-10.1) mg/dL Magnesium (1.5-2.5) mg/dL Total Bilirubin (0.2-1.0) mg/dL AST (15-37) U/L ALT (10-53) U/L Alkaline Phosphatase (45-117) U/L Total Creatine Kinase (26-192) U/L CK-MB (CK-2) (0.5-3.6) ng/mL CK-MB (CK-2) % (0.0-4.0) % Total Protein (6.4-8.2) g/dL Albumin (3.4-5.0) g/dL TSH (0.358-3.740) uIU/mL Salicylates 5.7 (2.8-20.0) mg/dL Urine Opiates Screen (Neg) Acetaminophen (10.0-30.0) mcg/mL Ur Barbiturates Screen (Neg) Ur Amphetamines Screen (Neg) U Benzodiazepines Scrn (Neg) Urine Cocaine Screen (Neg) U Cannabinoids Screen (Neg) Serum Alcohol (0-5) mg/dL 12/21/18 12/21/18 12/21/18 Range/Units 13:15 13:15 13:15 WBC 10.1 (4.0-11.0) th/mm3 RBC 4.53 (4.00-5.30) mil/mm3 Hgb 14.1 (11.6-15.3) gm/dL Hct 41.7 (35.0-46.0) % MCV 92.1 (80.0-100.0) fL MCH 31.1 (27.0-34.0) pg MCHC 33.8 (32.0-36.0) % RDW 13.6 (11.6-17.2) % Plt Count 279 (150-450) th/mm3 MPV 7.0 (7.0-11.0) fL Neut % (Auto) 80.6 H (16.0-70.0) % Lymph % (Auto) 14.0 (9.0-44.0) % Kim[place] % (Auto) 5.3 (0.0-8.0) % Eos % (Auto) 0.0 (0.0-4.0) % Baso % (Auto) 0.1 (0.0-2.0) % Neut # (Auto) 8.2 H (1.8-7.7) th/mm3 Lymph # (Auto) 1.4 (1.0-4.8) th/mm3 [place] # (Auto) 0.5 (0.0-0.9) th/mm3 Eos # (Auto) 0.0 (0.0-0.4) th/mm3 Baso # (Auto) 0.0 (0.0-0.2) th/mm3 WBC Differential . Differential Comment Auto diff final Sodium 144 (136-145) meq/L Potassium 3.6 (3.5-5.1) meq/L Chloride 110 H (98-107) meq/L Carbon Dioxide 20.9 L (21.0-32.0) meq/L Anion Gap 13 (5-15) meq/L BUN 5 L (7-18) mg/dL Creatinine 0.49 L (0.50-1.00) mg/dL Estimated GFR Greater than 89 (>89) mL/min POC Glucose (68-110) mg/dl Random Glucose 149 H D (74-106) mg/dL Calcium 8.7 (8.5-10.1) mg/dL Magnesium 2.1 (1.5-2.5) mg/dL Total Bilirubin 0.5 (0.2-1.0) mg/dL AST 163 H (15-37) U/L ALT 59 H (10-53) U/L Alkaline Phosphatase 115 (45-117) U/L Total Creatine Kinase 5443 H (26-192) U/L CK-MB (CK-2) 39.1 H (0.5-3.6) ng/mL CK-MB (CK-2) % 0.7 (0.0-4.0) % Total Protein 7.1 D (6.4-8.2) g/dL Albumin 3.5 (3.4-5.0) g/dL TSH (0.358-3.740) uIU/mL Salicylates (2.8-20.0) mg/dL Urine Opiates Screen (Neg) Acetaminophen (10.0-30.0) mcg/mL Ur Barbiturates Screen (Neg) Ur Amphetamines Screen (Neg) U Benzodiazepines Scrn (Neg) Urine Cocaine Screen (Neg) U Cannabinoids Screen (Neg) Serum Alcohol (0-5) mg/dL 12/21/18 Range/Units 17:23 WBC (4.0-11.0) th/mm3 RBC (4.00-5.30) mil/mm3 Hgb (11.6-15.3) gm/dL Hct (35.0-46.0) % MCV (80.0-100.0) fL MCH (27.0-34.0) pg MCHC (32.0-36.0) % RDW (11.6-17.2) % Plt Count (150-450) th/mm3 MPV (7.0-11.0) fL Neut % (Auto) (16.0-70.0) % Lymph % (Auto) (9.0-44.0) % [place] % (Auto) (0.0-8.0) % Eos % (Auto) (0.0-4.0) % Baso % (Auto) (0.0-2.0) % Neut # (Auto) (1.8-7.7) th/mm3 Lymph # (Auto) (1.0-4.8) th/mm3 [place] # (Auto) (0.0-0.9) th/mm3 Eos # (Auto) (0.0-0.4) th/mm3 Baso # (Auto) (0.0-0.2) th/mm3 WBC Differential Differential Comment Sodium (136-145) meq/L Potassium (3.5-5.1) meq/L Chloride (98-107) meq/L Carbon Dioxide (21.0-32.0) meq/L Anion Gap (5-15) meq/L BUN (7-18) mg/dL Creatinine (0.50-1.00) mg/dL Estimated GFR (>89) mL/min POC Glucose 140 H (68-110) mg/dl Random Glucose (74-106) mg/dL Calcium (8.5-10.1) mg/dL Magnesium (1.5-2.5) mg/dL Total Bilirubin (0.2-1.0) mg/dL AST (15-37) U/L ALT (10-53) U/L Alkaline Phosphatase (45-117) U/L Total Creatine Kinase (26-192) U/L CK-MB (CK-2) (0.5-3.6) ng/mL CK-MB (CK-2) % (0.0-4.0) % Total Protein (6.4-8.2) g/dL Albumin (3.4-5.0) g/dL TSH (0.358-3.740) uIU/mL Salicylates (2.8-20.0) mg/dL Urine Opiates Screen (Neg) Acetaminophen (10.0-30.0) mcg/mL Ur Barbiturates Screen (Neg) Ur Amphetamines Screen (Neg) U Benzodiazepines Scrn (Neg) Urine Cocaine Screen (Neg) U Cannabinoids Screen (Neg) Serum Alcohol (0-5) mg/dL Discharge Plan Discharge Disposition Patient Disposition: ED Admit(ED Internal Use Only) Discharge Order Discharge Orders: ED Use Only Admit Order (Routine); Ordered 12/21/18 Ordered By: Shane Root Physicians Team ED Provider: Lana Stapleton Primary Care Provider: Primary Care Abimbola Shafer Attending Provider: Erika Bhatia Other Providers: Jaye Loyola ED Status: Left Department Discharge Information Discharge Date/Time: 12/21/18 13:57
[2018-12-20 11:33] LABS: Baso % (Auto) 0.1 % (0.0-2.0); Hematocrit 45.7 % (35.0-46.0); Hemoglobin 15.2 gm/dL (11.6-15.3); Lymph # (Auto) 1.2 th/mm3 (1.0-4.8); Lymph % (Auto) 7.6 % (9.0-44.0); Mean Corpuscular HGB Conc 33.2 % (32.0-36.0); Mean Corpuscular Hemoglobin 31.3 pg (27.0-34.0); Mean Corpuscular Volume 94.5 fL (80.0-100.0); Mean Platelet Volume 7.5 fL (7.0-11.0); Mono # (Auto) 0.7 th/mm3 (0.0-0.9); Mono % (Auto) 4.3 % (0.0-8.0); Neut # (Auto) 13.8 th/mm3 (1.8-7.7); Platelet Count 281 th/mm3 (150-450); Red Blood Count 4.84 mil/mm3 (4.00-5.30); Red Cell Distribution Width 13.9 % (11.6-17.2); White Blood Count 15.7 th/mm3 (4.0-11.0)
[2018-12-20 11:38] LABS: Amphetamine Screen,Urine Neg (Neg); Barbiturate Screen,Urine Neg (Neg); Cannabinoid Screen,Urine Neg (Neg); Cocaine Screen,Urine Neg (Neg)
[2018-12-20 11:42] LABS: Opiate Screen,Urine Neg (Neg)
[2018-12-20 11:47] LABS: Alanine Aminotransferase 25 U/L (10-53); Anion Gap 18 meq/L (5-15); Aspartate Aminotransferase 81 U/L (15-37); Blood Urea Nitrogen 13 mg/dL (7-18); Calcium 8.8 mg/dL (8.5-10.1); Carbon Dioxide 16.4 meq/L (21.0-32.0); Chloride 105 meq/L (98-107); Glomerular Filtration Rate 66 mL/min (>89); Glucose,Random 313 mg/dL (74-106); Sodium 139 meq/L (136-145)
[2018-12-20 11:57] LABS: Alkaline Phosphatase 125 U/L (45-117); Total Protein 7.9 g/dL (6.4-8.2)
[2018-12-20] MEDS ORDERED: Sod Chloride 0.9% Inj 1,000 ML IV.SIG SCH (14:00)
[2018-12-20] MEDS ORDERED: Haloperidol Inj 5 MG/ML Ampul IM ONE (17:08)
--- NOTE | 2018-12-21 11:57 | P.PNPSY ---
History of Present Illness HPI Narrative: 38 years old female with psychiatric history of schizophrenia was brought in by EMS under a Russell act signed by [employer] and dated 12/20/2018 at 0900 hrs after alleged overdose on medications at home. It is reported that patient took 56 tablets of clozapine 200 mg and unknown amount of paroxetine between 7 and 8:00 yesterday morning.. Patient's mother called EMS. Patient voiding suicidal threat this morning to the military lawyer. I attempted to evaluate the patient this morning but unable to complete such evaluation at this time. The patient speech is slurred. She demonstrates disorganized thinking and appears to be experiencing visual hallucinations. She is grabbing at objects in the air that are not there. She is unable to answer any questions and is observed talking to her bed rails. I have discussed case with Dr. Root who will be admitting the patient medically do to continued tachycardia.
--- NOTE | 2018-12-21 12:09 | P.HPFP ---
History of Present Illness Primary Care Physician: No Primary Care Physician <Erika Bhatia 12/22/18 12:31> No Primary Care Physician <Sal Power 12/21/18 12:09> Chief Complaint: Antipsychotic overdose <Sal Power 12/21/18 13 :16> History of Present Illness: She is a 38-year-old female who was brought by EMS after overdose. She apparently took 56 tablets of clozapine 200 mg and an unknown amount of paroxetine yesterday morning around 0800. EMS was called by her mother, and she was brought here. She did voice a suicidal threat this morning to the law enforcement officers. Past medical: Obtained from chart review and from Dr. Root Diabetes Anxiety GERD Schizophrenia Past surgical history: delivery and appendectomy Social and family history unknown. Unable to obtain significant history or review of systems due to her mental status. She begins to answer some questions, however does not finish her answers, or rambles incoherently. <Sal Power 12/21/18 13:40> - Diagnosis (1) Overdose of antipsychotic (2) Diabetes mellitus (3) Schizophrenia <Erika Bhatia 12/22/18 12:31> (1) Overdose of antipsychotic (2) Diabetes mellitus (3) Schizophrenia <Sal Power 12/21/18 16:59> Inpatient Certification: I certify that the inpatient services were ordered in accordance with Medicare regulations governing the order. This includes certification that hospital inpatient services are reasonable and necessary and in the case of services not specified as inpatient-only under 42 CFR 419.22(n), that they are appropriately provided as inpatient services in accordance to with the 2-midnight benchmark under 43 CFR 412.3(e) <Erika Bhatia 12/22/18 12:31> I certify that the inpatient services were ordered in accordance with Medicare regulations governing the order. This includes certification that hospital inpatient services are reasonable and necessary and in the case of services not specified as inpatient-only under 42 CFR 419.22(n), that they are appropriately provided as inpatient services in accordance to with the 2-midnight benchmark under 43 CFR 412.3(e) <Sal Power 12/21/18 12:09> Plans for Post Hospital Care: Other acute care hospital <Erika Bhatia 12:31> Review of Systems unobtainable due to mental condition <Sal Power 12/21/18 12:43 > PMFSH - History History Provided By: Patient <Sal Power 12/21/18 12:09> - Medical History Medical History: Medical History (Last Reviewed 12/20/18 @ 11:18 by Shane Root MD) Acid reflux Anxiety Constipation DM type 2 (diabetes mellitus, type 2) Schizophrenia <Erika Bhatia 12/22/18 12:29> Medical History (Last Reviewed 12/20/18 @ 11:18 by Shane Root MD) Acid reflux Anxiety Constipation DM type 2 (diabetes mellitus, type 2) Schizophrenia <Sal Power 12/21/18 12:09> - Surgical History Surgical History: Surgical History (Last Reviewed 12/20/18 @ 11:18 by Shane Root MD) Previous section <Erika Bhatia 12/22/18 12:29> Surgical History (Last Reviewed 12/20/18 @ 11:18 by Shane Root MD) Previous section <Sal Power 12/21/18 12:09> - Family History Family History: Family History (Last Reviewed 12/20/18 @ 11:18 by Shane Root MD) Father HTN (hypertension) Grandparent Diabetes <Erika Bhatia 12/22/18 12:29> Family History (Last Reviewed 12/20/18 @ 11:18 by Shane Root MD) Father HTN (hypertension) Grandparent Diabetes <Sal Power 12/21/18 12:09> - Tobacco History Second Hand Smoke Exposure: Yes <Sal Power 12/21/18 12:09> Smoking Status: Unknown if ever smoked <Sal Power 12/21/18 12: 09> Tobacco Type: Cigarettes <Jimchasity Sal Juarez 12/21/18 12:09> Packs Per Day: 1.5 <JimSal Garcia 12/21/18 12:09> - Alcohol History How Often Do You Have a Drink Containing Alcohol: Unable to Obtain <Sal Power 12/21/18 12:09> - Substance Use History Substance History: Unable to Obtain <Sal Power 12/21/18 12:09> - Travel History Recent Travel in the [place] Within the Last 8 Weeks: No <Sal Power 12/21/18 12:09> Recent Travel Out of the Country Within the Last 8 Weeks: No <Sal Power 12/21/18 12:09> - Immunization History Tetanus Immunization: Unable to Assess <Sal Power 12/21/18 12: 09> Tetanus Immunization Year if Known: 2017 <Sal Power 12/21/18 12:09> Medications and Allergies Allergies Allergy/AdvReac Type Severity Reaction Status Date / Time haloperidol Allergy Severe Itching Verified 12/20/18 19:04 risperidone Allergy Severe Itching Verified 12/20/18 19:04 <Erika Bhatia - 12/22/18 12:31> Home Medications Medication Instructions Recorded Confirmed Type alprazolam [Xanax] 0.5 mg PO DAILY 12/20/18 12/20/18 History clozapine 200 mg PO DAILY 12/20/18 12/20/18 History paroxetine HCl 10 mg PO DAILY 12/20/18 12/20/18 History <Erika Bhatia - 12/22/18 12:31> Active Medications: Active Medications Acetaminophen (Tylenol) 650 mg PO Q4H PRN PRN Reason: Temp > 100.4 Al Hydroxide/Mg Hydroxide (Milk Of Magnesia Liq) 30 ml PO Q12H PRN PRN Reason: Mild Constipation Dextrose (D50w Vial) 50 ml IV.PUSH UNSCH PRN PRN Reason: PER HYPOGLYCEMIA PROTOCOL Glucagon (Glucagon Inj) 1 mg OTHER UNSCH PRN PRN Reason: for Hypoglycemia Protocol Sodium Chloride (Ns Inj) 1,000 mls @ 200 mls/hr IV.CONT .Q5H JETT Insulin Aspart (Novolog Insulin Correctional Sugar Inj) 0 unit SQ ACHS AND 3AM JETT; Protocol Last Admin: 12/22/18 09:45 Dose: 1 unit Lorazepam (Ativan) 1 mg PO Q4H [facility] Last Admin: 12/22/18 09:41 Dose: 1 mg Metoprolol Tartrate (Lopressor) 25 mg PO BID [facility] Last Admin: 12/22/18 09:41 Dose: 25 mg Miscellaneous (Pill Splitter) 1 each OTHER UNSCH PRN PRN Reason: PILL SPLITTER Senna/Docusate Sodium (Geraldine-Colace) 1 tab PO BID [facility] Last Admin: 12/22/18 09:42 Dose: 1 tab Sennosides (Senokot) 17.2 mg PO Q12H PRN PRN Reason: Moderate Constipation Sodium Chloride (Ns Flush) 2 ml IV.FLUSH BID [facility] Last Admin: 12/22/18 09:41 Dose: Not Given Sodium Chloride (Ns Flush) 2 ml IV.FLUSH PRN PRN PRN Reason: FLUSH AFTER USING IV ACCESS <Erika Bhatia - 12/22/18 12:29> Exam Vital signs: Vital Signs 12/21/18 17:13 12/21/18 19:58 12/21/18 23:47 Temperature 96.8 F L 98.9 F 98.7 F Pulse Rate 117 H 131 H 117 H Respiratory Rate 17 16 16 Blood Pressure 138/88 127/76 122/77 Pulse Oximetry 96 96 94 L 12/22/18 03:40 12/22/18 07:57 12/22/18 08:00 Temperature 98.8 F 97.8 F Pulse Rate 110 H 116 H 111 H Respiratory Rate 18 20 Blood Pressure 130/90 129/83 Pulse Oximetry 94 L 94 L 12/22/18 11:56 Temperature 98.3 F Pulse Rate 97 H Respiratory Rate 20 Blood Pressure 120/77 Pulse Oximetry 96 Intake & Output 12/21/18 12/22/18 12/22/18 18:59 06:59 18:59 Weight 63.53 kg Other: # Voids 0 2 2 Date of Last Bowel Movement 12/21/18 Weight On Admission 63.53 kg <Erika Bhatia - 12/22/18 12:31> Vital Signs 12/20/18 12:49 12/20/18 13:35 12/20/18 15:00 Temperature 98.1 F 97.8 F Pulse Rate 122 H 131 H 125 H Respiratory Rate 14 20 16 Blood Pressure 126/79 132/68 143/89 H Pulse Oximetry 99 97 98 12/20/18 17:00 12/20/18 19:00 12/20/18 22:05 Temperature 98.7 F Pulse Rate 135 H 127 H 118 H Respiratory Rate 21 16 16 Blood Pressure 168/100 H 146/98 H 138/92 H Pulse Oximetry 98 98 100 12/20/18 22:49 12/21/18 06:54 Temperature Pulse Rate 115 H 120 H Respiratory Rate 18 Blood Pressure 148/85 H Pulse Oximetry 100 Intake & Output 12/20/18 12/21/18 12/21/18 18:59 06:59 18:59 Intake Total 1000 / 1000 Output Total 250 / 250 Balance 750 / 750 Weight 63.503 kg Intake: IV 1000 / 1000 NS Inj 1,000 ML @ 1000 mls/hr 1000 / 1000 IV.SIG BOLUS JETT Rx#:[id number] Output: Urine 250 / 250 <Sal Power - 12/21/18 12:09> Narrative: General: Well developed, responds to internal stimuli Eyes: Pupils are fixed and dilated, EOMI, anicteric scleral, no conjunctival injection ENT: Atraumatic, MMM Neck: Trachea midline, no masses or lymphadenopathy Respiratory: Normal respiratory effort, lungs clear to auscultation bilaterally with good aeration Cardiovascular: Tachycardic with regular rhythm and without murmur, 2+ pedal pulses, no peripheral edema Abdomen: Bowel sounds present. Soft, non-tender. No masses noted. Skin: no rashes or lesions noted Psychiatric: Responds to internal stimuli, disorganized thoughts, often incoherent speech, agitated <Sal Power - 12/21/18 13:16> Results - Labs Result diagrams: 12/22/18 08:52 12/22/18 08:52 <Erika Bhatia - 12/22/18 12:31> Abnormal lab results 12/21/18 12/21/18 12/21/18 Range/Units 13:15 13:15 13:15 Neut % (Auto) 80.6 H (16.0-70.0) % Neut # (Auto) 8.2 H (1.8-7.7) th/mm3 Chloride 110 H (98-107) meq/L Carbon Dioxide 20.9 L (21.0-32.0) meq/L BUN 5 L (7-18) mg/dL Creatinine 0.49 L (0.50-1.00) mg/dL POC Glucose (68-110) mg/dl Random Glucose 149 H D (74-106) mg/dL AST 163 H (15-37) U/L ALT 59 H (10-53) U/L Total Creatine Kinase 5443 H (26-192) U/L CK-MB (CK-2) 39.1 H (0.5-3.6) ng/mL 12/21/18 12/21/18 12/22/18 Range/Units 17:23 21:37 08:52 Neut % (Auto) 76.1 H (16.0-70.0) % Neut # (Auto) (1.8-7.7) th/mm3 Chloride (98-107) meq/L Carbon Dioxide (21.0-32.0) meq/L BUN (7-18) mg/dL Creatinine (0.50-1.00) mg/dL POC Glucose 140 H 244 H (68-110) mg/dl Random Glucose (74-106) mg/dL AST (15-37) U/L ALT (10-53) U/L Total Creatine Kinase (26-192) U/L CK-MB (CK-2) (0.5-3.6) ng/mL 12/22/18 12/22/18 Range/Units 08:52 09:40 Neut % (Auto) (16.0-70.0) % Neut # (Auto) (1.8-7.7) th/mm3 Chloride 110 H (98-107) meq/L Carbon Dioxide (21.0-32.0) meq/L BUN (7-18) mg/dL Creatinine 0.46 L (0.50-1.00) mg/dL POC Glucose 189 H (68-110) mg/dl Random Glucose 168 H (74-106) mg/dL AST (15-37) U/L ALT (10-53) U/L Total Creatine Kinase 1408 H (26-192) U/L CK-MB (CK-2) 6.9 H (0.5-3.6) ng/mL Short CBC 12/21/18 12/22/18 Range/Units 13:15 08:52 WBC 10.1 8.6 (4.0-11.0) th/mm3 Hgb 14.1 14.8 (11.6-15.3) gm/dL Hct 41.7 43.8 (35.0-46.0) % Plt Count 279 265 (150-450) th/mm3 BMP 12/21/18 12/22/18 13:15 08:52 Sodium 144 143 Potassium 3.6 3.5 Chloride 110 H 110 H Carbon Dioxide 20.9 L 23.3 BUN 5 L 9 Creatinine 0.49 L 0.46 L Calcium 8.7 8.9 Cardiac Enzymes 12/21/18 12/22/18 Range/Units 13:15 08:52 Total Creatine Kinase 5443 H 1408 H (26-192) U/L CK-MB (CK-2) 39.1 H 6.9 H (0.5-3.6) ng/mL Liver Function 12/21/18 Range/Units 13:15 Total Bilirubin 0.5 (0.2-1.0) mg/dL AST 163 H (15-37) U/L ALT 59 H (10-53) U/L Alkaline Phosphatase 115 (45-117) U/L Albumin 3.5 (3.4-5.0) g/dL <Erika Bhatia - 12/22/18 12:31> Abnormal lab results 12/21/18 Range/Units 06:46 POC Glucose 191 H (68-110) mg/dl <Sal Power - 12/21/18 12:09> Caprini VTE Risk Assessment Caprini VTE Risk Assessment: No/Low Risk (score <= 1) <Sal Power - 12/21/18 13:16> Caprini Risk Assessment Model: Point Value = 1 Point Value = 2 Point Value = 3 Point Value = 5 Age 41-60 Minor surgery BMI > 25 kg/m2 Swollen legs Varicose veins or History of unexplained or recurrent spontaneous Oral contraceptives or hormone replacement Sepsis (< 1 month) Serious lung disease, including pneumonia (< 1 month) Abnormal pulmonary function Acute myocardial infarction Congestive heart failure (< 1 month) History of inflammatory bowel disease Medical patient at bed rest Age 61-74 Arthroscopic surgery Major open surgery (> 45 min) Laparoscopic surgery (> 45 min) Malignancy Confined to bed (> 72 hours) Immobilizing plaster cast Central venous access Age >= 75 History of VTE Family history of VTE Factor V Leiden Prothrombin [id number] Lupus anticoagulant Anticardiolipin antibodies Elevated serum homocysteine Heparin-induced thrombocytopenia Other congenital or acquired thrombophilia Stroke (< 1 month) Elective arthroplasty Hip, pelvis, or leg fracture Acute spinal cord injury (< 1 month) <Erika Bhatia - 12/22/18 12:31> Point Value = 1 Point Value = 2 Point Value = 3 Point Value = 5 Age 41-60 Minor surgery BMI > 25 kg/m2 Swollen legs Varicose veins or History of unexplained or recurrent spontaneous Oral contraceptives or hormone replacement Sepsis (< 1 month) Serious lung disease, including pneumonia (< 1 month) Abnormal pulmonary function Acute myocardial infarction Congestive heart failure (< 1 month) History of inflammatory bowel disease Medical patient at bed rest Age 61-74 Arthroscopic surgery Major open surgery (> 45 min) Laparoscopic surgery (> 45 min) Malignancy Confined to bed (> 72 hours) Immobilizing plaster cast Central venous access Age >= 75 History of VTE Family history of VTE Factor V Leiden Prothrombin [id number] Lupus anticoagulant Anticardiolipin antibodies Elevated serum homocysteine Heparin-induced thrombocytopenia Other congenital or acquired thrombophilia Stroke (< 1 month) Elective arthroplasty Hip, pelvis, or leg fracture Acute spinal cord injury (< 1 month) <Sal Power - 12/21/18 12:09> Prophylaxis Regimen: Total Risk Factor Score Risk Level Prophylaxis Regimen 0-1 Low Early ambulation 2 Moderate Order ONE of the following: *Sequential Compression Device (SCD) *Heparin 5000 units SQ BID 3-4 Higher Order ONE of the following medications: *Heparin 5000 units SQ TID *Enoxaparin/Lovenox 40 mg SQ daily (WT < 150 kg, CrCl > 30 mL/min) *Enoxaparin/Lovenox 30 mg SQ daily (WT < 150 kg, CrCl > 10-29 mL/min) *Enoxaparin/Lovenox 30 mg SQ BID (WT < 150 kg, CrCl > 30 mL/min) AND/OR *Sequential Compression Device (SCD) 5 or more Highest Order ONE of the following medications: *Heparin 5000 units SQ TID (Preferred with Epidurals) *Enoxaparin/Lovenox 40 mg SQ daily (WT < 150 kg, CrCl > 30 mL/min) *Enoxaparin/Lovenox 30 mg SQ daily (WT < 150 kg, CrCl > 10-29 mL/min) *Enoxaparin/Lovenox 30 mg SQ BID (WT < 150 kg, CrCl > 30 mL/min) AND *Sequential Compression Device (SCD) <Erika Bhatia - 12/22/18 12:31> Total Risk Factor Score Risk Level Prophylaxis Regimen 0-1 Low Early ambulation 2 Moderate Order ONE of the following: *Sequential Compression Device (SCD) *Heparin 5000 units SQ BID 3-4 Higher Order ONE of the following medications: *Heparin 5000 units SQ TID *Enoxaparin/Lovenox 40 mg SQ daily (WT < 150 kg, CrCl > 30 mL/min) *Enoxaparin/Lovenox 30 mg SQ daily (WT < 150 kg, CrCl > 10-29 mL/min) *Enoxaparin/Lovenox 30 mg SQ BID (WT < 150 kg, CrCl > 30 mL/min) AND/OR *Sequential Compression Device (SCD) 5 or more Highest Order ONE of the following medications: *Heparin 5000 units SQ TID (Preferred with Epidurals) *Enoxaparin/Lovenox 40 mg SQ daily (WT < 150 kg, CrCl > 30 mL/min) *Enoxaparin/Lovenox 30 mg SQ daily (WT < 150 kg, CrCl > 10-29 mL/min) *Enoxaparin/Lovenox 30 mg SQ BID (WT < 150 kg, CrCl > 30 mL/min) AND *Sequential Compression Device (SCD) <Sal Power - 12/21/18 12:09> Assessment and Plan - Assessment (1) Overdose of antipsychotic Code(s): T43.501A - Poisoning by unspecified antipsychotics and neuroleptics, accidental (unintentional), initial encounter Status: Acute (2) Diabetes mellitus Code(s): E11.9 - Type 2 diabetes mellitus without complications Status: Acute (3) Schizophrenia Code(s): F20.9 - Schizophrenia, unspecified Status: Acute <Erika Bhatia - 12/22/18 12:31> (1) Overdose of antipsychotic Code(s): T43.501A - Poisoning by unspecified antipsychotics and neuroleptics, accidental (unintentional), initial encounter Status: Acute (2) Diabetes mellitus Code(s): E11.9 - Type 2 diabetes mellitus without complications Status: Acute (3) Schizophrenia Code(s): F20.9 - Schizophrenia, unspecified Status: Acute <Sal Power - 12/21/18 16:59> - Assessment and Plan This is a 38-year-old female who was brought by EMS after overdose of Clozapine. She has had persistent tachycardia and is being admitted for medical observation before clearance for psychiatry. Cardiovascular: Her tachycardia may be secondary to her overdose. She does have some leukocytosis, alk phos and AST elevation, and yesterday had an anion gap of 18. She is received fluids and does not appear clinically dry. Continuous telemetry Creatinine kinase level ordered We will consider blood gas if her anion gap persists. She also had mildly elevated blood sugars. Psychiatric: Ativan PRN for agitation We will avoid antipsychotics for now Psychiatry consulted for advice on resumption of antipsychotics Diabetes: No home medications listed, patient unable to tell us what her home medications are Before meals at bedtime and 3 AM sliding scale insulin with blood glucose monitoring Fluids: Adequate p.o. intake Electrolytes: monitor and replete as needed Nutrition: Diabetic diet GI prophylaxis: not indicated VTE prophylaxis: Early ambulation Disposition: to psych once we medically clear her. <Sal Power - 12/21/18 17:05> - Attending Attestation The exam, history, and the medical decision-making described in the above note were completed with the assistance of the resident physician. I reviewed and agree with the findings presented. I attest that I had a [id number] encounter with the patient on the same day, and personally performed and documented my assessment and findings in the medical record. I saw her on the day of admission. She was pretty somnolent and not a reliable historian. <Erika Bhatia - 12/22/18 12:29> <Sal Power Samara - Last Filed: 12/21/18 16:59> (3) Schizophrenia Qualifiers: Schizophrenia type: unspecified Qualified Code(s): F20.9 - Schizophrenia, unspecified <Erika Bhatia - Last Filed: 12/22/18 12:31> (3) Schizophrenia Qualifiers: Schizophrenia type: unspecified Qualified Code(s): F20.9 - Schizophrenia, unspecified <Sal Power Samara - Last Filed: 12/21/18 16:59> (3) Schizophrenia Qualifiers: Schizophrenia type: unspecified Qualified Code(s): F20.9 - Schizophrenia, unspecified <Erika Bhatia - Last Filed: 12/22/18 12:31> (3) Schizophrenia Qualifiers: Schizophrenia type: unspecified Qualified Code(s): F20.9 - Schizophrenia, unspecified
[2018-12-21] MEDS ORDERED: Dextrose 50% in Water 50 ML Vial IV.PUSH PRN (12:27)
[2018-12-21] MEDS ORDERED: LORazepam 0.5 MG Tablet PO PRN ×2 (12:38→13:16)
[2018-12-21 13:44] LABS: Baso % (Auto) 0.1 % (0.0-2.0); Hematocrit 41.7 % (35.0-46.0); Hemoglobin 14.1 gm/dL (11.6-15.3); Lymph # (Auto) 1.4 th/mm3 (1.0-4.8); Mean Corpuscular HGB Conc 33.8 % (32.0-36.0); Mean Corpuscular Hemoglobin 31.1 pg (27.0-34.0); Mean Corpuscular Volume 92.1 fL (80.0-100.0); Mono # (Auto) 0.5 th/mm3 (0.0-0.9); Mono % (Auto) 5.3 % (0.0-8.0); Neut # (Auto) 8.2 th/mm3 (1.8-7.7); Neut % (Auto) 80.6 % (16.0-70.0); Platelet Count 279 th/mm3 (150-450); Red Blood Count 4.53 mil/mm3 (4.00-5.30); Red Cell Distribution Width 13.6 % (11.6-17.2); White Blood Count 10.1 th/mm3 (4.0-11.0)
[2018-12-21 14:14] LABS: Alanine Aminotransferase 59 U/L (10-53); Albumin 3.5 g/dL (3.4-5.0); Alkaline Phosphatase 115 U/L (45-117); Anion Gap 13 meq/L (5-15); Aspartate Aminotransferase 163 U/L (15-37); Blood Urea Nitrogen 5 mg/dL (7-18); Calcium 8.7 mg/dL (8.5-10.1); Carbon Dioxide 20.9 meq/L (21.0-32.0); Chloride 110 meq/L (98-107); Glomerular Filtration Rate Greater Than 89 mL/min (>89); Glucose,Random 149 mg/dL (74-106); Potassium 3.6 meq/L (3.5-5.1); Sodium 144 meq/L (136-145); Total Protein 7.1 g/dL (6.4-8.2)
[2018-12-21 14:27] LABS: Magnesium 2.1 mg/dL (1.5-2.5)
[2018-12-21 14:59] LABS: CKMB Percent 0.7 % (0.0-4.0); Creatine Kinase MB 39.1 ng/mL (0.5-3.6)
[2018-12-21] MEDS ORDERED: Metoprolol Tartrate 25 MG Tablet PO PRN (17:17)
[2018-12-21] MEDS: Insulin NovoLOG Aspart Correctional Sugar Inj SQ SCH ×2 (17:24→21:39)
[2018-12-21] MEDS: LORazepam 1 MG Tablet PO SCH ×2 (18:30→21:38)
[2018-12-21] MEDS ORDERED: Metoprolol Tartrate 25 MG Tablet PO SCH (21:00)
--- NOTE | 2018-12-21 21:39 | ECG ---
Date Performed: 12/20/2018 Time Performed: 09:29:15 PTAGE: 38 years EKG: SINUS TACHYCARDIA MODERATE T-WAVE ABNORMALITY PREVIOUS TRACING : 09/24/2018 18.25 Since the previous tracing, no significant change not ed DOCTOR: Kelly Mojica Interpretating Date/Time 12/21/2018 21:37:57
[2018-12-21] MEDS: Senna/Docusate Sodium 8.6/50 MG Tablet PO SCH (21:44)
[2018-12-22] MEDS: LORazepam 1 MG Tablet PO SCH ×6 (02:08→22:34)
[2018-12-22] MEDS: Insulin NovoLOG Aspart Correctional Sugar Inj SQ SCH ×5 (03:08→22:46)
--- NOTE | 2018-12-22 09:19 | P.HPFP ---
History of Present Illness Primary Care Physician: No Primary Care Physician Chief Complaint: Antipsychotic overdose History of Present Illness: She is a 38-year-old female who was brought by EMS after overdose. She apparently took 56 tablets of clozapine 200 mg and an unknown amount of paroxetine yesterday morning around 0800. EMS was called by her mother, and she was brought here. She did voice a suicidal threat this morning to the law enforcement officers. Past medical: Obtained from chart review and from Dr. Root Diabetes Anxiety GERD Schizophrenia Past surgical history: delivery and appendectomy Social and family history unknown. Unable to obtain significant history or review of systems due to her mental status. She begins to answer some questions, however does not finish her answers, or rambles incoherently. - Diagnosis (1) Overdose of antipsychotic (2) Diabetes mellitus (3) Schizophrenia Inpatient Certification: I certify that the inpatient services were ordered in accordance with Medicare regulations governing the order. This includes certification that hospital inpatient services are reasonable and necessary and in the case of services not specified as inpatient-only under 42 CFR 419.22(n), that they are appropriately provided as inpatient services in accordance to with the 2-midnight benchmark under 43 CFR 412.3(e) Plans for Post Hospital Care: Other acute care hospital Review of Systems unobtainable due to mental condition PMFSH - History History Provided By: Patient - Medical History Medical History: Medical History (Last Reviewed 12/20/18 @ 11:18 by Shane Root MD) Acid reflux Anxiety Constipation DM type 2 (diabetes mellitus, type 2) Schizophrenia - Surgical History Surgical History: Surgical History (Last Reviewed 12/20/18 @ 11:18 by Shane Root MD) Previous section - Family History Family History: Family History (Last Reviewed 12/20/18 @ 11:18 by Shane Root MD) Father HTN (hypertension) Grandparent Diabetes - Social History I have reviewed the patient's Social History: Yes - Tobacco History Second Hand Smoke Exposure: Yes Smoking Status: Unknown if ever smoked Tobacco Type: Cigarettes Packs Per Day: 1.5 - Alcohol History How Often Do You Have a Drink Containing Alcohol: Unable to Obtain - Substance Use History Substance History: Unable to Obtain - Travel History Recent Travel in the [place] Within the Last 8 Weeks: No Recent Travel Out of the Country Within the Last 8 Weeks: No - Immunization History Tetanus Immunization: Unable to Assess Tetanus Immunization Year if Known: 2018 Medications and Allergies Active Medications: Active Medications Acetaminophen (Tylenol) 650 mg PO Q4H PRN PRN Reason: Temp > 100.4 Al Hydroxide/Mg Hydroxide (Milk Of Sola Liq) 30 ml PO Q12H PRN PRN Reason: Mild Constipation Dextrose (D50w Vial) 50 ml IV.PUSH UNSCH PRN PRN Reason: PER HYPOGLYCEMIA PROTOCOL Glucagon (Glucagon Inj) 1 mg OTHER UNSCH PRN PRN Reason: for Hypoglycemia Protocol Insulin Aspart (Novolog Insulin Correctional Sugar Inj) 0 unit SQ ACHS AND 3AM JETT; Protocol Last Admin: 12/22/18 03:08 Dose: Not Given Lorazepam (Ativan) 1 mg PO Q4H JETT Last Admin: 12/22/18 05:05 Dose: Not Given Metoprolol Tartrate (Lopressor) 25 mg PO BID [facility] Miscellaneous (Pill Splitter) 1 each OTHER UNSCH PRN PRN Reason: PILL SPLITTER Senna/Docusate Sodium (Geraldine-Colace) 1 tab PO BID [facility] Last Admin: 12/21/18 21:44 Dose: Not Given Sennosides (Senokot) 17.2 mg PO Q12H PRN PRN Reason: Moderate Constipation Sodium Chloride (Ns Flush) 2 ml IV.FLUSH BID [facility] Last Admin: 12/21/18 21:44 Dose: Not Given Sodium Chloride (Ns Flush) 2 ml IV.FLUSH PRN PRN PRN Reason: FLUSH AFTER USING IV ACCESS Allergies Allergy/AdvReac Type Severity Reaction Status Date / Time haloperidol Allergy Severe Itching Verified 12/20/18 19:04 risperidone Allergy Severe Itching Verified 12/20/18 19:04 Home Medications Medication Instructions Recorded Confirmed Type alprazolam [Xanax] 0.5 mg PO DAILY 12/20/18 12/20/18 History clozapine 200 mg PO DAILY 12/20/18 12/20/18 History paroxetine HCl 10 mg PO DAILY 12/20/18 12/20/18 History Exam Vital signs: Vital Signs 12/21/18 12:03 12/21/18 17:13 12/21/18 19:58 Temperature 96.8 F L 98.9 F Pulse Rate 128 H 117 H 131 H Respiratory Rate 16 17 16 Blood Pressure 170/98 H 138/88 127/76 Pulse Oximetry 96 96 12/21/18 23:47 12/22/18 03:40 12/22/18 07:57 Temperature 98.7 F 98.8 F 97.8 F Pulse Rate 117 H 110 H 116 H Respiratory Rate 16 18 20 Blood Pressure 122/77 130/90 129/83 Pulse Oximetry 94 L 94 L 94 L Intake & Output 12/21/18 12/22/18 12/22/18 18:59 06:59 18:59 Weight 63.53 kg Other: # Voids 0 2 2 Date of Last Bowel Movement 12/21/18 Weight On Admission 63.53 kg - Constitutional no acute distress, average body habitus, cooperative - Routine HEENT Exam Head: Present: normocephalic, atraumatic. Absent: cushingoid faces, scalp tenderness Eye: Present: EOMI. Absent: conjunctival icterus, conjunctivae pink ENT: Present: mucous membranes moist, external ear normal - Routine Neck Exam Present: supple. Absent: tenderness - Routine Chest/Breast/Axilla Exam Chest wall: Absent: tenderness - Routine Respiratory Exam Present: CTA bilaterally. Absent: accessory muscle use, prolonged expiratory phase, rales, respiratory distress, rhonchi - Routine Cardiovascular Exam Present: RRR. Absent: murmur, gallop, rubs - Routine Abdominal Exam Present: soft. Absent: tenderness, distended, rebound - Routine Extremities Exam Absent: cyanosis, clubbing, edema - Routine Skin Exam Present: intact, dry - Routine Neurological Exam Present: alert, altered mental status. Absent: sensory deficit, motor deficit - Routine Psychiatric Exam Present: normal affect, auditory hallucinations. Absent: good insight, good judgment Results - Labs Result diagrams: 12/22/18 08:52 12/22/18 08:52 Abnormal lab results 12/21/18 12/21/18 12/21/18 Range/Units 12:18 13:15 13:15 Neut % (Auto) 80.6 H (16.0-70.0) % Neut # (Auto) 8.2 H (1.8-7.7) th/mm3 Chloride 110 H (98-107) meq/L Carbon Dioxide 20.9 L (21.0-32.0) meq/L BUN 5 L (7-18) mg/dL Creatinine 0.49 L (0.50-1.00) mg/dL POC Glucose 184 H (68-110) mg/dl Random Glucose 149 H D (74-106) mg/dL AST 163 H (15-37) U/L ALT 59 H (10-53) U/L Total Creatine Kinase (26-192) U/L CK-MB (CK-2) (0.5-3.6) ng/mL 12/21/18 12/21/18 12/21/18 Range/Units 13:15 17:23 21:37 Neut % (Auto) (16.0-70.0) % Neut # (Auto) (1.8-7.7) th/mm3 Chloride (98-107) meq/L Carbon Dioxide (21.0-32.0) meq/L BUN (7-18) mg/dL Creatinine (0.50-1.00) mg/dL POC Glucose 140 H 244 H (68-110) mg/dl Random Glucose (74-106) mg/dL AST (15-37) U/L ALT (10-53) U/L Total Creatine Kinase 5443 H (26-192) U/L CK-MB (CK-2) 39.1 H (0.5-3.6) ng/mL Short CBC 12/21/18 Range/Units 13:15 WBC 10.1 (4.0-11.0) th/mm3 Hgb 14.1 (11.6-15.3) gm/dL Hct 41.7 (35.0-46.0) % Plt Count 279 (150-450) th/mm3 BMP 12/21/18 13:15 Sodium 144 Potassium 3.6 Chloride 110 H Carbon Dioxide 20.9 L BUN 5 L Creatinine 0.49 L Calcium 8.7 Cardiac Enzymes 12/21/18 Range/Units 13:15 Total Creatine Kinase 5443 H (26-192) U/L CK-MB (CK-2) 39.1 H (0.5-3.6) ng/mL Liver Function 12/21/18 Range/Units 13:15 Total Bilirubin 0.5 (0.2-1.0) mg/dL AST 163 H (15-37) U/L ALT 59 H (10-53) U/L Alkaline Phosphatase 115 (45-117) U/L Albumin 3.5 (3.4-5.0) g/dL Caprini VTE Risk Assessment Caprini VTE Risk Assessment: No/Low Risk (score <= 1) Caprini Risk Assessment Model: Point Value = 1 Point Value = 2 Point Value = 3 Point Value = 5 Age 41-60 Minor surgery BMI > 25 kg/m2 Swollen legs Varicose veins or History of unexplained or recurrent spontaneous Oral contraceptives or hormone replacement Sepsis (< 1 month) Serious lung disease, including pneumonia (< 1 month) Abnormal pulmonary function Acute myocardial infarction Congestive heart failure (< 1 month) History of inflammatory bowel disease Medical patient at bed rest Age 61-74 Arthroscopic surgery Major open surgery (> 45 min) Laparoscopic surgery (> 45 min) Malignancy Confined to bed (> 72 hours) Immobilizing plaster cast Central venous access Age >= 75 History of VTE Family history of VTE Factor V Leiden Prothrombin [id number] Lupus anticoagulant Anticardiolipin antibodies Elevated serum homocysteine Heparin-induced thrombocytopenia Other congenital or acquired thrombophilia Stroke (< 1 month) Elective arthroplasty Hip, pelvis, or leg fracture Acute spinal cord injury (< 1 month) Prophylaxis Regimen: Total Risk Factor Score Risk Level Prophylaxis Regimen 0-1 Low Early ambulation 2 Moderate Order ONE of the following: *Sequential Compression Device (SCD) *Heparin 5000 units SQ BID 3-4 Higher Order ONE of the following medications: *Heparin 5000 units SQ TID *Enoxaparin/Lovenox 40 mg SQ daily (WT < 150 kg, CrCl > 30 mL/min) *Enoxaparin/Lovenox 30 mg SQ daily (WT < 150 kg, CrCl > 10-29 mL/min) *Enoxaparin/Lovenox 30 mg SQ BID (WT < 150 kg, CrCl > 30 mL/min) AND/OR *Sequential Compression Device (SCD) 5 or more Highest Order ONE of the following medications: *Heparin 5000 units SQ TID (Preferred with Epidurals) *Enoxaparin/Lovenox 40 mg SQ daily (WT < 150 kg, CrCl > 30 mL/min) *Enoxaparin/Lovenox 30 mg SQ daily (WT < 150 kg, CrCl > 10-29 mL/min) *Enoxaparin/Lovenox 30 mg SQ BID (WT < 150 kg, CrCl > 30 mL/min) AND *Sequential Compression Device (SCD) Assessment and Plan - Assessment (1) Overdose of antipsychotic Code(s): T43.501A - Poisoning by unspecified antipsychotics and neuroleptics, accidental (unintentional), initial encounter Status: Acute (2) Diabetes mellitus Code(s): E11.9 - Type 2 diabetes mellitus without complications Status: Acute (3) Schizophrenia Code(s): F20.9 - Schizophrenia, unspecified Status: Acute - Assessment and Plan This is a 38-year-old female who was brought by EMS after overdose of Clozapine. She has had persistent tachycardia and is being admitted for medical observation before clearance for psychiatry. Cardiovascular: Her tachycardia is probably secondary to her overdose. She does have some leukocytosis, alk phos and AST elevation, and yesterday had an anion gap of 18. She is received fluids and does not appear clinically dry. Continuous telemetry Creatinine kinase level ordered We will consider blood gas if her anion gap persists. She also had mildly elevated blood sugars. -the half life of her antipsychotic is 4 to 66 hours started and increased a beta simon Psychiatric: Ativan PRN for agitation We will avoid antipsychotics for now Psychiatry consulted for advice on resumption of antipsychotics Diabetes: No home medications listed, patient unable to tell us what her home medications are Before meals at bedtime and 3 AM sliding scale insulin with blood glucose monitoring Fluids: Adequate p.o. intake Electrolytes: monitor and replete as needed Nutrition: Diabetic diet GI prophylaxis: not indicated VTE prophylaxis: Early ambulation Disposition: to psych once we medically clear her. can consider med Psych vs once stable to Psych H&P: Quality - VTE Deep Vein Thrombosis/Pulmonary Embolism Present on Admission: No (3) Schizophrenia Qualifiers: Schizophrenia type: unspecified Qualified Code(s): F20.9 - Schizophrenia, unspecified
[2018-12-22 09:24] LABS: Baso % (Auto) 0.4 % (0.0-2.0); Hematocrit 43.8 % (35.0-46.0); Hemoglobin 14.8 gm/dL (11.6-15.3); Lymph # (Auto) 1.7 th/mm3 (1.0-4.8); Lymph % (Auto) 19.4 % (9.0-44.0); Mean Corpuscular HGB Conc 33.7 % (32.0-36.0); Mean Corpuscular Hemoglobin 31.4 pg (27.0-34.0); Mean Corpuscular Volume 93.2 fL (80.0-100.0); Mono # (Auto) 0.4 th/mm3 (0.0-0.9); Mono % (Auto) 4.1 % (0.0-8.0); Neut # (Auto) 6.6 th/mm3 (1.8-7.7); Neut % (Auto) 76.1 % (16.0-70.0); Platelet Count 265 th/mm3 (150-450); Red Cell Distribution Width 13.6 % (11.6-17.2); White Blood Count 8.6 th/mm3 (4.0-11.0)
[2018-12-22 09:41] LABS: Anion Gap 10 meq/L (5-15); Blood Urea Nitrogen 9 mg/dL (7-18); Calcium 8.9 mg/dL (8.5-10.1); Carbon Dioxide 23.3 meq/L (21.0-32.0); Chloride 110 meq/L (98-107); Glomerular Filtration Rate Greater Than 89 mL/min (>89); Glucose,Random 168 mg/dL (74-106); Potassium 3.5 meq/L (3.5-5.1); Sodium 143 meq/L (136-145)
[2018-12-22] MEDS: Metoprolol Tartrate 25 MG Tablet PO SCH ×2 (09:41→22:34)
[2018-12-22] MEDS: Senna/Docusate Sodium 8.6/50 MG Tablet PO SCH ×2 (09:42→22:34)
[2018-12-22 09:56] LABS: Creatine Kinase 1408 U/L (26-192)
[2018-12-22 10:20] LABS: CKMB Percent 0.5 % (0.0-4.0); Creatine Kinase MB 6.9 ng/mL (0.5-3.6)
[2018-12-22] MEDS: Sod Chloride 0.9% Inj 1,000 ML IV.CONT SCH ×3 (12:56→17:30)
[2018-12-22] MEDS: Acetaminophen 325 MG Tablet PO PRN (16:20)
--- NOTE | 2018-12-22 20:00 | P.CONPSY ---
Provisional Diagnosis Admission Date: December 21, 2018 11:45 Franklin I.: schizophrenia Franklin II.: def Franklin III.: s/p clozapine overdose History of Present Illness Service: psychiatry Consult date: 12/22/18 Reason for Consult: suicide attempt Primary Care Provider: No Primary Care Physician Chief Complaint: Antipsychotic overdose History of Present Illness: Pt is a 38 YOWF with a hx of schizophrenia well known to psychiatric service due to multiple psychiatric admissions. Pt was admitted to hospitalist service secondary to suicide attempt via intentional overdose with clozapine, paxil and ranitidine. Pt states that she recently moved into her own apartment and this has caused her significant stress. "I haven't lived alone before." Also complicating matters is that pt recently gave to her son 9 months ago. Her son is in the custody of her mother and she states that motherhood has been "hectic" She states that she "thought it was part of the game." She admits that she intentionally took medication and states that she wanted to at the time , but is unsure whether or not she was really trying to hurt herself or was confused. She reports that she has been having auditory hallucinations but these did not tell her to harm herself. "But I'm sure they will after this." She is still lethargic but able to arouse and participate in interview but tires easily. Pts nurse reports that she has slowly become more alert over the day. No HI. Review of Systems Psychiatric: Reports anxiety, Reports hearing things others do not hear, Reports thoughts of hurting/killing yourself PMFSH - History History Provided By: Patient - Medical History Medical History: Medical History (Last Reviewed 12/20/18 @ 11:18 by Shane Root MD) Acid reflux Anxiety Constipation DM type 2 (diabetes mellitus, type 2) Schizophrenia - Surgical History Surgical History: Surgical History (Last Reviewed 12/20/18 @ 11:18 by Shane Root MD) Previous section - Family History Family History: Family History (Last Reviewed 12/20/18 @ 11:18 by Shane Root MD) Father HTN (hypertension) Grandparent Diabetes - Tobacco History Second Hand Smoke Exposure: Yes Smoking Status: Unknown if ever smoked Tobacco Type: Cigarettes Packs Per Day: 1.5 - Alcohol History How Often Do You Have a Drink Containing Alcohol: Unable to Obtain - Substance Use History Substance History: Unable to Obtain - Travel History Recent Travel in the [place] Within the Last 8 Weeks: No Recent Travel Out of the Country Within the Last 8 Weeks: No - Immunization History Tetanus Immunization: Unable to Assess Tetanus Immunization Year if Known: 2017 Medications and Allergies Active Medications: Active Medications Acetaminophen (Tylenol) 650 mg PO Q4H PRN PRN Reason: Temp > 100.4 Last Admin: 12/22/18 16:20 Dose: 650 mg Al Hydroxide/Mg Hydroxide (Milk Of Sola Liq) 30 ml PO Q12H PRN PRN Reason: Mild Constipation Dextrose (D50w Vial) 50 ml IV.PUSH UNSCH PRN PRN Reason: PER HYPOGLYCEMIA PROTOCOL Glucagon (Glucagon Inj) 1 mg OTHER UNSCH PRN PRN Reason: for Hypoglycemia Protocol Sodium Chloride (Ns Inj) 1,000 mls @ 100 mls/hr IV.CONT .Q10H [facility] Last Admin: 12/22/18 17:30 Dose: Not Given Insulin Aspart (Novolog Insulin Correctional Sugar Inj) 0 unit SQ ACHS AND 3AM JETT; Protocol Last Admin: 12/22/18 17:48 Dose: 3 unit Lorazepam (Ativan) 1 mg PO Q4H [facility] Last Admin: 12/22/18 17:43 Dose: 1 mg Metoprolol Tartrate (Lopressor) 25 mg PO BID [facility] Last Admin: 12/22/18 09:41 Dose: 25 mg Miscellaneous (Pill Splitter) 1 each OTHER UNSCH PRN PRN Reason: PILL SPLITTER Senna/Docusate Sodium (Geraldine-Colace) 1 tab PO BID [facility] Last Admin: 12/22/18 09:42 Dose: 1 tab Sennosides (Senokot) 17.2 mg PO Q12H PRN PRN Reason: Moderate Constipation Sodium Chloride (Ns Flush) 2 ml IV.FLUSH BID [facility] Last Admin: 12/22/18 09:41 Dose: Not Given Sodium Chloride (Ns Flush) 2 ml IV.FLUSH PRN PRN PRN Reason: FLUSH AFTER USING IV ACCESS Allergies Allergy/AdvReac Type Severity Reaction Status Date / Time haloperidol Allergy Severe Itching Verified 12/20/18 19:04 risperidone Allergy Severe Itching Verified 12/20/18 19:04 Home Medications Medication Instructions Recorded Confirmed Type alprazolam [Xanax] 0.5 mg PO DAILY 12/20/18 12/20/18 History clozapine 200 mg PO DAILY 12/20/18 12/20/18 History paroxetine HCl 10 mg PO DAILY 12/20/18 12/20/18 History Exam Vital signs: Vital Signs 12/21/18 19:58 12/21/18 23:47 12/22/18 03:40 Temperature 98.9 F 98.7 F 98.8 F Pulse Rate 131 H 117 H 110 H Respiratory Rate 16 16 18 Blood Pressure 127/76 122/77 130/90 Pulse Oximetry 96 94 L 94 L 12/22/18 07:57 12/22/18 08:00 12/22/18 11:56 Temperature 97.8 F 98.3 F Pulse Rate 116 H 111 H 97 H Respiratory Rate 20 20 Blood Pressure 129/83 120/77 Pulse Oximetry 94 L 96 12/22/18 16:10 Temperature 99.1 F Pulse Rate 99 H Respiratory Rate 20 Blood Pressure 117/77 Pulse Oximetry 98 Intake & Output 12/22/18 12/22/18 12/23/18 06:59 18:59 06:59 Intake Total 442 / 442 Balance 442 / 442 Intake: Oral 442 / 442 Other: # Voids 2 1 Date of Last Bowel Movement 12/21/18 Assessment and Plan - Assessment (1) Schizophrenia Code(s): F20.9 - Schizophrenia, unspecified Status: Acute - Plan Plan: Estimated LOS: [] days Pt will need psychiatric admission once medically stable. Will follow. Do not discharge pt without psych clearance due to safety concerns. Monitor ANC Justification for Continued Inpatient Stay: impairments in safety (1) Schizophrenia Qualifiers: Schizophrenia type: unspecified Qualified Code(s): F20.9 - Schizophrenia, unspecified
[2018-12-23] MEDS: Sod Chloride 0.9% Inj 1,000 ML IV.CONT SCH (02:00)
[2018-12-23] MEDS: Acetaminophen 325 MG Tablet PO PRN (03:26)
[2018-12-23] MEDS: LORazepam 1 MG Tablet PO SCH ×2 (03:26→06:41)
[2018-12-23] MEDS: Insulin NovoLOG Aspart Correctional Sugar Inj SQ SCH ×3 (03:32→14:23)
[2018-12-23 05:32] VITALS: RESP 16
[2018-12-23] MEDS: Metoprolol Tartrate 25 MG Tablet PO SCH (09:10)
[2018-12-23] MEDS: Senna/Docusate Sodium 8.6/50 MG Tablet PO SCH (09:10)
--- NOTE | 2018-12-23 09:50 | P.PNFP ---
Subjective Interval history: She reports to me this morning that she took the clonazepam because she thought it would help or help people. She denies any intention to hurt herself at this. She acknowledges that it could have "made [her] heart go really fast or stop." She denies any hallucinations She denies lightheadedness, dizziness, chest pain, palpitations, shortness of breath, muscle cramping or pain. She states that she had been more restless when she first came in, however this has resolved. She states that she has lived at home for the last couple months, but lives with her parents before that. <Varun JuarezIrvinSal J - 12/23/18 09:50> Results - Labs Result diagrams: 12/22/18 08:52 12/23/18 12:42 <Erika Bhatia - 12/26/18 13:24> Abnormal lab results 12/22/18 12/22/18 12/22/18 Range/Units 08:52 12:58 17:45 POC Glucose 163 H 217 H (68-110) mg/dl Total Creatine Kinase 1408 H (26-192) U/L CK-MB (CK-2) 6.9 H (0.5-3.6) ng/mL 12/22/18 12/23/18 12/23/18 Range/Units 22:36 03:28 09:14 POC Glucose 187 H 241 H 174 H (68-110) mg/dl Total Creatine Kinase (26-192) U/L CK-MB (CK-2) (0.5-3.6) ng/mL Cardiac Enzymes 12/22/18 Range/Units 08:52 Total Creatine Kinase 1408 H (26-192) U/L CK-MB (CK-2) 6.9 H (0.5-3.6) ng/mL <Varun JuarezSal - 12/23/18 09:50> Physical Exam Vital signs: Vital Signs 12/22/18 11:56 12/22/18 16:10 12/22/18 20:00 Temperature 98.3 F 99.1 F 98.6 F Pulse Rate 97 H 99 H 99 H Respiratory Rate 20 20 12 Blood Pressure 120/77 117/77 143/93 H Pulse Oximetry 96 98 96 12/22/18 20:05 12/22/18 23:04 12/23/18 04:00 Temperature 98.2 F 98.4 F Pulse Rate 81 81 105 H Respiratory Rate 16 16 Blood Pressure 127/86 126/87 Pulse Oximetry 92 L 98 12/23/18 07:30 Temperature 97.6 F Pulse Rate 108 H Respiratory Rate 16 Blood Pressure 137/91 H Pulse Oximetry 98 Intake & Output 12/22/18 12/23/18 12/23/18 18:59 06:59 18:59 Intake Total 442 / 442 1720 / 1720 Balance 442 / 442 1720 / 1720 Intake: IV 1000 / 1000 NS Inj 1,000 ML @ 100 mls/hr IV 1000 / 1000 .CONT .Q10H JETT Rx#:[id number] Oral 442 / 442 720 / 720 Other: # Voids 1 3 Date of Last Bowel Movement 12/21/18 <Sal Power - 12/23/18 09:50> Narrative: General: Well developed, alert, not responding to internal stimuli Eyes: Pupils are fixed and dilated, EOMI, anicteric scleral, no conjunctival injection ENT: Atraumatic, MMM Neck: Trachea midline, no masses or lymphadenopathy Respiratory: Normal respiratory effort, lungs clear to auscultation bilaterally with good aeration Cardiovascular: Tachycardic with regular rhythm and without murmur, 2+ pedal pulses, no peripheral edema Abdomen: Bowel sounds present. Soft, non-tender. No masses noted. Skin: no rashes or lesions noted Psychiatric: Responds to internal stimuli, disorganized thoughts, often incoherent speech, agitated <Sal Power - 12/23/18 09:50> Assessment and Plan - Assessment (1) Overdose of antipsychotic Code(s): T43.501A - Poisoning by unspecified antipsychotics and neuroleptics, accidental (unintentional), initial encounter Status: Acute (2) Diabetes mellitus Code(s): E11.9 - Type 2 diabetes mellitus without complications Status: Acute (3) Schizophrenia Code(s): F20.9 - Schizophrenia, unspecified Status: Acute <Erika Bhatia - 12/26/18 13:24> (1) Overdose of antipsychotic Code(s): T43.501A - Poisoning by unspecified antipsychotics and neuroleptics, accidental (unintentional), initial encounter Status: Acute (2) Diabetes mellitus Code(s): E11.9 - Type 2 diabetes mellitus without complications Status: Acute (3) Schizophrenia Code(s): F20.9 - Schizophrenia, unspecified Status: Acute <Sal Power - 12/23/18 11:42> - Assessment and Plan This is a 38-year-old female who was brought by EMS after overdose of Clozapine. She has had persistent tachycardia and is being admitted for medical observation before clearance for psychiatry. Cardiovascular: Her tachycardia is probably secondary to her overdose. She does have some leukocytosis, alk phos and AST elevation, and yesterday had an anion gap of 18. She is received fluids and does not appear clinically dry. Continuous telemetry Creatinine kinase level have been downtrending, repeat ordered today -the half life of her antipsychotic is 4 to 66 hours Metoprolol 25 mg twice daily Psychiatric: Scheduled Ativan stopped today due to improved clinical status We will avoid antipsychotics for now Psychiatry consulted for advice on resumption of antipsychotics Diabetes: No home medications listed, patient unable to tell us what her home medications are Before meals at bedtime and 3 AM sliding scale insulin with blood glucose monitoring Fluids: Adequate p.o. intake Electrolytes: monitor and replete as needed Nutrition: Diabetic diet GI prophylaxis: not indicated VTE prophylaxis: Early ambulation Disposition: Medically stable for discharge to inpatient psychiatry <Sal Power - 12/23/18 11:40> - Attending Attestation The exam, history, and the medical decision-making described in the above note were completed with the assistance of the resident physician. I reviewed and agree with the findings presented. I attest that I had a [id number] encounter with the patient on the same day, and personally performed and documented my assessment and findings in the medical record. agree with discharge to Psych. she needs help to be able to improve and her meds can be adjusted there as well <Erika Bhatia - 12/26/18 13:24> <Sal Power - Last Filed: 12/23/18 11:42> (3) Schizophrenia Qualifiers: Schizophrenia type: unspecified Qualified Code(s): F20.9 - Schizophrenia, unspecified <Erika Bhatia - Last Filed: 12/26/18 13:24> (3) Schizophrenia Qualifiers: Schizophrenia type: paranoid schizophrenia Qualified Code(s): F20.0 - Paranoid schizophrenia <Sal Power - Last Filed: 12/23/18 11:42> (3) Schizophrenia Qualifiers: Schizophrenia type: unspecified Qualified Code(s): F20.9 - Schizophrenia, unspecified <Erika Bhatia - Last Filed: 12/26/18 13:24> (3) Schizophrenia Qualifiers: Schizophrenia type: paranoid schizophrenia Qualified Code(s): F20.0 - Paranoid schizophrenia
[2018-12-23 12:01] VITALS: BP 147/91; PULSE 78; TEMP 98.4; O2SAT 97
--- NOTE | 2018-12-23 12:19 | ECG ---
Date Performed: 12/22/2018 Time Performed: 13:12:39 PTAGE: 38 years EKG: SINUS TACHYCARDIA NONSPECIFIC T-WAVE ABNORMALITY ABNORMAL RHYTHM ECG Since the PREVIOUS TRACING , no significant change noted PREVIOUS TRACIN12/20/2018 09.29 DOCTOR: Myles Reyes Interpretating Date/Time 12/23/2018 12:14:15
[2018-12-23 13:29] LABS: Anion Gap 6 meq/L (5-15); Blood Urea Nitrogen 4 mg/dL (7-18); Calcium 8.3 mg/dL (8.5-10.1); Carbon Dioxide 26.8 meq/L (21.0-32.0); Chloride 110 meq/L (98-107); Glomerular Filtration Rate Greater Than 89 mL/min (>89); Glucose,Random 260 mg/dL (74-106); Potassium 3.7 meq/L (3.5-5.1); Sodium 143 meq/L (136-145)
[2018-12-23 13:31] LABS: Creatine Kinase 790 U/L (26-192)
[2018-12-23 13:47] LABS: CKMB Percent 0.3 % (0.0-4.0); Creatine Kinase MB 2.1 ng/mL (0.5-3.6)
--- NOTE | 2018-12-24 20:34 | ECG ---
Date Performed: 12/23/2018 Time Performed: 10:32:58 PTAGE: 38 years EKG: Sinus rhythm NORMAL ECG PREVIOUS TRACING : 12/22/2018 13.12 Since the previous tracing, no significant change noted DOCTOR: Kenya Flynn Interpretating Date/Time 12/24/2018 20:33:29
== END 2018-12-23 13:50 | DRG 918 ==
LOC: NEPE 09:06 → NEDH 12-21 11:45 → NEPGCP 12-21 13:51 → H270 12-23 13:39
PROVIDERS: ADMIT Family Medicine; ATTEND Family Medicine
CPT/HCPCS: 76937; 80048; 80053; 80307; 82550; 82552; 82948; 82962; 83735; 84443; 84703; 85025; 93005; J1200; J1630; J1815; J2060; J7030